=== PATIENT | male | born 1990 | race Caucasian/White ===

== ENCOUNTER 2023-09-05 00:18 | Emergency (ER) | payer OTHER, SELFPAY ==
[2023-09-05 00:22] VITALS: BP 145/82; PULSE 82; TEMP 36.9; O2SAT 99; BMI 20.9
--- NOTE | 2023-09-05 00:37 | ED_ITS ---
HPI HPI - General Adult General Chief complaint: Abdominal Pain Stated complaint: ABD PAIN Time Seen by Provider: 09/05/23 00:28 Source: patient Mode of arrival: walk-in Limitations: no limitations History of Present Illness HPI narrative: 32-year-old male presents for rectal bleeding. It has been intermittent and he thinks he might have a hemorrhoid. He is also had some mild abdominal pain but no vomiting. He has never had a hemorrhoid and he is never had any rectal bleeding. No fever or injury. He has been having this for a few days. Related Data Previous Rx's ?Medication ?Instructions ?Recorded hydrocortisone-pramoxine 1 %-1 % 1 applic MD BID #30 grams 09/05/23 rectal cream Allergies Allergy/AdvReac Type Severity Reaction Status Date / Time No Known Drug Allergies Allergy Verified 09/05/23 00:22 Opioid HPI Opioid Management Most Recent Opioid Data: No Data to Display Review of Systems ROS Narrative A ten point review of systems is negative except as noted above. Exam Narrative Exam Narrative: Nurses note and vital signs reviewed and patient is not hypoxic. General: The patient appears well and in no apparent distress. Patient is resting comfortably on cart. Skin: Warm, dry, no pallor noted. There is no rash noted. Head: Normocephalic, atraumatic Eye: Normal conjunctiva, no drainage Ears, Nose, Mouth, and Throat: oral mucosa is moist. Nares patent. Cardiovascular: Regular Rate and Rhythm Respiratory: Patient is in no distress, no accessory muscle use, lungs are clear to auscultation, no wheezing, rales or rhonchi Back: non-tender GI: Soft and nontender, no masses. Perianal exam shows a nonthrombosed external hemorrhoid with some blood present. No active bleeding Musculoskeletal: The patient has no evidence of calf tenderness, no pitting edema, symmetrical pulses noted bilaterally Neurological: A&O, normal speech Psychiatric: Cooperative Constitutional Vital Signs, click to edit/add: Last Vital Signs Temp 98.5 F 09/05/23 00:22 Pulse 82 09/05/23 00:22 Resp 17 09/05/23 00:22 BP 145/82 H 09/05/23 00:22 Pulse Ox 99 09/05/23 00:22 O2 Del Method Room Air 09/05/23 00:22 Course Vital Signs Vital signs: Vital Signs Temperature 98.5 F 09/05/23 00:22 Pulse Rate 82 09/05/23 00:22 Respiratory Rate 17 09/05/23 00:22 Blood Pressure 145/82 H 09/05/23 00:22 Pulse Oximetry 99 09/05/23 00:22 Oxygen Delivery Method Room Air 09/05/23 00:22 Temperature 98.5 F 09/05/23 00:22 Pulse Rate 82 09/05/23 00:22 Respiratory Rate 17 09/05/23 00:22 Blood Pressure 145/82 H 09/05/23 00:22 Pulse Oximetry 99 09/05/23 00:22 Oxygen Delivery Method Room Air 09/05/23 00:22 Medical Decision Making MDM Narrative Medical decision making narrative: Blood work is essentially normal, hemoglobin 12.6. He is referred to general surgery and was prescribed ProctoCream. Treatment diagnosis and follow-up were discussed with the patient. Differential Diagnosis Differential Diagnosis: External hemorrhoid, internal hemorrhoid, anal fissure Lab Data Lab results reviewed: Yes I reviewed the patient's lab results Labs: Lab Results 09/05/23 Range/Units 00:39 WBC 6.0 (4.0-11.0) 10^3/uL RBC 4.32 L (4.70-6.10) 10^6/uL Hgb 12.6 L (14.0-18.0) g/dL Hct 38.6 L (42.0-54.0) % MCV 89.4 (80.0-94.0) fL MCH 29.2 (25.9-34.0) pg MCHC 32.6 (29.9-35.2) g/dL RDW 11.9 (11.0-15.0) % Plt Count 159 (150-450) 10^3/uL MPV 11.4 (9.5-13.5) fL Neut % (Auto) 66.4 (43.0-75.0) % Lymph % (Auto) 23.9 (20.5-60.0) % [place] % (Auto) 6.2 (1.7-12.0) % Eos % (Auto) 2.5 (0.9-7.0) % Baso % (Auto) 0.8 (0.2-2.0) % Neut # (Auto) 4.0 (1.4-6.5) 10^3/uL Lymph # (Auto) 1.4 (1.2-3.8) 10^3/uL [place] # (Auto) 0.4 (0.3-0.8) 10^3/uL Eos # (Auto) 0.2 (0.0-0.7) 10^3/uL Baso # (Auto) 0.1 (0.0-0.1) 10^3/uL Abs Immat Gran (auto) 0.01 (0.00-0.03) 10^3/uL Imm/Tot Granulo (auto) 0.2 (0.0-0.5) % Sodium 139 (136-145) mmol/L Potassium 4.1 (3.5-5.1) mmol/L Chloride 102 (98-107) mmol/L Carbon Dioxide 28.8 (21.0-32.0) mmol/L Anion Gap 12.3 BUN 12.0 (7.0-18.0) mg/dL Creatinine 0.79 (0.70-1.30) mg/dL Est GFR ( Amer) >60 (>=60) Est GFR (Non-Af Amer) >60 (>=60) BUN/Creatinine Ratio 15.2 Glucose 101 (74-106) mg/dL Calcium 8.9 (8.5-10.1) mg/dL Discharge Plan Discharge Stand Alone Forms: Portal Instructions Chief Complaint: Abdominal Pain Clinical Impression: External hemorrhoid Patient Disposition: Home, Self-Care Time of Disposition Decision: 01:03 Condition: Good Mode of Transportation: Private Vehicle Prescriptions / Home Meds: New hydrocortisone-pramoxine 1-1 % cream 1 applic MD BID Qty: 30 0RF Print Language: Slovenian Instructions: Hemorrhoids (ED) Referrals: Jamison [place] MD [Physician] - 1 week Physician,Non-MD Valencia [Primary Care Provider] - 1 week
[2023-09-05 00:45] LABS: Basophils Absolute Auto 0.1 10^3/uL (0.0-0.1); Basophils Percent Auto 0.8 % (0.2-2.0); Eosinophils Absolute Auto 0.2 10^3/uL (0.0-0.7); Eosinophils Percent Auto 2.5 % (0.9-7.0); Hematocrit 38.6 % (42.0-54.0); Hemoglobin 12.6 g/dL (14.0-18.0); Immature Granulocytes Abs Auto 0.01 10^3/uL (0.00-0.03); Immature Granulocytes Pct Auto 0.2 % (0.0-0.5); Lymphocytes Absolute Auto 1.4 10^3/uL (1.2-3.8); Lymphocytes Percent Auto 23.9 % (20.5-60.0); Mean Corpuscular HGB Conc 32.6 g/dL (29.9-35.2); Mean Corpuscular Hemoglobin 29.2 pg (25.9-34.0); Mean Corpuscular Volume 89.4 fL (80.0-94.0); Mean Platelet Volume 11.4 fL (9.5-13.5); Monocytes Absolute Auto 0.4 10^3/uL (0.3-0.8); Monocytes Percent Auto 6.2 % (1.7-12.0); Neutrophils Percent Auto 66.4 % (43.0-75.0); Platelet Count 159 10^3/uL (150-450); Red Blood Count 4.32 10^6/uL (4.70-6.10); Red Cell Distribution Width 11.9 % (11.0-15.0)
[2023-09-05 00:52] LABS: Anion Gap 12.3; BUN Creatinine Ratio 15.2; Calcium 8.9 mg/dL (8.5-10.1); Carbon Dioxide 28.8 mmol/L (21.0-32.0); Chloride 102 mmol/L (98-107); Estimated GFR (African America >60 (>=60); Estimated GFR (Non-African Ame >60 (>=60); Glucose 101 mg/dL (74-106); Potassium 4.1 mmol/L (3.5-5.1); Sodium 139 mmol/L (136-145)
== END 2023-09-05 01:18 | disposition home or self-care (01) ==
PROVIDERS: Emergency Provider Emergency Medicine
DX: K64.4 Residual hemorrhoidal skin tags (principal)
CPT/HCPCS: 36415; 80048; 85025; 99283

== ENCOUNTER 2024-03-25 16:28 | Emergency (ER) | payer MEDICAID, SELFPAY ==
[2024-03-25 16:31] VITALS: BP 123/80; PULSE 98; TEMP 36.5; O2SAT 96; BMI 21.6
--- NOTE | 2024-03-25 16:43 | ED.GENADUL1 ---
HPI HPI - General Adult General Chief complaint: Allergic Reaction Stated complaint: Rash Time Seen by Provider: 03/25/24 16:30 Source: patient Mode of arrival: walk-in History of Present Illness HPI narrative: Patient presents to ED complaining of a diffuse rash. Patient states he got a Sublocade shot a month ago and he has had a rash ever since he got the shot. He does not think he is had any new lotions soaps detergents or foods that could have triggered this rash, he thinks is related to the shot. He said he said this diffuse macular itchy rash for the past month. He has not seen anybody about the rash and he has been taking Benadryl but it has not been helping. It continues to spread and itch. No shortness of breath no chest pain. No wheezing. He said his chest felt maybe a little bit tight today so he decided to come in and get evaluated because the rash just will not go away. No fevers no nausea vomiting. No other complaints at this time. Related Data Previous Rx's ?Medication ?Instructions ?Recorded hydrocortisone-pramoxine 1 %-1 % 1 applic [place] BID #30 grams 09/05/23 rectal cream Allergies Allergy/AdvReac Type Severity Reaction Status Date / Time No Known Drug Allergies Allergy Verified 03/25/24 16:34 Opioid HPI Opioid Management Most Recent Opioid Data: No Data to Display Review of Systems ROS Status of ROS 10 or more systems reviewed and unremarkable except as noted in history and below PFSH PFSH Social History Little interest or pleasure in doing things: not at all Feeling down, depressed, or hopeless: not at all Exam Narrative Exam Narrative: General: alert, no acute distress Cardiovascular: regular rate and rhythm, normal peripheral perfusion. Respiratory: Lungs CTA, respirations non labored. Extremities: no deformity, no trauma. Neurological: oriented x 4, LOC appropriate for age. Skin: Diffuse macular rash, erythematous with raised borders consistent with possible hives. No cellulitis Constitutional Vital Signs, click to edit/add: Last Vital Signs Temp 97.7 F 03/25/24 16:31 Pulse 98 H 03/25/24 16:31 Resp 16 03/25/24 16:31 BP 123/80 03/25/24 16:31 Pulse Ox 96 03/25/24 16:31 O2 Del Method Room Air 03/25/24 16:31 Course Vital Signs Vital signs: Vital Signs Temperature 97.7 F 03/25/24 16:31 Pulse Rate 98 H 03/25/24 16:31 Respiratory Rate 16 03/25/24 16:31 Blood Pressure 123/80 03/25/24 16:31 Pulse Oximetry 96 03/25/24 16:31 Oxygen Delivery Method Room Air 03/25/24 16:31 Temperature 97.7 F 03/25/24 16:31 Pulse Rate 98 H 03/25/24 16:31 Respiratory Rate 16 03/25/24 16:31 Blood Pressure 123/80 03/25/24 16:31 Pulse Oximetry 96 03/25/24 16:31 Oxygen Delivery Method Room Air 03/25/24 16:31 Medical Decision Making MDM Narrative Medical decision making narrative: Possible allergic reaction to a Sublocade shot however it is unclear at this time. Patient can continue taking Benadryl for the itching but does need to be placed on a steroid taper. Return to ED if worsening symptoms otherwise follow-up with family doctor. He is supposed to get another shot soon but he is unsure if he is going to due to the potential allergy. I explained that basically is up to him but it would maybe tell us for sure if he gets a shot and it causes another reaction. Patient states he will decide what to do with his primary care provider. Patient is alert and oriented no acute distress comfortable care plan for home. Differential Diagnosis Differential Diagnosis: Allergic reaction, [place] area, viral exanthem Discharge Plan Discharge Chief Complaint: Allergic Reaction Clinical Impression: Allergic reaction Patient Disposition: Home, Self-Care Time of Disposition Decision: 16:47 Condition: Good Mode of Transportation: Private Vehicle Prescriptions / Home Meds: No Action hydrocortisone-pramoxine 1-1 % cream 1 applic [place] BID Qty: 30 0RF Print Language: Greenlandic Instructions: General Allergic Reaction (ED) Referrals: Physician,Non-Staff, MD [Primary Care Provider] - 1 week
--- OUTSIDE RECORDS SUMMARY | 2024-03-25 16:47 | XMS_ITS | CCD ---
Author Organization [facility] Care Team Providers Care Conveyor Console Operator Name Role Phone JONNYDANIELLE Referring Unavailable DO Carmella Page Emergency Provider [phone] NO FAMILY, PHYSICIAN Primary Care Provider Unava ilable DO Jamison Norton Admit Provider DO Jamison Norton Attending Provider MD Beckie Claire Other Provider Lesvia Barrientos Other Provider Unavailable DO Amanda Valera Other Provider MD Nnamdi Hay Other Provider DO Gera Pascual Other Provider GERARDO Hairston-BC Ramona Other Provider DO Ryland Medrano Other Provider JEANIE Lynne Other Provider ROXANN Alvarado Other Provider MD Leonora Bruce Attending Provider Beckie Claire Admitting Unavailzo e Beckie Claire Attending Unavailzo e NO FAMILY, PHYSICIAN Primary Care Unavailable Jamison Norton Admitting Unavailable Beckie Claire Consulting Unavailzo e Leonora Bruce Attending Unavailable NO FAMILY, PHYSICIAN Primary Care Unavailable Lesvia Barrientos Consulting Unavailable Amanda Valera Consulting Unavailable Nnamdi Hay Consulting Unavailable Gera Pascual Consulting UnavailRamona Laguna Consulting Unavailable Ryland Medrano Consulting Unavailable Sandy Lynne Consulting Unavailable Christine Alvarado Consulting Unavailable LAWANDA TODD Admitting Unavailable RADHA, DR PANDEY LISTED Primary Care Unavaila gabrielle Liao, LAWANDA Attending Unavailable MICHELLE Liao, LAWANDA Consulting Unavailable ANA SINGLETON Consulting Unavailable MARILYN SMITH Consulting Unavailable YUMIKO Liao, DR STAFFORD Attending Unavailable YUMIKO Liao, DR STAFFORD Consulting Unavailable NELSON LUJAN Primary Care Unavailable YUMIKO Liao, DR STAFFORD Admitting Unavailable GAURANG BENITEZ Consulting Unavailable MD Beckie Claire Attending Provider MD Beckie Claire Admit Provider NO PCP, NO PCP Primary Care Unavailable DAKOTA COATES Attending Unavailable ILIA CHACKO Attending Unavailable ILIA CHACKO Referring Unavailable NO PCP, NO PCP Primary Care Unavailable NO PCP, NO PCP Primary Care Unavailable SADIQ CASILLAS Attending Unavailable Medications Current Medications Medication Drug Class(es) Dates Sig (Normalized) Sig (Original) escitalopram 5 mg oral tablet (1 source) Serotonin Reuptake Inhibitor Start: 10-11-2022 take 5 mg by mouth once daily Escitalopram Oxalate Active 5 MG PO Daily October 11, 2022 12:00am nicotine 2 mg chewing gum (1 source) Cholinergic Nicotinic Agonist Start: 10-11-2022 Nicotine (Polacrilex) Active 2 MG BUCCAL Every 2 hours 60 October 11, 2022 12:00am pantoprazole 40 mg delayed release oral tablet (1 source) Proton Pump Inhibitor Start: 10-11-2022 take 40 mg by mouth once daily Pantoprazole Active 40 MG PO Daily October 11, 2022 12:00am traZODone hydrochloride 100 mg oral tablet (1 source) Serotonin Reuptake Inhibitor Start: 10-11-2022 take 100 mg by mouth once daily at bedtime Trazodone Active 100 MG PO Daily at bedtime 14 October 11, 2022 12:00am 24 hr divalproex sodium 500 mg extended release oral tablet (1 source) Mood Stabilizer, Anti-epileptic Agent Start: 10-11-2022 take 500 mg by mouth once daily at bedtime Divalproex Active 500 MG PO Daily at bedtime October 11, 2022 12:00am Completed/Discontinued Medications Medication Drug Class(es) Dates Sig (Normalized) Sig (Original) acetaminophen 325 mg oral tablet (2 sources) Start: 08-17-2022 End: 10-07-2022 take 650 mg by mouth every six hours Acetaminophen Discontinued 650 MG PO Q6H August 17, 2022 12:00am October 07, 2022 5:38am cloNIDine hydrochloride 0.1 mg oral tablet (2 sources) Central alpha-2 Adrenergic Agonist Start: 08-17-2022 End: 10-07-2022 take 0.1 mg by mouth twice daily Clonidine Hcl Discontinued 0.1 MG PO Twice daily August 17, 2022 12:00am October 07, 2022 5:38am gabapentin 300 mg oral capsule (2 sources) Anti-epileptic Agent Start: 08-17-2022 End: 10-07-2022 take 300 mg by mouth twice daily Gabapentin Discontinued 300 MG PO Twice daily August 17, 2022 12:00am October 07, 2022 5:38am temazepam 15 mg oral capsule (2 sources) Benzodiazepine Start: 08-17-2022 End: 10-07-2022 take 15 mg by mouth once daily at bedtime Temazepam Discontinued 15 MG PO Daily at bedtime 7 August 17, 2022 12:00am October 07, 2022 5:38am Problems Active Problems Problem Classification Problem Date Documented Da te Episodic/Chronic Abdominal pain (1 source) Flank pain Onset: 12-19-2023 Episodic Allergic reactions (1 source) Urticaria, unspecified; Translations: [Urticaria, unspecified] Onset: 01-11-2024 Episodic Malaise and fatigue (1 source) Weakness; Translations: [Weakness] Onset: 08-10-2022 Episodic Mood disorders (6 sources) Recurrent major depressive episodes, moderate ; Translations: [Major depressive disorder, recurrent, moderate] Onset: 08-10-2022 08-11-2022 Chronic Other gastrointestinal disorders (1 source) Constipation, unspecified; Translations: [Constipation, unspecified] Onset: 12-19-2023 Episodic Other screening for suspected conditions (not mental disorders or infectious disease) (2 sources) Thyroid function tests abnormal; Translations: [Other specified abnormal findings of blood chemistry] 10-08-2022 Episodic Residual codes; unclassified (4 sources) Altered mental status, unspecified; Translations: [ALTERED MENTAL STATUS UNSPECIFIED] Onset: 09-18-2022 Episodic Substance-related disorders (1 source) Nicotine dependence, cigarettes, uncomplicated; Translations: [NICOTINE DEPEND CIGARETTES UNCOMP] Onset: 09-20-2022 Chronic Substance-related disorders (17 sources) Opioid withdrawal; Translations: [Opioid use, unspecified with withdrawal] Onset: 08-10-2022 08-10-2022 Episodic Unclassified (1 source) Opioid use, unspecified with withdrawal; Translations: [Opioid use, unspecified with withdrawal] Onset: 08-10-2022 Unclassified (1 source) Rash Onset: 01-11-2024 Unclassified (1 source) abdominal pain, problems urinating Onset: 12-19-2023 Past or Other Problems Problem Classification Problem Date Documented Da te Episodic/Chronic Lymphadenitis (1 source) Generalized enlarged lymph nodes; Translations: [GENERALIZED ENLARGED LYMPH NODES] Onset: 05-29-2022 Episodic Other lower respiratory disease (1 source) Solitary pulmonary nodule; Translations: [SOLITARY PULMONARY NODULE] Onset: 05-29-2022 Episodic Syncope (4 sources) Syncope and collapse; Translations: [SYNCOPE AND COLLAPSE] Onset: 05-27-2022 Episodic Results Test Name Value Interpretation Reference Range Facility CBC AND AUTO DIFFon 12-19-19 24 ABSOLUTE BASOPHIL 0.0 X10E9/L Normal 0.0-0.2 [facility] Comment on above: Performed By: #### C BCA, CMP #### [facility] ([id number]) [address] [place] [address] 44152 ABSOLUTE NEUTROPHIL 3.1 X10E9/L Normal 1.5-6.6 [facility] Comment on above: Performed By: #### C BCA, CMP #### [facility] ([id number]) [address] [place] [address] 25537 Basophils/100 WBC (Bld) 0.8 % Normal [facility] Comment on above: Performed By: #### C BCA, CMP #### [facility] ([id number]) [address] [place] [address] 96941 Eosinophils (Bld) [#/Vol] 0.2 10*3/uL Normal 0.0-0.4 [facility] Comment on above: Performed By: #### C WILLAM, CMP #### [facility] ([id number]) [address] [place] [address] 13429 Eosinophils/100 WBC (Bld) 3.8 % Normal [facility] Comment on above: Performed By: #### C WILLAM, CMP #### [facility] ([id number]) [address] [place] [address] 90647 Erythrocyte distribution width (RBC) [Ratio] 13.4 % Normal 11.5-15.0 [facility] Comment on above: Performed By: #### C WILLAM, CMP #### [facility] ([id number]) [address] [place] [address] 11456 Hematocrit (Bld) [Volume fraction] 38.1 % Low 39-49 [facility] Comment on above: Performed By: #### C WILLAM, CMP #### [facility] ([id number]) [address] [place] [address] 66169 Hemoglobin (Bld) [Mass/Vol] 12.7 g/dL Low 13.0-17.0 [facility] Comment on above: Performed By: #### C WILLAM, CMP #### [facility] ([id number]) [address] [place] [address] 08031 Lymphocytes (Bld) [#/Vol] 1.2 10*3/uL Normal 1.0-3.5 [facility] Comment on above: Performed By: #### C WILLAM, CMP #### [facility] ([id number]) [address] [place] [address] 06443 Lymphocytes/100 WBC (Bld) 25.4 % Normal [facility] Comment on above: Performed By: #### C WILLAM, CMP #### [facility] ([id number]) [address] [place] [address] 95496 MCH (RBC) [Entitic mass] 29.3 pg Normal 27-34 [facility] Comment on above: Performed By: #### C BCA, CMP #### [facility] ([id number]) [address] [place] [address] 07518 MCHC (RBC) [Mass/Vol] 33.4 g/dL Normal 32-36 [facility] Comment on above: Performed By: #### C BCA, CMP #### [facility] ([id number]) [address] [place] [address] 42548 MCV (RBC) [Entitic vol] 88 fL Normal 80-100 [facility] Comment on above: Performed By: #### C BCA, CMP #### [facility] ([id number]) [address] [place] [address] 83279 Monocytes (Bld) [#/Vol] 0.4 10*3/uL Normal 0-0.9 [facility] Comment on above: Performed By: #### C WILLAM, CMP #### [facility] ([id number]) [address] [place] [address] 57173 Monocytes/100 WBC (Bld) 7.3 % Normal [facility] Comment on above: Performed By: #### C BCA, CMP #### [facility] ([id number]) [address] [place] [address] 14110 Neutrophils/100 WBC (Bld) 62.7 % Normal [facility] Comment on above: Performed By: #### C BCA, CMP #### [facility] ([id number]) [address] [place] [address] 30890 Platelet mean volume (Bld) [Entitic vol] 9.3 fL Normal 7-12 [facility] Comment on above: Performed By: #### C BCA, CMP #### [facility] ([id number]) [address] [place] [address] 05175 Platelets (Bld) [#/Vol] 155 10*3/uL Normal 150-450 [facility] Comment on above: Performed By: #### C BCA, CMP #### [facility] ([id number]) [address] [place] [address] 54907 RBC COUNT 4.34 X10E12/L Normal 4.10-5.70 [facility] Comment on above: Performed By: #### C BCA, CMP #### [facility] ([id number]) [address] [place] [address] 70739 WBC (Bld) [#/Vol] 4.9 10*3/uL Normal 4.0-11.0 [facility] Comment on above: Performed By: #### C BCA, CMP #### [facility] ([id number]) [address] [place] [address] 71444 COMPREHENSIVE METABOLIC PANE Cornelio 12-19-2023 Albumin [Mass/Vol] 4.1 g/dL Normal 3.2-5.3 [facility] Comment on above: Performed By: #### C BCA, CMP #### [facility] ([id number]) [address] [place] [address] 59528 ALP [Catalytic activity/Vol] 63 U/L Normal 39-130 [facility] Comment on above: Performed By: #### C BCA, CMP #### [facility] ([id number]) [address] [place] [address] 66358 ALT [Catalytic activity/Vol] 14 U/L Normal 0-40 [facility] Comment on above: Performed By: #### C BCA, CMP #### [facility] ([id number]) [address] [place] [address] 60186 Anion gap [Moles/Vol] 6 mmol/L Normal 5-15 [facility] Comment on above: Performed By: #### C BCA, CMP #### [facility] ([id number]) [address] [place] [address] 95147 AST [Catalytic activity/Vol] 15 U/L Normal 0-41 [facility] Comment on above: Performed By: #### C BCA, CMP #### [facility] ([id number]) [address] [place] [address] 11660 Bilirubin [Mass/Vol] 0.5 mg/dL Normal 0.3-1.2 [facility] Comment on above: Performed By: #### C BCA, CMP #### [facility] ([id number]) [address] [place] [address] 85048 Calcium [Mass/Vol] 8.6 mg/dL Normal 8.5-10.5 [facility] Comment on above: Performed By: #### C BCA, CMP #### [facility] ([id number]) [address] [place] [address] 02899 Chloride [Moles/Vol] 103 mmol/L Normal 98-109 [facility] Comment on above: Performed By: #### C BCA, CMP #### [facility] ([id number]) [address] [place] [address] 54996 CO2 [Moles/Vol] 27 mmol/L Normal 22-32 [facility] Comment on above: Performed By: #### C BCA, CMP #### [facility] ([id number]) [address] [place] [address] 78240 Creatinine [Mass/Vol] 0.83 mg/dL Normal 0.70-1.20 [facility] Comment on above: Result Comment: METH OD TRACEABLE TO IDMS STANDARD Performed By: #### C BCA, CMP #### [facility] ([id number]) [address] [place] [address] [place] [address] eGFR (CKD-EPI) NON-RACE DEPENDENT >90 Normal >59 [facility] Comment on above: Result Comment: Reported eGFR is based on the CKD-EPI 2020 equation that does not use a race coefficient. Performed By: #### C BCA, CMP #### [facility] ([id number]) [address] [place] [address] 72254 Glucose [Mass/Vol] 86 mg/dL Normal 65-99 [facility] Comment on above: Performed By: #### C BCA, CMP #### [facility] ([id number]) [address] [place] [address] 37173 Potassium [Moles/Vol] 3.9 mmol/L Normal 3.5-5.0 [facility] Comment on above: Performed By: #### C BCA, CMP #### [facility] ([id number]) [address] [place] [address] 58436 Protein [Mass/Vol] 7.2 g/dL Normal 6.0-8.0 [facility] Comment on above: Performed By: #### C BCA, CMP #### [facility] ([id number]) [address] [place] [address] 02203 Sodium [Moles/Vol] 136 mmol/L Normal 134-146 [facility] Comment on above: Performed By: #### C BCA, CMP #### [facility] ([id number]) [address] [place] [address] 12312 Urea nitrogen [Mass/Vol] 15 mg/dL Normal 5-23 [facility] Comment on above: Performed By: #### C BCA, CMP #### [facility] ([id number]) [address] [place] [address] ABDOMEN AND PELVIS WO CON Ton 12-19-2023 CT ABDOMEN AND PELVIS WO CONT CT ABDOMEN AND PELVIS WO CONT CLINICAL INFORMATION: Abdominal/flank pain, stone suspected. TECHNIQUE: CT Abdomen and Pelvis without intravenous contrast. All CT scans at this facility use dose modulation, iterative reconstruction, and/or weight based dosing when appropriate to reduce radiation dose to as low as reasonably achievable. COMPARISON: No relevant prior studies available. FINDINGS: No stone or collecting system dilatation. No contour deforming renal mass. No bladder calculus. Scattered small lung nodules, for example right lower lobe anteriorly near nodules largest 4 mm (2/4), nodules along the left major fissure 3 mm likely perifissural. No hepatic mass. No biliary dilatation. Normal gallbladder. Spleen, pancreas, adrenals unremarkable. No bowel obstruction. Normal terminal ileum, normal appendix. There is small volume free pelvic fluid, uncertain etiology and clinical significance in this male patient. No free air. No enlarged lymph nodes. No abdominal aortic aneurysm. No suspicious osseous process. Multilevel Schmorl's nodes. IMPRESSION: * No stone or collecting system dilatation. * There is small volume free pelvic fluid, uncertain etiology and clinical significance in this male patient. * Small lung nodules. In a low-risk patient, no further follow-up is warranted. In a high-risk patient, consider optional follow-up in 12 months. Adapted from the Recommendations for Follow-up and Management of Indeterminate Lung Nodules Detected Incidentally on Non-screening CT (Adapted from the 2017 Fleischner Society Recommendations for Management of Incidental Pulmonary Nodules (Radiology 2017) http://pubs.rsna.org/ doi/full/10.1148/radi ol.5669581678 These recommendations refer to incidentally encountered lung nodules detected at CT in adult patients who are at least 35 years old. If MULTIPLE nodules, use the most suspicious nodule to guide management. Diameter = average width. SOLID NODULES: < 6 mm (single or multiple): LOW RISK Patient: No follow up CT HIGH RISK Patient: Optional CT at 12 months. If unchanged, no additional CT *Note: Nodules < 6 mm may still warrant 12 month follow-up in high risk patients with suspicious nodule morphology, upper lobe location or both. 6 - 8 mm (regardless of risk): SINGLE NODULE: CT at 12 months, then consider CT at 24 months MULTIPLE NODULES: CT at 6 & 24 months *For either of the above, if no change, no further follow up CT > 8 mm (regardless of risk): SINGLE NODULE: CT at 3 months, PET/CT or tissue sampling, consider referral to pulmonary medicine MULTIPLE NODULES: CT at 3, 12 & 24 months; if no change, no further follow up NON SOLID NODULES (non solid AKA ground glass; and part solid) < 6 mm (regardless of risk and if nonsolid or part solid): SINGLE NODULE: No follow up CT MULTIPLE NODULES: CT at 6 months; if unchanged, consider CT at 2 & 4 years 6 - 8 mm (regardless of risk): SINGLE NON SOLID: CT at 12 months; if unchanged, then CT at 3 & 5 years SINGLE PART SOLID: CT at 6 & 12 months; if unchanged & solid component remains < 6 mm, then annual CT for 5 years MULTIPLE NODULES: management as above based on most suspicious nodule NOTES & CAVEATS: 1. HIGH RISK = history of cigarette smoking or other known risk factors for lung cancer 2. LOW RISK = minimal or absent history of cigarette smoking or other known risk factors 3. Nodules with a ground glass component may require longer follow up to exclude indolent adenocarcinoma 4. Not intended for use in patients with known primary cancers who are at risk for metastases, immunocompromised patients who are at risk for infection 5. Not intended for use in children and adults younger than 35 years in whom lung cancer is rare young patients, management decisions should be made on a [id number]-by-[id number] basis, and the physician should recognize that infectious causes are more likely than cancer and that use of serial CT should be minimized. Finalized by Nitish Bell MD on 12/19/2023 7:52 PM Normal [facility] Alanine aminotransferase [En zymatic activity/volume] in Serum or PlasmaOrdered By: Master Claire on 10-08-2022 ALT [Catalytic activity/Vol] 48 U/L 7-52 [facility] Albumin [Mass/volume] in Ser um or Plasma by Bromocresol green (BCG) dye binding methoOrdered By: Master Claire on 10-08-2022 Albumin BCG dye [Mass/Vol] 3.7 g/dL 3.5-5.7 [facility] Alkaline phosphatase [Enzyma tic activity/volume] in Serum or PlasmaOrdered By: Master Claire on 10-08-2022 ALP [Catalytic activity/Vol] 59 U/L 34-104 [facility] Aspartate aminotransferase [ Enzymatic activity/volume] in Serum or PlasmaOrdered By: Master Claire on 10-08-2022 AST [Catalytic activity/Vol] 65 U/L 13-39 [facility] Basophils Auto (Bld) [#/Vol] Ordered By: Master Claire on 10-08-2022 Basophils (Bld) [#/Vol] 0.0 10*3/uL 0.0-0.2 [facility] Basophils/100 WBC Auto (Bld) Ordered By: Master Claire on 10-08-2022 Basophils/100 WBC (Bld) 0.9 % . [facility] Bilirubin.total [Mass/volume ] in Serum or PlasmaOrdered By: Master Claire on 10-08-2022 Bilirubin [Mass/Vol] 0.3 mg/dL 0.3-1.0 [facility] Calcium [Mass/volume] in Ser um or PlasmaOrdered By: Master Claire on 10-08-2022 Calcium [Mass/Vol] 8.5 mg/dL 8.6-10.3 [facility] Carbon dioxide, total [Moles /volume] in Serum or PlasmaOrdered By: Master Claire on 10-08-2022 CO2 [Moles/Vol] 25.0 mmol/L 21.0-31.0 [facility] Chloride [Moles/volume] in S maritza or PlasmaOrdered By: Master Claire on 10-08-2022 Chloride [Moles/Vol] 109 mmol/L 98-107 [facility] Cholesterol [Mass/volume] in Serum or PlasmaOrdered By: Master Claire on 10-08-2022 Cholesterol [Mass/Vol] 102 mg/dL 140-200 [facility] Comment on above: Chol less than 200 m g/dl low riskChol 201-239 mg/dl borderline riskChol 240 mg/dl and greater high risk Cholesterol in LDL Calc [Mas s/Vol]Ordered By: Master Claire on 10-08-2022 Cholesterol in LDL [Mass/Vol] 56 mg/dL 0-100 [facility] Comment on above: LDL ATP III CLASSIFI CATIONLDL less than 100 mg/dL OptimalLDL 100-129 mg/dL Near or above optimalLDL 130-159 mg/dL Borderline highLDL 160-189 mg/dL HighLDL greater than 189 mg/dL Very high Cholesterol in VLDL Calc [Ma ss/Vol]Ordered By: Master Claire on 10-08-2022 Cholesterol in VLDL [Mass/Vol] 14 mg/dL [facility] Creatinine [Mass/volume] in Serum or PlasmaOrdered By: Master Claire on 10-08-2022 Creatinine [Mass/Vol] 0.70 mg/dL 0.70-1.30 [facility] Eosinophils Auto (Bld) [#/Vo l]Ordered By: Master Claire on 10-08-2022 Eosinophils (Bld) [#/Vol] 0.1 10*3/uL 0.0-0.45 [facility] Eosinophils/100 WBC Auto (Bl d)Ordered By: Master Claire on 10-08-2022 Eosinophils/100 WBC (Bld) 1.4 % . [facility] Erythrocyte distribution wid th Auto (RBC) [Ratio]Ordered By: Master Claire on 10-08-2022 Erythrocyte distribution width (RBC) [Ratio] 14.6 % 12.0-14.8 [facility] Globulin Calc (S) [Mass/Vol] Ordered By: Master Claire on 10-08-2022 Globulin (S) [Mass/Vol] 2.5 g/dL [facility] Glucose [Mass/volume] in Ser um or PlasmaOrdered By: Master Claire on 10-08-2022 Glucose [Mass/Vol] 97 mg/dL 70-100 [facility] Comment on above: ADA recommended refe rence rangeRandom Glucose Reference Range is dependent on time and content of last meal. Glucose of more than 200 mg/dL in a nonstressed, ambulatory subject supports the diagnosis of Diabetes Mellitus. Hematocrit Auto (Bld) [Volum e fraction]Ordered By: Master Claire on 10-08-2022 Hematocrit (Bld) [Volume fraction] 35.7 % 38.8-50.0 [facility] Hemoglobin [Mass/volume] in BloodOrdered By: Master Claire on 10-08-2022 Hemoglobin (Bld) [Mass/Vol] 12.0 g/dL 13.0-17.0 [facility] Leukocytes [#/volume] correc fritz for nucleated erythrocytes in Blood by Automated counOrdered By: Master Claire on 10-08-2022 WBC corrected for nucl RBC Auto (Bld) [#/Vol] 5.4 10*3/uL 4.1-10.5 [facility] Lymphocytes Auto (Bld) [#/Vo l]Ordered By: Master Claire on 10-08-2022 Lymphocytes (Bld) [#/Vol] 1.5 10*3/uL 1.00-4.8 [facility] Lymphocytes/100 WBC Auto (Bl d)Ordered By: Master Claire on 10-08-2022 Lymphocytes/100 WBC (Bld) 28.6 % . [facility] MCH Auto (RBC) [Entitic mass ]Ordered By: Master Claire on 10-08-2022 MCH (RBC) [Entitic mass] 28.7 pg 27.5-35.2 [facility] MCHC Auto (RBC) [Mass/Vol]Or dered By: Master Claire on 10-08-2022 MCHC (RBC) [Mass/Vol] 33.6 g/dL 32.5-35.6 [facility] MCV Auto (RBC) [Entitic vol] Ordered By: Master Claire on 10-08-2022 MCV (RBC) [Entitic vol] 85.3 fL 83.5-101 [facility] Monocytes Auto (Bld) [#/Vol] Ordered By: Master Claire on 10-08-2022 Monocytes (Bld) [#/Vol] 0.4 10*3/uL 0.0-0.8 [facility] Monocytes/100 WBC Auto (Bld) Ordered By: Master Claire on 10-08-2022 Monocytes/100 WBC (Bld) 8.1 % . [facility] Neutrophils Auto (Bld) [#/Vo l]Ordered By: Master Claire on 10-08-2022 Neutrophils (Bld) [#/Vol] 3.3 10*3/uL 1.8-7.7 [facility] Neutrophils/100 WBC Auto (Bl d)Ordered By: Master Claire on 10-08-2022 Neutrophils/100 WBC (Bld) 61.0 % . [facility] No Panel InformationOrdered By: Master Claire on 10-08-2022 Estimated GFR (CKD-EPI) > 60.0 mL/Min [facility] Creatinine Clearance (Chem 145.80 [facility] Nucleated erythrocytes [Pres ence] in Blood by Automated countOrdered By: Master Claire on 10-08-2022 Nucleated RBC Auto Ql (Bld) 0.1 /100{WBC} 0-0.5 [facility] Platelet mean volume Auto (B ld) [Entitic vol]Ordered By: Master Claire on 10-08-2022 Platelet mean volume (Bld) [Entitic vol] 9.4 fL 6.6-10.1 [facility] Platelets Auto (Bld) [#/Vol] Ordered By: Master Claire on 10-08-2022 Platelets (Bld) [#/Vol] 175 10*3/uL 150-450 [facility] Potassium [Moles/volume] in Serum or PlasmaOrdered By: Master Claire on 10-08-2022 Potassium [Moles/Vol] 3.5 mmol/L 3.5-5.1 [facility] Protein [Mass/volume] in Ser um or PlasmaOrdered By: Master Claire on 10-08-2022 Protein [Mass/Vol] 6.2 g/dL 6.4-8.9 [facility] RBC Auto (Bld) [#/Vol]Ordere d By: Master Claire on 10-08-2022 RBC (Bld) [#/Vol] 4.19 10*6/uL 3.90-5.60 [facility] Serum or plasma albumin/glob ulin mass ratioOrdered By: Master Claire on 10-08-2022 Albumin/Globulin [Mass ratio] 1.5 {ratio} [facility] Serum or plasma anion gap de terminationOrdered By: Master Claire on 10-08-2022 Anion gap [Moles/Vol] 9.5 mmol/L 6.0-15.0 [facility] Serum or plasma high density lipoprotein (HDL) cholesterol measurementOrdered By: Master Claire on 10-08-2022 Cholesterol in HDL [Mass/Vol] 31 mg/dL 29-71 [facility] Comment on above: HDL CHOL ATP-III CLA SSIFICATION Cardiovascular RiskHDL > or equal to 60 mg/dL LOWHDL < 40 mg/dL HIGH Serum or plasma total choles terol/high density lipoprotein (HDL) cholesterol mass ratOrdered By: Master Claire on 10-08-2022 Cholesterol.total/Jocy sterol in HDL [Mass ratio] 3.3 {ratio} <5.0 [facility] Sodium [Moles/volume] in Ser um or PlasmaOrdered By: Master Claire on 10-08-2022 Sodium [Moles/Vol] 140 mmol/L 136-145 [facility] Thyrotropin [Units/volume] i n Serum or PlasmaOrdered By: Master Claire on 10-08-2022 TSH Qn 0.17 m[IU]/L 0.45-5.33 [facility] Thyroxine (T4) free [Mass/vo lume] in Serum or PlasmaOrdered By: Master Claire on 10-08-2022 Free T4 [Mass/Vol] 1.00 ng/dL 0.61-1.12 [facility] Triglyceride [Mass/volume] i n Serum or PlasmaOrdered By: Master Claire on 10-08-2022 Triglyceride [Mass/Vol] 74 mg/dL 0-149 [facility] Comment on above: TRIG ATP III CLASSIF ICATIONTRIG less than 150 mg/dL NormalTRIG 150-199 mg/dL Borderline highTRIG 200-500 mg/dL High TRIG greater than 500 mg/dL Very highStandard traceable to the Center for Disease Conrtrol and Prevention (CDC) test method. Urea nitrogen [Mass/volume] in Serum or PlasmaOrdered By: Master Claire on 10-08-2022 Urea nitrogen [Mass/Vol] 8 mg/dL 7-25 [facility] Vitamin D+Metabolites [Mass/ volume] in Serum or PlasmaOrdered By: Master Claire on 10-08-2022 Vitamin D+Metabolites [Mass/Vol] 19.0 ng/mL 30-100 [facility] Comment on above: VITAMIN D STATUS 25( [place])VITAMIN D RANGE (ng/mL) Deficient <20 Insufficient 20 to <30Sufficient 30 to 100Reference: Irma MF,Emily NC, Hayley WIGGINS, et al. Evaluation,treatment, and prevention of vitamin D deficiency; an Endocrine Society clinical practice guideline. JCEM. 2010; 96(7):1911-30. WBC Auto (Bld) [#/Vol]Ordere d By: Master Claire on 10-08-2022 WBC (Bld) [#/Vol] 5.4 10*3/uL 4.1-10.5 [facility] ACETAMINOPHENon 09-18-2022 Acetaminophen [Mass/Vol] ug/mL Critically low 10.0-30.0 [facility] Comment on above: Performed By: #### A CET, HARPREET, CMP ####[facility] [id number] [place], [place] [address]TkDr. Janell Smith AMMONIAon 09-18-2022 Ammonia (P) [Moles/Vol] 14 umol/L Normal 11-32 [facility] Comment on above: Performed By: #### A MM #### [facility] [address] [place], [place] [address] Dr. Janell Smith CBC AUTO DIFFon 09-18-2022 BASO # 0.0 103/ul Normal 0.0-0.1 [facility] Comment on above: Performed By: #### C BC #### [facility] [address] [place] [address] Dr. Janell Smith Basophils/100 WBC (Bld) 0.9 % Normal 0.2-2.0 [facility] Comment on above: Performed By: #### C BC #### [facility] [address] [place] [address] Dr. Janell Smith EO # 0.1 103/ul Normal 0.0-0.7 [facility] Comment on above: Performed By: #### C BC #### [facility] [address] [place] [address] Dr. Janell Smith Eosinophils/100 WBC (Bld) 3.2 % Normal 0.9-7.0 [facility] Comment on above: Performed By: #### C BC #### [facility] [address] [place] [address] Dr. Janell Smith Erythrocyte distribution width (RBC) [Ratio] 14.5 % Normal 11.0-15.0 [facility] Comment on above: Performed By: #### C BC #### [facility] [address] [place] [address] Dr. Janell Smith Hematocrit (Bld) [Volume fraction] 40.0 % Critically low 42.0-54.0 [facility] Comment on above: Performed By: #### C BC #### [facility] [address] [place] [address] Dr. Janell Smith Hemoglobin (Bld) [Mass/Vol] 12.5 g/dL Critically low 14.0-18.0 [facility] Comment on above: Performed By: #### C BC #### [facility] [address] [place] [address] Dr. Janell Smith IG # 0.02 10e3/ul Normal 0.00-0.03 [facility] Comment on above: Performed By: #### C BC #### [facility] [address] [place] [address] Dr. Janell Smith IG % 0.5 % Normal 0.0-0.5 [facility] Comment on above: Performed By: #### C BC #### [facility] [address] [place] [address] Dr. Janell Smith LYMPH # 1.7 103/ul Normal 1.2-3.8 [facility] Comment on above: Performed By: #### C BC #### [facility] [address] [place] [address] Dr. Janell Smith Lymphocytes/100 WBC (Bld) 40.1 % Normal 20.5-60.0 [facility] Comment on above: Performed By: #### C BC #### [facility] [address] [place] [address] Dr. Janell Smith MANUAL DIFF REQ NO Normal [facility] Comment on above: Performed By: #### C BC #### [facility] [address] [place] [address] Dr. Janell Smith MCH (RBC) [Entitic mass] 28.7 pg Normal 25.9-34.0 [facility] Comment on above: Performed By: #### C BC #### [facility] [address] [place] [address] Dr. Janell Smith MCHC (RBC) [Mass/Vol] 31.3 g/dL Normal 29.9-35.2 [facility] Comment on above: Performed By: #### C BC #### [facility] [address] [place] [address] Dr. Janell Smith MCV (RBC) [Entitic vol] 92.0 fL Normal 80.0-94.0 [facility] Comment on above: Performed By: #### C BC #### [facility] [address] [place] [address] Dr. Janell Smith MONO # 0.5 103/ul Normal 0.3-0.8 [facility] Comment on above: Performed By: #### C BC #### [facility] [address] [place] [address] Dr. Janell Smith Monocytes/100 WBC (Bld) 10.6 % Normal 1.7-12.0 [facility] Comment on above: Performed By: #### C BC #### [facility] [address] [place] [address] Dr. Janell Smith NEUT # 1.9 103/ul Normal 1.4-6.5 [facility] Comment on above: Performed By: #### C BC #### [facility] [address] [place] [address] Dr. Janell Smith Neutrophils/100 WBC (Bld) 44.7 % Normal 43.0-75.0 [facility] Comment on above: Performed By: #### C BC #### [facility] [address] [place] [address] Dr. Janell Smith Platelet mean volume (Bld) [Entitic vol] 10.6 fL Normal 9.5-13.5 [facility] Comment on above: Performed By: #### C BC #### [facility] [address] [place] [address] Dr. Janell Smith PLT 203 103/ul Normal 150-450 [facility] Comment on above: Performed By: #### C BC #### [facility] [address] [place] [address] Dr. Janell Smith RBC 4.35 106/ul Critically low 4.70-6.10 [facility] Comment on above: Performed By: #### C BC #### [facility] [address] [place] [address] Dr. Janell Smith WBC 4.3 103/ul Normal 4.0-11.0 [facility] Comment on above: Performed By: #### C BC #### [facility] [address] [place], [place] [id number] Dr. Janell Smith CT HEAD WO CONon 09-18-2022 CT HEAD WO CON EXAMINATION: CT HEAD WO CON HISTORY: Acute confusion COMPARISON: 05/27/2022 TECHNIQUE: CT examination of the head without IV contrast. Dose reduction techniques were achieved by using automated exposure control and/or adjustment of mA and/or kV according to patient size and/or use of iterative reconstruction technique. FINDINGS: No acute intracranial hemorrhage. No acute loss of whiteside/white differentiation. The ventricles and sulci are normal in appearance. The osseous structures are unremarkable. No soft tissue abnormality identified. The paranasal sinuses and mastoid air cells are clear. IMPRESSION: 1. No acute intracranial abnormality. Electronically authenticated by: GAURANG BENITEZ Date: 2022-09-18 13:18 Normal [facility] ETHANOL (BLD ALC)on 09-19-19 23 ALC NOTE NOTE: 80 mg/dl is th e legal limit for a blood alcohol level Normal [facility] Comment on above: Performed By: #### E TH #### [facility] [address] [place] [address] Dr. Janell Smith Ethanol [Mass/Vol] mg/dL Normal [facility] Comment on above: Performed By: #### E TH #### [facility] [address] [place] [address] Dr. Janell Smith PROF 14(COMP METB)on 023 Albumin [Mass/Vol] 3.5 g/dL Normal 3.4-5.0 [facility] Comment on above: Performed By: #### A HARPREET RODRIGUEZ, CMP #### [facility] [address] [place] [address] Dr. Janell Smith Albumin/Globulin [Mass ratio] 1.0 {ratio} Normal [facility] Comment on above: Performed By: #### A HARPREET RODRIGUEZ, CMP #### [facility] [address] [place] [address] Dr. Janell Smith ALP [Catalytic activity/Vol] 73 U/L Normal 46-116 [facility] Comment on above: Performed By: #### A CETSYMONEYC, CMP #### [facility] [address] [place] [address] Dr. Janell Smith ALT [Catalytic activity/Vol] 33 U/L Normal 16-63 [facility] Comment on above: Performed By: #### A CETSYMONEYC, CMP #### [facility] [address] [place] [address] Dr. Janell Smith Anion gap [Moles/Vol] 8.9 mmol/L Normal [facility] Comment on above: Performed By: #### A CET SALYC, CMP #### [facility] [address] [place] [address] Dr. Janell Smith AST [Catalytic activity/Vol] 52 U/L Critically high 15-37 [facility] Comment on above: Performed By: #### A CET SALYC, CMP #### [facility] [address] [place] [address] Dr. Janell Smith Bilirubin [Mass/Vol] 0.2 mg/dL Normal 0.2-1.0 [facility] Comment on above: Performed By: #### A CET SALYC, CMP #### [facility] [address] [place] [address] Dr. Janell Smith Calcium [Mass/Vol] 8.6 mg/dL Normal 8.5-10.1 [facility] Comment on above: Performed By: #### A JENNIFER SALYC, CMP #### [facility] [address] [place] [address] Dr. Janell Smith Chloride [Moles/Vol] 106 mmol/L Normal 98-107 [facility] Comment on above: Performed By: #### A CET SALYC, CMP #### [facility] [address] [place] [address] Dr. Janell Smith CO2 [Moles/Vol] 29.0 mmol/L Normal 21.0-32.0 [facility] Comment on above: Performed By: #### A CET SALYC, CMP #### [facility] [address] [place] [address] Dr. Janell Smith Creatinine [Mass/Vol] 0.89 mg/dL Normal 0.70-1.30 [facility] Comment on above: Performed By: #### A CET SALYC, CMP #### [facility] [address] [place] [address] Dr. Janell Smith EGFR-AF IRAQI >60 Normal >=60 [facility] Comment on above: Performed By: #### A CET SALYC, CMP #### [facility] [address] [place] [address] [address] Janell Smith EGFR-NON AF IRAQI >60 Normal >=60 [facility] Comment on above: Performed By: #### A HARPREET RODRIGUEZ, CMP #### [facility] [address] [place] [address] Dr. Janell Smith Globulin (S) [Mass/Vol] 3.5 g/dL Normal [facility] Comment on above: Performed By: #### A HARPREET RODRIGUEZ, CMP #### [facility] [address] [place] [address] Dr. Janell Smith Glucose [Mass/Vol] 98 mg/dL Normal 74-106 [facility] Comment on above: Performed By: #### A HARPREET RODRIGUEZ, CMP #### [facility] [address] [place] [address] Dr. Janell Smith Potassium [Moles/Vol] 3.9 mmol/L Normal 3.5-5.1 [facility] Comment on above: Performed By: #### A HARPREET RODRIGUEZ, CMP #### [facility] [address] [place] [address] Dr. Janell Smith Protein [Mass/Vol] 7.0 g/dL Normal 6.4-8.2 [facility] Comment on above: Performed By: #### A HARPREET RODRIGUEZ, CMP #### [facility] [address] [place] [address] Dr. Janell Smith Sodium [Moles/Vol] 140 mmol/L Normal 136-145 [facility] Comment on above: Performed By: #### A HARPREET RODRIGUEZ, CMP #### [facility] [address] [place] [address] Dr. Janell Smith Urea nitrogen [Mass/Vol] 8.0 mg/dL Normal 7.0-18.0 [facility] Comment on above: Performed By: #### A HARPREET RODRIGUEZ, CMP #### [facility] [address] [place] [address] Dr. Janell Smith Urea nitrogen/Creatinine [Mass ratio] 9.0 mg/mg Normal [facility] Comment on above: Performed By: #### A CET, SALYC, CMP #### [facility] [address] [place], [place] [address] Dr. Janell Smith SALICYLATEon 09-18-2022 SALICYLATE <2.8 Normal <=19.9 [facility] Comment on above: Performed By: #### A CET, SALYC, CMP ####[facility] [address] [place], [place] [address]YcDr. Janell Smith Basic Metabolic Panelon Anion gap [Moles/Vol] 11.0 mmol/L Normal 6.0-15.0 [facility] Comment on above: Performed By: #### C BC, PRL, LACTIC, BMP #### [facility] [address] Calcium [Mass/Vol] 9.2 mg/dL Normal 8.6-10.3 [facility] Comment on above: Performed By: #### C BC, PRL, LACTIC, BMP #### [facility] [address] [place] [address] [place] Chloride [Moles/Vol] 107 mmol/L Normal 98-107 [facility] Comment on above: Performed By: #### C BC, PRL, LACTIC, BMP #### [facility] [address] CO2 [Moles/Vol] 25.7 mmol/L Normal 21.0-31.0 [facility] Comment on above: Performed By: #### C BC, PRL, LACTIC, BMP #### [facility] [address] Creatinine [Mass/Vol] 0.78 mg/dL Normal 0.70-1.30 [facility] Comment on above: Performed By: #### C BC, PRL, LACTIC, BMP #### [facility] [address] [place] [address] [place] Creatinine Clr Calc Pharmacy 109.23 Normal [facility] Comment on above: Result Comment: PERF ORMED BY: [place] [id number] PATHOLOGIST [employer]LL OPERATOR HELPER CABLE TOOL REY MARVIN M.D. Performed By: #### C BC, PRL, LACTIC, BMP #### [facility] [address] [place] [address] [place] GFR/1.73 sq M.predicted MDRD (S/P/Bld) [Vol rate/Area] mL/min/{1.73_m2} Normal [facility] Comment on above: Performed By: #### C BC, PRL, LACTIC, BMP #### [facility] [address] Glucose [Mass/Vol] 93 mg/dL Normal 70-100 [facility] Comment on above: Result Comment: [facility] Glucose Reference Range is dependent on time and content of last meal. Glucose of more than 200 mg/dL in a nonstressed, ambulatory subject supports the diagnosis of Diabetes Mellitus. ADA recommended reference range Performed By: #### C BC, PRL, LACTIC, BMP #### [facility] [address] Potassium [Moles/Vol] 3.7 mmol/L Normal 3.5-5.1 [facility] Comment on above: Performed By: #### C BC, PRL, LACTIC, BMP #### [facility] [address] [place] [address] [place] Sodium [Moles/Vol] 140 mmol/L Normal 136-145 [facility] Comment on above: Performed By: #### C BC, PRL, LACTIC, BMP #### [facility] [address] [place] [address] [place] Urea nitrogen [Mass/Vol] 9 mg/dL Normal 7-25 [facility] Comment on above: Performed By: #### C BC, PRL, LACTIC, BMP #### [facility] [address] [place] [address] [place] Calcium [Mass/volume] in Ser um or PlasmaOrdered By: Leonora Bruce on 08-16-2022 Calcium [Mass/Vol] 9.2 mg/dL 8.6-10.3 [facility] Carbon dioxide, total [Moles /volume] in Serum or PlasmaOrdered By: Leonora Bruce on 08-16-2022 CO2 [Moles/Vol] 25.7 mmol/L 21.0-31.0 [facility] Chloride [Moles/volume] in S maritza or PlasmaOrdered By: Leonora Bruce on 08-16-2022 Chloride [Moles/Vol] 107 mmol/L 98-107 [facility] Creatinine [Mass/volume] in Serum or PlasmaOrdered By: Leonora Bruce on 08-16-2022 Creatinine [Mass/Vol] 0.78 mg/dL 0.70-1.30 [facility] ECG 12 lead ECGon 08-16-2022 ECG 12 lead ECG [facility] [place] [address] Electrocardiograph Report Signed Patient: Lesley Adams MR#: [id number] : 1990 Acct:[id number] Age/Sex: 31 / M ADM Date: 08/10/22 Loc: Room: [address] [place] [address] Type: ADM IN Attending Dr: Leonora Bruce MD Ordering Provider: Leonora Bruce MD Date of Service: 08/16/2210/03/499 ECG/ECG 12 lead ECG: OT Copies to: Test Reason : Blood Pressure : / mmHG Vent. Rate : 070 BPM Atrial Rate : 070 BPM P-R Int : 146 ms QRS Dur : 090 ms QT Int : 440 ms P-R-T Axes : 078 089 079 degrees QTc Int : 475 ms Sinus rhythm with occasional premature ventricular complexes Otherwise normal ECG When compared with ECG of 15-AUG-2022 08:18, premature ventricular complexes are now present Confirmed by STUART ARBOLEDA [facility] ([id number]) on 08/16/2022 4:36:34 PM Referred By: Electronically Signed By:CARMELLA DAVIDSON MD [facility] Transcribed By: MUS Signed By Rishabh Davidson MD 08/16/22 1636 [facility] Glucose [Mass/volume] in Ser um or PlasmaOrdered By: Leonora Bruce on 08-16-2022 Glucose [Mass/Vol] 93 mg/dL 70-100 [facility] Comment on above: ADA recommended refe rence rangeRandom Glucose Reference Range is dependent on time and content of last meal. Glucose of more than 200 mg/dL in a nonstressed, ambulatory subject supports the diagnosis of Diabetes Mellitus. No Panel InformationOrdered By: Leonora Bruce on 08-16-2022 Estimated GFR (CKD-EPI) > 60.0 mL/Min [facility] Creatinine Clearance (Chem 109.23 [facility] Potassium [Moles/volume] in Serum or PlasmaOrdered By: Leonora Bruce on 08-16-2022 Potassium [Moles/Vol] 3.7 mmol/L 3.5-5.1 [facility] Serum or plasma anion gap de terminationOrdered By: Leonora Bruce on 08-16-2022 Anion gap [Moles/Vol] 11.0 mmol/L 6.0-15.0 [facility] Sodium [Moles/volume] in Ser um or PlasmaOrdered By: Leonora Bruce on 08-16-2022 Sodium [Moles/Vol] 140 mmol/L 136-145 [facility] Urea nitrogen [Mass/volume] in Serum or PlasmaOrdered By: Leonora Bruce on 08-16-2022 Urea nitrogen [Mass/Vol] 9 mg/dL 7-25 [facility] Alanine aminotransferase [En zymatic activity/volume] in Serum or PlasmaOrdered By: Leonora Bruce on 08-15-2022 ALT [Catalytic activity/Vol] 8 U/L 7-52 [facility] Albumin [Mass/volume] in Ser um or Plasma by Bromocresol green (BCG) dye binding methoOrdered By: Leonora Bruce on 08-15-2022 Albumin BCG dye [Mass/Vol] 4.2 g/dL 3.5-5.7 [facility] Alkaline phosphatase [Enzyma tic activity/volume] in Serum or PlasmaOrdered By: Leonora Bruce on 08-15-2022 ALP [Catalytic activity/Vol] 60 U/L 34-104 [facility] Aspartate aminotransferase [ Enzymatic activity/volume] in Serum or PlasmaOrdered By: Leonora Bruce on 04-04-2023 AST [Catalytic activity/Vol] 10 U/L 13-39 [facility] Basophils Auto (Bld) [#/Vol] Ordered By: Leonora Bruce on 08-15-2022 Basophils (Bld) [#/Vol] 0.0 10*3/uL 0.0-0.2 [facility] Basophils/100 WBC Auto (Bld) Ordered By: Leonora Bruce on 08-15-2022 Basophils/100 WBC (Bld) 0.4 % . F [facility] Bilirubin.total [Mass/volume ] in Serum or PlasmaOrdered By: Leonora Bruce on 08-15-2022 Bilirubin [Mass/Vol] 0.6 mg/dL 0.3-1.0 [facility] Complete Blood Count Auto Di ffon 08-15-2022 Basophils (Bld) [#/Vol] 0.0 10*3/uL Normal 0.0-0.2 [facility] Comment on above: Result Comment: PERF ORMED BY: [place] [id number] PATHOLOGIST WELL DRILL OPERATOR HELPER CABLE TOOL REY MARVIN M.D. Performed By: #### C BC, PRL, LACTIC, BMP #### [facility] [address] Basophils/100 WBC (Bld) 0.4 % Normal . [facility] Comment on above: Performed By: #### C BC, PRL, LACTIC, BMP #### [facility] [address] [place] [address] [place] Eosinophils (Bld) [#/Vol] 0.0 10*3/uL Normal 0.0-0.45 [facility] Comment on above: Performed By: #### C BC, PRL, LACTIC, BMP #### [facility] [address] [place] [address] [place] Eosinophils/100 WBC (Bld) 0.5 % Normal . [facility] Comment on above: Performed By: #### C BC, PRL, LACTIC, BMP #### [facility] [address] Erythrocyte distribution width (RBC) [Ratio] 13.9 % Normal 12.0-14.8 [facility] Comment on above: Performed By: #### C BC, PRL, LACTIC, BMP #### [address] Hematocrit (Bld) [Volume fraction] 43.7 % Normal 38.8-50.0 [facility] Comment on above: Performed By: #### C BC, PRL, LACTIC, BMP #### [address] Hemoglobin (Bld) [Mass/Vol] 14.5 g/dL Normal 13.0-17.0 [facility] Comment on above: Performed By: #### C BC, PRL, LACTIC, BMP #### [address] Lymphocytes (Bld) [#/Vol] 1.3 10*3/uL Normal 1.00-4.8 [facility] Comment on above: Performed By: #### C BC, PRL, LACTIC, BMP #### [address] Lymphocytes/100 WBC (Bld) 19.7 % Normal . [facility] Comment on above: Performed By: #### C BC, PRL, LACTIC, BMP #### [address] MCH (RBC) [Entitic mass] 27.7 pg Normal 27.5-35.2 [facility] Comment on above: Performed By: #### C BC, PRL, LACTIC, BMP #### [address] [facility] (RBC) [Entitic vol] 83.5 fL Normal 83.5-101 F [facility] Comment on above: Performed By: #### C BC, PRL, LACTIC, BMP #### [address] Mean Corpuscular HGB Conc 33.2 g/dL Normal 32.5-35.6 [facility] Comment on above: Performed By: #### C BC, PRL, LACTIC, BMP #### [place] [address] [place] [address] [place] Monocytes (Bld) [#/Vol] 0.5 10*3/uL Normal 0.0-0.8 [facility] Comment on above: Performed By: #### C BC, PRL, LACTIC, BMP #### [facility] [address] [place] [address] [place] Monocytes/100 WBC (Bld) 6.9 % Normal . F [facility] Comment on above: Performed By: #### C BC, PRL, LACTIC, BMP #### [facility] [address] [place] [address] [place] Neutrophils (Bld) [#/Vol] 5.0 10*3/uL Normal 1.8-7.7 [facility] Comment on above: Performed By: #### C BC, PRL, LACTIC, BMP #### [facility] [address] [place] [address] [place] Neutrophils/100 WBC (Bld) 72.5 % Normal . [facility] Comment on above: Performed By: #### C BC, PRL, LACTIC, BMP #### [facility] [address] [place] [address] [place] NRBC% 0.2 /100{WBC} Normal 0-0.5 [facility] Comment on above: Performed By: #### C BC, PRL, LACTIC, BMP #### [address] Platelet mean volume (Bld) [Entitic vol] 9.9 fL Normal 6.6-10.1 [facility] Comment on above: Performed By: #### C BC, PRL, LACTIC, BMP #### [facility] [address] [place] [address] [place] Platelets (Bld) [#/Vol] 202 10*3/uL Normal 150-450 [facility] Comment on above: Performed By: #### C BC, PRL, LACTIC, BMP #### [facility] [address] [place] [address] [place] RBC (Bld) [#/Vol] 5.23 10*6/uL Normal 3.90-5.60 [facility] Comment on above: Performed By: #### C BC, PRL, LACTIC, BMP #### [address] WBC (Bld) [#/Vol] 6.8 10*3/uL Normal 4.1-10.5 [facility] Comment on above: Performed By: #### C BC, PRL, LACTIC, BMP #### [address] Comprehensive Metabolic Pane cornelio 08-15-2022 Albumin [Mass/Vol] 4.2 g/dL Normal 3.5-5.7 [facility] Comment on above: Performed By: #### C BC, PRL, LACTIC, BMP #### [address] Albumin/Globulin [Mass ratio] 1.6 {ratio} Normal [facility] Comment on above: Performed By: #### C BC, PRL, LACTIC, BMP #### [address] ALP [Catalytic activity/Vol] 60 U/L Normal 34-104 [facility] Comment on above: Performed By: #### C BC, PRL, LACTIC, BMP #### [address] ALT [Catalytic activity/Vol] 8 U/L Normal 7-52 [facility] Comment on above: Performed By: #### C BC, PRL, LACTIC, BMP #### [address] Anion gap [Moles/Vol] 12.0 mmol/L Normal 6.0-15.0 [facility] Comment on above: Performed By: #### C BC, PRL, LACTIC, BMP #### [address] AST [Catalytic activity/Vol] 10 U/L Low 13-39 [facility] Comment on above: Performed By: #### C BC, PRL, LACTIC, BMP #### [address] Bilirubin [Mass/Vol] 0.6 mg/dL Normal 0.3-1.0 [facility] Comment on above: Performed By: #### C BC, PRL, LACTIC, BMP #### [facility] [address] Calcium [Mass/Vol] 9.0 mg/dL Normal 8.6-10.3 [facility] Comment on above: Performed By: #### C BC, PRL, LACTIC, BMP #### [facility] [address] Chloride [Moles/Vol] 108 mmol/L High 98-107 [facility] Comment on above: Performed By: #### C BC, PRL, LACTIC, BMP #### [address] CO2 [Moles/Vol] 23.4 mmol/L Normal 21.0-31.0 [facility] Comment on above: Performed By: #### C BC, PRL, LACTIC, BMP #### [address] Creatinine [Mass/Vol] 0.79 mg/dL Normal 0.70-1.30 [facility] Comment on above: Performed By: #### C BC, PRL, LACTIC, BMP #### [place] [address] [place] Creatinine Clr Calc Pharmacy 111.65 [facility] Comment on above: Result Comment: PERF ORMED BY: [place] [id number] PATHOLOGIST WELL DRILL OPERATOR HELPER CABLE TOOL REY MARVIN M.D. Performed By: #### C BC, PRL, LACTIC, BMP #### [place] [address] [place] GFR/1.73 sq M.predicted MDRD (S/P/Bld) [Vol rate/Area] mL/min/{1.73_m2} [facility] Comment on above: Performed By: #### C BC, PRL, LACTIC, BMP #### [address] [place] [address] [place] Globulin (S) [Mass/Vol] 2.6 g/dL Normal F [facility] Comment on above: Performed By: #### C BC, PRL, LACTIC, BMP #### [address] Glucose [Mass/Vol] 93 mg/dL Normal 70-100 [facility] Comment on above: Result Comment: [facility] Glucose Reference Range is dependent on time and content of last meal. Glucose of more than 200 mg/dL in a nonstressed, ambulatory subject supports the diagnosis of Diabetes Mellitus. ADA recommended reference range Performed By: #### C BC, PRL, LACTIC, BMP #### [address] Potassium [Moles/Vol] 3.4 mmol/L Low 3.5-5.1 [facility] Comment on above: Performed By: #### C BC, PRL, LACTIC, BMP #### [address] Protein [Mass/Vol] 6.8 g/dL Normal 6.4-8.9 [facility] Comment on above: Performed By: #### C BC, PRL, LACTIC, BMP #### [address] Sodium [Moles/Vol] 140 mmol/L Normal 136-145 [facility] Comment on above: Performed By: #### C BC, PRL, LACTIC, BMP #### [address] Urea nitrogen [Mass/Vol] 12 mg/dL Normal 7-25 [facility] Comment on above: Performed By: #### C BC, PRL, LACTIC, BMP #### [address] ECG 12 lead ECGon 08-15-2022 ECG 12 lead ECG [facility] [place] [address] [place] [address] Electrocardiograph Report Signed Patient: Lesley Adams MR#: [id number] : 1990 Acct:[id number] Age/Sex: 31 / M ADM Date: 08/10/22 Loc: Room: [address] [place] [address] Type: ADM IN Attending Dr: Leonora Bruce MD Ordering Provider: Leonora Bruce MD Date of Service: 08/15/2209/03/499 ECG/ECG 12 lead ECG: abn Copies to: Test Reason : Blood Pressure : / mmHG Vent. Rate : 073 BPM Atrial Rate : 073 BPM P-R Int : 114 ms QRS Dur : 092 ms QT Int : 436 ms P-R-T Axes : -22 092 072 degrees QTc Int : 480 ms Normal sinus rhythm Rightward axis Prolonged QT Abnormal ECG When compared with ECG of 14-AUG-2022 11:54, No significant change was found Confirmed by STUART ARBOLEDA [facility] ([id number]) on 08/15/2022 5:09:50 PM Referred By: Electronically Signed By:CARMELLA DAVIDSON MD FAC Transcribed By: MUS Signed By Rishabh Davidson MD 08/15/22 1709 Normal [facility] Eosinophils Auto (Bld) [#/Vo l]Ordered By: Leonora Bruce on 08-15-2022 Eosinophils (Bld) [#/Vol] 0.0 10*3/uL 0.0-0.45 [facility] Eosinophils/100 WBC Auto (Bl d)Ordered By: Leonora Bruce on 08-15-2022 Eosinophils/100 WBC (Bld) 0.5 % . [facility] Erythrocyte distribution wid th Auto (RBC) [Ratio]Ordered By: Leonora Bruce on 08-15-2022 Erythrocyte distribution width (RBC) [Ratio] 13.9 % 12.0-14.8 [facility] Globulin Calc (S) [Mass/Vol] Ordered By: Leonora Bruce on 08-15-2022 Globulin (S) [Mass/Vol] 2.6 g/dL F [facility] Hematocrit Auto (Bld) [Volum e fraction]Ordered By: Leonora Bruce on 08-15-2022 Hematocrit (Bld) [Volume fraction] 43.7 % 38.8-50.0 [facility] Hemoglobin [Mass/volume] in BloodOrdered By: Leonora Bruce on 08-15-2022 Hemoglobin (Bld) [Mass/Vol] 14.5 g/dL 13.0-17.0 [facility] Leukocytes [#/volume] correc fritz for nucleated erythrocytes in Blood by Automated counOrdered By: Leonora Bruce on 08-15-2022 WBC corrected for nucl RBC Auto (Bld) [#/Vol] 6.8 10*3/uL 4.1-10.5 [facility] Lymphocytes Auto (Bld) [#/Vo l]Ordered By: Leonora Bruce on 08-15-2022 Lymphocytes (Bld) [#/Vol] 1.3 10*3/uL 1.00-4.8 [facility] Lymphocytes/100 WBC Auto (Bl d)Ordered By: Leonora Bruce on 08-15-2022 Lymphocytes/100 WBC (Bld) 19.7 % . [facility] MCH Auto (RBC) [Entitic mass ]Ordered By: Leonora Bruce on 08-15-2022 MCH (RBC) [Entitic mass] 27.7 pg 27.5-35.2 [facility] MCHC Auto (RBC) [Mass/Vol]Or dered By: Leonora Bruce on 08-15-2022 MCHC (RBC) [Mass/Vol] 33.2 g/dL 32.5-35.6 [facility] MCV Auto (RBC) [Entitic vol] Ordered By: Leonora Bruce on 08-15-2022 MCV (RBC) [Entitic vol] 83.5 fL 83.5-101 [facility] MR head/brain wo/w conon MR head/brain wo/w con [facility] [place] [address] MRI Report Signed Patient: Lesley Adams MR#: [id number] : 1990 Acct:[id number] Age/Sex: 31 / M ADM Date: 08/10/22 Loc: 3T Room: [address] [place] [address] Type: ADM IN Attending Dr: Leonora Bruce MD Copies to: DO Leonora Bernard MD Ordering Provider: Ryland Medrano DO Date of Service: 08/15/22 MR/MR head/brain wo/w con: sporadic myoclonus MRI BRAIN WITHOUT AND WITH INTRAVENOUS CONTRAST CLINICAL DATA: 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 The ventricles are normal in size and position. There are no areas of abnormal signal intensity or enhancement within the supra or infratentorial brain. There is no restricted diffusion to suggest a recent ischemic event. No extra-axial collections or mass effect are seen. No midline abnormalities are noted. The imaged paranasal sinuses are clear. MR/MR head/brain wo/w con IMPRESSION: NO ACUTE INTRACRANIAL FINDINGS. Impression dictated by: Darshana Schulz M.D.08/15/2022 6:42 PM Dictation Location: [place] [address] Transcribed By: [facility] 08/15/22 184 Dictated By: Darshana Schulz MD 08/15/22 1835 Signed By: 08/15/22 184 Normal [facility] Monocytes Auto (Bld) [#/Vol] Ordered By: Leonora Bruce on 08-15-2022 Monocytes (Bld) [#/Vol] 0.5 10*3/uL 0.0-0.8 [facility] Monocytes/100 WBC Auto (Bld) Ordered By: Leonora Bruce on 08-15-2022 Monocytes/100 WBC (Bld) 6.9 % . F [facility] Neutrophils Auto (Bld) [#/Vo l]Ordered By: Leonora Bruce on 08-15-2022 Neutrophils (Bld) [#/Vol] 5.0 10*3/uL 1.8-7.7 [facility] Neutrophils/100 WBC Auto (Bl d)Ordered By: Leonora Bruce on 08-15-2022 Neutrophils/100 WBC (Bld) 72.5 % . [facility] Nucleated erythrocytes [Pres ence] in Blood by Automated countOrdered By: Leonora Bruce on 08-15-2022 Nucleated RBC Auto Ql (Bld) 0.2 /100{WBC} 0-0.5 [facility] Platelet mean volume Auto (B ld) [Entitic vol]Ordered By: Leonora Bruce on 08-15-2022 Platelet mean volume (Bld) [Entitic vol] 9.9 fL 6.6-10.1 [facility] Platelets Auto (Bld) [#/Vol] Ordered By: Leonora Bruce on 08-15-2022 Platelets (Bld) [#/Vol] 202 10*3/uL 150-450 [facility] Protein [Mass/volume] in Ser um or PlasmaOrdered By: Leonora Bruce on 08-15-2022 Protein [Mass/Vol] 6.8 g/dL 6.4-8.9 [facility] RBC Auto (Bld) [#/Vol]Ordere d By: Leonora Bruce on 08-15-2022 RBC (Bld) [#/Vol] 5.23 10*6/uL 3.90-5.60 [facility] Serum or plasma albumin/glob ulin mass ratioOrdered By: Leonora Bruce on 08-15-2022 Albumin/Globulin [Mass ratio] 1.6 {ratio} [facility] WBC Auto (Bld) [#/Vol]Ordere d By: Leonora Bruce on 08-15-2022 WBC (Bld) [#/Vol] 6.8 10*3/uL 4.1-10.5 [facility] ECG 12 lead ECGon 08-14-2022 ECG 12 lead ECG [facility] [place] [address] Electrocardiograph Report Signed Patient: Lesley Adams MR#: [id number] : 1990 Acct:[id number] Age/Sex: 31 / M ADM Date: 08/10/22 Loc: Room: [address] [place] [address] Type: ADM IN Attending Dr: Leonora Bruce MD Ordering Provider: Leonora Bruce MD Date of Service: 08/14/2208/04/1143 ECG/ECG 12 lead ECG: prol QT Copies to: Test Reason : Blood Pressure : / mmHG Vent. Rate : 089 BPM Atrial Rate : 089 BPM P-R Int : 150 ms QRS Dur : 092 ms QT Int : 418 ms P-R-T Axes : 076 101 066 degrees QTc Int : 508 ms Normal sinus rhythm Rightward axis Prolonged QT Abnormal ECG When compared with ECG of 10-AUG-2022 11:39, No significant change was found Confirmed by STUART ARBOLEDA FACCARMELLA ([id number]) on 08/14/2022 3:01:28 PM Referred By: Electronically Signed By:CARMELLA DAVIDSON MD [facility] Transcribed By: MUS Signed By Rishabh Davidson MD 08/14/22 1501 Normal [facility] Folate [Mass/volume] in Seru m or PlasmaOrdered By: Leonora Bruce on 08-14-2022 Folate [Mass/Vol] 9.2 ng/mL >5.9 [facility] Comment on above: Folate reference ran ge: >5.9 ng/mlThe WHO technical consultation on folate and vitamin [id number] has determined that folate concentrations lessthan 4 ng/ml are considered deficient. Magnesiumon 08-14-2022 Magnesium [Mass/Vol] 2.8 mg/dL High 1.9-2.7 [facility] Comment on above: Order Comment: pt is not happy today and keeps saying he does not what to have this done. when i tried to tell him his doc needs these labs to get him better he said he said no they dont and he was not going to get stuck no more pt stated no as i was walking in so i left psw 1455 Performed By: #### C BC, PRL, LACTIC, BMP #### [facility] [address] [place] [address] Magnesium [Mass/volume] in S maritza or PlasmaOrdered By: Leonora Bruce on 08-14-2022 Magnesium [Mass/Vol] 2.8 mg/dL 1.9-2.7 [facility] Thyroid Stimulating Hormoneo n 08-14-2022 TSH Qn 0.70 m[IU]/L Normal 0.45-5.33 [facility] Comment on above: Order Comment: pt is not happy today and keeps saying he does not what to have this done. when i tried to tell him his doc needs these labs to get him better he said he said no they dont and he was not going to get stuck no more pt stated no as i was walking in so i left psw 1455 Result Comment: PERF ORMED BY: [place] [address] PATHOLOGIST WELL DRILL OPERATOR HELPER CABLE TOOL REY MARVIN M.D. Performed By: #### C BC, PRL, LACTIC, BMP #### [facility] [address] Thyrotropin [Units/volume] i n Serum or PlasmaOrdered By: Leonora Bruce on 08-14-2022 TSH Qn 0.70 m[IU]/L 0.45-5.33 [facility] Vit. B12/Folate Profileon Cobalamin (Vitamin B12) [Mass/Vol] 493 pg/mL Normal 180-914 [facility] Comment on above: Order Comment: pt is not happy today and keeps saying he does not what to have this done. when i tried to tell him his doc needs these labs to get him better he said he said no they dont and he was not going to get stuck no more pt stated no as i was walking in so i left psw 1455 Performed By: #### C BC, PRL, LACTIC, BMP #### [facility] [address] Folate 9.2 ng/mL Normal >5.9 [facility] Comment on above: Order Comment: pt is not happy today and keeps saying he does not what to have this done. when i tried to tell him his doc needs these labs to get him better he said he said no they dont and he was not going to get stuck no more pt stated no as i was walking in so i left psw 1455 Result Comment: Marni te reference range: >5.9 ng/ml The WHO technical consultation on folate and vitamin b12 deficiencies has determined that folate concentrations less than 4 ng/ml are considered deficient. Performed By: #### C BC, PRL, LACTIC, BMP #### [facility] [address] Vitamin B12 ser/plasOrdered By: Leonora Bruce on 08-14-2022 Cobalamin (Vitamin B12) [Mass/Vol] 493 pg/mL 180-914 [facility] Basic Metabolic Panelon 07-14 Anion gap [Moles/Vol] 13.1 mmol/L Normal 6.0-15.0 [facility] Comment on above: Performed By: #### C BC, PRL, LACTIC, BMP #### [facility] [address] Calcium [Mass/Vol] 8.9 mg/dL Normal 8.6-10.3 [facility] Comment on above: Performed By: #### C BC, PRL, LACTIC, BMP #### [facility] [address] Order Comment: Comme nt add on to labs from [facility] Result Comment: PERF ORMED BY: [place] [address] PATHOLOGIST WELL DRILL OPERATOR HELPER CABLE TOOL REY MARVIN M.D. Chloride [Moles/Vol] 108 mmol/L High 98-107 [facility] Comment on above: Performed By: #### C BC, PRL, LACTIC, BMP #### [facility] [address] CO2 [Moles/Vol] 23.1 mmol/L Normal 21.0-31.0 [facility] Comment on above: Performed By: #### C BC, PRL, LACTIC, BMP #### [facility] [address] Creatinine [Mass/Vol] 0.76 mg/dL Normal 0.70-1.30 [facility] Comment on above: Performed By: #### C BC, PRL, LACTIC, BMP #### [facility] [address] Creatinine Clr Calc Pharmacy 115.66 Normal [facility] Comment on above: Performed By: #### C BC, PRL, LACTIC, BMP #### [facility] [address] [place] [address] [place] GFR/1.73 sq M.predicted MDRD (S/P/Bld) [Vol rate/Area] mL/min/{1.73_m2} Normal [facility] Comment on above: Performed By: #### C BC, PRL, LACTIC, BMP #### [facility] [address] Glucose [Mass/Vol] 102 mg/dL High 70-100 [facility] Comment on above: Result Comment: [facility] Glucose Reference Range is dependent on time and content of last meal. Glucose of more than 200 mg/dL in a nonstressed, ambulatory subject supports the diagnosis of Diabetes Mellitus. ADA recommended reference range Performed By: #### C BC, PRL, LACTIC, BMP #### [facility] [address] [place] [address] [place] Potassium [Moles/Vol] 3.2 mmol/L Low 3.5-5.1 [facility] Comment on above: Performed By: #### C BC, PRL, LACTIC, BMP #### [facility] [address] [place] [address] [place] Sodium [Moles/Vol] 141 mmol/L Normal 136-145 [facility] Comment on above: Performed By: #### C BC, PRL, LACTIC, BMP #### [facility] [address] [place] [address] [place] Urea nitrogen [Mass/Vol] 14 mg/dL Normal 7-25 [facility] Comment on above: Performed By: #### C BC, PRL, LACTIC, BMP #### [facility] [address] [place] [address] head/brain wo mike 08-11 CT head/brain wo [facility] [place] [address] CT Scan Report Signed Patient: Lesley Adams MR#: [id number] : 1990 Acct:[id number] Age/Sex: 31 / M ADM Date: 08/10/22 Loc: Room: 4T0242-2 Type: ADM IN Attending Dr: Jamison Norton DO Copies to: Jamison Norton DO Ordering Provider: Jamison Norton DO Date of Service: 08/11/22 CT/CT head/brain wo con: possible seizure activity CT head/brain wo con 08/11/2022 12:23 PM SIGNS AND SYMPTOMS: possible seizure activity TECHNIQUE:Multi-detec tor CT axial slices of the brain were obtained without IV contrast. CT was performed with one or more of the following dose reduction techniques: Automated exposure control, adjustment of the mA and/or kV according to patient size, or use of iterative reconstruction technique. COMPARISON: None. FINDINGS: There is no shift of the midline structures, acute intracranial bleeding, mass effects, or evidence of acute ischemia. The ventricular system is normal in size. The brainstem and the cerebellum are unremarkable. The visualized intraorbital contents, the visualized paranasal sinuses, and the infratemporal soft tissues show no acute abnormality. The osseous structures in the skull base and the calvarium show no abnormality. CT/CT head/brain wo con IMPRESSION: Normal noncontrasted CT brain. Impression dictated by: Demetrio Tello M.D.08/11/2022 1:04 PM Dictation Location: [place] [address] Transcribed By: [facility] 08/11/22 1304 Dictated By: Demetrio Tello II, MD 08/11/22 1301 Signed By: 08/11/22 1304 Normal [facility] Complete Blood Count Auto Di ffon 08-11-2022 Basophils (Bld) [#/Vol] 0.0 10*3/uL Normal 0.0-0.2 [facility] Comment on above: Result Comment: PERF ORMED BY: [place] [address] PATHOLOGIST WELL DRILL OPERATOR HELPER CABLE TOOL REY MARVIN M.D. Performed By: #### C BC, PRL, LACTIC, BMP #### [address] Basophils/100 WBC (Bld) 0.7 % Normal . [facility] Comment on above: Performed By: #### C BC, PRL, LACTIC, BMP #### [address] Eosinophils (Bld) [#/Vol] 0.0 10*3/uL Normal 0.0-0.45 [facility] Comment on above: Performed By: #### C BC, PRL, LACTIC, BMP #### [address] Eosinophils/100 WBC (Bld) 0.5 % Normal . [facility] Comment on above: Performed By: #### C BC, PRL, LACTIC, BMP #### [address] Erythrocyte distribution width (RBC) [Ratio] 13.7 % Normal 12.0-14.8 [facility] Comment on above: Performed By: #### C BC, PRL, LACTIC, BMP #### [address] Hematocrit (Bld) [Volume fraction] 40.2 % Normal 38.8-50.0 [facility] Comment on above: Performed By: #### C BC, PRL, LACTIC, BMP #### [address] Hemoglobin (Bld) [Mass/Vol] 12.9 g/dL Low 13.0-17.0 [facility] Comment on above: Performed By: #### C BC, PRL, LACTIC, BMP #### [address] Lymphocytes (Bld) [#/Vol] 1.7 10*3/uL Normal 1.00-4.8 [facility] Comment on above: Performed By: #### C BC, PRL, LACTIC, BMP #### [address] Lymphocytes/100 WBC (Bld) 26.5 % Normal . [facility] Comment on above: Performed By: #### C BC, PRL, LACTIC, BMP #### [address] MCH (RBC) [Entitic mass] 27.0 pg Low 27.5-35.2 [facility] Comment on above: Performed By: #### C BC, PRL, LACTIC, BMP #### [address] MCV (RBC) [Entitic vol] 84.0 fL Normal 83.5-101 F [facility] Comment on above: Performed By: #### C BC, PRL, LACTIC, BMP #### [address] Mean Corpuscular HGB Conc 32.1 g/dL Low 32.5-35.6 [facility] Comment on above: Performed By: #### C BC, PRL, LACTIC, BMP #### [address] Monocytes (Bld) [#/Vol] 0.5 10*3/uL Normal 0.0-0.8 [facility] Comment on above: Performed By: #### C BC, PRL, LACTIC, BMP #### [address] Monocytes/100 WBC (Bld) 7.2 % Normal . [facility] Comment on above: Performed By: #### C BC, PRL, LACTIC, BMP #### [address] Neutrophils (Bld) [#/Vol] 4.2 10*3/uL Normal 1.8-7.7 [facility] Comment on above: Performed By: #### C BC, PRL, LACTIC, BMP #### [place] [address] [place] Neutrophils/100 WBC (Bld) 65.1 % Normal . [facility] Comment on above: Performed By: #### C BC, PRL, LACTIC, BMP #### [address] NRBC% 0.3 /100{WBC} Normal 0-0.5 [facility] Comment on above: Performed By: #### C BC, PRL, LACTIC, BMP #### [address] [place] [address] [place] Platelet mean volume (Bld) [Entitic vol] 9.3 fL Normal 6.6-10.1 [facility] Comment on above: Performed By: #### C BC, PRL, LACTIC, BMP #### [facility] [address] Platelets (Bld) [#/Vol] 171 10*3/uL Normal 150-450 [facility] Comment on above: Performed By: #### C BC, PRL, LACTIC, BMP #### [facility] [address] RBC (Bld) [#/Vol] 4.78 10*6/uL Normal 3.90-5.60 [facility] Comment on above: Performed By: #### C BC, PRL, LACTIC, BMP #### [facility] [address] WBC (Bld) [#/Vol] 6.5 10*3/uL Normal 4.1-10.5 [facility] Comment on above: Performed By: #### C BC, PRL, LACTIC, BMP #### [facility] [address] Glucose Glucometer (BldC) [M ass/Vol]Ordered By: Jamison Norton on 08-11-2022 Glucose [Mass/Vol] 114 mg/dL [facility] Comment on above: Random Glucose Refer ence Range is dependent on time and content of last meal. Glucose of more than 200 mg/dL in a nonstressed, ambulatory subject supports the diagnosis of Diabetes Mellitus. Glucose Poct Glucometerson 0 08-11-2022 Glucose [Mass/Vol] 114 mg/dL Normal [facility] Comment on above: Result Comment: [place] Glucose Reference Range is dependent on time and content of last meal. Glucose of more than 200 mg/dL in a nonstressed, ambulatory subject supports the diagnosis of Diabetes Mellitus. PERFORMED BY: [place] [address] PATHOLOGIST WELL DRILL OPERATOR HELPER CABLE TOOL JIANLAN SUN M.D. Performed By: #### C BC, PRL, LACTIC, BMP #### [facility] [address] Lactate [Moles/volume] in Se rum or PlasmaOrdered By: Jamison Norton on 08-11-2022 Lactate [Moles/Vol] 0.8 mmol/L 0.5-2.2 [facility] Lactic Acidon 08-11-2022 Lactate [Moles/Vol] 0.8 mmol/L Normal 0.5-2.2 [facility] Comment on above: Result Comment: PERF ORMED BY: [place] [address] PATHOLOGIST WELL DRILL OPERATOR HELPER CABLE TOOL REY MARVIN M.D. Performed By: #### C BC, PRL, LACTIC, BMP #### [address] Prolactinon 08-11-2022 Prolactin 6.45 ng/mL Normal 2.64-13.13 [facility] Comment on above: Result Comment: PERF ORMED BY: [place] [address] PATHOLOGIST WELL DRILL OPERATOR HELPER CABLE TOOL REY MARVIN M.D. Performed By: #### C BC, PRL, LACTIC, BMP #### [address] Prolactin [Mass/volume] in S maritza or PlasmaOrdered By: Jamison Norton on 08-11-2022 Prolactin [Mass/Vol] 6.45 ng/mL 2.64-13.13 [facility] Alanine aminotransferase [En zymatic activity/volume] in Serum or PlasmaOrdered By: Carmella Page on 08-10-2022 ALT [Catalytic activity/Vol] 10 U/L 7 [facility] Albumin [Mass/volume] in Ser um or Plasma by Bromocresol green (BCG) dye binding methoOrdered By: Carmella Page on 08-10-2022 Albumin BCG dye [Mass/Vol] 4.3 g/dL 3.5-5.7 [facility] Alkaline phosphatase [Enzyma tic activity/volume] in Serum or PlasmaOrdered By: Carmella Page on 08-10-2022 ALP [Catalytic activity/Vol] 54 U/L 34-104 [facility] Ammoniaon 08-10-2022 Ammonia (P) [Moles/Vol] 21 umol/L Normal 11-35 [facility] Comment on above: Result Comment: PERF ORMED BY: [place] [address] PATHOLOGIST WELL DRILL OPERATOR HELPER CABLE TOOL REY MARVIN M.D. Performed By: #### C BC, AMM, ETOH, CMP, MG #### [facility] [address] Ammonia [Moles/volume] in Pl asmaOrdered By: Carmella Page on 08-10-2022 Ammonia (P) [Moles/Vol] 21 umol/L 11-35 [facility] Amphetamine Screen Ql (U)Ord ered By: Carmella Page on 08-10-2022 Amphetamines Ql (U) Negative Negative [facility] Aspartate aminotransferase [ Enzymatic activity/volume] in Serum or PlasmaOrdered By: Carmella Page on 08-10-2022 AST [Catalytic activity/Vol] 11 U/L 13-39 [facility] Automated erythrocytes count in urine sediment (number/area)Ordered By: Carmella Page on 08-10-2022 RBC Auto (Urine sed) [#/Area] 1-2 [HPF] 0-4 [facility] Automated leukocytes count i n urine sediment (number/area)Ordered By: Carmella Page on 08-10-2022 WBC Auto (Urine sed) [#/Area] 3-4 [HPF] 0-4 [facility] Barbiturates [Presence] in U rine by Screen methodOrdered By: Carmella Page on 08-10-2022 Barbiturates Screen Ql (U) Negative Negative [facility] Basophils Auto (Bld) [#/Vol] Ordered By: Carmella Page on 08-10-2022 Basophils (Bld) [#/Vol] 0.0 10*3/uL 0.0-0.2 [facility] Basophils/100 WBC Auto (Bld) Ordered By: Carmella Page on 08-10-2022 Basophils/100 WBC (Bld) 0.6 % . [facility] Benzodiazepines Screen Ql (U )Ordered By: Carmella Page on 08-10-2022 Benzodiazepines Ql (U) Positive Negative [facility] Benzoylecgonine [Presence] i n Urine by Screen methodOrdered By: Carmella Page on 08-10-2022 Benzoylecgonine Screen Ql (U) Negative Negative [facility] Bilirubin Test strip Ql (U)O rdered By: Carmella Page on 08-10-2022 Bilirubin Ql (U) Negative Negative [facility] Bilirubin.total [Mass/volume ] in Serum or PlasmaOrdered By: Carmella Page on 08-10-2022 Bilirubin [Mass/Vol] 0.6 mg/dL 0.3-1.0 [facility] Calcium [Mass/volume] in Ser um or PlasmaOrdered By: Carmella Page on 08-10-2022 Calcium [Mass/Vol] 9.1 mg/dL 8.6-10.3 [facility] Cannabinoids [Presence] in U rine by Screen methodOrdered By: Carmella Page on 08-10-2022 Cannabinoids Screen Ql (U) Positive Negative [facility] Comment on above: These are unconfirme d results and should not be used for legal purposes. Drug Cut-Off Concentration: AMPH 1000 ng/mL TERESA 200 ng/mL MALLORY 200 ng/mL COCM 300 ng/mL OP 300 ng/mL PCP 25 ng/mL THC 20 ng/mL Carbon dioxide, total [Moles /volume] in Serum or PlasmaOrdered By: Carmella Page on 08-10-2022 CO2 [Moles/Vol] 26.4 mmol/L 21.0-31.0 [facility] Chloride [Moles/volume] in S maritza or PlasmaOrdered By: Carmella Page on 08-10-2022 Chloride [Moles/Vol] 105 mmol/L 98-107 [facility] Color Auto (U)Ordered By: Cristobal Page on 08-10-2022 Color (U) Dark yellow Yellow [facility] Complete Blood Count Auto Di ffon 08-10-2022 Basophils (Bld) [#/Vol] 0.0 10*3/uL Normal 0.0-0.2 [facility] Comment on above: Result Comment: PERF ORMED BY: [place] [address] PATHOLOGIST WELL DRILL OPERATOR HELPER CABLE TOOL REY MARVIN M.D. Performed By: #### C BC, AMM, ETOH, CMP, MG #### [address] Basophils/100 WBC (Bld) 0.6 % Normal . [facility] Comment on above: Performed By: #### C BC, AMM, ETOH, CMP, MG #### [address] Eosinophils (Bld) [#/Vol] 0.0 10*3/uL Normal 0.0-0.45 [facility] Comment on above: Performed By: #### C BC, AMM, ETOH, CMP, MG #### [address] Eosinophils/100 WBC (Bld) 0.1 % Normal . [facility] Comment on above: Performed By: #### C BC, AMM, ETOH, CMP, MG #### [address] Erythrocyte distribution width (RBC) [Ratio] 14.1 % Normal 12.0-14.8 [facility] Comment on above: Performed By: #### C BC, AMM, ETOH, CMP, MG #### [address] Hematocrit (Bld) [Volume fraction] 39.2 % Normal 38.8-50.0 [facility] Comment on above: Performed By: #### C BC, AMM, ETOH, CMP, MG #### [address] Hemoglobin (Bld) [Mass/Vol] 12.9 g/dL Low 13.0-17.0 [facility] Comment on above: Performed By: #### C BC, AMM, ETOH, CMP, MG #### [address] Lymphocytes (Bld) [#/Vol] 1.3 10*3/uL Normal 1.00-4.8 [facility] Comment on above: Performed By: #### C BC, AMM, ETOH, CMP, MG #### [address] Lymphocytes/100 WBC (Bld) 17.7 % Normal . [facility] Comment on above: Performed By: #### C BC, AMM, ETOH, CMP, MG #### [address] MCH (RBC) [Entitic mass] 27.6 pg Normal 27.5-35.2 [facility] Comment on above: Performed By: #### C BC, AMM, ETOH, CMP, MG #### [address] MCV (RBC) [Entitic vol] 83.9 fL Normal 83.5-101 [facility] Comment on above: Performed By: #### C BC, AMM, ETOH, CMP, MG #### [address] Mean Corpuscular HGB Conc 32.8 g/dL Normal 32.5-35.6 [facility] Comment on above: Performed By: #### C BC, AMM, ETOH, CMP, MG #### [address] Monocytes (Bld) [#/Vol] 0.5 10*3/uL Normal 0.0-0.8 [facility] Comment on above: Performed By: #### C BC, AMM, ETOH, CMP, MG #### [address] Monocytes/100 WBC (Bld) 16.25 % Normal 0.00-20.00 [facility] Comment on above: Performed By: #### C BC, AMM, ETOH, CMP, MG #### [address] [place] [address] [place] Monocytes/100 WBC (Bld) 7.1 % Normal . [facility] Comment on above: Performed By: #### C BC, AMM, ETOH, CMP, MG #### [facility] [address] Neutrophils (Bld) [#/Vol] 5.4 10*3/uL Normal 1.8-7.7 [facility] Comment on above: Performed By: #### C BC, AMM, ETOH, CMP, MG #### [address] Neutrophils/100 WBC (Bld) 74.5 % Normal . [facility] Comment on above: Performed By: #### C BC, AMM, ETOH, CMP, MG #### [address] NRBC% 0.1 /100{WBC} Normal 0-0.5 [facility] Comment on above: Performed By: #### C BC, AMM, ETOH, CMP, MG #### [address] Platelet mean volume (Bld) [Entitic vol] 9.7 fL Normal 6.6-10.1 [facility] Comment on above: Performed By: #### C BC, AMM, ETOH, CMP, MG #### [place] [address] [place] Platelets (Bld) [#/Vol] 174 10*3/uL Normal 150-450 [facility] Comment on above: Performed By: #### C BC, AMM, ETOH, CMP, MG #### [place] [address] [place] RBC (Bld) [#/Vol] 4.67 10*6/uL Normal 3.90-5.60 [facility] Comment on above: Performed By: #### C BC, AMM, ETOH, CMP, MG #### [place] [address] [place] WBC (Bld) [#/Vol] 7.3 10*3/uL Normal 4.1-10.5 [facility] Comment on above: Performed By: #### C BC, AMM, ETOH, CMP, MG #### [address] Comprehensive Metabolic Pane cornelio 08-10-2022 Albumin [Mass/Vol] 4.3 g/dL Normal 3.5-5.7 [facility] Comment on above: Performed By: #### C BC, AMM, ETOH, CMP, MG #### [address] Albumin/Globulin [Mass ratio] 1.9 {ratio} Normal [facility] Comment on above: Performed By: #### C BC, AMM, ETOH, CMP, MG #### [address] ALP [Catalytic activity/Vol] 54 U/L Normal 34-104 [facility] Comment on above: Performed By: #### C BC, AMM, ETOH, CMP, MG #### [address] ALT [Catalytic activity/Vol] 10 U/L Normal 7-52 [facility] Comment on above: Performed By: #### C BC, AMM, ETOH, CMP, MG #### [address] Anion gap [Moles/Vol] 11.8 mmol/L Normal 6.0-15.0 [facility] Comment on above: Performed By: #### C BC, AMM, ETOH, CMP, MG #### [address] AST [Catalytic activity/Vol] 11 U/L Low 13-39 [facility] Comment on above: Performed By: #### C BC, AMM, ETOH, CMP, MG #### [address] Bilirubin [Mass/Vol] 0.6 mg/dL Normal 0.3-1.0 [facility] Comment on above: Performed By: #### C BC, AMM, ETOH, CMP, MG #### [facility] [address] Calcium [Mass/Vol] 9.1 mg/dL Normal 8.6-10.3 [facility] Comment on above: Performed By: #### C BC, AMM, ETOH, CMP, MG #### [address] Chloride [Moles/Vol] 105 mmol/L Normal 98-107 [facility] Comment on above: Performed By: #### C BC, AMM, ETOH, CMP, MG #### [address] CO2 [Moles/Vol] 26.4 mmol/L Normal 21.0-31.0 [facility] Comment on above: Performed By: #### C BC, AMM, ETOH, CMP, MG #### [address] Creatinine [Mass/Vol] 0.84 mg/dL Normal 0.70-1.30 [facility] Comment on above: Performed By: #### C BC, AMM, ETOH, CMP, MG #### [address] Creatinine Clr Calc Pharmacy 108.93 [facility] Comment on above: Performed By: #### C BC, AMM, ETOH, CMP, MG #### [address] GFR/1.73 sq M.predicted MDRD (S/P/Bld) [Vol rate/Area] mL/min/{1.73_m2} [facility] Comment on above: Performed By: #### C BC, AMM, ETOH, CMP, MG #### [address] Globulin (S) [Mass/Vol] 2.3 g/dL Normal [facility] Comment on above: Performed By: #### C BC, AMM, ETOH, CMP, MG #### [facility] [address] Glucose [Mass/Vol] 108 mg/dL High 70-100 [facility] Comment on above: Result Comment: [facility] Glucose Reference Range is dependent on time and content of last meal. Glucose of more than 200 mg/dL in a nonstressed, ambulatory subject supports the diagnosis of Diabetes Mellitus. ADA recommended reference range Performed By: #### C BC, AMM, ETOH, CMP, MG #### [facility] [address] Potassium [Moles/Vol] 3.2 mmol/L Low 3.5-5.1 [facility] Comment on above: Performed By: #### C BC, AMM, ETOH, CMP, MG #### [address] Protein [Mass/Vol] 6.6 g/dL Normal 6.4-8.9 [facility] Comment on above: Performed By: #### C BC, AMM, ETOH, CMP, MG #### [address] Sodium [Moles/Vol] 140 mmol/L Normal 136-145 [facility] Comment on above: Performed By: #### C BC, AMM, ETOH, CMP, MG #### [address] Urea nitrogen [Mass/Vol] 20 mg/dL Normal 7-25 [facility] Comment on above: Performed By: #### C BC, AMM, ETOH, CMP, MG #### [address] Creatinine [Mass/volume] in Serum or PlasmaOrdered By: Carmella Page on 08-10-2022 Creatinine [Mass/Vol] 0.84 mg/dL 0.70-1.30 [facility] Dipstick and Microscopicon 0 08-10-2022 Appearance (U) Clear Normal Clear [facility] Comment on above: Order Comment: Name Collection Type:: Clean-Voided Midstream Performed By: #### C BC, PRL, LACTIC, BMP #### [facility] [address] [place] [address] [place] Bacteria,Urine None Seen Normal None Seen [facility] Comment on above: Order Comment: Name Collection Type:: Clean-Voided Midstream Performed By: #### C BC, PRL, LACTIC, BMP #### [facility] [address] [place] [address] [place] Bilirubin,Urine Negative Normal Negative [facility] Comment on above: Order Comment: Name Collection Type:: Clean-Voided Midstream Performed By: #### C BC, PRL, LACTIC, BMP #### [facility] [address] [place] [address] Color (U) Dark Yellow Critically abnormal Yellow [facility] Comment on above: Order Comment: Name Collection Type:: Clean-Voided Midstream Performed By: #### C BC, PRL, LACTIC, BMP #### [facility] [address] [place] [address] Glucose Ql (U) Normal Normal Normal [facility] Comment on above: Order Comment: Name Collection Type:: Clean-Voided Midstream Performed By: #### C BC, PRL, LACTIC, BMP #### [facility] [address] [place] [address] [place] Hyaline Casts,Urine 9-19 High 0-8 [facility] Comment on above: Order Comment: Name Collection Type:: Clean-Voided Midstream Result Comment: PERF ORMED BY: [place] [address] PATHOLOGIST WELL DRILL OPERATOR HELPER CABLE TOOL REY MARVIN M.D. Performed By: #### C BC, PRL, LACTIC, BMP #### [facility] [address] [place] [address] [place] Ketones Ql (U) 1+ High Negative [facility] Comment on above: Order Comment: Name Collection Type:: Clean-Voided Midstream Performed By: #### C BC, PRL, LACTIC, BMP #### [facility] [address] [place] [address] [place] Leukocyte esterase Test strip Ql (U) 1+ High Negative [facility] Comment on above: Order Comment: Name Collection Type:: Clean-Voided Midstream Performed By: #### C BC, PRL, LACTIC, BMP #### [address] Nitrite,Urine Negative Normal Negative [facility] Comment on above: Order Comment: Name Collection Type:: Clean-Voided Midstream Performed By: #### C BC, PRL, LACTIC, BMP #### [address] Occult Blood,Urine Negative Normal Negative [facility] Comment on above: Order Comment: Name Collection Type:: Clean-Voided Midstream Result Comment: PERF ORMED BY: [place] [address] PATHOLOGIST WELL DRILL OPERATOR HELPER CABLE TOOL REY MARVIN M.D. Performed By: #### C BC, PRL, LACTIC, BMP #### [address] pH (U) 6.5 [pH] Normal 5.0-9.0 [facility] Comment on above: Order Comment: Name Collection Type:: Clean-Voided Midstream Performed By: #### C BC, PRL, LACTIC, BMP #### [address] Protein (U) [Mass/Vol] 30 mg/dL High Negative [facility] Comment on above: Order Comment: Name Collection Type:: Clean-Voided Midstream Performed By: #### C BC, PRL, LACTIC, BMP #### [address] RBC,Urine 1-2 Normal 0-4 [facility] Comment on above: Order Comment: Name Collection Type:: Clean-Voided Midstream Performed By: #### C BC, PRL, LACTIC, BMP #### [address] Specificy [place],Urine 1.034 High 1.001-1.030 [facility] Comment on above: Order Comment: Name Collection Type:: Clean-Voided Midstream Performed By: #### C BC, PRL, LACTIC, BMP #### [facility] [address] [place] [address] Squamous Epithelial Cell,Urine 0-1 Normal 0-2 [facility] Comment on above: Order Comment: Name Collection Type:: Clean-Voided Midstream Performed By: #### C BC, PRL, LACTIC, BMP #### [facility] [address] [place] [address] Urobilinogen,Urine Normal Normal Normal [facility] Comment on above: Order Comment: Name Collection Type:: Clean-Voided Midstream Performed By: #### C BC, PRL, LACTIC, BMP #### [address] WBC,Urine 3-4 Normal 0-4 [facility] Comment on above: Order Comment: Name Collection Type:: Clean-Voided Midstream Performed By: #### C BC, PRL, LACTIC, BMP #### [address] Drug Screen,Urineon 08-11-19 23 Amphetamine Screen,Urine Negative Normal Negative [facility] Comment on above: Performed By: #### C BC, PRL, LACTIC, BMP #### [address] Barbiturate Screen,Urine Negative Normal Negative [facility] Comment on above: Performed By: #### C BC, PRL, LACTIC, BMP #### [address] Benzodiazepines Screen,Urine Positive High Negative [facility] Comment on above: Performed By: #### C BC, PRL, LACTIC, BMP #### [facility] [address] [place] [address] Cannabinoid Screen,Urine Positive High Negative [facility] Comment on above: Result Comment: Thes e are unconfirmed results and should not be used for legal purposes. Drug Cut-Off Concentration: AMPH 1000 ng/mL TERESA 200 ng/mL MALLORY 200 ng/mL COCM 300 ng/mL OP 300 ng/mL PCP 25 ng/mL THC 20 ng/mL PERFORMED BY: [place] [address] PATHOLOGIST WELL DRILL OPERATOR HELPER CABLE TOOL REY MARVIN M.D. Performed By: #### C BC, PRL, LACTIC, BMP #### [facility] [address] Cocaine Screen,Urine Negative Normal Negative [facility] Comment on above: Performed By: #### C BC, PRL, LACTIC, BMP #### [facility] [address] [place] [address] [place] Opiate Screen,Urine Negative Normal Negative [facility] Comment on above: Performed By: #### C BC, PRL, LACTIC, BMP #### [facility] [address] Phencyclidine Screen,Urine Negative Normal Negative [facility] Comment on above: Performed By: #### C BC, PRL, LACTIC, BMP #### [facility] [address] ECG 12 lead ECGon 08-10-2022 ECG 12 lead ECG [facility] [place] [address] [place] [address] Electrocardiograph Report Signed Patient: Lesley Adams MR#: [id number] : 1990 Acct:[id number] Age/Sex: 31 / M ADM Date: 08/10/22 Loc: Room: [address] [place] [address] Type: ADM IN Attending Dr: Jamison Norton DO Ordering Provider: Carmella Page DO Date of Service: 08/10/22 ECG/ECG 12 lead ECG: pain Copies to: Test Reason : Blood Pressure : 126/080 mmHG Vent. Rate : 061 BPM Atrial Rate : 061 BPM P-R Int : 142 ms QRS Dur : 090 ms QT Int : 494 ms P-R-T Axes : 044 087 081 degrees QTc Int : 497 ms Normal sinus rhythm T wave abnormality, consider anterior ischemia Prolonged QT Abnormal ECG No previous ECGs available Confirmed by CARMELLA PAGE DO ([id number]) on 08/10/2022 7:34:47 PM Referred By: Electronically Signed By:CARMELLA PAGE DO Transcribed By: MUS Signed By Carmella Page DO 1933 Normal [facility] Eosinophils Auto (Bld) [#/Vo l]Ordered By: Carmella Page on 08-10-2022 Eosinophils (Bld) [#/Vol] 0.0 10*3/uL 0.0-0.45 [facility] Eosinophils/100 WBC Auto (Bl d)Ordered By: Carmella Page on 08-10-2022 Eosinophils/100 WBC (Bld) 0.1 % . [facility] Erythrocyte distribution wid th Auto (RBC) [Ratio]Ordered By: Carmella Page on 08-10-2022 Erythrocyte distribution width (RBC) [Ratio] 14.1 % 12.0-14.8 [facility] Ethanol [Mass/volume] in Ser um or PlasmaOrdered By: Carmella Page on 08-10-2022 Ethanol [Mass/Vol] mg/dL [facility] Ethanol [Mass/Vol] TNP [facility] Comment on above: Test not performed Ethyl Alcohol Profileon 07-14 Ethanol [Mass/Vol] mg/dL Normal [facility] Comment on above: Performed By: #### C BC, AMM, ETOH, CMP, MG #### [facility] [address] Percent Ethanol Not performed Normal [facility] Comment on above: Result Comment: PERF ORMED BY: [address] [place] [address] PATHOLOGIST WELL DRILL OPERATOR HELPER CABLE TOOL REY MARVIN M.D. Performed By: #### C BC, AMM, ETOH, CMP, MG #### [facility] [address] [place] [address] [place] Globulin Calc (S) [Mass/Vol] Ordered By: Carmella Page on 08-10-2022 Globulin (S) [Mass/Vol] 2.3 g/dL [facility] Glucose [Mass/volume] in Ser um or PlasmaOrdered By: Carmella Page on 08-10-2022 Glucose [Mass/Vol] 108 mg/dL 70-100 [facility] Comment on above: ADA recommended refe rence rangeRandom Glucose Reference Range is dependent on time and content of last meal. Glucose of more than 200 mg/dL in a nonstressed, ambulatory subject supports the diagnosis of Diabetes Mellitus. Hematocrit Auto (Bld) [Volum e fraction]Ordered By: Carmella Page on 08-10-2022 Hematocrit (Bld) [Volume fraction] 39.2 % 38.8-50.0 [facility] Hemoglobin [Mass/volume] in BloodOrdered By: Carmella Page on 08-10-2022 Hemoglobin (Bld) [Mass/Vol] 12.9 g/dL 13.0-17.0 [facility] Ketones Auto test strip (U) [Mass/Vol]Ordered By: Carmella Page on 08-10-2022 Ketones (U) [Mass/Vol] 1+ Negative [facility] Laboratory - UrinalysisOrder ed By: Carmella Page on 08-10-2022 Hyaline casts LM Ql (Urine sed) 9-19 [LPF] 0-8 [facility] Leukocytes [#/volume] correc fritz for nucleated erythrocytes in Blood by Automated counOrdered By: Carmella Page on 08-10-2022 WBC corrected for nucl RBC Auto (Bld) [#/Vol] 7.3 10*3/uL 4.1-10.5 [facility] Lymphocytes Auto (Bld) [#/Vo l]Ordered By: Carmella Page on 08-10-2022 Lymphocytes (Bld) [#/Vol] 1.3 10*3/uL 1.00-4.8 [facility] Lymphocytes/100 WBC Auto (Bl d)Ordered By: Carmella Page on 08-10-2022 Lymphocytes/100 WBC (Bld) 17.7 % . [facility] MCH Auto (RBC) [Entitic mass ]Ordered By: Carmella Page on 08-10-2022 MCH (RBC) [Entitic mass] 27.6 pg 27.5-35.2 [facility] MCHC Auto (RBC) [Mass/Vol]Or dered By: Carmella Page on 08-10-2022 MCHC (RBC) [Mass/Vol] 32.8 g/dL 32.5-35.6 [facility] MCV Auto (RBC) [Entitic vol] Ordered By: Carmella Page on 08-10-2022 MCV (RBC) [Entitic vol] 83.9 fL 83.5-101 F [facility] Magnesiumon 08-10-2022 Magnesium [Mass/Vol] 2.1 mg/dL Normal 1.9-2.7 [facility] Comment on above: Result Comment: PERF ORMED BY: [facility] [address] [place] [address] PATHOLOGIST WELL DRILL OPERATOR HELPER CABLE TOOL REY MARVIN M.D. Performed By: #### C BC, AMM, ETOH, CMP, MG #### [facility] [address] Magnesium [Mass/volume] in S maritza or PlasmaOrdered By: Carmella Page on 08-10-2022 Magnesium [Mass/Vol] 2.1 mg/dL 1.9-2.7 [facility] Monocyte distribution width [Entitic volume] in Blood by AutomatedOrdered By: Carmella Page on 08-10-2022 Monocyte distribution width Auto (Bld) [Entitic vol] 16.25 % 0.00-20.00 [facility] Monocytes Auto (Bld) [#/Vol] Ordered By: Carmella Page on 08-10-2022 Monocytes (Bld) [#/Vol] 0.5 10*3/uL 0.0-0.8 [facility] Monocytes/100 WBC Auto (Bld) Ordered By: Carmella Page on 08-10-2022 Monocytes/100 WBC (Bld) 7.1 % . [facility] Neutrophils Auto (Bld) [#/Vo l]Ordered By: Carmella Page on 08-10-2022 Neutrophils (Bld) [#/Vol] 5.4 10*3/uL 1.8-7.7 [facility] Neutrophils/100 WBC Auto (Bl d)Ordered By: Carmella Page on 08-10-2022 Neutrophils/100 WBC (Bld) 74.5 % . [facility] Nitrite Test strip Ql (U)Ord ered By: Carmella Page on 08-10-2022 Nitrite Ql (U) Negative Negative [facility] No Panel InformationOrdered By: Carmella Page on 08-10-2022 Estimated GFR (CKD-EPI) > 60.0 mL/Min [facility] Creatinine Clearance (Chem 108.93 [facility] Nucleated erythrocytes [Pres ence] in Blood by Automated countOrdered By: Carmella Page on 08-10-2022 Nucleated RBC Auto Ql (Bld) 0.1 /100{WBC} 0-0.5 [facility] Opiates [Presence] in Urine by Screen methodOrdered By: Carmella Page on 08-10-2022 Opiates Screen Ql (U) Negative Negative [facility] Phencyclidine Screen Ql (U)O rdered By: Carmella Page on 08-10-2022 Phencyclidine Ql (U) Negative Negative [facility] Platelet mean volume Auto (B ld) [Entitic vol]Ordered By: Carmella Page on 08-10-2022 Platelet mean volume (Bld) [Entitic vol] 9.7 fL 6.6-10.1 [facility] Platelets Auto (Bld) [#/Vol] Ordered By: Carmella Page on 08-10-2022 Platelets (Bld) [#/Vol] 174 10*3/uL 150-450 [facility] Potassium [Moles/volume] in Serum or PlasmaOrdered By: Carmella Page on 08-10-2022 Potassium [Moles/Vol] 3.2 mmol/L 3.5-5.1 [facility] Protein Auto test strip (U) [Mass/Vol]Ordered By: Carmella Page on 08-10-2022 Protein (U) [Mass/Vol] 30 mg/dL Negative [facility] Protein [Mass/volume] in Ser um or PlasmaOrdered By: Carmella Page on 08-10-2022 Protein [Mass/Vol] 6.6 g/dL 6.4-8.9 [facility] RBC Auto (Bld) [#/Vol]Ordere d By: Carmella Page on 08-10-2022 RBC (Bld) [#/Vol] 4.67 10*6/uL 3.90-5.60 [facility] Serum or plasma albumin/glob ulin mass ratioOrdered By: Carmella Page on 08-10-2022 Albumin/Globulin [Mass ratio] 1.9 {ratio} [facility] Serum or plasma anion gap de terminationOrdered By: Carmella Page on 08-10-2022 Anion gap [Moles/Vol] 11.8 mmol/L 6.0-15.0 [facility] Sodium [Moles/volume] in Ser um or PlasmaOrdered By: Carmella Page on 08-10-2022 Sodium [Moles/Vol] 140 mmol/L 136-145 [facility] Specific gravity Auto test s trip (U) [Rel density]Ordered By: Carmella Page on 08-10-2022 Specific gravity (U) [Rel density] 1.034 1.001-1.030 [facility] Squamous epithelial cells de tection in urine sediment by light microscopyOrdered By: Carmella Page on 08-10-2022 Epithelial cells.squamous LM Ql (Urine sed) 0-1 [HPF] 0-2 [facility] Urea nitrogen [Mass/volume] in Serum or PlasmaOrdered By: Carmella Page on 08-10-2022 Urea nitrogen [Mass/Vol] 20 mg/dL 7-25 [facility] Urine bacteria detection by automated methodOrdered By: Carmella Page on 08-10-2022 Bacteria Auto Ql (U) None seen None Seen [facility] Urine clarity by refractomet ry automatedOrdered By: Carmella Page on 08-10-2022 Clarity Refractometry automated (U) Clear Clear [facility] Urine glucose measurement by automated test strip (mass/volume)Ordered By: Carmella Page on 08-10-2022 Glucose Auto test strip (U) [Mass/Vol] Normal mg/dL Normal [facility] Urine hemoglobin detection b y automated test stripOrdered By: Carmella Page on 08-10-2022 Hemoglobin Auto test strip Ql (U) Negative Negative [facility] Urine leukocyte esterase det ection by automated test stripOrdered By: Carmella Page on 08-10-2022 Leukocyte esterase Auto test strip Ql (U) 1+ Negative [facility] Urobilinogen Auto test strip (U) [Mass/Vol]Ordered By: Carmella Page on 08-10-2022 Urobilinogen (U) [Mass/Vol] Normal mg/dL Normal [facility] WBC Auto (Bld) [#/Vol]Ordere d By: Carmella Page on 08-10-2022 WBC (Bld) [#/Vol] 7.3 10*3/uL 4.1-10.5 [facility] pH Auto test strip (U)Ordere d By: Carmella Page on 08-10-2022 pH (U) 6.5 [pH] 5.0-9.0 [facility] CBC AUTO DIFFon 05-27-2022 BASO # 0.1 103/ul Normal 0.0-0.1 [facility] Comment on above: Performed By: #### C BC #### [facility] [address] [place] [address] Dr. Janell Smith Basophils/100 WBC (Bld) 0.6 % Normal 0.2-2.0 [facility] Comment on above: Performed By: #### C BC #### [facility] [address] [place] [address] Dr. Janell Smith EO # 0.3 103/ul Normal 0.0-0.7 [facility] Comment on above: Performed By: #### C BC #### [facility] [address] [place] [address] Dr. Janell Smith Eosinophils/100 WBC (Bld) 2.8 % Normal 0.9-7.0 [facility] Comment on above: Performed By: #### C BC #### [facility] [address] [address] [address] Janell Smith Erythrocyte distribution width (RBC) [Ratio] 12.5 % Normal 11.0-15.0 [facility] Comment on above: Performed By: #### C BC #### [facility] [address] [place] [address] Dr. Janell Smith Hematocrit (Bld) [Volume fraction] 36.4 % Critically low 42.0-54.0 [facility] Comment on above: Performed By: #### C BC #### [facility] [address] [place] [address] Dr. Janell Smith Hemoglobin (Bld) [Mass/Vol] 12.1 g/dL Critically low 14.0-18.0 [facility] Comment on above: Performed By: #### C BC #### [facility] [address] [address] [address] Janell Smith IG # 0.02 10e3/ul Normal 0.00-0.03 [facility] Comment on above: Performed By: #### C BC #### [facility] [address] [place] [address] Dr. Janell Smith IG % 0.2 % Normal 0.0-0.5 [facility] Comment on above: Performed By: #### C BC #### [facility] [address] [place] [address] Dr. Janell Smith LYMPH # 1.9 103/ul Normal 1.2-3.8 [facility] Comment on above: Performed By: #### C BC #### [facility] [address] [place] [address] Dr. Janell Smith Lymphocytes/100 WBC (Bld) 19.9 % Critically low 20.5-60.0 [facility] Comment on above: Performed By: #### C BC #### [facility] [address] [place] [address] Dr. Janell Smith MANUAL DIFF REQ NO Normal [facility] Comment on above: Performed By: #### C BC #### [facility] [address] [place] [address] Dr. Janell Smith MCH (RBC) [Entitic mass] 28.2 pg Normal 25.9-34.0 [facility] Comment on above: Performed By: #### C BC #### [facility] [address] [place] [address] Dr. Janell Smith MCHC (RBC) [Mass/Vol] 33.2 g/dL Normal 29.9-35.2 [facility] Comment on above: Performed By: #### C BC #### [facility] [address] [place] [address] Dr. Janell Smith MCV (RBC) [Entitic vol] 84.8 fL Normal 80.0-94.0 [facility] Comment on above: Performed By: #### C BC #### [facility] [address] [place] [address] Dr. Janell Smith MONO # 0.7 103/ul Normal 0.3-0.8 [facility] Comment on above: Performed By: #### C BC #### [facility] [address] [place] [address] Dr. Janell Smith Monocytes/100 WBC (Bld) 7.7 % Normal 1.7-12.0 [facility] Comment on above: Performed By: #### C BC #### [facility] [address] [place] [address] Dr. Janell Smith NEUT # 6.5 103/ul Normal 1.4-6.5 [facility] Comment on above: Performed By: #### C BC #### [facility] [address] [place] [address] Dr. Janell Smith Neutrophils/100 WBC (Bld) 68.8 % Normal 43.0-75.0 [facility] Comment on above: Performed By: #### C BC #### [facility] [address] [place] [address] Dr. Janell Smith Platelet mean volume (Bld) [Entitic vol] 10.5 fL Normal 9.5-13.5 [facility] Comment on above: Performed By: #### C BC #### [facility] [address] [place] [address] Dr. Janell Smith PLT 195 103/ul Normal 150-450 [facility] Comment on above: Performed By: #### C BC #### [facility] [address] [place] [address] Dr. Janell Smith RBC 4.29 106/ul Critically low 4.70-6.10 [facility] Comment on above: Performed By: #### C BC #### [facility] [address] [place] [address] Dr. Janell Smith WBC 9.4 103/ul Normal 4.0-11.0 [facility] Comment on above: Performed By: #### C #### [facility] [address] [address] [address] HEAD WO CONon 05-27-2022 CT HEAD WO CON EXAM: CT HEAD WO CON CLINICAL INDICATION: Syncope COMPARISON: CT head without contrast 11/24/2013 TECHNIQUE: Axial CT images of the brain were obtained without contrast. Dose reduction techniques were achieved by using automated exposure control and/or adjustment of mA and/or kV according to patient size and/or use of iterative reconstruction technique. FINDINGS: Brain parenchyma: No mass effect or midline shift is seen. Whiteside-white differentiation is maintained. No findings suspicious for intracranial hemorrhage. No findings suggesting acute stroke. Ventricles and extra-axial spaces: Ventricles are concordant with sulci. No findings suggesting hydrocephalus. Visualized paranasal sinuses: No findings suggesting acute sinusitis. Partially visualized mucosal thickening noted along the maxillary sinuses. Mastoid air cells: Clear. Included portions of the orbits:Included portions of the orbits with no evidence of fracture or other acute pathology. Bones: No fracture is seen. Impression: 1. No acute intracranial process visualized. Electronically authenticated by: ANA SINGLETON Date: 2022-05-27 00:27 Normal [facility] CTA NECK WO W CONon 05-27-19 CTA NECK WO W CON EXAMINATION: CTA HEA D WO W CON, CTA NECK WO W CON CLINICAL INDICATION: Syncope. TECHNIQUE: CT angiography of the head and neck was then performed following intravenous administration of 75 cc of Omnipaque 350 injected at a rate of 5 cc/sec. Multiple MIP images in axial, coronal, and sagittal planes and 3D surfaced rendered images were then acquired using the source data. Automated dose lowering techniques and/or adjustment according to patient size were utilized for this examination. COMPARISON: CT head without contrast 05/26/2022. FINDINGS: CTA: CTA Head: The anterior and posterior cerebral circulations are patent. No large vessel occlusion, hemodynamically significant stenosis, aneurysm, dissection, or arteriovenous malformation is shown. No evidence for pathologic enhancement within the brain parenchyma. Cerebral venous sinuses appear patent. CTA Neck: A 3 vessel arch is shown. No evidence for flow-limiting stenosis along the origins of the great vessels. The left common, internal and external carotid arteries are patent without evidence for flow-limiting stenosis. The right common, internal and external carotid arteries are patent without evidence for flow-limiting stenosis. Bilateral vertebral artery origins appear patent. No flow-limiting stenosis is visualized along the extracranial course of the bilateral vertebral arteries. No evidence for pseudoaneurysm or dissection. There is a 5.5 mm noncalcified lung nodule noted within the right upper lung field. There are some groundglass opacities also visualized within the right upper lung field, CT chest is recommended for further evaluation. There is a 1.6 cm enlarged lymph node noted within the left level 1B station showing patchy enhancement of uncertain etiology, short-term follow-up may be done for resolution. IMPRESSION: 1. No evidence for large vessel occlusion, hemodynamically significant flow stenosis, aneurysm or dissection. 2. No measurable stenosis of the extracranial carotid and vertebral arteries. 3. There is a 5.5 mm noncalcified lung nodule noted within the right upper lung field with some groundglass opacities also visualized posteriorly within the right upper lung field, recommend CT chest for further evaluation. 4. There is a 1.6 cm enlarged lymph node noted within the left level 1B station showing patchy, additional prominent/borderline enlarged lymph node with patchy enhancement noted within the left level IIb station, short-term follow-up may be done for resolution, these may be reactive in nature, other etiologies cannot be excluded. Assessment of stenosis of the internal carotid arteries is based on NASCET criteria. Electronically authenticated by: ANA SINGLETON Date: 2022-05-27 02:11 Normal [facility] PROF CHEM 8 (BAS METB)on Anion gap [Moles/Vol] 11.6 mmol/L Normal [facility] Comment on above: Performed By: #### B MP ####[facility] [address] [place], [place] [address]Th. Janell Smith Calcium [Mass/Vol] 8.8 mg/dL Normal 8.5-10.1 [facility] Comment on above: Performed By: #### B MP ####[facility] [address] [place], [place] [address]KjYanni Smith Chloride [Moles/Vol] 101 mmol/L Normal 98-107 [facility] Comment on above: Performed By: #### B MP ####[facility] [address] [address]Dr. Janell Smith CO2 [Moles/Vol] 29.9 mmol/L Normal 21.0-32.0 [facility] Comment on above: Performed By: #### B MP ####[facility] [address] [address]Dr. Janell Smith Creatinine [Mass/Vol] 0.89 mg/dL Normal 0.70-1.30 [facility] Comment on above: Performed By: #### B MP ####[facility] [address] [address]Dr. Janell Smith EGFR-AF IRAQI >60 Normal >=60 [facility] Comment on above: Performed By: #### B MP ####[facility] [address] [place], [place] [address]Dr. Janell Smith EGFR-NON AF IRAQI >60 Normal >=60 [facility] Comment on above: Performed By: #### B MP ####[facility] [address] [place], [place] [address]Dr. Janell Smith Glucose [Mass/Vol] 81 mg/dL Normal 74-106 [facility] Comment on above: Performed By: #### B MP ####[facility] [address] [place], [place] [address]Dr. Janell Smith Potassium [Moles/Vol] 3.5 mmol/L Normal 3.5-5.1 [facility] Comment on above: Performed By: #### B MP ####[facility] [address] [place], [place] [address]Dr. Janell Smith Sodium [Moles/Vol] 139 mmol/L Normal 136-145 [facility] Comment on above: Performed By: #### B MP ####[facility] [address] [place], [place] [address]Dr. Janell Smith Urea nitrogen [Mass/Vol] 12.0 mg/dL Normal 7.0-18.0 [facility] Comment on above: Performed By: #### B MP ####[facility] [address] [place], [place] [address]KbYanni Smith Urea nitrogen/Creatinine [Mass ratio] 13.5 mg/mg Normal [facility] Comment on above: Performed By: #### B MP ####[facility] [address] [place], [place] [address]DmYanni Smith XR CHEST 1 Von 05-27-2022 XR CHEST 1 V CXR HISTORY: Patient has been fainting and blacking out. COMPARISON: None. TECHNIQUE: 1 view of the chest submitted for review. FINDINGS: The lungs are hyperaerated. The cardiac silhouette measures within normal. Pulmonary vascularity is unremarkable. Osseous structures are normal for age. IMPRESSION: No plain film evidence of acute cardiopulmonary abnormality. Electronically authenticated by: MARILYN SMITH Date: 2022-05-27 00:52 Normal [facility] [id number] 05-18-2021 SARS-CoV-2 (COVID-19) RNA FRANCOIS+probe Ql (Unsp spec) Normal [facility] Comment on above: Performed By: #### C OVID #### [facility] [address] [place] [address] Drafter Electronic: Teddy Lockett MD [facility] [address] [place] [address] Drafter Electronic: Lesley Mccarthy MD SARS-CoV-2 (COVID-19) RNA FRANCOIS+probe Ql (Unsp spec) Not detected Normal [facility] Comment on above: Result Comment: The specimen is NEGATIVE for SARS-CoV-2, the novel coronavirus associated with COVID-19. A negative result does not rule out COVID-19. Damian SARS-CoV-2 for use on the [employer]/8800 [employer] is a real-time RT-PCR test intended for the qualitative detection of nucleic acids from SARS-CoV-2 in clinician-collected nasal, nasopharyngeal, and oropharyngeal swab specimens from individuals who meet COVID-19 clinical and/or epidemiological criteria. Damian SARS-CoV-2 is for use only under Emergency Use Authorization (EUA) in laboratories certified under Clinical Laboratory Improvement Amendments of 1988 (CLIA), 42 U.S.C. ?263a, that meet requirements to perform high or moderate complexity tests. An individual without symptoms of COVID-19 and who is not shedding SARS-CoV-2 virus would expect to have a negative (not detected) result in this assay. Fact sheet for Healthcare Providers: https://www.fda.gov/media/072428/download Fact sheet for Patients: https://www.fda.gov/media/594604/download METHODOLOGY: RT-PCR Performed By: #### C OVID #### [address] [place], [place] [id number] Drafter Electronic: Teddy Lockett MD [facility] [address] [place] [address] Drafter Electronic: Lesley Mccarthy MD [id number] 05-17-2021 SARS-CoV-2 (COVID-19) RNA FRANCOIS+probe Ql (Unsp spec) .NASOPHARYNGEAL SWAB Normal [facility] Comment on above: Performed By: #### C OVID #### [address] [place] [address] Drafter Electronic: Teddy Lockett MD [facility] [address] [place] [address] Drafter Electronic: Lesley Mccarthy MD Vital Signs Date Time Vital Sign Value Performing Clinician Sveta luque 10-11-2022 07:30-0400 Diastolic blood pressure 79 mm[Hg] DO Carmella ECO-SAFE Work Phone: [facility] 10-11-2022 07:30-0400 Heart rate 113 /min DO Carmella Tupa Work Phone: [facility] 10-11-2022 07:30-0400 Respiratory rate 16 /min DO Carmella Testtpa Work Phone: [facility] 10-11-2022 07:30-0400 SaO2% (BldA) [Mass fraction] 97 % DO Carmella Tupa Work Phone: [facility] 10-11-2022 07:30-0400 Systolic blood pressure 149 mm[Hg] DO Carmella Tupa Work Phone: [facility] 10-10-2022 20:53-0400 Body temperature 98.4 [degF] DO Carmella Tupa Work Phone: [facility] 10-09-2022 08:23-0400 Body weight 68.03 kg DO Carmella Tupa Work Phone: [facility] 10-07-2022 02:12-0400 Body height 180.34 cm DO Carmella Tupa Work Phone: [facility] 08-20-2022 13:04-0400 Body temperature 97.9 [degF] DO Carmella Tupa Work Phone: [facility] 08-20-2022 13:04-0400 Diastolic blood pressure 82 mm[Hg] DO Carmella Tupa Work Phone: [facility] 08-20-2022 13:04-0400 Heart rate 84 /min DO Caremlla Tupa Work Phone: [facility] 08-20-2022 13:04-0400 Respiratory rate 18 /min DO Carmella Tupa Work Phone: [facility] 08-20-2022 13:04-0400 SaO2% (BldA) [Mass fraction] 99 % DO Carmella Tupa Work Phone: [facility] 08-20-2022 13:04-0400 Systolic blood pressure 129 mm[Hg] DO Carmella Tupa Work Phone: [facility] 08-20-2022 06:25-0400 Body weight 63.4 kg DO Carmella Tupa Work Phone: [facility] 08-15-2022 16:39-0400 Body height 180.34 cm DO Carmella Tupa Work Phone: [facility] 08-13-2022 11:46-0400 Inhaled oxygen flow rate 2 L/min DO Carmella Tupa Work Phone: [facility] 08-10-2022 15:30-0400 Diastolic blood pressure 80 mm[Hg] DO Carmella Jamiepa Work Phone: [facility] 08-10-2022 15:30-0400 Heart rate 70 /min DO Carmella Tupa Work Phone: [facility] 08-10-2022 15:30-0400 Systolic blood pressure 129 mm[Hg] DO Carmella Tupa Work Phone: [facility] 08-10-2022 14:30-0400 SaO2% (BldA) [Mass fraction] 100 % DO Carmella Tupa Work Phone: [facility] 08-10-2022 13:30-0400 Respiratory rate 26 /min DO Carmella Tupa Work Phone: [facility] 08-10-2022 11:43-0400 Body height 180.34 cm DO Carmella Page Work Phone: [facility] 08-10-2022 11:43-0400 Body weight 61 kg DO Carmella Page Work Phone: [facility] 08-10-2022 11:41-0400 Body temperature 99 [degF] DO Carmella Page Work Phone: [facility] Encounters Encounter Date Encounter Type Care Provider Facility Start: 01-11-2024 End: 01-11-2024 Emergency department patient visit NO PCP NO PCP [facility] Start: 12-19-2023 End: 12-20-2023 Emergency department patient visit ILIA CHACKO [facility] Start: 10-07-2022 End: 10-11-2022 Evaluation and management of inpatient DO Carmella Page Work Phone: [facility] Work Phone: Start: 09-18-2022 ambulatory Beckie Claire Fa cility:[facility] Start: 09-18-2022 Registered Recurring DO Rodger Page Work Phone: [facility] Start: 09-18-2022 End: 09-18-[address] RIVERA CALDERON . Facility:[facility] Start: 08-10-2022 End: 08-20-2022 Evaluation and management of inpatient Jamison Norton Facility:[facility] Start: 08-10-2022 End: 08-20-2022 Evaluation and management of inpatient DO Carmella Page Work Phone: [facility] Work Phone: Start: 05-27-2022 End: 05-27-2022 ambulatory LAWANDA MARTINEZ . Facility:[facility] Start: 05-17-2021 End: 05-18-2021 [facility] Procedures Date Procedure Procedure Detail Performing Clinician Start: 08-15-2022 MRI of head DO Carmella Page Work Phone: Start: 08-11-2022 CT of head without contrast DO Carmella Page Work Phone: Plan of Treatment Date Care Activity Detail Author Start: 10-11-2022 [facility] Start: 10-07-2022 Hospital admission [facility] Start: 08-20-2022 [facility] [facility] Start: 08-15-2022 Administration of pr ophylactic treatment [facility] Start: 08-13-2022 Referral to neurologist [facility] Start: 08-10-2022 Hospital admission [facility] Start: 08-10-2022 Referral to psychiatrist [facility] Albumin/Globulin ratio [facility] Anion gap measurement [facility] Globulin [Mass/volume] in Serum [facility] Patient Education [facility] Work Phone: Patient referral [facility] Work Phone: [facility] Payers Date Payer Category Payer Unknown [id number] 2022 Self-pay 1990 Unknown [id number] 2.16.8 [id number] 1989 Unknown [id number] 2.16.84 [id number] 1989 Unknown [id number] 2.16.84 [id number] 1989 Unknown [id number] 2.16.8 [id number] 1989 Unknown [id number] 2.16.8 [id number] 1989 Unknown [id number] 2.16.8 [id number] 1959 Unknown [id number] Unknown [employer] [id number] Unknown [id number] 2.16.8 [id number] Unknown [id number] 2.16.8 [id number] Social History Date Type Detail Facility [facility] Work Phone: Start: 1990 Sex Assigned At Male F [facility] Start: 08-14-2022 Tobacco smoking stat [facility] Unknown if ever smoked [facility] Start: 10-08-2022 [facility] Goals Date Patient Goal Desired Activity /State Functional Status Date Assessment Result Facility 10-11-2022 Functional status Patient at Baseline [facility] Work Phone: 08-20-2022 Functional status Patient at Baseline [facility] Work Phone: Mental Status Date Assessment Result Facility 10-11-2022 Cognitive function Cognitive Sta tus Patient at Baseline [facility] Work Phone: 08-20-2022 Cognitive function Cognitive Sta tus Patient at Baseline [facility] Work Phone: Clinical Notes 08-10-2022 to 10-11-2022 Note Date & Type Note Facility 10-11-2022 Discharge summary Note Date/Time October 11, 2022 11:43am [facility] [address] [place] [address] Discharge Summary Signed Patient: Lesley Adams MR#: [id number] : 1990 Acct:[id number] Age/Sex: 31 / M Adm Date: 3 Loc: Room: [address] [place] [address]: Beckie Claire MD Copies to: MD Ramiro Strong MD NO FAMILY PHYSICIAN~ Providers Date of Discharge: 10/11/22 Discharging Provider: Ramiro Morris Primary Care Provider: PHYSICIAN NO FAMILY Discharge Diagnosis (1) Withdrawal from opioids: (2) Withdrawal from benzodiazepine: (3) Major depressive disorder, recurrent, moderate: Final Diagnosis Final Discharge Diagnosis: MDD Unspecified Psychosis Stimulant Use Disorder Summary Hospital Course Hospital course: According to admission note: Mr. Adams is a 31 year old male with a reported history of anxiety, depression, opiate use disorder and sedative use disorder who presents for an inpatient psychiatric treatment.? Reportedly, he presented to the unit as? angry, using profanity. He doesn't belong here, is not happy that he does not have a TV in his room and cannot have his cell phone with him. Mom had informed ER staff that patient informed her that he was suicidal then went and took Percocet from a friend. He was found unresponsive in front of the [facility] building in [place]. At the time of the interview, he presented as lethargic. He reported self medicating with drugs and has been irritable. He said his depression has been severe and has been self medicating with drugs. He said he used to take psychiatric medications to help with mood stabilizations but does not recall their names. He was hospitalized recently on the medical floor due to benzo withdrawal and seizures. He reports history of psychiatric hospitalizations and previous suicide attempts. He reported taking Seroquel before which was not helpful. He reports using opiates, heroin and occasional weed. He did receive PRN medication which made him feel lethargic. Patient was treated with Depakote and Lexapro. He was briefly on Librium to help manage concern for benzo withdrawal but this was discontinued after a few days without any symptoms of withdrawal. During the first few days he was slightly confused and disoriented. This improved after 2 to 3 days of his hospitalization he started to become more linear and organized. He did not recall much of the details that happened prior to his hospitalization, but did admit that some of his substance use may have contributed as he relapsed to roughly after 4 weeks of sobriety. His sleep was problematic during hospitalization even with help from trazodone. His mood overall stabilized and his depression improved during his hospitalization. He did not exhibit any behavior concerning for suicidality. He did not have any conflict with peers orstagema. He attempted to make phone calls to stay with his sister but his sister stated that he could not stay there. He stated that he would stay with another family member. He was offered a residential list but stated that he would be fine going back to [place] and staying with family. He did not report any depression, suicidality on the day of discharge. He felt hopeless discharge plan home and following up with outpatient services. Time spent discussing smoking cessation with patient: 3 to 10 minutes Condition Condition at Discharge: Stable Status at Discharge Cognitive/behavioral status at discharge: Mental Status Exam: Appearance: grossly normal Mental Status: mental status grossly normal Mood: Euthymic mood Affect: Normal affect Speech and Movement: speech and movement normal and speech clear Attitude: cooperative Thought Process: normal Thought Content: Denied hallucinations, no homicidality and no suicidality Insight: Good Judgment: Good Functional status at discharge: independent ambulation Overall status at discharge: patient is back to baseline Time Spent with Patient Time spent providing/coordinating discharge services (# min): 30 Exam Physical Exam Vital Signs: Temp Pulse Resp BP Pulse Ox O2 Del Method 98.4 F 113 H 16 149/79 H 97 Room Air 10/10/22 20:53 10/11/22 07:30 10/11/22 07:30 10/11/22 07:30 10/11/22 07:30 10/11/22 07:30 Discharge Plan Discharge Plan Patient Disposition: Home Activity: No Activity Restriction Diet: Regular Additional Instructions: Patient needs to have TSH and free T4 done in approximately 3 months results to primary care Regular diet No activity restrictions Instructions: Depression, Adult (DC), [facility] [place] Instructions Prescriptions: New divalproex 500 mg tablet extended release 24 hr 500 mg PO QHS 30 Days Qty: 30 0RF nicotine (polacrilex) 2 mg Gum 2 mg buccal Q2HR PRN (Reason: Nicotine Cravings) Qty: 60 0RF pantoprazole 40 mg Tablet,Delayed Release (Dr/Ec) 40 mg PO DAILY 30 Days Qty: 30 0RF escitalopram oxalate 5 mg Tablet 5 mg PO DAILY 30 Days Qty: 30 0RF trazodone 100 mg tablet 100 mg PO QHS PRN (Reason: Insomnia) 14 Days Qty: 14 1RF Follow Up: [facility] [Other] (Please follow up with in 3 months for thyroid function.) [facility] [Outside] [facility] Hotline [Outside] Documented By: Ramiro Morris MD 10/11/22 1142 Signed By: <Electronically signed by Ramiro Morris MD> 10/11/22 8641 [facility] Work Phone: 1(767) 705-915605-30-2023 Progress note Author Ramiro Morris [facility] October 10, 2022 12:49pm Note Date/Time October 10, 2022 12:48 pm [facility] [address] [place] [address] Psychiatry Progress Note Signed Patient: Lesley Adams MR#: [id number] : 1990 Acct:[id number] Age/Sex: 31 / M Adm Date: 3 Loc: Room: [address] [place] [address] Type : ADM IN Attending Dr: Beckie Claire MD Copies to: ~ Date of Service: 10/10/2022 Subjective Subjective Narrative: Mr. Adams reported that he is still confused about what happened that led to his hospitalization. He does admit to being high. He reported that he did not sleep well last night due to thinking too much about things that had occurred inthe future. He reported that he burned a lot of bridges with family and may notbe able to return to his sister's place. We discussed about providing him with a list of shelters. Mental Status Exam: Appearance: grossly normal Mental Status: mental status grossly normal Mood: Improving mood Affect: Improving affect Speech and Movement: speech and movement normal and speech clear Attitude: cooperative Thought Process: normal Thought Content: Denied hallucinations, no homicidality, no suicidality Insight: fair Judgment: fair Exam Physical Exam Vital Signs: Temp Pulse Resp BP Pulse Ox O2 Del Method 97.4 F L 68 18 124/82 96 Room Air 10/10/22 07:30 10/10/22 07:30 10/10/22 07:30 10/10/22 07:30 10/10/22 07:30 10/10/22 07:30 Assessment/Plan Assessment/Plan (1) Withdrawal from opioids: Code(s): F11.93 - Opioid use, unspecified with withdrawal Status: Acute (2) Withdrawal from benzodiazepine: Code(s): F13.939 - Sedative, hypnotic or anxiolytic use, unspecified with withdrawal, unspecified Status: Acute (3) Major depressive disorder, recurrent, moderate: Code(s): F33.1 - Major depressive disorder, recurrent, moderate Status: Acute Plan Patient seems to be doing better at this time. We will provide residential list andanticipate discharge tomorrow Continue Lexapro 5 mg PO Q am Depakote to 250 mg PO BID Continue to monitor mental status Encourage group participation and medication compliance Risk benefits alternatives explained Documented By: Ramiro Morris MD 10/10/221246 Signed By: <Electronically signed by Ramiro Morris MD> 10/10/229 [facility] Work Phone: 1(929) 494-693305-29-2023 Progress note Author Ramiro Morris [facility] October 09, 2022 1:06pm Note Date/Time October 09, 2022 12:30 pm [facility] [address] [place] [address] Psychiatry Progress Note Signed Patient: Lesley Adams MR#: [id number] : 1990 Acct:[id number] Age/Sex: 31 / M Adm Date: 3 Loc: 1S Room: [address] [place] [address] Type : ADM IN Attending Dr: Beckie Claire MD Copies to: ~ Date of Service: 10/09/2022 Subjective Subjective Narrative: Mr. Adams reported that he is doing okay. He stated that he cannot recall much details of what happened to the hospital. He does report that he was usingopiates after relapsing after about a month of sobriety. He reported that he has not been depressed. He stated that he has not been experiencing any suicidal thoughts since his admission. He reported no side effects from currentmedications. Mental Status Exam: Appearance: grossly normal Mental Status: mental status grossly normal Mood: Improving mood Affect: Improving affect Speech and Movement: speech and movement normal and speech clear Attitude: cooperative Thought Process: normal Thought Content: Denied hallucinations, no homicidality, improving suicidality Insight: fair Judgment: fair Review of symptoms: Constitutional: Denies chills and Denies fever(s) Eyes: Denies change in vision ENT: Denies abnormal hearing Cardiovascular: Denies chest pain Respiratory: Denies chest congestion and Denies cough Gastrointestinal: Denies change in bowel habits Genitourinary: Denies dysuria Musculoskeletal: Denies atrophy and Denies myalgias Integumentary/Breasts: Denies dry skin Neurologic: Denies abnormal gait and Denies abnormal movements Psychiatric: Denies current depression and suicidal ideation Physical exam: Const: cooperative Nutritional Appearance: average body habitus Orientation: alert, awake and oriented x3 HEENT: Head normal to inspection, hearing grossly normal bilaterally, external nose normal, face symmetric Eyes: appearance normal, both eyes and all related structures, sclerae normal Neck: normal visual inspection and full ROM Resp: normal respiratory effort, able to speak in complete sentences and symmetric chest movement Cardio: regular rate GI: normal to inspection and non-distended : deferred Skin: no rashes or lesions noted Neuro: CNI: Normal olfaction CNI: normal olfaction CNII: Visual isidro intact, CNIII,IV,: EOM intact, no nystagmus. Pupils equal, round, reactive to light and accommodation, CNV: Sensation intact to light touch, CNVII: Raises eyebrows, smile/frown, puff out cheeks symmetrically, CNVIII: Hearing intact bilaterally, CNIX,X: Voice normal, soft palate elevation normal, symmetrical, CNXI: Shoulder shrug strong, equal bilaterally, CNXII: Tongue protrusion midline, movement symmetrical. Extrem: normal to inspection and full ROM Exam Physical Exam Vital Signs: Temp Pulse Resp BP Pulse Ox O2 Del Method 98.2 F 89 18 115/77 96 Room Air 10/09/22 07:30 10/09/22 07:30 10/09/22 07:30 10/09/22 07:30 10/09/22 07:30 10/09/22 08:23 Assessment/Plan Assessment/Plan (1) Withdrawal from opioids: Code(s): F11.93 - Opioid use, unspecified with withdrawal Status: Acute (2) Withdrawal from benzodiazepine: Code(s): F13.939 - Sedative, hypnotic or anxiolytic use, unspecified with withdrawal, unspecified Status: Acute (3) Major depressive disorder, recurrent, moderate: Code(s): F33.1 - Major depressive disorder, recurrent, moderate Status: Acute Plan Patient seems to be doing better at this time. Continue Lexapro 5 mg PO Q am and lower Depakote to 250 mg PO BID Discontinue Librium Continue to monitor mental status Encourage group participation and medication compliance Risk benefits alternatives explained Documented By: Ramiro Morris MD 10/09/22 1227 Signed By: <Electronically signed by Ramiro Morris MD> 10/09/22 2395 [facility] Work Phone: 1(272) 392-919405-28-2023 Progress note Author Master yoo [facility] October 08, 2022 8:02am Note Date/Time October 08, 2022 7:41a m [facility] [address] [place] [address] Psychiatry Progress Note Signed with Addenda Patient: Lesley Adams MR#: [id number] : 1990 Acct:[id number] Age/Sex: 31 / M Adm Date: 3 Loc: Room: [address] [place] [address] Type : ADM IN Attending Dr: Beckie Claire MD Copies to: ~ ADDENDUM1 Librium will be 10 mg PO BID today and may lower tomorrow Addendum Documented By: Master Claire MD 10/08/22801 Addendum Signed By: <Electronically signed by Master Claire MD> 10/08/22 0802 Date of Service: 10/08/2022 Subjective Subjective Narrative: Mr. Adams presents as lethargic and unablet to answer questions. Staff reported that he requetsed IM Zyprexa because it helped him with racing thoughtsin the past. He told staff that he has no SI/HI. TSH is at 0.17. He had mentioned yesterday sara the was using opiates and Benozs. He was unable to quantify his benzo use and therefore we started him on libirum 10 mg pO BID prophylactically against benzo withdrawal. Most recent vital signs 137/88 and pulse 94. Mental Status Exam: Appearance: Dressed in a hospital gown Mood:Unable to assess Affect: Unable to assess Speech and Movement: Unable to assess Attitude: Unable to assess Thought Process: Unable to assess Thought Content:Unable to assess Insight: Unable to assess Judgment: Unable to assess Unable to complete ROS and physical exam due to patient current presentation. Exam Physical Exam Vital Signs: Temp Pulse Resp BP Pulse Ox O2 Del Method 98.8 F 94 H 16 137/88 97 Room Air 10/07/22 19:26 10/07/22 19:26 10/07/22 19:26 10/07/22 19:26 10/07/22 19:26 10/07/22 19:26 Objective Labs Labs: Abnormal Labs 10/08/22 10/08/22 10/08/22 06:27 06:27 06:27 Hgb 12.0 L Hct 35.7 L Chloride 109 H Calcium 8.5 L AST 65 H Total Protein 6.2 L TSH 3rd Generation 0.17 L Assessment/Plan Assessment/Plan (1) Withdrawal from opioids: Code(s): F11.93 - Opioid use, unspecified with withdrawal Status: Acute (2) Withdrawal from benzodiazepine: Code(s): F13.939 - Sedative, hypnotic or anxiolytic use, unspecified with withdrawal, unspecified Status: Acute (3) Major depressive disorder, recurrent, moderate: Code(s): F33.1 - Major depressive disorder, recurrent, moderate Status: Acute Plan Patient presents as lethargic on exam. Will lower frequncy of PRN medications toavoid excessive lethargy. Continue Lexapro 5 mg PO Q am and lower Depakote to 250 mg PO BID Lower Librium to 10 mg PO QHS then graudally stop if he has no withdrawal symptoms. Monitor suicidal behaviors for safety of self (15-minute face check). Recommend attending groups and psychoeducation for building coping skills. Risks, benefits and indications of medications were discussed with the patient. The patient verbalized understanding. No abnormal movements noted on exam. AIMS is Zero. Involve friends/family members to coordinate care and ensure appropriate outpatient appointments are scheduled prior to discharge. Documented By: Master Claire MD 3 0739 Signed By: <Electronically signed by Master Claire MD> 10/08/22 0745 [facility] Work Phone: 1(957) 332-628005-27-2023 History and physical note Author Master yoo [facility] October 07, 2022 7:52am Note Date/Time October 07, 2022 7:46a m [facility] [address] [place] [address] Psychiatry H&P Signed Patient: Lesley Adams MR#: [id number] : 1990 Acct:[id number] Age/Sex: 31 / M Adm Date: 3 Loc: Room: [address] [place] [address] Type: ADM IN Attending Dr: Beckie Claire MD Copies to: Master Claire MD NO FAMILY PHYSICIAN~ Date of Service: 10/07/2022 HPI History of Present Illness History of present illness: Mr. Adams is a 31 year old male with a reported history of anxiety, depression, opiate use disorder and sedative use disorder who presents for an inpatient psychiatric treatment. Reportedly, he presented to the unit as angry, using profanity. He doesn't belong here, is not happy that he does not have a TV in his room and cannot have his cell phone with him. Mom had informed ER staff that patient informed her that he was suicidal then went and took Percocet from a friend. He was found unresponsive infront of the [facility] in [place]. At the time of the interview, he presented as lethargic. He reported self medicating with drugs and has been irritable. He said his depression has been severe and has been self medicating with drugs. He said he used to take psychiatric medications to help with mood stabilizations but does not recall their names. He was hospitalized recently on the medical floor due to benzo withdrawal and seizures. He reports history of psychiatric hospitalizations and previous suicide attempts. He reported taking Seroquel before which was not helpful. He reports using opiates, heroin and occasional weed. He did recieve PRN medication which made him feel lethargic. Mental Status Exam: Appearance: Disheveled Mental Status: Confused Mood: Anxious mood Affect: Withdrawn affect Speech and Movement: Slowed movement and slurred speech Attitude: Guarded Thought Process: Illogical Thought Content: Reported hallucinations, no homicidality, denied suicidality Insight: Poor Judgment: Poor Unable to complete ROS and physical exam due to patient current presentation. PMFSH Vaccinated for COVID-19?: Unknown Medical History (Updated 08/11/22 @ 14:36 by Beckie Claire MD) Bipolar 1 disorder Depression Insomnia Surgical History (Updated 08/10/22 @ 11:45 by Brynn Michaels RN) No pertinent past surgical history Family History (Updated 08/10/22 @ 21:10 by Sonny Jesus RN) Father Aneurysm Sister Aneurysm Social History Smoking Status: Current every day smoker Tobacco Type: e-cigarettes Substance Use Type: Opiates and Sedatives Meds Medications and Allergies Allergies No Known Allergies Allergy (Verified 08/10/22 11:43) Exam Physical Exam Vital Signs: Pulse Resp BP Pulse Ox O2 Del Method 82 16 109/70 97 Room Air 10/07/22 02:12 10/07/22 02:12 10/07/22 02:12 10/07/22 02:12 10/07/22 02:12 Assessment/Plan (1) Withdrawal from opioids: Code(s): F11.93 - Opioid use, unspecified with withdrawal Status: Acute (2) Withdrawal from benzodiazepine: Code(s): F13.939 - Sedative, hypnotic or anxiolytic use, unspecified with withdrawal, unspecified Status: Acute (3) Major depressive disorder, recurrent, moderate: Code(s): F33.1 - Major depressive disorder, recurrent, moderate Status: Acute Plan Admit to 1S for management of depression and to ensure safety of self due to SI. Start Lexapro 5 mg PO Q am and Depakote 500 mg PO BID Will start Librium 10 mg PO BID for withdrawal Monitor suicidal behaviors for safety of self (15-minute face check). Recommend attending groups and psychoeducation for building coping skills. Risks, benefits and indications of medications were discussed with the patient. The patient verbalized understanding. No abnormal movements noted on exam. AIMS is Zero. Involve friends/family members to coordinate care and ensure appropriate outpatient appointments are scheduled prior to discharge. Documented By: Master Claire MD 3 0746 Signed By: <Electronically signed by Master Claire MD> 10/07/22 0752 [facility] Work Phone: 1(207) 759-676504-09-2023 Discharge summary Author Leonora Bruce [facility] August 20, 2022 1:38pm Note Date/Time August 20, 2022 1:38 pm [facility] [address] [place] [address] Discharge Summary Signed Patient: Lesley Adams MR#: [id number] : 1990 Acct:[id number] Age/Sex: 31 / M Adm Date: 3 Loc: Room: [address] [place] [address]: Leonora Bruce MD Copies to: NO FAMILY PHYSICIAN Leonora Bruce MD~ Providers Date of Discharge: 08/20/22 Discharging Provider: Leonora Bruce Primary Care Provider: PHYSICIAN SOTO FAMILY Consults: 08/10/22 18:39 Consult to Psychiatry Routine 08/13/22 17:24 Consult to Neurology Routine 08/14/22 17:10 Consult to Occupational Therapy Routine Consult to Physical Therapy Routine Discharge Diagnosis (1) Withdrawal from benzodiazepine: Final Diagnosis Final Discharge Diagnosis: Severe withdrawal from opioids and benzodiazepines requiring medical therapy Psychosis with hallucination Myoclonus Transient prolongation of QT Hypokalemia Summary Hospital Course Hospital course: 31 years old male presented via EMS from [facility] for hallucinations. Patient appeared to have significant agitation, with delusions and hallucination. Patient has known history of polysubstance abuse suspected withdrawing from heroin and Xanax. Patient was admitted to the hospital, where he underwent extensive evaluation. Neurology and psychiatry was consulted. Patient was started on multiple antipsychotic medications, gradually patient's symptoms improved. We could not find any organic source of his agitation apart from withdrawal from polysubstance abuse. His QT noted to be prolonged so certain medications could not have been given. QT improved after stopping medications. MRI of the head with and without contrast did not reveal any significant findings. Patient was evaluated by PT OT and was deemed to be quite weak. Initially he was not able to ambulate without assistance. But gradually after getting physical therapy patient did show significant improvement in quite short period of time and he was discharged home with recommendation to follow-up with outpatient Physical exam: General -awake, alert, oriented ?3, not in acute distress Cardiovascular -S1 with S2, no murmurs, no rubs, no gallops Pulmonary - clear to auscultation bilaterally Gastrointestinal - abdomen is soft, nondistended, nontender, bowel sounds positive, there is no rigidity, no rebound Extremities -no edema Neurological -no focal neurological dysfunction noted The patient CARE and further plan was discussed with the patient. All questionsanswered. Patient expressed understanding and was discharged home with outpatient physical therapy in a stable condition. The patient was given written and verbal instructions. The recommendations were made to follow-up as outpatient within one week.The patient was informed if his symptoms get worse togo back to emergency room or call his primary care physician office. Time spent on the discharge day 35 min. Time Spent with Patient Time spent providing/coordinating discharge services (# min): 35 Exam Physical Exam Vital Signs: Temp Pulse Resp BP Pulse Ox O2 Del Method O2 Flow Rate 36.6 C 84 18 129/82 99 Room Air 2 08/20/22 13:04 08/20/22 13:04 08/20/22 13:04 08/20/22 13:04 08/20/22 13:04 08/20/22 13:04 08/13/22 11:46 Discharge Plan Discharge Plan Patient Disposition: Home Activity: No Activity Restriction Diet: Regular Additional Instructions: No driving until evaluated by neurology Prescriptions: New clonidine HCl 0.1 mg Tablet 0.1 mg PO BID 14 Days Qty: 28 0RF acetaminophen 325 mg Tablet 650 mg PO Q6H PRN (Reason: Pain) Qty: 20 0RF temazepam 15 mg Capsule 15 mg PO QHS PRN (Reason: Sleep) 7 Days Qty: 7 0RF gabapentin 300 mg Capsule 300 mg PO BID 14 Days Qty: 28 0RF Follow Up: [facility] [Outside] (The office is currently closed. Please call the office for a follow-up appointment. ) [facility] [Outside] (Referral has been sent to [facility]. Call office on Sunday to arrange follow-up appointment. ) [facility] [Physician] - ([facility] is accepting new patients, call office on Sunday to schedule follow-up to become established witha Primary Care Provider. Follow-up in 3-5 days.) Documented By: Leonora Bruce MD 08/20/22 1334 Signed By: <Electronically signed by Leonora Bruce MD> 08/20/22 3078 [facility] Work Phone: 1([phone]) [phone] Progress note Author Leonora Bruce [facility] August 19, 2022 1:35pm Note Date/Time August 19, 2022 1:35 pm [facility] [address] [place] [address] Hospitalist Progress Note Signed Patient: Lesley Adams MR#: [id number] : 1990 Acct:[id number] Age/Sex: 31 / M Adm Date: 3 Loc: Room: [address] [place] [address] Type: ADM IN Attending Dr: Leonora Bruce MD Copies to: ~ Date of Service: 08/19/2022 Subjective Subjective Narrative: Patient has been seen and examined today. Patient is continue to improve. The patient sister at the bedside. Patient denies any complaints Physical Examination: GENERAL APPEARANCE: Laying in bed, mental status improving, does not appear to be in distress CARDIAC: Normal S1 and S2. No S3, S4 or murmurs. LUNGS: Clear to auscultation anteriorly ABDOMEN: Positive bowel sounds. Soft, nontender. No guarding or signs of an acute abdomen MUSCULOSKELETAL: No joint erythema or tenderness. EXTREMITIES: No clubbing, cyanosis or edema PSYCHIATRIC: Slow to respond, appears to be slightly stronger Assessment and plan: 1. Hallucinations Appreciate psychiatry recommendations. Certain medications adjusted due to prolonged QT on EKG which is improving 2. Withdrawal syndrome, symptoms seem to be improving Appreciate psychiatry recommendations. Seems to be improving MRI of the brain with and without contrast without acute findings 3. 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 Since that time he apparently has increased his drug usage. 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 4. Prolonged QT, improving, no arrhythmias 5. Hypokalemia replacement Disposition pending We will try to ambulate the patient to see how he is doing Exam Physical Exam Vital Signs: Temp Pulse Resp BP Pulse Ox O2 Del Method O2 Flow Rate 36.5 C 96 H 17 127/78 100 Room Air 2 08/19/22 08:00 08/19/22 08:00 08/19/22 08:00 08/19/22 08:00 08/19/22 08:00 08/19/22 08:00 08/13/22 11:46 Objective Lab Results 08/15/22 06:38 08/16/22 05:40 Meds Allergies and Active Meds Allergies No Known Allergies Allergy (Verified 08/10/22 11:43) Active Meds: Active Medications Generic Name Dose Route Start Last Admin Trade Name Freq PRN Reason Stop Dose Admin Acetaminophen 650 mg 08/10/22 18:39 08/15/22 21:15 Acetaminophen 325 Mg Tablet PO 08/10/23 18:38 650 mg Q6H PRN Administration Pain Clonidine HCl 0.1 mg 08/10/22 21:00 08/19/22 09:40 Clonidine 0.1 Mg Tablet PO 08/10/23 20:59 0.1 mg BID MENODZA Administration Enoxaparin Sodium 40 mg 08/15/22 10:45 08/19/22 09:40 Enoxaparin 40 Mg/0.4 Ml Syringe SUBCUT 08/15/23 10:44 40 mg DAILY@1000 MENDOZA Administration Gabapentin 300 mg 08/11/22 10:00 08/19/22 09:40 Gabapentin 300 Mg Capsule PO 08/11/23 09:59 300 mg TID MENDOZA Administration Quetiapine Fumarate 50 mg 08/11/22 10:00 08/14/22 08:07 Quetiapine Fumarate 50 Mg Tablet PO 08/11/23 09:59 50 mg BID MENDOZA Administration Sodium Chloride 0 ml 08/10/22 11:42 08/13/22 16:22 Sodium Chloride 0.9 % 10 Ml Syringe IV-PUSH 08/10/23 11:41 10 ml PRN PRN Administration Flush Temazepam 15 mg 08/10/22 18:39 08/18/22 21:36 Temazepam 15 Mg Capsule PO 02/06/23 18:38 15 mg QHS PRN Administration Sleep Documented By: Leonora Bruce MD 08/19/224 Signed By: <Electronically signed by Leonora Bruce MD> 08/19/22 1339 [facility] Work Phone: [phone] 197-616304-07-2023 Progress note Author Leonora Bruce [facility] August 18, 2022 11:11am Note Date/Time August 18, 2022 11:1 1am [facility] [address] [place] [address] Hospitalist Progress Note Signed Patient: Lesley Adams MR#: [id number] : 1990 Acct:[id number] Age/Sex: 31 / M Adm Date: 3 Loc: Room: [address] [place] [address] Type: ADM IN Attending Dr: Leonora Bruce MD Copies to: ~ Date of Service: 08/18/2022 Subjective Subjective Narrative: Patient has been seen and examined today. Patient is continue to improve. I did discuss with the patient's sister yesterday who came to visit the patient, and they think they will not be able to take care of him at home due to severe weakness. Physical Examination: GENERAL APPEARANCE: Sitting in the chair, mental status slightly better, howeverstill slow to respond, able to follow simple commands, not complex HEENT: poor dentition CARDIAC: Normal S1 and S2. No S3, S4 or murmurs. LUNGS: Clear to auscultation anteriorly ABDOMEN: Positive bowel sounds. Soft, nontender. No guarding or signs of an acute abdomen MUSCULOSKELETAL: No joint erythema or tenderness. EXTREMITIES: No clubbing, cyanosis or edema PSYCHIATRIC: Slow to respond, appears to be slightly stronger Assessment and plan: 1. Hallucinations Appreciate psychiatry recommendations. Certain medications adjusted due to prolonged QT on EKG which is improving 2. Withdrawal syndrome, symptoms seem to be improving Appreciate psychiatry recommendations. Seems to be improving MRI of the brain with and without contrast without acute findings 3. 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 Since that time he apparently has increased his drug usage. 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 4. Prolonged QT, improving, no arrhythmias 5. Hypokalemia replacement Disposition pending Exam Physical Exam Vital Signs: Temp Pulse Resp BP Pulse Ox O2 Del Method O2 Flow Rate 36.7 C 98 H 20 123/80 99 Room Air 2 08/18/22 08:00 08/18/22 08:00 08/18/22 08:00 08/18/22 08:00 08/18/22 08:00 08/18/22 08:00 08/13/22 11:46 Objective Lab Results 08/15/22 06:38 08/16/22 05:40 Meds Allergies and Active Meds Allergies No Known Allergies Allergy (Verified 08/10/22 11:43) Active Meds: Active Medications Generic Name Dose Route Start Last Admin Trade Name Freq PRN Reason Stop Dose Admin Acetaminophen 650 mg 08/10/22 18:39 08/15/22 21:15 Acetaminophen 325 Mg Tablet PO 08/10/23 18:38 650 mg Q6H PRN Administration Pain Clonidine HCl 0.1 mg 08/10/22 21:00 08/18/22 10:03 Clonidine 0.1 Mg Tablet PO 08/10/23 20:59 0.1 mg BID MENDOZA Administration Enoxaparin Sodium 40 mg 08/15/22 10:45 08/18/22 10:03 Enoxaparin 40 Mg/0.4 Ml Syringe SUBCUT 08/15/23 10:44 40 mg DAILY@1000 MENDOZA Administration Gabapentin 300 mg 08/11/22 10:00 08/18/22 10:03 Gabapentin 300 Mg Capsule PO 08/11/23 09:59 300 mg TID MENDOZA Administration Quetiapine Fumarate 50 mg 08/11/22 10:00 08/14/22 08:07 Quetiapine Fumarate 50 Mg Tablet PO 08/11/23 09:59 50 mg BID MENDOZA Administration Sodium Chloride 0 ml 08/10/22 11:42 08/13/22 16:22 Sodium Chloride 0.9 % 10 Ml Syringe IV-PUSH 08/10/23 11:41 10 ml PRN PRN Administration Flush Temazepam 15 mg 08/10/22 18:39 08/17/22 21:54 Temazepam 15 Mg Capsule PO 02/06/23 18:38 15 mg QHS PRN Administration Sleep Documented By: Leonora Bruce MD 08/18/22 1109 Signed By: <Electronically signed by Leonora Bruce MD> 08/18/22 1111 [facility] Work Phone: 1(412) 690-242204-06-2023 Progress note Author Leonora Bruce [facility] August 17, 2022 12:52pm Note Date/Time August 17, 2022 12:5 2pm [facility] [address] [place] [address] Hospitalist Progress Note Signed Patient: Lesley Adams MR#: [id number] : 1990 Acct:[id number] Age/Sex: 31 / M Adm Date: 3 Loc: Room: [address] [place] [address] Type: ADM IN Attending Dr: Leonora Bruce MD Copies to: ~ Date of Service: 08/17/2022 Subjective Subjective Narrative: Patient has been seen and examined today. Patient seems to be improving but still appears to be quite weak, needs assistance from getting from the bed and walking. Otherwise denies any complaint Physical Examination: GENERAL APPEARANCE: Laying in bed, unsteady as per physical therapy, sleepy but arousable to voice stimuli, responding with 1 word sentences, able to follow simple commands slowly HEENT: poor dentition CARDIAC: Normal S1 and S2. No S3, S4 or murmurs. LUNGS: Clear to auscultation anteriorly ABDOMEN: Positive bowel sounds. Soft, nontender. No guarding or signs of an acute abdomen MUSCULOSKELETAL: No joint erythema or tenderness. EXTREMITIES: No clubbing, cyanosis or edema PSYCHIATRIC: Slow to respond Assessment and plan: 1. Hallucinations Appreciate psychiatry recommendations. Certain medications adjusted due to prolonged QT on EKG which is improving 2. Withdrawal syndrome, symptoms seem to be improving Appreciate psychiatry recommendations. Seems to be improving MRI of the brain with and without contrast without acute findings 3. 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 Since that time he apparently has increased his drug usage. 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 4. Prolonged QT, improving, no arrhythmias 5. Hypokalemia replacement The patient care was discussed with the patient's sister Brynn who will be coming to see the patient to make sure if she will be able to take care of the patient at home. Otherwise patient will need fpc facility Exam Physical Exam Vital Signs: Temp Pulse Resp BP Pulse Ox O2 Del Method O2 Flow Rate 37.0 C 81 18 130/86 100 Room Air 2 08/17/22 08:12 08/17/22 08:12 08/17/22 08:12 08/17/22 08:12 08/17/22 08:12 08/17/22 08:13 08/13/22 11:46 Objective Lab Results 08/15/22 06:38 08/16/22 05:40 Meds Allergies and Active Meds Allergies No Known Allergies Allergy (Verified 08/10/22 11:43) Active Meds: Active Medications Generic Name Dose Route Start Last Admin Trade Name Freq PRN Reason Stop Dose Admin Acetaminophen 650 mg 08/10/22 18:39 08/15/22 21:15 Acetaminophen 325 Mg Tablet PO 08/10/23 18:38 650 mg Q6H PRN Administration Pain Clonidine HCl 0.1 mg 08/10/22 21:00 08/17/22 08:17 Clonidine 0.1 Mg Tablet PO 08/10/23 20:59 0.1 mg BID MENDOZA Administration Enoxaparin Sodium 40 mg 08/15/22 10:45 08/17/22 09:58 Enoxaparin 40 Mg/0.4 Ml Syringe SUBCUT 08/15/23 10:44 Not Given DAILY@1000 MENDOZA Gabapentin 300 mg 08/11/22 10:00 08/17/22 08:17 Gabapentin 300 Mg Capsule PO 08/11/23 09:59 300 mg TID MENDOZA Administration Quetiapine Fumarate 50 mg 08/11/22 10:00 08/14/22 08:07 Quetiapine Fumarate 50 Mg Tablet PO 08/11/23 09:59 50 mg BID MENDOZA Administration Sodium Chloride 0 ml 08/10/22 11:42 08/13/22 16:22 Sodium Chloride 0.9 % 10 Ml Syringe IV-PUSH 08/10/23 11:41 10 ml PRN PRN Administration Flush Temazepam 15 mg 08/10/22 18:39 08/16/22 21:26 Temazepam 15 Mg Capsule PO 02/06/23 18:38 15 mg QHS PRN Administration Sleep Documented By: Leonora Bruce MD 08/17/22 1251 Signed By: <Electronically signed by Leonora Bruce MD> 08/17/22 1252 [facility] Work Phone: 1([phone]) 737-654304-05-2023 Progress note Author Ryland Medrano [facility] August 16, 2022 2:21pm Note Date/Time August 16, 2022 2:21 pm [facility] [address] [place] [address] Neurology Progress Note Signed Patient: Lesley Adams MR#: [id number] : 1990 Acct:[id number] Age/Sex: 31 / M Adm Date: 3 Loc: Room: [address] [place] [address] Type: ADM IN Attending Dr: Leonora Bruce MD Copies to: ~ Date of Service: 08/16/2022 Exam Physical Exam Vital Signs: Temp Pulse Resp BP Pulse Ox O2 Del Method O2 Flow Rate 97.5 F L 110 H 18 156/85 H 95 Room Air 2 08/16/22 12:32 08/16/22 12:32 08/16/22 12:32 08/16/22 12:32 08/16/22 12:32 08/16/22 12:32 08/13/22 11:46 Objective Vital Signs Vital Signs: Vital Signs - 24 hr 08/15/22 15:53 08/15/22 21:01 08/15/22 21:11 Temperature 98.7 F 99.3 F H Pulse Rate 110 H 117 H Respiratory Rate 20 20 Blood Pressure 145/77 H 120/47 L 02 Sat by Pulse Oximetry 97 98 Oxygen Delivery Method Room Air Room Air Room Air 08/16/22 00:00 08/16/22 05:41 08/16/22 08:28 Temperature 98.1 F Pulse Rate 100 H 72 73 Respiratory Rate 16 16 18 Blood Pressure 132/83 125/83 02 Sat by Pulse Oximetry 100 100 Oxygen Delivery Method Room Air Room Air 08/16/22 08:45 08/16/22 12:32 Temperature 97.5 F L Pulse Rate 110 H Respiratory Rate 18 Blood Pressure 156/85 H 02 Sat by Pulse Oximetry 95 Oxygen Delivery Method Room Air Room Air Labs 08/15/22 06:38 08/16/22 05:40 Therapy Recommendations Therapy Recommendations: OT Recommendations OT Recommended Discharge [facility] Facility,Inpatient Rehab Unit Location OT Recommended Services at Physical Therapy,Occupational Therapy,04/12 Discharge Supervision OT If Other Please Specify pending rehab needs for his addiction. PT Recommendations PT Recommended Discharge [facility] Facility,Inpatient Rehab Unit Location PT Recommended Services at Physical Therapy,Occupational Therapy Discharge PT Discharge Comment dependent on drug rehab needs Assessment/Plan (1) Withdrawal from benzodiazepine: Assessment/Problem Details: CONSULT REASON: Tremors, concern for seizures, hallucinations SUBJECTIVE: Still fairly withdrawn, maybe a little less so today. Says he is feeling okay. Eating well. Staying hydrated with Pepsi. The tremors still come and go. His nurse has made note that his tremors are typically not that noticeable but got pretty bad when he was on the phone with his mom. For me, watching from afar the tremors seem minimal but when I approach him for the patient encounter he becomes quite tremulous. No new symptoms to add to review of systems. EXAMINATION: Guarded.? Reluctant to participate.? No deformities or trauma.? Normal work of breathing.? Visualized skin is generally intact and without lesions.? Patient isalert.? Capable of following one-step commands.? Severe paucity of speech.? Pupils are equal and reactive.? Ocular motility is full.? No nystagmus.? Facial sensation is normal.? Hearing is normal.? Facial strength is normal.? Tongue is midline.? Muscle bulk and tone seem normal.?Postural tremors, mild. Reflexes diffusely hyperactive +3/4 throughout. Light touch is normal.? DATA REVIEW: Routine EEG shows background slowing that is mild. Head CT unremarkable. Urine drug screen positive for only benzodiazepines and THC. Labs reviewed. ASSESSMENT: 31-year-old man who had been withdrawing from benzodiazepines (and maybe opiates). The myoclonic type movements that were initially prominent seem to have essentially resolved. Suspected toxic metabolic cause. MRI brain generally unremarkable. Routine EEG generally unremarkable. He remains tremulous. This also could be toxic metabolic, but I also think there could be a functional component given that the tremor seems to come on strong only during interactions with other people. PLAN: No other recommendations at this time Code(s): F13.939 - Sedative, hypnotic or anxiolytic use, unspecified with withdrawal, unspecified Status: Acute Documented By: Ryland Medrano DO 08/16/22 1418 Signed By: <Electronically signed by Ryland Medrano DO> 08/16/22 1421 [facility] Work Phone: [phone]) [phone] Progress note Author Leonora Bruce [facility] August 16, 2022 12:59pm Note Date/Time August 16, 2022 12:5 9pm [facility] [address] [place] [address] Hospitalist Progress Note Signed Patient: Lesley Adams MR#: [id number] : 1990 Acct:[id number] Age/Sex: 31 / M Adm Date: 3 Loc: Room: [address] [place] [address] Type: ADM IN Attending Dr: Leonora Bruce MD Copies to: ~ Date of Service: 08/16/2022 Subjective Subjective Narrative: Patient has been seen and examined today. Patient seems to be improving but still appears to be quite weak, needs assistance from getting from the bed and walking. Otherwise denies any complaint Physical Examination: GENERAL APPEARANCE: Sitting in the chair, very unsteady with walking, does not appear to be in pain, does not appear to be in respiratory distress, slow to respond HEENT: poor dentition CARDIAC: Normal S1 and S2. No S3, S4 or murmurs. LUNGS: Clear to auscultation anteriorly ABDOMEN: Positive bowel sounds. Soft, nontender. No guarding or signs of an acute abdomen MUSCULOSKELETAL: No joint erythema or tenderness. EXTREMITIES: No clubbing, cyanosis or edema PSYCHIATRIC: Slow to respond Assessment and plan: 1. Hallucinations Appreciate psychiatry recommendations. Certain medications adjusted due to prolonged QT on EKG which is improving 2. Withdrawal syndrome, symptoms seem to be improving Appreciate psychiatry recommendations. Seems to be improving MRI of the brain with and without contrast without acute findings 3. 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 Since that time he apparently has increased his drug usage. 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 4. Prolonged QT, improving, no arrhythmias 5. Hypokalemia replacement Exam Physical Exam Vital Signs: Temp Pulse Resp BP Pulse Ox O2 Del Method O2 Flow Rate 36.4 C L 110 H 18 156/85 H 95 Room Air 2 08/16/22 12:32 08/16/22 12:32 08/16/22 12:32 08/16/22 12:32 08/16/22 12:32 08/16/22 12:32 08/13/22 11:46 Objective Lab Results 08/15/22 06:38 08/16/22 05:40 Meds Allergies and Active Meds Allergies No Known Allergies Allergy (Verified 08/10/22 11:43) Active Meds: Active Medications Generic Name Dose Route Start Last Admin Trade Name Freq PRN Reason Stop Dose Admin Acetaminophen 650 mg 08/10/22 18:39 08/15/22 21:15 Acetaminophen 325 Mg Tablet PO 08/10/23 18:38 650 mg Q6H PRN Administration Pain Clonidine HCl 0.1 mg 08/10/22 21:00 08/16/22 08:34 Clonidine 0.1 Mg Tablet PO 08/10/23 20:59 0.1 mg BID MENDOZA Administration Enoxaparin Sodium 40 mg 08/15/22 10:45 08/16/22 11:45 Enoxaparin 40 Mg/0.4 Ml Syringe SUBCUT 08/15/23 10:44 Not Given DAILY@1000 MENDOZA Gabapentin 300 mg 08/11/22 10:00 08/16/22 08:34 Gabapentin 300 Mg Capsule PO 08/11/23 09:59 300 mg TID MENDOZA Administration Quetiapine Fumarate 50 mg 08/11/22 10:00 08/14/22 08:07 Quetiapine Fumarate 50 Mg Tablet PO 08/11/23 09:59 50 mg BID MENDOZA Administration Sodium Chloride 0 ml 08/10/22 11:42 08/13/22 16:22 Sodium Chloride 0.9 % 10 Ml Syringe IV-PUSH 08/10/23 11:41 10 ml PRN PRN Administration Flush Temazepam 15 mg 08/10/22 18:39 08/15/22 21:15 Temazepam 15 Mg Capsule PO 02/06/23 18:38 15 mg QHS PRN Administration Sleep Documented By: Leonora Bruce MD 08/16/22 1257 Signed By: <Electronically signed by Leonora Bruce MD> 08/16/22 1259 [facility] Work Phone: 1(391) 551-454804-04-2023 Progress note Author Ryland Medrano [facility] August 15, 2022 3:13pm Note Date/Time August 15, 2022 3:13 pm [facility] [address] [place] [address] Neurology Progress Note Signed Patient: Lesley Adams MR#: [id number] : 1990 Acct:[id number] Age/Sex: 31 / M Adm Date: 3 Loc: Room: [address] [place] [address] Type: ADM IN Attending Dr: Leonora Bruce MD Copies to: ~ Date of Service: 08/15/2022 Exam Physical Exam Vital Signs: Temp Pulse Resp BP Pulse Ox O2 Del Method O2 Flow Rate 98 F 88 18 134/94 98 Room Air 2 08/15/22 11:05 08/15/22 11:05 08/15/22 11:05 08/15/22 11:05 08/15/22 11:05 08/15/22 11:05 08/13/22 11:46 Objective Vital Signs Vital Signs: Vital Signs - 24 hr 08/14/22 15:44 08/14/22 20:00 08/14/22 22:00 Temperature 98.5 F 98.6 F 97.4 F L Pulse Rate 72 74 82 Respiratory Rate 16 18 56 H Blood Pressure 154/89 H 126/76 132/82 02 Sat by Pulse Oximetry 96 96 95 Oxygen Delivery Method Room Air Room Air Room Air 08/15/22 00:00 08/15/22 00:00 08/15/22 04:00 Temperature 98.6 F 98.5 F Pulse Rate 71 67 Respiratory Rate 20 Blood Pressure 131/89 133/74 02 Sat by Pulse Oximetry 96 98 Oxygen Delivery Method Room Air Room Air Room Air 08/15/22 04:00 08/15/22 08:00 08/15/22 08:00 Temperature 98 F Pulse Rate 79 Respiratory Rate 16 Blood Pressure 129/79 02 Sat by Pulse Oximetry 97 Oxygen Delivery Method Room Air Room Air Room Air 08/15/22 11:05 Temperature 98 F Pulse Rate 88 Respiratory Rate 18 Blood Pressure 134/94 02 Sat by Pulse Oximetry 98 Oxygen Delivery Method Room Air Labs 08/15/22 06:38 08/15/22 06:37 Therapy Recommendations Therapy Recommendations: OT Recommendations OT Recommended Discharge [facility] Facility,Inpatient Rehab Unit Location OT Recommended Services at Physical Therapy,Occupational Therapy,04/12 Discharge Supervision OT If Other Please Specify pending rehab needs for his addiction. PT Recommendations PT Recommended Discharge [facility] Facility,Inpatient Rehab Unit Location PT Recommended Services at Physical Therapy,Occupational Therapy Discharge PT Discharge Comment dependent on drug rehab needs Assessment/Plan (1) Withdrawal from benzodiazepine: Assessment/Problem Details: CONSULT REASON: Tremors, concern for seizures, hallucinations SUBJECTIVE: He remains very withdrawn and hesitant to interact or provide history. Does notmake good eye contact. Responses are limited. He did say he was at rehabilitation with his uncle Jacobo but he said Ulises left and he did not knowwhat happened to him. He denies them taking any substance that they brought into rehab. He is still shaky and still has occasional myoclonic looking jerk movements. Sitting up in his chair bedside. Ate all of his lunch. Not having any gastrointestinal symptoms. Not diaphoretic today. Could not obtain complete review of systems due to lack of patient participation. MRI is pending. EXAMINATION: Guarded.? Reluctant to participate.? No deformities or trauma.? Normal work of breathing.? Visualized skin is generally intact and without lesions.? Patient isalert.? Capable of following one-step commands.? Severe paucity of speech.? Pupils are equal and reactive.? Ocular motility is full.? No nystagmus.? Facial sensation is normal.? Hearing is normal.? Facial strength is normal.? Tongue is midline.? Muscle bulk and tone seem normal.? Still present but less frequent intermittent sporadic myoclonic movements of either arm or the neck noted.? Postural tremors, mild. Reflexes diffusely hyperactive +3/4 throughout. Light touch is normal.? DATA REVIEW: Routine EEG shows background slowing that is mild. Head CT unremarkable. Urine drug screen positive for only benzodiazepines and THC. Labs reviewed. ASSESSMENT: 31-year-old man withdrawing from benzodiazepines (and maybe opiates). 1.? Benzodiazepine withdrawal explains tremulousness, diaphoresis, some of the mental status changes. 2.? Sporadic myoclonic movements.? Could be toxic?metabolic.? Can further assessfor a PAINT TRIMMER PIPE BOWLS cause.? Routine EEG was normal.? Head CT was normal. 3.? Mood disorder.? Psychiatry following.? He is reluctant to participate in examination. 4.? Bilateral leg weakness may be effort dependent PLAN: 1.? MRI brain with and without contrast 2.? Further recommendations to follow Code(s): F13.939 - Sedative, hypnotic or anxiolytic use, unspecified with withdrawal, unspecified Status: Acute Documented By: Ryland Medrano DO 08/15/22 1509 Signed By: <Electronically signed by Ryland Medrano DO> 08/15/22 1518 [facility] Work Phone: 1(406) 884-469504-04-2023 Progress note Author Leonora Bruce [facility] August 15, 2022 10:21am Note Date/Time August 15, 2022 10:1 9am [facility] [address] [place] [address] Hospitalist Progress Note Signed Patient: Lesley Adams MR#: [id number] : 1990 Acct:[id number] Age/Sex: 31 / M Adm Date: 3 Loc: Room: [address] [place] [address] Type: ADM IN Attending Dr: Leonora Bruce MD Copies to: ~ Date of Service: 08/15/2022 Subjective Subjective Narrative: Patient has been seen and examined today. Patient remains quite poor historian, however when I examined him he appeared mandeep quite comfortable, without any twitching nor tremors nor any signs of agitation. During the night he did have intermittent uncontrollable tremors He denies any complaints Physical Examination: GENERAL APPEARANCE: He is awake but slow to respond, difficult to assess orientation as he is not answering all the questions, he does not appear to be in any distress. He is able to intermittently follow simple commands but very slowly, answers questions in one-word, still sweating, appears to be very weak, needs help to be seated in bed HEENT: poor dentition CARDIAC: Normal S1 and S2. No S3, S4 or murmurs. LUNGS: Clear to auscultation anteriorly ABDOMEN: Positive bowel sounds. Soft, nontender. No guarding or signs of an acute abdomen MUSCULOSKELETAL: No joint erythema or tenderness. EXTREMITIES: No clubbing, cyanosis or edema PSYCHIATRIC: Slow to respond Assessment and plan: 1. Hallucinations Appreciate psychiatry recommendations. Certain medications adjusted due to prolonged QT on EKG 2. Withdrawal syndrome Appreciate psychiatry recommendations. Seems to be improving Still had tremors overnight, MRI pending 3. 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 Since that time he apparently has increased his drug usage. 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 4. Prolonged QT, improving, no arrhythmias 5. Hypokalemia replacement Patient appears to be very weak, he needs help given to be seated in bed, consulted PT OT, probably he will need fpc facility placement Awaiting MRI Exam Physical Exam Vital Signs: Temp Pulse Resp BP Pulse Ox O2 Del Method O2 Flow Rate 36.6 C 79 16 129/79 97 Room Air 2 08/15/22 08:00 08/15/22 08:00 08/15/22 08:00 08/15/22 08:00 08/15/22 08:00 08/15/22 08:00 08/13/22 11:46 Objective Lab Results 08/15/22 06:38 08/15/22 06:37 Meds Allergies and Active Meds Allergies No Known Allergies Allergy (Verified 08/10/22 11:43) Active Meds: Active Medications Generic Name Dose Route Start Last Admin Trade Name Americoq PRN Reason Stop Dose Admin Acetaminophen 650 mg 08/10/22 18:39 08/12/22 09:30 Acetaminophen 325 Mg Tablet PO 08/10/23 18:38 650 mg Q6H PRN Administration Pain Clonidine HCl 0.1 mg 08/10/22 21:00 08/15/22 08:18 Clonidine 0.1 Mg Tablet PO 08/10/23 20:59 0.1 mg BID MENDOZA Administration Gabapentin 300 mg 08/11/22 10:00 08/15/22 08:18 Gabapentin 300 Mg Capsule PO 08/11/23 09:59 300 mg TID MENDOZA Administration Quetiapine Fumarate 50 mg 08/11/22 10:00 08/14/22 08:07 Quetiapine Fumarate 50 Mg Tablet PO 08/11/23 09:59 50 mg BID MENDOZA Administration Sodium Chloride 0 ml 08/10/22 11:42 08/13/22 16:22 Sodium Chloride 0.9 % 10 Ml Syringe IV-PUSH 08/10/23 11:41 10 ml PRN PRN Administration Flush Temazepam 15 mg 08/10/22 18:39 08/10/22 19:49 Temazepam 15 Mg Capsule PO 02/06/23 18:38 15 mg QHS PRN Administration Sleep Documented By: Leonora Bruce MD 08/15/22 1016 Signed By: <Electronically signed by Leonora Bruce MD> 08/15/22 1021 [facility] Work Phone: 1(464) 363-833604-03-2023 Consult note Author Ryland Medrano [facility] August 14, 2022 1:56pm Note Date/Time August 14, 2022 10:5 0am [facility] [address] [place] [address] Neurology Consult Note Signed Patient: Lesley Adams MR#: [id number] : 1990 Acct:[id number] Age/Sex: 31 / M Adm Date: 3 Loc: Room: [address] [place] [address] Type: ADM IN Attending Dr: Leonora Bruce MD Copies to: Ryland Medrano DO NO FAMILY PHYSICIAN Leonora Bruce MD~ HPI Consult Date: 08/14/22 [employer]garten Classroom Teacher: Ryland Medrano, DO PMFSH Vaccinated for COVID-19?: Unknown Medical History (Updated 08/11/22 @ 14:36 by Beckie Claire MD) Bipolar 1 disorder Depression Insomnia Surgical History (Updated 08/10/22 @ 11:45 by Brynn Michaels RN) No pertinent past surgical history Family History (Updated 08/10/22 @ 21:10 by Sonny Jesus RN) Father Aneurysm Sister Aneurysm Social History Smoking Status: Unknown if ever smoked Substance Use Type: Unknown Meds Medications and Allergies Allergies No Known Allergies Allergy (Verified 08/10/22 11:43) Home Medications No known home meds 08/10/22 [History Confirmed 08/10/22] Exam Physical Exam Vital Signs: Temp Pulse Resp BP Pulse Ox O2 Del Method O2 Flow Rate 98.4 F 82 18 132/72 98 Room Air 2 08/14/22 08:00 08/14/22 08:00 08/14/22 08:00 08/14/22 08:00 08/14/22 08:00 08/14/22 08:00 08/13/22 11:46 Results Laboratory Findings 08/11/22 12:21 08/11/22 12:21 Lab Results: Ammonia 21 umol/L (11-35) 08/10/22 11:50 Diagnostic Findings Imaging/Impressions: ITS Impressions Head CT 08/11/22 12:22 IMPRESSION: Normal noncontrasted CT brain. Impression dictated by: Demetrio Tello M.D.08/11/2022 1:04 PM Dictation Location: [place] [address] Assessment/Plan (1) Major depressive disorder, recurrent, moderate: Assessment/Problem Details: CONSULT REASON: Tremors, concern for seizures, hallucinations HPI: 31-year-old man. History of cardiac arrest related to overdose. Reported abuseof heroin and alprazolam and may be abusing methadone. [facility], and he was there detoxing from opiates and benzodiazepines. He was reportedly shaky, confused, and hard to redirect. He was a poor historian. Urine drug screen showed benzodiazepines and marijuana. There is an event note from August 11 in which the physician was called to the room after some possible seizure-like activity noted by the telemetry sitter, and intermittent jerking movements were noted in the tremors he had been experiencing prior. A routine EEG was performed. Nursing staff is telling me he is not using his legs as much as he was prior. EXAMINATION: Guarded. Reluctant to participate. Diaphoretic. No deformities or trauma. Normal spinal curvature. Limbs seem well-perfused. No significant edema. Normal work of breathing. Visualized skin is generally intact and without lesions. Patient is alert. Capable of following one-step commands. Severe paucity of speech, almost nonverbal. Pupils are equal and reactive. Ocular motility is full. No nystagmus. Facial sensation is normal. Hearing is normal. Facial strength is normal. Tongue is midline. Muscle bulk and tone seem normal. Actively resisting arm raising, both arms seems strong. Unable tolift either leg off the bed, effort very questionable, but I would give him +2/5bilateral hip flexors and could not formally assess the rest of his. Intermittent sporadic myoclonic movements of either arm or the neck noted. Reflexes diffusely hyperactive +3/4 throughout. Light touch is normal. Vibratory sensation is normal. DATA REVIEW: Routine EEG shows background slowing that is mild. Head CT unremarkable. Urine drug screen positive for only benzodiazepines and THC. Labs reviewed. ASSESSMENT: 31-year-old man withdrawing from benzodiazepines (and maybe opiates). 1. Benzodiazepine withdrawal explains tremulousness, diaphoresis, some of the mental status changes. 2. Sporadic myoclonic movements. Could be toxic?metabolic. Can further assessfor a PAINT TRIMMER PIPE BOWLS cause. Routine EEG was normal. Head CT was normal. 3. Mood disorder. Psychiatry following. He is reluctant to participate in examination. 4. Bilateral leg weakness may be effort dependent PLAN: 1. MRI brain with and without contrast 2. Further recommendations to follow Code(s): F33.1 - Major depressive disorder, recurrent, moderate Status: Acute Documented By: Ryland Medrano DO 08/14/22 1046 Signed By: <Electronically signed by Ryland Medrano DO> 08/14/22 4732 [facility] Work Phone: 1(793) [phone] Progress note Author Leonora Bruce [facility] August 14, 2022 11:46am Note Date/Time August 14, 2022 11:4 3am [facility] [address] [place] [address] Hospitalist Progress Note Signed Patient: Lesley Adams MR#: [id number] : 1990 Acct:[id number] Age/Sex: 31 / M Adm Date: 3 Loc: 3T Room: [address] [place] [address] Type: ADM IN Attending Dr: Leonora Bruce MD Copies to: ~ Date of Service: 08/14/2022 Subjective Subjective Narrative: Patient has been seen and examined today. He tells me he is feeling fine and denies any complaints Physical Examination: GENERAL APPEARANCE: He is awake but slow to respond, slight tremors noted with movements, however he does not appear to be agitated or in any respiratory distress. He is able to follow commands he is oriented x2 HEENT: poor dentition CARDIAC: Normal S1 and S2. No S3, S4 or murmurs. LUNGS: Clear to auscultation anteriorly ABDOMEN: Positive bowel sounds. Soft, nontender. No guarding or signs of an acute abdomen MUSCULOSKELETAL: No joint erythema or tenderness. EXTREMITIES: No clubbing, cyanosis or edema PSYCHIATRIC: Slow to respond Assessment and plan: 1. Hallucinations Appreciate psychiatry recommendations. 2. Withdrawal syndrome Appreciate psychiatry recommendations. 3. 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 Since that time he apparently has increased his drug usage. 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 Exam Physical Exam Vital Signs: Temp Pulse Resp BP Pulse Ox O2 Del Method O2 Flow Rate 36.7 C 67 16 122/78 94 L Room Air 2 08/14/22 11:19 08/14/22 11:19 08/14/22 11:19 08/14/22 11:19 08/14/22 11:19 08/14/22 11:19 08/13/22 11:46 Objective Lab Results 08/11/22 12:21 08/11/22 12:21 Meds Allergies and Active Meds Allergies No Known Allergies Allergy (Verified 08/10/22 11:43) Active Meds: Active Medications Generic Name Dose Route Start Last Admin Trade Name Freq PRN Reason Stop Dose Admin Acetaminophen 650 mg 08/10/22 18:39 08/12/22 09:30 Acetaminophen 325 Mg Tablet PO 08/10/23 18:38 650 mg Q6H PRN Administration Pain Clonidine HCl 0.1 mg 08/10/22 21:00 08/14/22 08:07 Clonidine 0.1 Mg Tablet PO 08/10/23 20:59 0.1 mg BID MENDOZA Administration Gabapentin 300 mg 08/11/22 10:00 08/14/22 08:07 Gabapentin 300 Mg Capsule PO 08/11/23 09:59 300 mg TID MENDOZA Administration Lactated Ringer's 1,000 mls @ 100 mls/hr 08/13/22 16:30 08/14/22 02:28 Lactated Ringers IV 08/13/23 16:29 100 mls/hr .Q10H MENDOZA Administration Loperamide HCl 2 - 4 mg 08/10/22 18:39 Loperamide 2 Mg Capsule PO 08/10/23 18:38 PRN PRN Loose Stool Ondansetron HCl 4 mg 08/13/22 12:06 08/13/22 12:30 Ondansetron 4 Mg/2 Ml Vial IV-PUSH 08/13/23 12:05 4 mg Q4H PRN Administration Nausea And Vomiting Quetiapine Fumarate 50 mg 08/11/22 10:00 08/14/22 08:07 Quetiapine Fumarate 50 Mg Tablet PO 08/11/23 09:59 50 mg BID MENDOZA Administration Sodium Chloride 0 ml 08/10/22 11:42 08/13/22 16:22 Sodium Chloride 0.9 % 10 Ml Syringe IV-PUSH 08/10/23 11:41 10 ml PRN PRN Administration Flush Temazepam 15 mg 08/10/22 18:39 08/10/22 19:49 Temazepam 15 Mg Capsule PO 02/06/23 18:38 15 mg QHS PRN Administration Sleep Ziprasidone 20 mg 08/10/22 18:39 08/10/22 19:50 Ziprasidone 20 Mg Vial IM 08/10/23 18:38 20 mg Q6H PRN Administration severe agitation Documented By: Leonora Bruce MD 08/14/22 1142 Signed By: <Electronically signed by Leonora Bruce MD> 08/14/22 1146 [facility] Work Phone: 1(378) 923-149104-02-2023 Progress note Author Jamison Norton [facility] August 13, 2022 5:21pm Note Date/Time August 13, 2022 5:22 pm [facility] [address] [place] [address] Hospitalist Progress Note Signed Patient: Lesley Adams MR#: [id number] : 1990 Acct:[id number] Age/Sex: 31 / M Adm Date: 3 Loc: Room: [address] [place] [address] Type: ADM IN Attending Dr: Jamison Norton DO Copies to: ~ Date of Service: 08/13/2022 Subjective Subjective Narrative: Stable in the ICU throughout the evening. I personally saw and examined patientat bedside this morning. Again minimally verbal but appropriately alert Physical Examination: GENERAL APPEARANCE: Alert, shaking, tremulous, mildly malnourished appearing male HEENT: poor dentition CARDIAC: Normal S1 and S2. No S3, S4 or murmurs. LUNGS: Clear to auscultation anteriorly ABDOMEN: Positive bowel sounds. Soft, nontender. No guarding or signs of an acute abdomen MUSCULOSKELETAL: No joint erythema or tenderness. EXTREMITIES: No clubbing, cyanosis or edema PSYCHIATRIC: Unable to assess. Assessment and plan: 1. Hallucinations Appreciate psychiatry recommendations. 2. Withdrawal syndrome Appreciate psychiatry recommendations. 3. Tremors EEG shows generalized slowing but no epileptiform activity. Family expresses significant concern regarding ongoing tremors. At this point I cannot say that definitively he is not exhibiting epileptic activity however his routine EEG wasnegative. I will consult neurology for any further recommendations regarding utility of 24-hour continuous EEG monitoring and/or MRI imaging. 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 Since that time he apparently has increased his drug usage. Reports thathe has been abusing methadone in addition to other opiates. We will continue symptomatic management but ultimately its likely the patient will need more time. Exam Physical Exam Vital Signs: Temp Pulse Resp BP Pulse Ox O2 Del Method O2 Flow Rate 97.9 F 103 H 18 132/86 98 Room Air 2 08/13/22 15:07 08/13/22 15:58 08/13/22 15:07 08/13/22 15:58 08/13/22 15:07 08/13/22 15:07 08/13/22 11:46 Objective Lab Results 08/11/22 12:21 08/11/22 12:21 Meds Allergies and Active Meds Allergies No Known Allergies Allergy (Verified 08/10/22 11:43) Active Meds: Active Medications Generic Name Dose Route Start Last Admin Trade Name Ihsan PRN Reason Stop Dose Admin Acetaminophen 650 mg 08/10/22 18:39 08/12/22 09:30 Acetaminophen 325 Mg Tablet PO 08/10/23 18:38 650 mg Q6H PRN Administration Pain Clonidine HCl 0.1 mg 08/10/22 21:00 08/13/22 09:07 Clonidine 0.1 Mg Tablet PO 08/10/23 20:59 0.1 mg BID MENDOZA Administration Gabapentin 300 mg 08/11/22 10:00 08/13/22 13:10 Gabapentin 300 Mg Capsule PO 08/11/23 09:59 300 mg TID MENDOZA Administration Lactated Ringer's 1,000 mls @ 100 mls/hr 08/13/22 16:30 08/13/22 16:22 Lactated Ringers IV 08/13/23 16:29 100 mls/hr .Q10H MENDOZA Administration Loperamide HCl 2 - 4 mg 08/10/22 18:39 Loperamide 2 Mg Capsule PO 08/10/23 18:38 PRN PRN Loose Stool Ondansetron HCl 4 mg 08/13/22 12:06 08/13/22 12:30 Ondansetron 4 Mg/2 Ml Vial IV-PUSH 08/13/23 12:05 4 mg Q4H PRN Administration Nausea And Vomiting Quetiapine Fumarate 50 mg 08/11/22 10:00 08/13/22 09:07 Quetiapine Fumarate 50 Mg Tablet PO 08/11/23 09:59 50 mg BID MENDOZA Administration Sodium Chloride 0 ml 08/10/22 11:42 08/13/22 16:22 Sodium Chloride 0.9 % 10 Ml Syringe IV-PUSH 08/10/23 11:41 10 ml PRN PRN Administration Flush Temazepam 15 mg 08/10/22 18:39 08/10/22 19:49 Temazepam 15 Mg Capsule PO 02/06/23 18:38 15 mg QHS PRN Administration Sleep Ziprasidone 20 mg 08/10/22 18:39 08/10/22 19:50 Ziprasidone 20 Mg Vial IM 08/10/23 18:38 20 mg Q6H PRN Administration severe agitation Documented By: Jamison Norton DO 08/13/22 17 16 Signed By: <Electronically signed by Jamison Norton DO> 08/13/[address] [place] [address] Ctr Work Phone: [phone] 323-398504-01-2023 Progress note Author Jamison Norton [facility] August 12, 2022 2:25pm Note Date/Time August 12, 2022 2:25 pm [facility] [address] [place] [address] Hospitalist Progress Note Signed Patient: Lesley Adams MR#: [id number] : 1990 Acct:[id number] Age/Sex: 31 / M Adm Date: 3 Loc: Room: [address] [place] [address] Type: ADM IN Attending Dr: Jamison Norton DO Copies to: ~ Date of Service: 08/12/2022 Subjective Subjective Narrative: Patient was seen and examined at bedside. Transferred to ICU earlier for possible seizure activity although unlikely. Remains altered, intermittently verbal than nonresponsive to questioning clearly awake. Physical Examination: GENERAL APPEARANCE: Alert, shaking, tremulous, mildly malnourished appearing male HEENT: poor dentition CARDIAC: Normal S1 and S2. No S3, S4 or murmurs. LUNGS: Clear to auscultation anteriorly ABDOMEN: Positive bowel sounds. Soft, nontender. No guarding or signs of an acute abdomen MUSCULOSKELETAL: No joint erythema or tenderness. EXTREMITIES: No clubbing, cyanosis or edema PSYCHIATRIC: Unable to assess. Assessment and plan: 1. Hallucinations Appreciate psychiatry recommendations. 2. Withdrawal syndrome Appreciate psychiatry recommendations. 3. Tremors Likely symptom of withdrawal. Very low suspicion for any seizure. EEG pending Exam Physical Exam Vital Signs: Temp Pulse Resp BP Pulse Ox O2 Del Method 98.2 F 54 L 22 120/79 98 Room Air 08/11/22 16:00 08/12/22 08:00 08/12/22 08:00 08/12/22 08:00 08/12/22 08:00 08/12/22 08:00 Objective Lab Results 08/11/22 12:21 08/11/22 12:21 Meds Allergies and Active Meds Allergies No Known Allergies Allergy (Verified 08/10/22 11:43) Active Meds: Active Medications Generic Name Dose Route Start Last Admin Trade Name Freq PRN Reason Stop Dose Admin Acetaminophen 650 mg 08/10/22 18:39 08/12/22 09:30 Acetaminophen 325 Mg Tablet PO 08/10/23 18:38 650 mg Q6H PRN Administration Pain Clonidine HCl 0.1 mg 08/10/22 21:00 08/12/22 09:30 Clonidine 0.1 Mg Tablet PO 08/10/23 20:59 0.1 mg BID MENDOZA Administration Gabapentin 300 mg 08/11/22 10:00 08/12/22 13:31 Gabapentin 300 Mg Capsule PO 08/11/23 09:59 Not Given TID MENDOZA Loperamide HCl 2 - 4 mg 08/10/22 18:39 Loperamide 2 Mg Capsule PO 08/10/23 18:38 PRN PRN Loose Stool Quetiapine Fumarate 50 mg 08/11/22 10:00 08/12/22 09:30 Quetiapine Fumarate 50 Mg Tablet PO 08/11/23 09:59 50 mg BID MENDOZA Administration Sodium Chloride 0 ml 08/10/22 11:42 08/11/22 06:49 Sodium Chloride 0.9 % 10 Ml Syringe IV-PUSH 08/10/23 11:41 10 ml PRN PRN Administration Flush Temazepam 15 mg 08/10/22 18:39 08/10/22 19:49 Temazepam 15 Mg Capsule PO 02/06/23 18:38 15 mg QHS PRN Administration Sleep Ziprasidone 20 mg 08/10/22 18:39 08/10/22 19:50 Ziprasidone 20 Mg Vial IM 08/10/23 18:38 20 mg Q6H PRN Administration severe agitation Documented By: Jamison Norton DO 08/11/22 13 00 Signed By: <Electronically signed by Jamison Norton DO> 08/12/[address] [place] [address] Ctr Work Phone: 1([phone]) 666-706204-01-2023 Progress note Author Jamison Norton [facility] August 12, 2022 2:25pm Note Date/Time August 12, 2022 2:26 pm [facility] [address] [place] [address] Hospitalist Progress Note Signed Patient: Lesley Adams MR#: [id number] : 1990 Acct:[id number] Age/Sex: 31 / M Adm Date: 3 Loc: Room: [address] [place] [address] Type: ADM IN Attending Dr: Jamison Norton DO Copies to: ~ Date of Service: 08/12/2022 Subjective Subjective Narrative: Stable in the ICU throughout the evening. I personally saw and examined patientat bedside this morning. Again minimally verbal but appropriately alert Physical Examination: GENERAL APPEARANCE: Alert, shaking, tremulous, mildly malnourished appearing male HEENT: poor dentition CARDIAC: Normal S1 and S2. No S3, S4 or murmurs. LUNGS: Clear to auscultation anteriorly ABDOMEN: Positive bowel sounds. Soft, nontender. No guarding or signs of an acute abdomen MUSCULOSKELETAL: No joint erythema or tenderness. EXTREMITIES: No clubbing, cyanosis or edema PSYCHIATRIC: Unable to assess. Assessment and plan: 1. Hallucinations Appreciate psychiatry recommendations. 2. Withdrawal syndrome Appreciate psychiatry recommendations. 3. Tremors EEG shows generalized slowing but no epileptiform activity. Exam Physical Exam Vital Signs: Temp Pulse Resp BP Pulse Ox O2 Del Method 98.2 F 54 L 22 120/79 98 Room Air 08/11/22 16:00 08/12/22 08:00 08/12/22 08:00 08/12/22 08:00 08/12/22 08:00 08/12/22 08:00 Objective Lab Results 08/11/22 12:21 08/11/22 12:21 Meds Allergies and Active Meds Allergies No Known Allergies Allergy (Verified 08/10/22 11:43) Active Meds: Active Medications Generic Name Dose Route Start Last Admin Trade Name Americoq PRN Reason Stop Dose Admin Acetaminophen 650 mg 08/10/22 18:39 08/12/22 09:30 Acetaminophen 325 Mg Tablet PO 08/10/23 18:38 650 mg Q6H PRN Administration Pain Clonidine HCl 0.1 mg 08/10/22 21:00 08/12/22 09:30 Clonidine 0.1 Mg Tablet PO 08/10/23 20:59 0.1 mg BID MENDOZA Administration Gabapentin 300 mg 08/11/22 10:00 08/12/22 13:31 Gabapentin 300 Mg Capsule PO 08/11/23 09:59 Not Given TID MENDOZA Loperamide HCl 2 - 4 mg 08/10/22 18:39 Loperamide 2 Mg Capsule PO 08/10/23 18:38 PRN PRN Loose Stool Quetiapine Fumarate 50 mg 08/11/22 10:00 08/12/22 09:30 Quetiapine Fumarate 50 Mg Tablet PO 08/11/23 09:59 50 mg BID MENDOZA Administration Sodium Chloride 0 ml 08/10/22 11:42 08/11/22 06:49 Sodium Chloride 0.9 % 10 Ml Syringe IV-PUSH 08/10/23 11:41 10 ml PRN PRN Administration Flush Temazepam 15 mg 08/10/22 18:39 08/10/22 19:49 Temazepam 15 Mg Capsule PO 02/06/23 18:38 15 mg QHS PRN Administration Sleep Ziprasidone 20 mg 08/10/22 18:39 08/10/22 19:50 Ziprasidone 20 Mg Vial IM 03/29/24 18:38 20 mg Q6H PRN Administration severe agitation Documented By: Jamison Norton DO 08/12/22 14 25 Signed By: <Electronically signed by Jamison Norton DO> 08/12/22 1420 [facility] Work Phone: 1([phone]) [phone] Consult note Author Master yoo [facility] August 11, 2022 2:38pm Note Date/Time August 11, 2022 2:3 8pm [facility] [address] [place] [address] Psychiatry Consult Note Signed Patient: Lesley Adams MR#: [id number] : 1990 Acct:[id number] Age/Sex: 31 / M Adm Date: 3 Loc: Room: [address] [place] [address] Type : ADM IN Attending Dr: Jamison Norton DO Copies to: MD Jamison Strong DO NO FAMILY PHYSICIAN~ HPI Consult Date: 08/11/22 Requesting Physician: Jamison Norton DO Primary Care Provider: NO FAMILY PHYSICIAN Consult Narrative Reason for consult: Benzo, heroin withdrawal HPI: Mr. Adams is a 31 year old male who presents after detoxing from fentanyl, heroin, Xanax. Patient is experiencing withdrawal symptoms from benzodiazepinesand heroin. He is currently having hallucinations, tremors, and difficulty withredirection. He reports GI cramps 20 out of 10 anxiety, irritability, depression, and pain in his shoulder. Consultation comes from hospitalist who is placed the patient on temazepam 15 mg, Seroquel 50 mg, and IM Geodon for agitation. Patient was disoriented to time, day, and place. His insight and judgment were poor. Patient was personally seen by me on the day of the encounter.? I reviewed the history and performed the kirby elements of the assessment.? I formulated the planof care and confirmed this with the medical student as noted below Upon examination, patient was withdrawn, relatively unresponsive, disheveled, and lethargic. He denies symptoms of dizziness, concentration problems, blurredvision, or any flulike symptoms. He reported that he has been using heroin and opiates. He has been feeling irritable and is not sure if he was doing Benzos. Reports being hosptialzied before due to depression at a psych hospital in [place], [place]. He does not feel that Seroquel is effective in treating his mood or agitation. He current denies SI/HI. Mental Status Exam: Appearance: Disheveled Mental Status: Confused Mood: Anxious mood Affect: Withdrawn affect Speech and Movement: Slowed movement and slurred speech Attitude: Guarded Thought Process: Illogical Thought Content: Reported hallucinations, no homicidality, denied suicidality Insight: Poor Judgment: Poor PMFSH Vaccinated for COVID-19?: Unknown Medical History (Updated 08/11/22 @ 14:36 by Beckie Claire MD) Bipolar 1 disorder Depression Insomnia Surgical History (Updated 08/10/22 @ 11:45 by Brynn Michaels RN) No pertinent past surgical history Family History (Updated 08/10/22 @ 21:10 by Sonny Jesus RN) Father Aneurysm Sister Aneurysm Social History Smoking Status: Unknown if ever smoked Substance Use Type: Unknown Meds Medications and Allergies Allergies No Known Allergies Allergy (Verified 08/10/22 11:43) Home Medications No known home meds 08/10/22 [History Confirmed 08/10/22] Exam Physical Exam Vital Signs: Temp Pulse Resp BP Pulse Ox O2 Del Method 98.7 F 57 L 20 144/88 H 98 Room Air 08/11/22 08:00 08/11/22 08:00 08/11/22 08:00 08/11/22 08:00 08/11/22 08:00 08/11/22 08:00 Const General: acute distress and disheveled Nutritional Appearance: thin Orientation: not alert, awake and not oriented x3 Resp Effort & Inspection: normal respiratory effort and able to speak in complete sentences Cardio Jugular venous pressure: no JVD Rate: bradycardic GI Inspection: normal to inspection Neuro General: not alert, patient awake and not oriented x3 Psych Appearance: disheveled Mental Status: other (Confused) Mood: anxious mood Affect: withdrawn Speech and Movement: slowed movement and slurred speech Attitude: guarded Thought Process: illogical Thought Content: hallucinations Insight: poor Judgment: poor Results Labs 08/10/22 11:50 08/10/22 11:50 Psychiatry Labs: 08/10/22 08/10/22 08/10/22 11:50 11:50 12:06 RBC 4.67 Hgb 12.9 L Hct 39.2 MCV 83.9 MCH 27.6 MCHC 32.8 RDW 14.1 Plt Count 174 MPV 9.7 Sodium 140 Potassium 3.2 L Chloride 105 Carbon Dioxide 26.4 Anion Gap 11.8 BUN 20 Creatinine 0.84 Calcium 9.1 Total Bilirubin 0.6 AST 11 L ALT 10 Alkaline Phosphatase 54 Total Protein 6.6 Albumin 4.3 Urine Color Dark yellow A Urine Appearance Clear Urine pH 6.5 Ur Specific [place] 1.034 H Urine Protein 30 H Urine Glucose (UA) Normal Urine Ketones 1+ H Urine Occult Blood Negative Urine Nitrite Negative Ur Leukocyte Esterase 1+ H Urine RBC 1-2 Urine WBC 3-4 Assessment/Plan (1) Withdrawal from opioids: Code(s): F11.93 - Opioid use, unspecified with withdrawal Status: Acute (2) Withdrawal from benzodiazepine: Code(s): F13.939 - Sedative, hypnotic or anxiolytic use, unspecified with withdrawal, unspecified Status: Acute (3) Major depressive disorder, recurrent, moderate: Code(s): F33.1 - Major depressive disorder, recurrent, moderate Status: Acute Plan Patient is currently depressed and anxious due to his withdrawal symptoms of fentanyl, heroin, Xanax. I will recommend [facility] protocol for monitoring benzo withdrawal Increase Seroquel dose to 50 mg 3 times daily Begin gabapentin taper for adjunctive treatment 300 mg 3 times daily. Second day 200 mg 3 times daily. Third day 100 mg 3 times daily. Continue to monitor mental status Risk benefits alternatives explained Should benefit from outpatient treatment. Schedule with [facility] within 5 days of discharge. Thank you for the consult. Documented By: Master Claire MD 3 [id number] Signed By: <Electronically signed by Master Claire MD> 08/11/22 4478 [facility] Work Phone: 1(378) 175-285703-31-2023 Progress note Author Jamison Norton [facility] August 11, 2022 12:26pm Note Date/Time August 11, 2022 12: 26pm [facility] [address] [place] [address] Event Note Signed Patient: Lesley Adams MR#: [id number] : 1990 Acct:[id number] Age/Sex: 31 / M Adm Date: 3 Loc: 3T Room: [address] [place] [address] Type: ADM IN Attending Dr: Jamison Norton DO Copies to: Jamison Norton DO NO FAMILY PHYSICIAN~ Status Event Note Event Note DATE OF EVENT: 08/11/22 TIME OF EVENT: 12:23 EVENT DETAILS: Medical emergency team response was called shortly after noon today. Just priorto this I had received a call regarding some abnormal suspected seizure activity noted by telemetry sitter. At that time I had ordered stat labs including lactic acid, prolactin level, CBC and BMP. He has been baseline tremulous since his presentation yesterday however he does have intermittent jerking movements now. He has been largely nonverbal and offers minimal response prior to this. During this event he is the same. He did grasp hands bilaterally and exhibits no focal deficits in that regard. I have ordered a stat noncontrast CT of the head to rule out any acute pathology. Certainly the patient could be exhibiting seizure activity. He is thus being transferred to the intensive care unit for closer monitoring. Will order EEG. Documented By: Jamison Norton DO 08/11/2205 04 Signed By: <Electronically signed by Jamison Norton DO> 08/11/[address] [place] [address] Work Phone: 1(110) 604-621503-30-2023 History and physical note Author Jamison Norton [facility] August 10, 2022 6:52pm Note Date/Time August 10, 2022 6:5 0pm [facility] [address] [place] [address] Hospitalist H&P Signed with Addbrandy Patient: Lesley Adams MR#: [id number] : 1990 Acct:[id number] Age/Sex: 31 / M Adm Date: 3 Loc: 3T Room: [address] [place] [address] Type: ADM IN Attending Dr: Jamison Norton DO Copies to: Jamison Norton DO NO FAMILY PHYSICIAN~ ADDENDUM1 Disposition: Patient is unstable and unable to be taken care of at rehab center due to his severe hallucinations, tremors and difficulty in redirection. To resolve these issues he will require a stay that surpasses greater than 2 midnights. He is thus admitted as an inpatient. Addendum Documented By: Jamison Norton DO 08/10/221850 Addendum Signed By: <Electronically signed by Jamison Norton, > 08/10/221850 HPI DATE OF EXAMINATION: 08/10/22 CHIEF COMPLAINT: Hallucinations HISTORY OF PRESENT ILLNESS: This patient is a 31-year-old male who presented to the emergency department earlier today from a rehab facility in [place]. He was reportedly there detoxing from either heroin or benzodiazepines. Unfortunately the patient is significantly tremulous, confused and hard to redirect. He provides no meaningful history and it is unclear exactly what he was in rehabilitation/detoxfor. In the emergency department he has a low-grade temperature of 99.0 ?F, heart rate is 60 bpm, respiratory rate of 22/min, blood pressure 126/80, 100% oxygen saturation on room air. Laboratory evaluation reveals normal CBC, normalchemistries with the exception of mild hypokalemia 3.2, normal LFTs and kidney function. Urinalysis reveals dark concentrated urine with elevated specific gravity 1.034, 30 mg/dL protein, 1+ ketones, hyaline cast and leukocyte esterasepositive. No other evidence of infection. Urine drug screen is positive for benzodiazepines and marijuana. Ethanol alcohol level is undetectable. The patient was admitted to the [facility] floor for further management and treatment of hallucinations and unknown withdrawal. Physical Examination: GENERAL APPEARANCE: Alert, shaking, tremulous, mildly malnourished appearing male HEENT: poor dentition CARDIAC: Normal S1 and S2. No S3, S4 or murmurs. LUNGS: Clear to auscultation anteriorly ABDOMEN: Positive bowel sounds. Soft, nontender. No guarding or signs of an acute abdomen MUSCULOSKELETAL: No joint erythema or tenderness. EXTREMITIES: No clubbing, cyanosis or edema PSYCHIATRIC: Unable to assess. Assessment and plan: 1. Hallucinations Difficult to assess. The patient can barely provide any verbal history. He does endorse heroin as one of the things he is detoxing from but cannot elaborate further. He is positive for benzodiazepines at this time. We will consult psychiatry for any further recommendations regarding the reported hallucinations. The patient will be on a TeleSitter and if behavioral issues dobecome more burdensome he can be transferred to a higher level floor for closer monitoring. 2. Withdrawal syndrome We will start temazepam 15 mg as needed tonight. He will get a scheduled 50 mg Seroquel tonight. As needed IM Geodon for refractory agitation. I will also institute a low-dose clonidine twice daily as the patient is borderline bradycardic and cannot likely tolerate the higher dose clonidine taper as part of the opiate order set. Review of Systems Review of Systems Unobtainable due to mental status PMFSH Vaccinated for COVID-19?: Unknown Medical History (Updated 08/10/22 @ 14:14 by Carmella Page DO) Bipolar 1 disorder Depression Insomnia Surgical History (Updated 08/10/22 @ 11:45 by Brynn Michaels RN) No pertinent past surgical history Social History Smoking Status: Unknown if ever smoked Substance Use Type: Unknown Meds Medications and Allergies Allergies No Known Allergies Allergy (Verified 08/10/22 11:43) Home Medications No known home meds 08/10/22 [History Confirmed 08/10/22] Exam Physical Exam Vital Signs: Temp Pulse Resp BP Pulse Ox O2 Del Method 98.3 F 70 20 138/75 99 Room Air 08/10/22 17:43 08/10/22 17:43 08/10/22 17:43 08/10/22 17:43 08/10/22 17:43 08/10/22 17:43 Results Lab Results Labs: Laboratory Last Values Corrected WBC 7.3 X10E3/uL (4.1-10.5) 08/10/22 11:50 Uncorrected WBC Count 7.3 x10E3/uL (4.1-10.5) 08/10/22 11:50 RBC 4.67 X10E6/uL (3.90-5.60) 08/10/22 11:50 Hgb 12.9 g/dL (13.0-17.0) L 08/10/22 11:50 Hct 39.2 % (38.8-50.0) 08/10/22 11:50 MCV 83.9 fl (83.5-101) 08/10/22 11:50 MCH 27.6 pg (27.5-35.2) 08/10/22 11:50 MCHC 32.8 g/dL (32.5-35.6) 08/10/22 11:50 RDW 14.1 % (12.0-14.8) 08/10/22 11:50 Plt Count 174 x10E3/uL (150-450) 08/10/22 11:50 MPV 9.7 fl (6.6-10.1) 08/10/22 11:50 Neut % (Auto) 74.5 % (.) 08/10/22 11:50 Lymph % (Auto) 17.7 % (.) 08/10/22 11:50 Rich % (Auto) 7.1 % (.) 08/10/22 11:50 Eos % (Auto) 0.1 % (.) 08/10/22 11:50 Baso % (Auto) 0.6 % (.) 08/10/22 11:50 Nucleat RBC Rel Count 0.1 /100 WBC (0-0.5) 08/10/22 11:50 Neut # (Auto) 5.4 x10E3/uL (1.8-7.7) 08/10/22 11:50 Lymph # (Auto) 1.3 x10E3/uL (1.00-4.8) 08/10/22 11:50 Rich # (Auto) 0.5 x10E3/uL (0.0-0.8) 08/10/22 11:50 Eos # (Auto) 0.0 x10E3/uL (0.0-0.45) 08/10/22 11:50 Baso # (Auto) 0.0 x10E3/uL (0.0-0.2) 08/10/22 11:50 Monocyte Dist Width 16.25 % (0.00-20.00) 08/10/22 11:50 PHA Creatinine Clear 108.93 08/10/22 11:50 Sodium 140 mmol/L (136-145) 08/10/22 11:50 Potassium 3.2 mmol/L (3.5-5.1) L 08/10/22 11:50 Chloride 105 mmol/L (98-107) 08/10/22 11:50 Carbon Dioxide 26.4 mmol/L (21.0-31.0) 08/10/22 11:50 Anion Gap 11.8 mEq/L (6.0-15.0) 08/10/22 11:50 BUN 20 mg/dL (7-25) 08/10/22 11:50 Creatinine 0.84 mg/dL (0.70-1.30) 08/10/22 11:50 Est GFR (CKD-EPI) > 60.0 mL/Min 08/10/22 11:50 Glucose 108 mg/dL (70-100) H 08/10/22 11:50 Calcium 9.1 mg/dL (8.6-10.3) 08/10/22 11:50 Magnesium 2.1 mg/dL (1.9-2.7) 08/10/22 11:50 Total Bilirubin 0.6 mg/dl (0.3-1.0) 08/10/22 11:50 AST 11 U/L (13-39) L 08/10/22 11:50 ALT 10 U/L (7-52) 08/10/22 11:50 Alkaline Phosphatase 54 U/L (34-104) 08/10/22 11:50 Ammonia 21 umol/L (11-35) 08/10/22 11:50 Total Protein 6.6 gm/dL (6.4-8.9) 08/10/22 11:50 Albumin 4.3 gm/dL (3.5-5.7) 08/10/22 11:50 Globulin 2.3 gm/dL 08/10/22 11:50 Albumin/Globulin Ratio 1.9 08/10/22 11:50 Urine Color Dark yellow (Yellow) A 08/10/22 12:06 Urine Appearance Clear (Clear) 08/10/22 12:06 Urine pH 6.5 (5.0-9.0) 08/10/22 12:06 Ur Specific [place] 1.034 (1.001-1.030) H 08/10/22 12:06 Urine Protein 30 mg/dL (Negative) H 08/10/22 12:06 Urine Glucose (UA) Normal mg/dL (Normal) 08/10/22 12:06 Urine Ketones 1+ (Negative) H 08/10/22 12:06 Urine Occult Blood Negative (Negative) 08/10/22 12:06 Urine Nitrite Negative (Negative) 08/10/22 12:06 Urine Bilirubin Negative (Negative) 08/10/22 12:06 Urine Urobilinogen Normal mg/dL (Normal) 08/10/22 12:06 Ur Leukocyte Esterase 1+ (Negative) H 08/10/22 12:06 Urine RBC 1-2 /HPF (0-4) 08/10/22 12:06 Urine WBC 3-4 /HPF (0-4) 08/10/22 12:06 Ur Squamous Epith Cells 0-1 /HPF (0-2) 08/10/22 12:06 Urine Bacteria None seen (None Seen) 08/10/22 12:06 Hyaline Casts 9-19 /LPF (0-8) H 08/10/22 12:06 Urine Opiates Screen Negative (Negative) 08/10/22 12:06 Ur Barbiturates Screen Negative (Negative) 08/10/22 12:06 Ur Phencyclidine Scrn Negative (Negative) 08/10/22 12:06 Ur Amphetamines Screen Negative (Negative) 08/10/22 12:06 U Benzodiazepines Scrn Positive (Negative) H 08/10/22 12:06 Urine Cocaine Screen Negative (Negative) 08/10/22 12:06 U Marijuana (THC) Screen Positive (Negative) H 08/10/22 12:06 Ethyl Alcohol < 10 mg/dL 08/10/22 11:50 % Ethyl Alcohol TNP 08/10/22 11:50 Documented By: Jamison Norton DO 08/10/22 18 44 Signed By: <Electronically signed by Jamison Norton DO> 08/10/22 1850 [facility] Work Phone: Consult note Author Beckie Claire [facility] August 11, 2022 2:38pm Note Date/Time August 11, 2022 2:3 8pm [facility] [address] [place] [address] Psychiatry Consult Note Signed Patient: Lesley Adams MR#: [id number] : 1990 Acct:[id number] Age/Sex: 31 / M Adm Date: 3 Loc: Room: [address] [place] [address] Type : ADM IN Attending Dr: Jamison Norton DO Copies to: MD Jamison Strong DO NO FAMILY PHYSICIAN~ HPI Consult Date: 08/11/22 Requesting Physician: Jamison Norton DO Primary Care Provider: NO FAMILY PHYSICIAN Consult Narrative Reason for consult: Benzo, heroin withdrawal HPI: Mr. Adams is a 31 year old male who presents after detoxing from fentanyl, heroin, Xanax. Patient is experiencing withdrawal symptoms from benzodiazepinesand heroin. He is currently having hallucinations, tremors, and difficulty withredirection. He reports GI cramps 20 out of 10 anxiety, irritability, depression, and pain in his shoulder. Consultation comes from hospitalist who is placed the patient on temazepam 15 mg, Seroquel 50 mg, and IM Geodon for agitation. Patient was disoriented to time, day, and place. His insight and judgment were poor. Patient was personally seen by me on the day of the encounter.? I reviewed the history and performed the kirby elements of the assessment.? I formulated the planof care and confirmed this with the medical student as noted below Upon examination, patient was withdrawn, relatively unresponsive, disheveled, and lethargic. He denies symptoms of dizziness, concentration problems, blurredvision, or any flulike symptoms. He reported that he has been using heroin and opiates. He has been feeling irritable and is not sure if he was doing Benzos. Reports being hosptialzied before due to depression at a [facility] in [place], [place]. He does not feel that Seroquel is effective in treating his mood or agitation. He current denies SI/HI. Mental Status Exam: Appearance: Disheveled Mental Status: Confused Mood: Anxious mood Affect: Withdrawn affect Speech and Movement: Slowed movement and slurred speech Attitude: Guarded Thought Process: Illogical Thought Content: Reported hallucinations, no homicidality, denied suicidality Insight: Poor Judgment: Poor PMFSH Vaccinated for COVID-19?: Unknown Medical History (Updated 08/11/22 @ 14:36 by Beckie Claire MD) Bipolar 1 disorder Depression Insomnia Surgical History (Updated 08/10/22 @ 11:45 by Brynn Michaels RN) No pertinent past surgical history Family History (Updated 08/10/22 @ 21:10 by Sonny Jesus RN) Father Aneurysm Sister Aneurysm Social History Smoking Status: Unknown if ever smoked Substance Use Type: Unknown Meds Medications and Allergies Allergies No Known Allergies Allergy (Verified 08/10/22 11:43) Home Medications No known home meds 08/10/22 [History Confirmed 08/10/22] Exam Physical Exam Vital Signs: Temp Pulse Resp BP Pulse Ox O2 Del Method 98.7 F 57 L 20 144/88 H 98 Room Air 08/11/22 08:00 08/11/22 08:00 08/11/22 08:00 08/11/22 08:00 08/11/22 08:00 08/11/22 08:00 Const General: acute distress and disheveled Nutritional Appearance: thin Orientation: not alert, awake and not oriented x3 Resp Effort & Inspection: normal respiratory effort and able to speak in complete sentences Cardio Jugular venous pressure: no JVD Rate: bradycardic GI Inspection: normal to inspection Neuro General: not alert, patient awake and not oriented x3 Psych Appearance: disheveled Mental Status: other (Confused) Mood: anxious mood Affect: withdrawn Speech and Movement: slowed movement and slurred speech Attitude: guarded Thought Process: illogical Thought Content: hallucinations Insight: poor Judgment: poor Results Labs 08/10/22 11:50 08/10/22 11:50 Psychiatry Labs: 08/10/22 08/10/22 08/10/22 11:50 11:50 12:06 RBC 4.67 Hgb 12.9 L Hct 39.2 MCV 83.9 MCH 27.6 MCHC 32.8 RDW 14.1 Plt Count 174 MPV 9.7 Sodium 140 Potassium 3.2 L Chloride 105 Carbon Dioxide 26.4 Anion Gap 11.8 BUN 20 Creatinine 0.84 Calcium 9.1 Total Bilirubin 0.6 AST 11 L ALT 10 Alkaline Phosphatase 54 Total Protein 6.6 Albumin 4.3 Urine Color Dark yellow A Urine Appearance Clear Urine pH 6.5 Ur Specific [place] 1.034 H Urine Protein 30 H Urine Glucose (UA) Normal Urine Ketones 1+ H Urine Occult Blood Negative Urine Nitrite Negative Ur Leukocyte Esterase 1+ H Urine RBC 1-2 Urine WBC 3-4 Assessment/Plan (1) Withdrawal from opioids: Code(s): F11.93 - Opioid use, unspecified with withdrawal Status: Acute (2) Withdrawal from benzodiazepine: Code(s): F13.939 - Sedative, hypnotic or anxiolytic use, unspecified with withdrawal, unspecified Status: Acute (3) Major depressive disorder, recurrent, moderate: Code(s): F33.1 - Major depressive disorder, recurrent, moderate Status: Acute Plan Patient is currently depressed and anxious due to his withdrawal symptoms of fentanyl, heroin, Xanax. I will recommend [facility] protocol for monitoring benzo withdrawal Increase Seroquel dose to 50 mg 3 times daily Begin gabapentin taper for adjunctive treatment 300 mg 3 times daily. Second day 200 mg 3 times daily. Third day 100 mg 3 times daily. Continue to monitor mental status Risk benefits alternatives explained Should benefit from outpatient treatment. Schedule with [facility] within 5 days of discharge. Thank you for the consult. Documented By: Master Claire MD 3 [id number] Signed By: <Electronically signed by Master Claire MD> 08/11/22 1430 [facility] Work Phone: Consult note Author Ryland Medrano [facility] August 14, 2022 1:56pm Note Date/Time August 14, 2022 10:5 0am [facility] [address] [place] [address] Neurology Consult Note Signed Patient: Lesley Adams MR#: [id number] : 1990 Acct:[id number] Age/Sex: 31 / M Adm Date: 3 Loc: 3T Room: [address] [place] [address] Type: ADM IN Attending Dr: Leonora Bruce MD Copies to: Ryland Medrano DO NO FAMILY PHYSICIAN Leonora Bruce MD~ HPI Consult Date: 08/14/22 [employer]indergarten Classroom Teacher: Ryland Medrano DO PMFSH Vaccinated for COVID-19?: Unknown Medical History (Updated 08/11/22 @ 14:36 by Beckie Claire MD) Bipolar 1 disorder Depression Insomnia Surgical History (Updated 08/10/22 @ 11:45 by Brynn Michaels RN) No pertinent past surgical history Family History (Updated 08/10/22 @ 21:10 by Sonny Jesus RN) Father Aneurysm Sister Aneurysm Social History Smoking Status: Unknown if ever smoked Substance Use Type: Unknown Meds Medications and Allergies Allergies No Known Allergies Allergy (Verified 08/10/22 11:43) Home Medications No known home meds 08/10/22 [History Confirmed 08/10/22] Exam Physical Exam Vital Signs: Temp Pulse Resp BP Pulse Ox O2 Del Method O2 Flow Rate 98.4 F 82 18 132/72 98 Room Air 2 08/14/22 08:00 08/14/22 08:00 08/14/22 08:00 08/14/22 08:00 08/14/22 08:00 08/14/22 08:00 08/13/22 11:46 Results Laboratory Findings 08/11/22 12:21 08/11/22 12:21 Lab Results: Ammonia 21 umol/L (11-35) 08/10/22 11:50 Diagnostic Findings Imaging/Impressions: ITS Impressions Head CT 08/11/22 12:22 IMPRESSION: Normal noncontrasted CT brain. Impression dictated by: Demetrio Tello M.D.08/11/2022 1:04 PM Dictation Location: [place] [address] Assessment/Plan (1) Major depressive disorder, recurrent, moderate: Assessment/Problem Details: CONSULT REASON: Tremors, concern for seizures, hallucinations HPI: 31-year-old man. History of cardiac arrest related to overdose. Reported abuseof heroin and alprazolam and may be abusing methadone. [facility], and he was there detoxing from opiates and benzodiazepines. He was reportedly shaky, confused, and hard to redirect. He was a poor historian. Urine drug screen showed benzodiazepines and marijuana. There is an event note from August 11 in which the physician was called to the room after some possible seizure-like activity noted by the telemetry sitter, and intermittent jerking movements were noted in the tremors he had been experiencing prior. A routine EEG was performed. Nursing staff is telling me he is not using his legs as much as he was prior. EXAMINATION: Guarded. Reluctant to participate. Diaphoretic. No deformities or trauma. Normal spinal curvature. Limbs seem well-perfused. No significant edema. Normal work of breathing. Visualized skin is generally intact and without lesions. Patient is alert. Capable of following one-step commands. Severe paucity of speech, almost nonverbal. Pupils are equal and reactive. Ocular motility is full. No nystagmus. Facial sensation is normal. Hearing is normal. Facial strength is normal. Tongue is midline. Muscle bulk and tone seem normal. Actively resisting arm raising, both arms seems strong. Unable tolift either leg off the bed, effort very questionable, but I would give him +2/5bilateral hip flexors and could not formally assess the rest of his. Intermittent sporadic myoclonic movements of either arm or the neck noted. Reflexes diffusely hyperactive +3/4 throughout. Light touch is normal. Vibratory sensation is normal. DATA REVIEW: Routine EEG shows background slowing that is mild. Head CT unremarkable. Urine drug screen positive for only benzodiazepines and THC. Labs reviewed. ASSESSMENT: 31-year-old man withdrawing from benzodiazepines (and maybe opiates). 1. Benzodiazepine withdrawal explains tremulousness, diaphoresis, some of the mental status changes. 2. Sporadic myoclonic movements. Could be toxic?metabolic. Can further assessfor a [employer] cause. Routine EEG was normal. Head CT was normal. 3. Mood disorder. Psychiatry following. He is reluctant to participate in examination. 4. Bilateral leg weakness may be effort dependent PLAN: 1. MRI brain with and without contrast 2. Further recommendations to follow Code(s): F33.1 - Major depressive disorder, recurrent, moderate Status: Acute Documented By: Ryland Medrano DO 08/14/22 1046 Signed By: <Electronically signed by Ryland Medrano DO> 08/14/22 1356 [facility] Work Phone: Evaluation note* Diagnosis Onset Date Resolution Status Withdrawal from benzodiazepine acute Withdrawal from opioids [facility] Work Phone: Evaluation note* Diagnosis Onset Date Resolution Status Major depressive disorder, recurrent, moderate acute Withdrawal from benzodiazepine acute Withdrawal from opioids [facility] Work Phone: Evaluation note* Diagnosis Onset Date Resolution Status Major depressive disorder, recurrent, moderate acute Withdrawal from benzodiazepine acute Withdrawal from opioids acut e Abnormal thyroid blood test acute Heroin use acute Major depressive disorder, recurrent, moderate acute Withdrawal from benzodiazepine acute Withdrawal from opioids [facility] Work Phone: History and physical note Author Jamison Norton [facility] August 10, 2022 6:52pm Note Date/Time August 10, 2022 6:5 0pm [facility] [address] [place] [address] Hospitalist H&P Signed with Addenda Patient: Lesley Adams MR#: [id number] : 1990 Acct:[id number] Age/Sex: 31 / M Adm Date: 3 Loc: 3T Room: [address] [place] [address] Type: ADM IN Attending Dr: Jamison Norton DO Copies to: Jamison Norton DO NO FAMILY PHYSICIAN~ ADDENDUM1 Disposition: Patient is unstable and unable to be taken care of at rehab center due to his severe hallucinations, tremors and difficulty in redirection. To resolve these issues he will require a stay that surpasses greater than 2 midnights. He is thus admitted as an inpatient. Addendum Documented By: Jamison Norton DO 08/10/221850 Addendum Signed By: <Electronically signed by Jamison Norton DO> 08/10/221850 HPI DATE OF EXAMINATION: 08/10/22 CHIEF COMPLAINT: Hallucinations HISTORY OF PRESENT ILLNESS: This patient is a 31-year-old male who presented to the emergency department earlier today from a rehab facility in [place]. He was reportedly there detoxing from either heroin or benzodiazepines. Unfortunately the patient is significantly tremulous, confused and hard to redirect. He provides no meaningful history and it is unclear exactly what he was in rehabilitation/detoxfor. In the emergency department he has a low-grade temperature of 99.0 ?F, heart rate is 60 bpm, respiratory rate of 22/min, blood pressure 126/80, 100% oxygen saturation on room air. Laboratory evaluation reveals normal CBC, normalchemistries with the exception of mild hypokalemia 3.2, normal LFTs and kidney function. Urinalysis reveals dark concentrated urine with elevated specific gravity 1.034, 30 mg/dL protein, 1+ ketones, hyaline cast and leukocyte esterasepositive. No other evidence of infection. Urine drug screen is positive for benzodiazepines and marijuana. Ethanol alcohol level is undetectable. [facility] and treatment of hallucinations and unknown withdrawal. Physical Examination: GENERAL APPEARANCE: Alert, shaking, tremulous, mildly malnourished appearing male HEENT: poor dentition CARDIAC: Normal S1 and S2. No S3, S4 or murmurs. LUNGS: Clear to auscultation anteriorly ABDOMEN: Positive bowel sounds. Soft, nontender. No guarding or signs of an acute abdomen MUSCULOSKELETAL: No joint erythema or tenderness. EXTREMITIES: No clubbing, cyanosis or edema PSYCHIATRIC: Unable to assess. Assessment and plan: 1. Hallucinations Difficult to assess. The patient can barely provide any verbal history. He does endorse heroin as one of the things he is detoxing from but cannot elaborate further. He is positive for benzodiazepines at this time. We will consult psychiatry for any further recommendations regarding the reported hallucinations. The patient will be on a TeleSitter and if behavioral issues dobecome more burdensome he can be transferred to a higher level floor for closer monitoring. 2. Withdrawal syndrome We will start temazepam 15 mg as needed tonight. He will get a scheduled 50 mg Seroquel tonight. As needed IM Geodon for refractory agitation. I will also institute a low-dose clonidine twice daily as the patient is borderline bradycardic and cannot likely tolerate the higher dose clonidine taper as part of the opiate order set. Review of Systems Review of Systems Unobtainable due to mental status PMFSH Vaccinated for COVID-19?: Unknown Medical History (Updated 08/10/22 @ 14:14 by Carmella Page DO) Bipolar 1 disorder Depression Insomnia Surgical History (Updated 08/10/22 @ 11:45 by Brynn Michaels RN) No pertinent past surgical history Social History Smoking Status: Unknown if ever smoked Substance Use Type: Unknown Meds Medications and Allergies Allergies No Known Allergies Allergy (Verified 08/10/22 11:43) Home Medications No known home meds 08/10/22 [History Confirmed 08/10/22] Exam Physical Exam Vital Signs: Temp Pulse Resp BP Pulse Ox O2 Del Method 98.3 F 70 20 138/75 99 Room Air 08/10/22 17:43 08/10/22 17:43 08/10/22 17:43 08/10/22 17:43 08/10/22 17:43 08/10/22 17:43 Results Lab Results Labs: Laboratory Last Values Corrected WBC 7.3 X10E3/uL (4.1-10.5) 08/10/22 11:50 Uncorrected WBC Count 7.3 x10E3/uL (4.1-10.5) 08/10/22 11:50 RBC 4.67 X10E6/uL (3.90-5.60) 08/10/22 11:50 Hgb 12.9 g/dL (13.0-17.0) L 08/10/22 11:50 Hct 39.2 % (38.8-50.0) 08/10/22 11:50 MCV 83.9 fl (83.5-101) 08/10/22 11:50 MCH 27.6 pg (27.5-35.2) 08/10/22 11:50 MCHC 32.8 g/dL (32.5-35.6) 08/10/22 11:50 RDW 14.1 % (12.0-14.8) 08/10/22 11:50 Plt Count 174 x10E3/uL (150-450) 08/10/22 11:50 MPV 9.7 fl (6.6-10.1) 08/10/22 11:50 Neut % (Auto) 74.5 % (.) 08/10/22 11:50 Lymph % (Auto) 17.7 % (.) 08/10/22 11:50 Rich % (Auto) 7.1 % (.) 08/10/22 11:50 Eos % (Auto) 0.1 % (.) 08/10/22 11:50 Baso % (Auto) 0.6 % (.) 08/10/22 11:50 Nucleat RBC Rel Count 0.1 /100 WBC (0-0.5) 08/10/22 11:50 Neut # (Auto) 5.4 x10E3/uL (1.8-7.7) 08/10/22 11:50 Lymph # (Auto) 1.3 x10E3/uL (1.00-4.8) 08/10/22 11:50 Rich # (Auto) 0.5 x10E3/uL (0.0-0.8) 08/10/22 11:50 Eos # (Auto) 0.0 x10E3/uL (0.0-0.45) 08/10/22 11:50 Baso # (Auto) 0.0 x10E3/uL (0.0-0.2) 08/10/22 11:50 Monocyte Dist Width 16.25 % (0.00-20.00) 08/10/22 11:50 PHA Creatinine Clear 108.93 08/10/22 11:50 Sodium 140 mmol/L (136-145) 08/10/22 11:50 Potassium 3.2 mmol/L (3.5-5.1) L 08/10/22 11:50 Chloride 105 mmol/L (98-107) 08/10/22 11:50 Carbon Dioxide 26.4 mmol/L (21.0-31.0) 08/10/22 11:50 Anion Gap 11.8 mEq/L (6.0-15.0) 08/10/22 11:50 BUN 20 mg/dL (7-25) 08/10/22 11:50 Creatinine 0.84 mg/dL (0.70-1.30) 08/10/22 11:50 Est GFR (CKD-EPI) > 60.0 mL/Min 08/10/22 11:50 Glucose 108 mg/dL (70-100) H 08/10/22 11:50 Calcium 9.1 mg/dL (8.6-10.3) 08/10/22 11:50 Magnesium 2.1 mg/dL (1.9-2.7) 08/10/22 11:50 Total Bilirubin 0.6 mg/dl (0.3-1.0) 08/10/22 11:50 AST 11 U/L (13-39) L 08/10/22 11:50 ALT 10 U/L (7-52) 08/10/22 11:50 Alkaline Phosphatase 54 U/L (34-104) 08/10/22 11:50 Ammonia 21 umol/L (11-35) 08/10/22 11:50 Total Protein 6.6 gm/dL (6.4-8.9) 08/10/22 11:50 Albumin 4.3 gm/dL (3.5-5.7) 08/10/22 11:50 Globulin 2.3 gm/dL 08/10/22 11:50 Albumin/Globulin Ratio 1.9 08/10/22 11:50 Urine Color Dark yellow (Yellow) A 08/10/22 12:06 Urine Appearance Clear (Clear) 08/10/22 12:06 Urine pH 6.5 (5.0-9.0) 08/10/22 12:06 Ur Specific [place] 1.034 (1.001-1.030) H 08/10/22 12:06 Urine Protein 30 mg/dL (Negative) H 08/10/22 12:06 Urine Glucose (UA) Normal mg/dL (Normal) 08/10/22 12:06 Urine Ketones 1+ (Negative) H 08/10/22 12:06 Urine Occult Blood Negative (Negative) 08/10/22 12:06 Urine Nitrite Negative (Negative) 08/10/22 12:06 Urine Bilirubin Negative (Negative) 08/10/22 12:06 Urine Urobilinogen Normal mg/dL (Normal) 08/10/22 12:06 Ur Leukocyte Esterase 1+ (Negative) H 08/10/22 12:06 Urine RBC 1-2 /HPF (0-4) 08/10/22 12:06 Urine WBC 3-4 /HPF (0-4) 08/10/22 12:06 Ur Squamous Epith Cells 0-1 /HPF (0-2) 08/10/22 12:06 Urine Bacteria None seen (None Seen) 08/10/22 12:06 Hyaline Casts 9-19 /LPF (0-8) H 08/10/22 12:06 Urine Opiates Screen Negative (Negative) 08/10/22 12:06 Ur Barbiturates Screen Negative (Negative) 08/10/22 12:06 Ur Phencyclidine Scrn Negative (Negative) 08/10/22 12:06 Ur Amphetamines Screen Negative (Negative) 08/10/22 12:06 U Benzodiazepines Scrn Positive (Negative) H 08/10/22 12:06 Urine Cocaine Screen Negative (Negative) 08/10/22 12:06 U Marijuana (THC) Screen Positive (Negative) H 08/10/22 12:06 Ethyl Alcohol < 10 mg/dL 08/10/22 11:50 % Ethyl Alcohol TNP 08/10/22 11:50 Documented By: Jamison Norotn DO 08/10/22 18 44 Signed By: <Electronically signed by Jamison Norton DO> 08/10/22 2140 [facility] Work Phone: Hospital Discharge instructionsAmbulatory Orders* DME Home Medical Equipment Time Frame: 1 Day, Location: Determined By Patient Additional Instructions No driving until evaluated by [facility] Work Phone: Hospital Discharge instructions Additional Instructions Patient needs to have TSH and free T4 done in approximately 3 months results to primary care Regular diet No [facility] Work Phone: Progress note Author Jamison Norton [facility] August 11, 2022 12:26pm Note Date/Time August 11, 2022 12: 26pm [facility] [address] [place], [place] [id number] Event Note Signed Patient: Lesley Adams MR#: [id number] : 1990 Acct:[id number] Age/Sex: 31 / M Adm Date: 3 Loc: Room: [address] [place] [address] Type: ADM IN Attending Dr: Jamison Norton DO Copies to: Jamison Norton DO NO FAMILY PHYSICIAN~ Status Event Note Event Note DATE OF EVENT: 08/11/22 TIME OF EVENT: 12:23 EVENT DETAILS: Medical emergency team response was called shortly after noon today. Just priorto this I had received a call regarding some abnormal suspected seizure activity noted by telemetry sitter. At that time I had ordered stat labs including lactic acid, prolactin level, CBC and BMP. He has been baseline tremulous since his presentation yesterday however he does have intermittent jerking movements now. He has been largely nonverbal and offers minimal response prior to this. During this event he is the same. He did grasp hands bilaterally and exhibits no focal deficits in that regard. I have ordered a stat noncontrast CT of the head to rule out any acute pathology. Certainly the patient could be exhibiting seizure activity. He is thus being transferred to the intensive care unit for closer monitoring. Will order EEG. Documented By: Jamison Norton DO 08/11/2205 04 Signed By: <Electronically signed by Jamison Norton DO> 08/11/22 1226 [facility] Work Phone: Progrrlg note Author Jamison Norton [facility] August 12, 2022 2:25pm Note Date/Time August 12, 2022 2:25 pm [facility] [address] [place] [id number] Hospitalist Progress Note Signed Patient: Lesley Adams MR#: [id number] : 1990 Acct:[id number] Age/Sex: 31 / M Adm Date: 3 Loc: Room: [address] [place] [address] Type: ADM IN Attending Dr: Jamison Norton DO Copies to: ~ Date of Service: 08/12/2022 Subjective Subjective Narrative: Patient was seen and examined at bedside. Transferred to ICU earlier for possible seizure activity although unlikely. Remains altered, intermittently verbal than nonresponsive to questioning clearly awake. Physical Examination: GENERAL APPEARANCE: Alert, shaking, tremulous, mildly malnourished appearing male HEENT: poor dentition CARDIAC: Normal S1 and S2. No S3, S4 or murmurs. LUNGS: Clear to auscultation anteriorly ABDOMEN: Positive bowel sounds. Soft, nontender. No guarding or signs of an acute abdomen MUSCULOSKELETAL: No joint erythema or tenderness. EXTREMITIES: No clubbing, cyanosis or edema PSYCHIATRIC: Unable to assess. Assessment and plan: 1. Hallucinations Appreciate psychiatry recommendations. 2. Withdrawal syndrome Appreciate psychiatry recommendations. 3. Tremors Likely symptom of withdrawal. Very low suspicion for any seizure. EEG pending Exam Physical Exam Vital Signs: Temp Pulse Resp BP Pulse Ox O2 Del Method 98.2 F 54 L 22 120/79 98 Room Air 08/11/22 16:00 08/12/22 08:00 08/12/22 08:00 08/12/22 08:00 08/12/22 08:00 08/12/22 08:00 Objective Lab Results 08/11/22 12:21 08/11/22 12:21 Meds Allergies and Active Meds Allergies No Known Allergies Allergy (Verified 08/10/22 11:43) Active Meds: Active Medications Generic Name Dose Route Start Last Admin Trade Name Freq PRN Reason Stop Dose Admin Acetaminophen 650 mg 08/10/22 18:39 08/12/22 09:30 Acetaminophen 325 Mg Tablet PO 08/10/23 18:38 650 mg Q6H PRN Administration Pain Clonidine HCl 0.1 mg 08/10/22 21:00 08/12/22 09:30 Clonidine 0.1 Mg Tablet PO 08/10/23 20:59 0.1 mg BID MENDOZA Administration Gabapentin 300 mg 08/11/22 10:00 08/12/22 13:31 Gabapentin 300 Mg Capsule PO 08/11/23 09:59 Not Given TID MENDOZA Loperamide HCl 2 - 4 mg 08/10/22 18:39 Loperamide 2 Mg Capsule PO 08/10/23 18:38 PRN PRN Loose Stool Quetiapine Fumarate 50 mg 08/11/22 10:00 08/12/22 09:30 Quetiapine Fumarate 50 Mg Tablet PO 08/11/23 09:59 50 mg BID MENDOZA Administration Sodium Chloride 0 ml 08/10/22 11:42 08/11/22 06:49 Sodium Chloride 0.9 % 10 Ml Syringe IV-PUSH 08/10/23 11:41 10 ml PRN PRN Administration Flush Temazepam 15 mg 08/10/22 18:39 08/10/22 19:49 Temazepam 15 Mg Capsule PO 02/06/23 18:38 15 mg QHS PRN Administration Sleep Ziprasidone 20 mg 08/10/22 18:39 08/10/22 19:50 Ziprasidone 20 Mg Vial IM 08/10/23 18:38 20 mg Q6H PRN Administration severe agitation Documented By: Jamison Norton DO 08/11/22 13 00 Signed By: <Electronically signed by Jamison Norton DO> 08/12/[address] [place] [address] Ctr Work Phone: Progress note Author Jamison Norton [facility] August 12, 2022 2:25pm Note Date/Time August 12, 2022 2:26 pm [facility] [address] [place] [address] Hospitalist Progress Note Signed Patient: Lesley Adams MR#: [id number] : 1990 Acct:[id number] Age/Sex: 31 / M Adm Date: 3 Loc: Room: [address] [place] [address] Type: ADM IN Attending Dr: Jamison Norton DO Copies to: ~ Date of Service: 08/12/2022 Subjective Subjective Narrative: Stable in the ICU throughout the evening. I personally saw and examined patientat bedside this morning. Again minimally verbal but appropriately alert Physical Examination: GENERAL APPEARANCE: Alert, shaking, tremulous, mildly malnourished appearing male HEENT: poor dentition CARDIAC: Normal S1 and S2. No S3, S4 or murmurs. LUNGS: Clear to auscultation anteriorly ABDOMEN: Positive bowel sounds. Soft, nontender. No guarding or signs of an acute abdomen MUSCULOSKELETAL: No joint erythema or tenderness. EXTREMITIES: No clubbing, cyanosis or edema PSYCHIATRIC: Unable to assess. Assessment and plan: 1. Hallucinations Appreciate psychiatry recommendations. 2. Withdrawal syndrome Appreciate psychiatry recommendations. 3. Tremors EEG shows generalized slowing but no epileptiform activity. Exam Physical Exam Vital Signs: Temp Pulse Resp BP Pulse Ox O2 Del Method 98.2 F 54 L 22 120/79 98 Room Air 08/11/22 16:00 08/12/22 08:00 08/12/22 08:00 08/12/22 08:00 08/12/22 08:00 08/12/22 08:00 Objective Lab Results 08/11/22 12:21 08/11/22 12:21 Meds Allergies and Active Meds Allergies No Known Allergies Allergy (Verified 08/10/22 11:43) Active Meds: Active Medications Generic Name Dose Route Start Last Admin Trade Name Freq PRN Reason Stop Dose Admin Acetaminophen 650 mg 08/10/22 18:39 08/12/22 09:30 Acetaminophen 325 Mg Tablet PO 08/10/23 18:38 650 mg Q6H PRN Administration Pain Clonidine HCl 0.1 mg 08/10/22 21:00 08/12/22 09:30 Clonidine 0.1 Mg Tablet PO 08/10/23 20:59 0.1 mg BID MENDOZA Administration Gabapentin 300 mg 08/11/22 10:00 08/12/22 13:31 Gabapentin 300 Mg Capsule PO 08/11/23 09:59 Not Given TID MENDOZA Loperamide HCl 2 - 4 mg 08/10/22 18:39 Loperamide 2 Mg Capsule PO 08/10/23 18:38 PRN PRN Loose Stool Quetiapine Fumarate 50 mg 08/11/22 10:00 08/12/22 09:30 Quetiapine Fumarate 50 Mg Tablet PO 08/11/23 09:59 50 mg BID MENDOZA Administration Sodium Chloride 0 ml 08/10/22 11:42 08/11/22 06:49 Sodium Chloride 0.9 % 10 Ml Syringe IV-PUSH 08/10/23 11:41 10 ml PRN PRN Administration Flush Temazepam 15 mg 08/10/22 18:39 08/10/22 19:49 Temazepam 15 Mg Capsule PO 02/06/23 18:38 15 mg QHS PRN Administration Sleep Ziprasidone 20 mg 08/10/22 18:39 08/10/22 19:50 Ziprasidone 20 Mg Vial IM 08/10/23 18:38 20 mg Q6H PRN Administration severe agitation Documented By: Jamison Norton DO 08/12/22 14 25 Signed By: <Electronically signed by Jamison Norton DO> 08/12/22 1427 [facility] Work Phone: Progress note Author Jamison Norton [facility] August 13, 2022 5:21pm Note Date/Time August 13, 2022 5:22 pm [facility] [address] [place] [address] Hospitalist Progress Note Signed Patient: Lesley Adams MR#: [id number] : 1990 Acct:[id number] Age/Sex: 31 / M Adm Date: 3 Loc: Room: [address] [place] [address] Type: ADM IN Attending Dr: Jamison Norton DO Copies to: ~ Date of Service: 08/13/2022 Subjective Subjective Narrative: Stable in the ICU throughout the evening. I personally saw and examined patientat bedside this morning. Again minimally verbal but appropriately alert Physical Examination: GENERAL APPEARANCE: Alert, shaking, tremulous, mildly malnourished appearing male HEENT: poor dentition CARDIAC: Normal S1 and S2. No S3, S4 or murmurs. LUNGS: Clear to auscultation anteriorly ABDOMEN: Positive bowel sounds. Soft, nontender. No guarding or signs of an acute abdomen MUSCULOSKELETAL: No joint erythema or tenderness. EXTREMITIES: No clubbing, cyanosis or edema PSYCHIATRIC: Unable to assess. Assessment and plan: 1. Hallucinations Appreciate psychiatry recommendations. 2. Withdrawal syndrome Appreciate psychiatry recommendations. 3. Tremors EEG shows generalized slowing but no epileptiform activity. Family expresses significant concern regarding ongoing tremors. At this point I cannot say that definitively he is not exhibiting epileptic activity however his routine EEG wasnegative. I will consult neurology for any further recommendations regarding utility of 24-hour continuous EEG monitoring and/or MRI imaging. 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 Since that time he apparently has increased his drug usage. Reports thathe has been abusing methadone in addition to other opiates. We will continue symptomatic management but ultimately its likely the patient will need more time. Exam Physical Exam Vital Signs: Temp Pulse Resp BP Pulse Ox O2 Del Method O2 Flow Rate 97.9 F 103 H 18 132/86 98 Room Air 2 08/13/22 15:07 08/13/22 15:58 08/13/22 15:07 08/13/22 15:58 08/13/22 15:07 08/13/22 15:07 08/13/22 11:46 Objective Lab Results 08/11/22 12:21 08/11/22 12:21 Meds Allergies and Active Meds Allergies No Known Allergies Allergy (Verified 08/10/22 11:43) Active Meds: Active Medications Generic Name Dose Route Start Last Admin Trade Name Freq PRN Reason Stop Dose Admin Acetaminophen 650 mg 08/10/22 18:39 08/12/22 09:30 Acetaminophen 325 Mg Tablet PO 08/10/23 18:38 650 mg Q6H PRN Administration Pain Clonidine HCl 0.1 mg 08/10/22 21:00 08/13/22 09:07 Clonidine 0.1 Mg Tablet PO 08/10/23 20:59 0.1 mg BID MENDOZA Administration Gabapentin 300 mg 08/11/22 10:00 08/13/22 13:10 Gabapentin 300 Mg Capsule PO 08/11/23 09:59 300 mg TID MENDOZA Administration Lactated Ringer's 1,000 mls @ 100 mls/hr 08/13/22 16:30 08/13/22 16:22 Lactated Ringers IV 08/13/23 16:29 100 mls/hr .Q10H MENDOZA Administration Loperamide HCl 2 - 4 mg 08/10/22 18:39 Loperamide 2 Mg Capsule PO 08/10/23 18:38 PRN PRN Loose Stool Ondansetron HCl 4 mg 08/13/22 12:06 08/13/22 12:30 Ondansetron 4 Mg/2 Ml Vial IV-PUSH 08/13/23 12:05 4 mg Q4H PRN Administration Nausea And Vomiting Quetiapine Fumarate 50 mg 08/11/22 10:00 08/13/22 09:07 Quetiapine Fumarate 50 Mg Tablet PO 08/11/23 09:59 50 mg BID MENDOZA Administration Sodium Chloride 0 ml 08/10/22 11:42 08/13/22 16:22 Sodium Chloride 0.9 % 10 Ml Syringe IV-PUSH 08/10/23 11:41 10 ml PRN PRN Administration Flush Temazepam 15 mg 08/10/22 18:39 08/10/22 19:49 Temazepam 15 Mg Capsule PO 02/06/23 18:38 15 mg QHS PRN Administration Sleep Ziprasidone 20 mg 08/10/22 18:39 08/10/22 19:50 Ziprasidone 20 Mg Vial IM 08/10/23 18:38 20 mg Q6H PRN Administration severe agitation Documented By: Jamison Norton DO 08/13/22 17 16 Signed By: <Electronically signed by Jamison Norton DO> 08/13/22 1721 [facility] Work Phone: Progress note Author Leonora Bruce [facility] August 14, 2022 11:46am Note Date/Time August 14, 2022 11:4 3am [facility] [address] [place] [address] Hospitalist Progress Note Signed Patient: Lesley Adams MR#: [id number] : 1990 Acct:[id number] Age/Sex: 31 / M Adm Date: 3 Loc: Room: [address] [place] [address] Type: ADM IN Attending Dr: Leonora Bruce MD Copies to: ~ Date of Service: 08/14/2022 Subjective Subjective Narrative: Patient has been seen and examined today. He tells me he is feeling fine and denies any complaints Physical Examination: GENERAL APPEARANCE: He is awake but slow to respond, slight tremors noted with movements, however he does not appear to be agitated or in any respiratory distress. He is able to follow commands he is oriented x2 HEENT: poor dentition CARDIAC: Normal S1 and S2. No S3, S4 or murmurs. LUNGS: Clear to auscultation anteriorly ABDOMEN: Positive bowel sounds. Soft, nontender. No guarding or signs of an acute abdomen MUSCULOSKELETAL: No joint erythema or tenderness. EXTREMITIES: No clubbing, cyanosis or edema PSYCHIATRIC: Slow to respond Assessment and plan: 1. Hallucinations Appreciate psychiatry recommendations. 2. Withdrawal syndrome Appreciate psychiatry recommendations. 3. 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 Since that time he apparently has increased his drug usage. 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 Exam Physical Exam Vital Signs: Temp Pulse Resp BP Pulse Ox O2 Del Method O2 Flow Rate 36.7 C 67 16 122/78 94 L Room Air 2 08/14/22 11:19 08/14/22 11:19 08/14/22 11:19 08/14/22 11:19 08/14/22 11:19 08/14/22 11:19 08/13/22 11:46 Objective Lab Results 08/11/22 12:21 08/11/22 12:21 Meds Allergies and Active Meds Allergies No Known Allergies Allergy (Verified 08/10/22 11:43) Active Meds: Active Medications Generic Name Dose Route Start Last Admin Trade Name Americoq PRN Reason Stop Dose Admin Acetaminophen 650 mg 08/10/22 18:39 08/12/22 09:30 Acetaminophen 325 Mg Tablet PO 08/10/23 18:38 650 mg Q6H PRN Administration Pain Clonidine HCl 0.1 mg 08/10/22 21:00 08/14/22 08:07 Clonidine 0.1 Mg Tablet PO 08/10/23 20:59 0.1 mg BID MENDOZA Administration Gabapentin 300 mg 08/11/22 10:00 08/14/22 08:07 Gabapentin 300 Mg Capsule PO 08/11/23 09:59 300 mg TID MENDOZA Administration Lactated Ringer's 1,000 mls @ 100 mls/hr 08/13/22 16:30 08/14/22 02:28 Lactated Ringers IV 08/13/23 16:29 100 mls/hr .Q10H MENDOZA Administration Loperamide HCl 2 - 4 mg 08/10/22 18:39 Loperamide 2 Mg Capsule PO 08/10/23 18:38 PRN PRN Loose Stool Ondansetron HCl 4 mg 08/13/22 12:06 08/13/22 12:30 Ondansetron 4 Mg/2 Ml Vial IV-PUSH 08/13/23 12:05 4 mg Q4H PRN Administration Nausea And Vomiting Quetiapine Fumarate 50 mg 08/11/22 10:00 08/14/22 08:07 Quetiapine Fumarate 50 Mg Tablet PO 08/11/23 09:59 50 mg BID MENDOZA Administration Sodium Chloride 0 ml 08/10/22 11:42 08/13/22 16:22 Sodium Chloride 0.9 % 10 Ml Syringe IV-PUSH 08/10/23 11:41 10 ml PRN PRN Administration Flush Temazepam 15 mg 08/10/22 18:39 08/10/22 19:49 Temazepam 15 Mg Capsule PO 02/06/23 18:38 15 mg QHS PRN Administration Sleep Ziprasidone 20 mg 08/10/22 18:39 08/10/22 19:50 Ziprasidone 20 Mg Vial IM 08/10/23 18:38 20 mg Q6H PRN Administration severe agitation Documented By: Leonora Bruce MD 08/14/22 1142 Signed By: <Electronically signed by Leonora Bruce MD> 08/14/22 1146 [facility] Work Phone: Summary Purpose Family History No Family History Records Found Relationship Condition Age at Onset Recorded Date/T siri father Aneurysm Unknown sister Aneurysm Unknown Advance Directives No Advanced Directives Records Found Advance Directive Response Recorded Date/ Time Advance Directives No August 10, 023 2:16pm Chief Complaint and Reason for Visit Chief Complaint Hallucinations Reason for Visit Withdrawal from mallory odiazepine Withdrawal from opioids Chief Complaint Hallucinations Reason for Visit Major depressive dis order, recurrent, moderate Withdrawal from benzodiazepine Withdrawal from opioids Chief Complaint Hallucinations BH bipolar-pink slip Reason for Visit Major depressive dis order, recurrent, moderate Withdrawal from benzodiazepine Withdrawal from opioids Abnormal thyroid blood test Heroin use Major depressive disorder, recurrent, moderate Withdrawal from benzodiazepine Withdrawal from opioids Additional Source Comments (unrecognized sect ion and content) No Status Records FoundNo Status Records FoundNo Status Records FoundNo Status Records Found INFORMATION SOURCE (unrecogn ized section and content) DATE CREATED AUTHOR 05/19/2021 [facility] DATE CREATED AUTHOR AUTHOR'S ORGANIZ ATION 09/20/2022 [facility] DATE CREATED AUTHOR AUTHOR'S ORGANIZ ATION 09/21/2022 [facility] DATE CREATED AUTHOR AUTHOR'S ORGANIZ ATION 01/12/2024 [facility] Care Teams (unrecognized sec tion and content) Team Status: Active Member Role Status Dates PHYSICIAN NO FAMILY Primary Care Provider Active Team Status: Inactive Member Role Status Dates Carmella Page , DO Emergency Provider Active PHYSICIAN NO FAMILY Primary Care Provider Active Jamison Norton , DO Admit Provider Active Beckie Claire MD Other Provider Active Lesvia Barrientos Other Provider Active Amanda Valera , DO Other Provider Active Nnamdi Hay MD Other Provider Active Gera Pascual , DO Other Provider Active Ramona Hairston ANP-BC Other Provider Active Ryland Medrano , DO Other Provider Active Sandy Lynne APRN Other Provider Active Christine Alvarado NP-C Other Provider Active Leonora Bruce MD Attending Provider Active Team Status: Active Member Role Status Dates Carmella Page , DO Emergency Provider Active PHYSICIAN NO FAMILY Primary Care Provider Active Jamison Norton , DO Admit Provider, Attending Provider Active Team Status: Inactive Member Role Status Dates PHYSICIAN NO FAMILY Primary Care Provider Active Beckie Claire MD Admit Provider, Attending Pr adair Active Team Status: Active Member Role Status Dates PHYSICIAN NO FAMILY Primary Care Provider Active Beckie Claire MD Attending Provider Active Goals (unrecognized section and content) Goals may be documented in a n alternate section FOR RECORDS PERTAINING TO PATIENTS WHO ARE OR HAVE BEEN ENROLLED IN A CHEMICAL DEPENDENCY/SUBSTANCEABUSE PROGRAM, SOME INFORMATION MAY BE OMITTED. This clinical summary was aggregated from multiple sources. Caution should be exercised in using it in the provision of clinical care. This summary normalizes information from multiple sources, and as a consequence, information in this document may materially change the coding, format and clinical context of patient data. In addition, data may be omitted in some cases. CLINICAL DECISIONS SHOULD BE BASED ON THE PRIMARY CLINICAL RECORDS. [employer] provides no warranty or guarantee of the accuracy or completeness of information in this document.
== END 2024-03-25 16:54 | disposition home or self-care (01) ==
PROVIDERS: Emergency Provider Emergency Medicine
DX: T78.40XA Allergy, unspecified, initial encounter (principal)
CPT/HCPCS: 99283

== ENCOUNTER 2024-04-07 14:03 | Emergency (ER) | payer MEDICAID, SELFPAY ==
[2024-04-07 14:12] VITALS: BP 132/82; PULSE 122; TEMP 37.2; O2SAT 99; BMI 20.8
[2024-04-07] MEDS: FAMOTIDINE 20 MG TABLET PO (15:07)
[2024-04-07] MEDS: TRIAMCINOLONE ACETONIDE 40 MG/ML VIAL IM (15:07)
--- NOTE | 2024-04-07 15:23 | ED.GENADUL1 ---
HPI HPI - General Adult General Chief complaint: Allergic Reaction Stated complaint: SHORTNESS OF BREATH/ RASH/ HIVES Time Seen by Provider: 04/07/24 14:18 Source: patient Mode of arrival: walk-in Limitations: no limitations History of Present Illness HPI narrative: Patient is a 33-year-old male who is presenting to the ER today with chief complaint of intermittent rash for the past month. Patient had a Sublocade injection that was done approxi-1 month ago. Patient states he been having intermittent rash and itching since then. Patient says that he was in the ER 2 weeks ago here at [facility] and was prescribed steroids. Patient has been using Benadryl intermittently. Patient is here because the rash and urticaria still are intermittent. Patient has been using Benadryl intermittently. That does not cause him to be sleepy. Patient will intermittently feel that he has to catch his breath for a second or 2 but then it resolves. No swelling to his tongue, mouth, no angioedema. No other significant findings. No other exposure. The multitude of possible exposures or products, food, drinks, and anything he could be exposed to including chemicals were discussed, patient states he is not exposed anything new, he is very adamant that the shot he received 1 month ago is lingering and was told it could last in his system up to 4 months and that patient is allergic to it. Patient has not seen a plate worker helper. He has no PCP. No acute complaints All systems are negative except as noted/marked. All systems reviewed and otherwise negative. Nurses note and vital signs reviewed and patient is not hypoxic. General: The patient appears well and in no apparent distress. Patient is resting comfortably on cart. Patient is not toxic, lethargic, or listless Skin: Warm, dry, no pallor noted. There is no rash noted. No petechiae, purpura. Diffuse urticaria mild, no angioedema, no vesicles, bullae, no mucous membrane involvement of any rash, patient denies any rash on his penis or anus. No secondary signs of infection of cellulitis, diffuse urticaria, no other type of rash seen. Nothing to the palms, denies any rash on the soles, nothing intraoral. Head: Normocephalic, atraumatic Eye: Normal conjunctiva, no drainage, EOMI. PERRL Ears, Nose, Mouth, and Throat: oral mucosa is moist. Nares patent. Mouth without vesicles. Cardiovascular: Regular Rate and Rhythm, no murmur, gallop, rub Respiratory: Patient is in no distress, no accessory muscle use, lungs are clear to auscultation, no wheezing, rales or rhonchi Back: non-tender, no CVA tenderness bilaterally to percussion. No CT LS midline pain GI: no tenderness to palpation, no masses appreciated. No rebound, guarding, or rigidity noted. No distention Musculoskeletal: Patient has full range of motion of all of the extremities, no motor, sensory, or focal neurological deficits Neurological: A&O x4, normal speech Psychiatric: Cooperative Related Data Home Medications ?Medication ?Instructions ?Recorded ?Confirmed diphenhydramine HCl 25 mg capsule mg 04/07/24 Previous Rx's ?Medication ?Instructions ?Recorded hydrocortisone-pramoxine 1 %-1 % 1 applic AK BID #30 grams 09/05/23 rectal cream Allergies Allergy/AdvReac Type Severity Reaction Status Date / Time sublicade Allergy Hives Uncoded 04/07/24 14:10 Opioid HPI Opioid Management Most Recent Opioid Data: No Data to Display PFSH PFSH Social History Little interest or pleasure in doing things: not at all Feeling down, depressed, or hopeless: not at all Exam Constitutional Vital Signs, click to edit/add: Last Vital Signs Temp 98.9 F 04/07/24 14:12 Pulse 122 H 04/07/24 14:12 Resp 20 04/07/24 14:12 BP 132/82 04/07/24 14:12 Pulse Ox 99 04/07/24 14:12 O2 Del Method Room Air 04/07/24 14:12 Course Vital Signs Vital signs: Vital Signs Temperature 98.9 F 04/07/24 14:12 Pulse Rate 122 H 04/07/24 14:12 Respiratory Rate 20 04/07/24 14:12 Blood Pressure 132/82 04/07/24 14:12 Pulse Oximetry 99 04/07/24 14:12 Oxygen Delivery Method Room Air 04/07/24 14:12 Temperature 98.9 F 04/07/24 14:12 Pulse Rate 122 H 04/07/24 14:12 Respiratory Rate 20 04/07/24 14:12 Blood Pressure 132/82 04/07/24 14:12 Pulse Oximetry 99 04/07/24 14:12 Oxygen Delivery Method Room Air 04/07/24 14:12 Discharge Plan Discharge Chief Complaint: Allergic Reaction Clinical Impression: Rash and nonspecific skin eruption, Allergic reaction Patient Disposition: Home, Self-Care Time of Disposition Decision: 15:00 Condition: Fair Prescriptions / Home Meds: No Action hydrocortisone-pramoxine 1-1 % cream 1 applic AK BID Qty: 30 0RF diphenhydramine HCl 25 mg capsule Print Language: Tamazight Instructions: Contact Dermatitis (ED), Acute Rash (ED), General Allergic Reaction (ED), Allergy Testing (ED) Additional Instructions: Use [id number] Claritin or Zyrtec twice a day to help with rash and itching and possible allergic reaction. You may use Benadryl instead if needed. Use Pepcid 20 mg twice a day for the next 7 to 10 days to help with rash, allergic reaction, itching. You are given a Kenalog 40 mg injection in the ER today, this should last in your system for 2 or 3 weeks. You need to see a plate worker helper for definitive testing and follow-up and treatment as needed. Referrals: Physician,Non-Staff, MD [Primary Care Provider] - 1 week Discharge Date/Time: 04/07/24 15:12
== END 2024-04-07 15:12 | disposition home or self-care (01) ==
PROVIDERS: Emergency Provider Emergency Medicine
DX: R21 Rash and other nonspecific skin eruption (principal); T78.40XA Allergy, unspecified, initial encounter; X58.XXXA Exposure to other specified factors, initial encounter
CPT/HCPCS: 96372; 99284; J3301

== ENCOUNTER 2024-06-23 23:05 | Emergency (ER) | payer OTHER, SELFPAY ==
--- OUTSIDE RECORDS SUMMARY | 2024-06-23 23:14 | XMS_ITS | CCD ---
Author Organization [facility] Care Team Providers Care Automation Sales Manager Name Role Phone JONNYDANIELLE Referring Unavailable DO Carmella Page Emergency Provider NO FAMILY, PHYSICIAN Primary Care Provider Unava ilable DO Jamison Norton Admit Provider [phone] DO Jamison Norton Attending Provider MD Beckie Claire Other Provider [phone] Lesvia Barrientos Other Provider Unavailable DO Amanda Valera Other Provider MD Nnamdi Hay Other Provider DO Gera Pascual Other Provider GERARDO Hairston-BC Ramona Other Provider DO Ryland Medrano Other Provider JEANIE Lynne Other Provider ROXANN Alvarado Other Provider MD Leonora Bruce Attending Provider [phone] Beckie Claire Admitting Unavailzo e Beckie Claire [...] Lynne Consulting Unavailable Christine Alvarado Consulting Unavailable MICHELLE Liao, LAWANDA Admitting Unavailable RADHA, DR PANDEY LISTED Primary Care Unavaila gabrielle MARTINEZ ., LAWANDA Attending Unavailable MICHELLE Liao, LAWANDA Consulting Unavailable ANA SINGLETON Consulting Unavailable MARILYN SMITH Consulting Unavailable YUMIKO ., DR STAFFORD Attending Unavailable YUMIKO Liao, DR STAFFORD Consulting Unavailable NELSON LUJAN Primary Care Unavailable YUMIKO Liao, DR STAFFORD Admitting Unavailable GAURANG BENITEZ Consulting Unavailable MD Beckie Claire Attending Provider [phone] MD Beckie Claire Admit Provider NO PCP, NO PCP Primary Care Unavailable DAKOTA COATES Attending Unavailable ILIA CHACKO Attending Unavailable ILIA CHACKO Referring Unavailable NO PCP, NO PCP Primary Care Unavailable NO PCP, NO PCP Primary Care Unavailable SADIQ CASILLAS Attending Unavailable No Pcp, No Pcp Primary Care Provider Unavailabl e Medications Current Medications Medication Drug Class(es) Dates Sig (Normalized) Sig (Original) cariprazine 1.5 mg oral capsule (1 source) Atypical Antipsychotic take 1 capsule by mouth in the morning cariprazine (VRAYLAR) 1.5 mg capsule Take 1 capsule (1.5 mg total) by mouth in the morning. Active escitalopram 5 mg oral tablet (1 source) Serotonin Reuptake Inhibitor Start: 10-11-2022 take 5 mg by mouth once daily Escitalopram Oxalate Active 5 MG PO Daily October 11, 2022 12:00am hydrOXYzine pamoate 50 mg oral capsule (1 source) Antihistamine take 1 capsule by mouth three times daily as needed hydrOXYzine (VISTARIL) 50 mg capsule Take 1 capsule (50 mg total) by mouth 3 (three) times a day as needed for itching. Active ibuprofen 800 mg oral tablet (1 source) Nonsteroidal Anti-inflammatory Drug take 1 tablet by mouth every six hours as needed for pain ibuprofen (MOTRIN) 800 mg tablet Take 1 tablet (800 mg total) by mouth every 6 (six) hours as needed for pain. Active nicotine 2 mg chewing gum (1 source) Cholinergic Nicotinic Agonist Start: 10-11-2022 Nicotine (Polacrilex) Active 2 MG BUCCAL Every 2 hours October 11, 2022 12:00am pantoprazole 40 mg delayed release oral tablet (1 source) Proton Pump Inhibitor Start: 10-11-2022 take 40 mg by mouth once daily Pantoprazole Active 40 MG PO Daily October 11, 2022 12:00am pramipexole dihydrochloride 0.5 mg oral tablet (1 source) Nonergot Dopamine Agonist take 1 tablet by mouth twice daily as needed pramipexole (MIRAPEX) 0.5 mg tablet Take 1 tablet (0.5 mg total) by mouth 2 (two) times a day as needed. Active traZODone hydrochloride 100 mg oral tablet (2 sources) Serotonin Reuptake Inhibitor Start: 10-11-2022 take 100 mg by mouth once daily at bedtime Trazodone Active 100 MG PO Daily at bedtime October 11, 2022 12:00am 24 hr divalproex [...] 2022 5:38am gabapentin 300 mg oral capsule (3 sources) Anti-epileptic Agent Start: 08-17-2022 End: 10-07-2022 take 300 mg by mouth twice daily Gabapentin Discontinued 300 MG PO Twice daily August 17, 2022 12:00am October 07, 2022 5:38am temazepam 15 mg oral capsule (2 sources) Benzodiazepine Start: 08-17-2022 End: 10-07-2022 take 15 mg by mouth once daily at bedtime Temazepam Discontinued 15 MG PO Daily at bedtime 7 7 August 17, 2022 12:00am October 07, [...] Translations: [SOLITARY PULMONARY NODULE] Onset: 05-29-2022 Episodic Respiratory failure; insufficiency; arrest (adult) (1 source) Acute hypercapnic respiratory failure; Translations: [Acute respiratory failure with hypercapnia] Onset: 08-09-2022 08-09-2022 Episodic Syncope (4 sources) Syncope and collapse; Translations: [SYNCOPE AND COLLAPSE] Onset: 05-27-2022 Episodic Results Test Name Value Interpretation Reference Range Facility CBC AND AUTO DIFFon 12-19-19 ABSOLUTE BASOPHIL 0.0 X10E9/L Normal 0.0-0.2 [facility] Comment on above: Performed By: #### C BCA, CMP #### [facility] ([id number]) [address] [place] [address] 25315 ABSOLUTE NEUTROPHIL 3.1 X10E9/L Normal 1.5-6.6 [facility] Comment on above: Performed By: #### C WILLAM, CMP #### [facility] ([id number]) [address] [place] [address] 27685 Basophils/100 WBC (Bld) 0.8 % Normal [facility] Comment on above: Performed By: #### C BCA, CMP #### [facility] ([id number]) [address] [place] [address] 37255 Eosinophils (Bld) [#/Vol] 0.2 10*3/uL Normal 0.0-0.4 [facility] Comment on above: Performed By: #### C BCA, CMP #### [facility] ([id number]) [address] [place] [address] 54459 Eosinophils/100 WBC (Bld) 3.8 % Normal [facility] Comment on above: Performed By: #### C BCA, CMP #### [facility] ([id number]) [address] [place] [address] 40218 Erythrocyte distribution width (RBC) [Ratio] 13.4 % Normal 11.5-15.0 [facility] Comment on above: Performed By: #### C BCA, CMP #### [facility] ([id number]) [address] [place] [address] 19247 Hematocrit (Bld) [Volume fraction] 38.1 % Low 39-49 [facility] Comment on above: Performed By: #### C BCA, CMP #### [facility] ([id number]) [address] [place] [address] 93204 Hemoglobin (Bld) [Mass/Vol] 12.7 g/dL Low 13.0-17.0 [facility] Comment on above: Performed By: #### C WILLAM, CMP #### [facility] ([id number]) [address] [place] [address] 57641 Lymphocytes (Bld) [#/Vol] 1.2 10*3/uL Normal 1.0-3.5 [facility] Comment on above: Performed By: #### C WILLAM, CMP #### [facility] ([id number]) [address] [place] [address] 85530 Lymphocytes/100 WBC (Bld) 25.4 % Normal [facility] Comment on above: Performed By: #### C WILLAM, CMP #### [facility] ([id number]) [address] [place] [address] 68012 MCH (RBC) [Entitic mass] 29.3 pg Normal 27-34 [facility] Comment on above: Performed By: #### C BCA, CMP #### [facility] ([id number]) [address] [place] [address] 87437 MCHC (RBC) [Mass/Vol] 33.4 g/dL Normal 32-36 [facility] Comment on above: Performed By: #### C BCA, CMP #### [facility] ([id number]) [address] [place] [address] 07063 MCV (RBC) [Entitic vol] 88 fL Normal 80-100 P [facility] Comment on above: Performed By: #### C BCA, CMP #### [facility] ([id number]) [address] [place] [address] 61013 Monocytes (Bld) [#/Vol] 0.4 10*3/uL Normal 0-0.9 [facility] Comment on above: Performed By: #### C BCA, CMP #### [facility] ([id number]) [address] [place] [address] 76406 Monocytes/100 WBC (Bld) 7.3 % Normal [facility] Comment on above: Performed By: #### C WILLAM, CMP #### [facility] ([id number]) [address] [place] [address] 02824 Neutrophils/100 WBC (Bld) 62.7 % Normal [facility] Comment on above: Performed By: #### C BCA, CMP #### [facility] ([id number]) [address] [place] [address] 31014 Platelet mean volume (Bld) [Entitic vol] 9.3 fL Normal 7-12 [facility] Comment on above: Performed By: #### C BCA, CMP #### [facility] ([id number]) [address] [place] [address] 25704 Platelets (Bld) [#/Vol] 155 10*3/uL Normal 150-450 [facility] Comment on above: Performed By: #### C BCA, CMP #### [facility] ([id number]) [address] [place] [address] 74471 RBC COUNT 4.34 X10E12/L Normal 4.10-5.70 [facility] Comment on above: Performed By: #### C BCA, CMP #### [facility] ([id number]) [address] [place] [address] 18888 WBC (Bld) [#/Vol] 4.9 10*3/uL Normal 4.0-11.0 [facility] Comment on above: Performed By: #### C BCA, CMP #### [facility] ([id number]) [address] [place] [address] 20956 COMPREHENSIVE METABOLIC PANE Cornelio 12-19-2023 Albumin [Mass/Vol] 4.1 g/dL Normal 3.2-5.3 [facility] Comment on above: Performed By: #### C BCA, CMP #### [facility] ([id number]) [address] [place] [address] 01762 ALP [Catalytic activity/Vol] 63 U/L Normal 39-130 [facility] Comment on above: Performed By: #### C BCA, CMP #### [facility] ([id number]) [address] [place] [address] 19037 ALT [Catalytic activity/Vol] 14 U/L Normal 0-40 [facility] Comment on above: Performed By: #### C BCA, CMP #### [facility] ([id number]) [address] [place] [address] 84641 Anion gap [Moles/Vol] 6 mmol/L Normal 5-15 [facility] Comment on above: Performed By: #### C BCA, CMP #### [facility] ([id number]) [address] [place] [address] 23332 AST [Catalytic activity/Vol] 15 U/L Normal 0-41 [facility] Comment on above: Performed By: #### C BCA, CMP #### [facility] ([id number]) [address] [place] [address] 32581 Bilirubin [Mass/Vol] 0.5 mg/dL Normal 0.3-1.2 [facility] Comment on above: Performed By: #### C BCA, CMP #### [facility] ([id number]) [address] [place] [address] 20015 Calcium [Mass/Vol] 8.6 mg/dL Normal 8.5-10.5 [facility] Comment on above: Performed By: #### C BCA, CMP #### [facility] ([id number]) [address] [place] [address] 76318 Chloride [Moles/Vol] 103 mmol/L Normal 98-109 [facility] Comment on above: Performed By: #### C BCA, CMP #### [facility] ([id number]) [address] [place] [address] 72218 CO2 [Moles/Vol] 27 mmol/L Normal 22-32 [facility] Comment on above: Performed By: #### C BCA, CMP #### [facility] ([id number]) [address] [place] [address] 00535 Creatinine [Mass/Vol] 0.83 mg/dL Normal 0.70-1.20 [facility] Comment on above: Result Comment: METH OD TRACEABLE TO IDMS STANDARD Performed By: #### C BCA, CMP #### [facility] ([id number]) [address] [place] [address] 24788 eGFR (CKD-EPI) NON-RACE DEPENDENT >90 Normal >59 [facility] Comment on above: Result Comment: Reported eGFR is based on the CKD-EPI 2020 equation that does not use a race coefficient. Performed By: #### C BCA, CMP #### [facility] ([id number]) [address] [place] [address] 03844 Glucose [Mass/Vol] 86 mg/dL Normal 65-99 [facility] Comment on above: Performed By: #### C BCA, CMP #### [facility] ([id number]) [address] [place] [address] 78871 Potassium [Moles/Vol] 3.9 mmol/L Normal 3.5-5.0 [facility] Comment on above: Performed By: #### C BCA, CMP #### [facility] ([id number]) [address] [place] [address] 95033 Protein [Mass/Vol] 7.2 g/dL Normal 6.0-8.0 [facility] Comment on above: Performed By: #### C BCA, CMP #### [facility] ([id number]) [address] [place] [address] 92935 Sodium [Moles/Vol] 136 mmol/L Normal 134-146 [facility] Comment on above: Performed By: #### C BCA, CMP #### [facility] ([id number]) [address] [place] [address] 30331 Urea nitrogen [Mass/Vol] 15 mg/dL Normal 5-23 [facility] Comment on above: Performed By: #### C BCA, CMP #### [facility] ([id number]) [address] [place] [address] ABDOMEN AND PELVIS WO CON Ton [...] Incidental Pulmonary Nodules (Radiology 2017) http://pubs.rsna.org/ doi/full/10.1148/radi ol.8172410674 These recommendations refer to incidentally encountered lung [...] management decisions should be made on a gxau-[id number]-[id number] basis, and the physician should recognize that infectious causes are more likely than cancer and that use of serial CT should be minimized. Finalized by Nitish Bell MD on 12/19/2023 7:52 PM Normal [facility] Alanine aminotransferase [En zymatic activity/volume] in Serum or PlasmaOrdered By: Master Claire on 10-08-2022 ALT [Catalytic activity/Vol] 48 U/L 52 [facility] Albumin [Mass/volume] in Ser um or Plasma by Bromocresol green (BCG) dye binding methoOrdered By: Master Claire on 10-08-2022 Albumin BCG dye [Mass/Vol] 3.7 g/dL 3.5-5.7 [facility] Alkaline phosphatase [Enzyma tic activity/volume] in Serum or PlasmaOrdered By: Master Claire on 10-08-2022 ALP [Catalytic activity/Vol] 59 U/L 34-104 [facility] Aspartate aminotransferase [ Enzymatic activity/volume] in Serum or PlasmaOrdered By: Master Claire on 10-08-2022 AST [Catalytic activity/Vol] 65 U/L 13-39 [facility] Basophils Auto (Bld) [#/Vol] Ordered By: Master Claire on 10-08-2022 Basophils (Bld) [#/Vol] 0.0 10*3/uL 0.0-0.2 [facility] Basophils/100 WBC Auto (Bld) Ordered By: Master Claire on 10-08-2022 Basophils/100 WBC (Bld) 0.9 % . [facility] Bilirubin.total [Mass/volume ] in Serum or PlasmaOrdered By: Master Claire on 10-08-2022 Bilirubin [Mass/Vol] 0.3 mg/dL 0.3-1.0 [facility] Calcium [Mass/volume] in Ser um or PlasmaOrdered By: Master Claire on 10-08-2022 Calcium [Mass/Vol] 8.5 mg/dL 8.6-10.3 [facility] Carbon dioxide, total [Moles /volume] in Serum or PlasmaOrdered By: Master Claire on 10-08-2022 CO2 [Moles/Vol] 25.0 mmol/L 21.0-31.0 [facility] Chloride [Moles/volume] in S maritza or PlasmaOrdered By: Master Claire on 10-08-2022 Chloride [Moles/Vol] 109 mmol/L 98-107 [facility] Cholesterol [Mass/volume] in Serum or PlasmaOrdered By: Master Claire on 10-08-2022 Cholesterol [Mass/Vol] 102 mg/dL 140-200 [facility] Comment on above: Chol less than 200 m g/dl low riskChol 201-239 mg/dl borderline riskChol 240 mg/dl and greater high risk Cholesterol in LDL Calc [Mas s/Vol]Ordered By: Master Claire on 10-08-2022 Cholesterol in LDL [Mass/Vol] 56 mg/dL 0-100 [facility] Comment on above: LDL ATP III CLASSIFI CATIONLDL less than 100 mg/dL OptimalLDL 100-129 mg/dL Near or above optimalLDL 130-159 mg/dL Borderline highLDL 160-189 mg/dL HighLDL greater than 189 mg/dL Very high Cholesterol in VLDL Calc [Ma ss/Vol]Ordered By: Master Claire on 10-08-2022 Cholesterol in VLDL [Mass/Vol] 14 mg/dL [facility] Creatinine [Mass/volume] in Serum or PlasmaOrdered By: Master Claire on 10-08-2022 Creatinine [Mass/Vol] 0.70 mg/dL 0.70-1.30 [facility] Eosinophils Auto (Bld) [#/Vo l]Ordered By: Master Claire on 10-08-2022 Eosinophils (Bld) [#/Vol] 0.1 10*3/uL 0.0-0.45 [facility] Eosinophils/100 WBC Auto (Bl d)Ordered By: Master Claire on 10-08-2022 Eosinophils/100 WBC (Bld) 1.4 % . [facility] Erythrocyte distribution wid th Auto (RBC) [Ratio]Ordered By: Master Claire on 10-08-2022 Erythrocyte distribution width (RBC) [Ratio] 14.6 % 12.0-14.8 [facility] Globulin Calc (S) [Mass/Vol] Ordered By: Master Claire on 10-08-2022 Globulin (S) [Mass/Vol] 2.5 g/dL [facility] Glucose [Mass/volume] in Ser um or PlasmaOrdered By: Master Claire on 10-08-2022 Glucose [Mass/Vol] 97 mg/dL 70-100 [facility] Comment on above: ADA recommended refe rence rangeRandom Glucose Reference Range is dependent on time and content of last meal. Glucose of more than 200 mg/dL in a nonstressed, ambulatory subject supports the diagnosis of Diabetes Mellitus. Hematocrit Auto (Bld) [Volum e fraction]Ordered By: Master Claire on 10-08-2022 Hematocrit (Bld) [Volume fraction] 35.7 % 38.8-50.0 [facility] Hemoglobin [Mass/volume] in BloodOrdered By: Master Claire on 10-08-2022 Hemoglobin (Bld) [Mass/Vol] 12.0 g/dL 13.0-17.0 [facility] Leukocytes [#/volume] correc fritz for nucleated erythrocytes in Blood by Automated counOrdered By: Master Claire on 10-08-2022 WBC corrected for nucl RBC Auto (Bld) [#/Vol] 5.4 10*3/uL 4.1-10.5 [facility] Lymphocytes Auto (Bld) [#/Vo l]Ordered By: Master Claire on 10-08-2022 Lymphocytes (Bld) [#/Vol] 1.5 10*3/uL 1.00-4.8 [facility] Lymphocytes/100 WBC Auto (Bl d)Ordered By: Master Claire on 10-08-2022 Lymphocytes/100 WBC (Bld) 28.6 % . [facility] MCH Auto (RBC) [Entitic mass ]Ordered By: Master Claire on 10-08-2022 MCH (RBC) [Entitic mass] 28.7 pg 27.5-35.2 [facility] MCHC Auto (RBC) [Mass/Vol]Or dered By: Master Claire on 10-08-2022 MCHC (RBC) [Mass/Vol] 33.6 g/dL 32.5-35.6 [facility] MCV Auto (RBC) [Entitic vol] Ordered By: Master Claire on 10-08-2022 MCV (RBC) [Entitic vol] 85.3 fL 83.5-101 [facility] Monocytes Auto (Bld) [#/Vol] Ordered By: Master Claire on 10-08-2022 Monocytes (Bld) [#/Vol] 0.4 10*3/uL 0.0-0.8 [facility] Monocytes/100 WBC Auto (Bld) Ordered By: Master Claire on 10-08-2022 Monocytes/100 WBC (Bld) 8.1 % . [facility] Neutrophils Auto (Bld) [#/Vo l]Ordered By: Master Claire on 10-08-2022 Neutrophils (Bld) [#/Vol] 3.3 10*3/uL 1.8-7.7 [facility] Neutrophils/100 WBC Auto (Bl d)Ordered By: Master Claire on 10-08-2022 Neutrophils/100 WBC (Bld) 61.0 % . [facility] No Panel InformationOrdered By: Master Claire on 10-08-2022 Estimated GFR (CKD-EPI) > 60.0 mL/Min [facility] Creatinine Clearance (Chem 145.80 [facility] Nucleated erythrocytes [Pres ence] in Blood by Automated countOrdered By: Master Claire on 10-08-2022 Nucleated RBC Auto Ql (Bld) 0.1 /100{WBC} 0-0.5 [facility] Platelet mean volume Auto (B ld) [Entitic vol]Ordered By: Master Claire on 10-08-2022 Platelet mean volume (Bld) [Entitic vol] 9.4 fL 6.6-10.1 [facility] Platelets Auto (Bld) [#/Vol] Ordered By: Master Claire on 10-08-2022 Platelets (Bld) [#/Vol] 175 10*3/uL 150-450 [facility] Potassium [Moles/volume] in Serum or PlasmaOrdered By: Master Claire on 10-08-2022 Potassium [Moles/Vol] 3.5 mmol/L 3.5-5.1 [facility] Protein [Mass/volume] in Ser um or PlasmaOrdered By: Master Claire on 10-08-2022 Protein [Mass/Vol] 6.2 g/dL 6.4-8.9 [facility] RBC Auto (Bld) [#/Vol]Ordere d By: Master Claire on 10-08-2022 RBC (Bld) [#/Vol] 4.19 10*6/uL 3.90-5.60 [facility] Serum or plasma albumin/glob ulin mass ratioOrdered By: Master Claire on 10-08-2022 Albumin/Globulin [Mass ratio] 1.5 {ratio} [facility] Serum or plasma anion gap de terminationOrdered By: Master Claire on 10-08-2022 Anion gap [Moles/Vol] 9.5 mmol/L 6.0-15.0 [facility] Serum or plasma high density lipoprotein (HDL) cholesterol measurementOrdered By: Master Claire on 10-08-2022 Cholesterol in HDL [Mass/Vol] 31 mg/dL 29- [facility] Comment on above: HDL CHOL ATP-III CLA SSIFICATION Cardiovascular RiskHDL > or equal to 60 mg/dL LOWHDL < 40 mg/dL HIGH Serum or plasma total choles terol/high density lipoprotein (HDL) cholesterol mass ratOrdered By: Master Claire on 10-08-2022 Cholesterol.total/Jocy sterol in HDL [Mass ratio] 3.3 {ratio} <5.0 [facility] Sodium [Moles/volume] in Ser um or PlasmaOrdered By: Master Claire on 10-08-2022 Sodium [Moles/Vol] 140 mmol/L 136-145 [facility] Thyrotropin [Units/volume] i n Serum or PlasmaOrdered By: Master Claire on 10-08-2022 TSH Qn 0.17 m[IU]/L 0.45-5.33 [facility] Thyroxine (T4) free [Mass/vo lume] in Serum or PlasmaOrdered By: Master Claire on 10-08-2022 Free T4 [Mass/Vol] 1.00 ng/dL 0.61-1.12 [facility] Triglyceride [Mass/volume] i n Serum or PlasmaOrdered By: Master Claire on 10-08-2022 Triglyceride [Mass/Vol] 74 mg/dL 0-149 [facility] Comment on above: TRIG ATP III CLASSIF ICATIONTRIG less than 150 mg/dL NormalTRIG 150-199 mg/dL Borderline highTRIG 200-500 mg/dL High TRIG greater than 500 mg/dL Very highStandard traceable to the Center for Disease Conrtrol and Prevention (CDC) test method. Urea nitrogen [Mass/volume] in Serum or PlasmaOrdered By: Master Claire on 10-08-2022 Urea nitrogen [Mass/Vol] 8 mg/dL 7-25 [facility] Vitamin D+Metabolites [Mass/ volume] in Serum or PlasmaOrdered By: Master Claire on 10-08-2022 Vitamin D+Metabolites [Mass/Vol] 19.0 ng/mL 30-100 [facility] Comment on above: VITAMIN D STATUS 25( [place])VITAMIN D RANGE (ng/mL) Deficient <20 Insufficient 20 to <30Sufficient 30 to 100Reference: Irma MF,Emily MULLINS, Hayley WIGGINS, et al. Evaluation,treatment, and prevention of vitamin D deficiency; an Endocrine Society clinical practice guideline. JCEM. 2010; 96(7):1911-30. WBC Auto (Bld) [#/Vol]Ordere d By: Master Claire on 10-08-2022 WBC (Bld) [#/Vol] 5.4 10*3/uL 4.1-10.5 [facility] ACETAMINOPHENon 09-18-2022 Acetaminophen [Mass/Vol] ug/mL Critically low 10.0-30.0 [facility] Comment on above: Performed By: #### A CET, SALYC, CMP ####[facility] [id number] [place] [id number]. Janell Smith AMMONIAon 09-18-2022 Ammonia (P) [Moles/Vol] 14 umol/L Normal 11-32 [facility] Comment on above: Performed By: #### A MM #### [facility] [address] [place] [address] Dr. Janell Smith CBC AUTO DIFFon 09-18-2022 BASO # 0.0 103/ul Normal 0.0-0.1 [facility] Comment on above: Performed By: #### C BC #### [facility] [address] [place] [address] Dr. Janell Smith Basophils/100 WBC (Bld) 0.9 % Normal 0.2-2.0 [facility] Comment on above: Performed By: #### C BC #### [facility] [address] [place] [address] Dr. Janell Smith EO # 0.1 103/ul Normal 0.0-0.7 [facility] Comment on above: Performed By: #### C BC #### [facility] [address] [place] [address] Dr. Janell Smith Eosinophils/100 WBC (Bld) 3.2 % Normal 0.9-7.0 [facility] Comment on above: Performed By: #### C BC #### [facility] [address] [place] [address] Dr. Janell Smith Erythrocyte distribution width (RBC) [Ratio] 14.5 % Normal 11.0-15.0 [facility] Comment on above: Performed By: #### C BC #### [facility] [address] [place] [address] Dr. Janell Smith Hematocrit (Bld) [Volume fraction] 40.0 % Critically low 42.0-54.0 [facility] Comment on above: Performed By: #### C BC #### [facility] [address] [place] [address] Dr. Janell Smith Hemoglobin (Bld) [Mass/Vol] 12.5 g/dL Critically low 14.0-18.0 [facility] Comment on above: Performed By: #### C BC #### [facility] [address] [place] [address] Dr. Janell Smith IG # 0.02 10e3/ul Normal 0.00-0.03 [facility] Comment on above: Performed By: #### C BC #### [facility] [address] [place] [address] Dr. Janell Smith IG % 0.5 % Normal 0.0-0.5 [facility] Comment on above: Performed By: #### C BC #### [facility] [address] [place] [address] Dr. Janell Smith LYMPH # 1.7 103/ul Normal 1.2-3.8 [facility] Comment on above: Performed By: #### C BC #### [facility] [address] [place] [address] Dr. Janell Smith Lymphocytes/100 WBC (Bld) 40.1 % Normal 20.5-60.0 [facility] Comment on above: Performed By: #### C BC #### [facility] [address] [place] [address] Dr. Janell Smith MANUAL DIFF REQ NO Normal [facility] Comment on above: Performed By: #### C BC #### [facility] [address] [place] [address] Dr. Janell Smith MCH (RBC) [Entitic mass] 28.7 pg Normal 25.9-34.0 [facility] Comment on above: Performed By: #### C BC #### [facility] [address] [place] [address] Dr. Janell Smith MCHC (RBC) [Mass/Vol] 31.3 g/dL Normal 29.9-35.2 [facility] Comment on above: Performed By: #### C BC #### [facility] [address] [place] [address] Dr. Janell Smith MCV (RBC) [Entitic vol] 92.0 fL Normal 80.0-94.0 [facility] Comment on above: Performed By: #### C BC #### [facility] [address] [place] [address] Dr. Janell Smith MONO # 0.5 103/ul Normal 0.3-0.8 [facility] Comment on above: Performed By: #### C BC #### [facility] [address] [place] [address] Dr. Janell Smith Monocytes/100 WBC (Bld) 10.6 % Normal 1.7-12.0 [facility] Comment on above: Performed By: #### C BC #### [facility] [address] [place] [address] Dr. Janell Smith NEUT # 1.9 103/ul Normal 1.4-6.5 [facility] Comment on above: Performed By: #### C BC #### [facility] [address] [place] [address] Dr. Janell Smith Neutrophils/100 WBC (Bld) 44.7 % Normal 43.0-75.0 [facility] Comment on above: Performed By: #### C BC #### [facility] [address] [place] [address] Dr. Janell Smith Platelet mean volume (Bld) [Entitic vol] 10.6 fL Normal 9.5-13.5 [facility] Comment on above: Performed By: #### C BC #### [facility] [address] [place] [address] Dr. Janell Smith PLT 203 103/ul Normal 150-450 [facility] Comment on above: Performed By: #### C BC #### [facility] [address] [place] [address] Dr. Janell Smith RBC 4.35 106/ul Critically low 4.70-6.10 [facility] Comment on above: Performed By: #### C BC #### [facility] [address] [place] [address] Dr. Janell Smith WBC 4.3 103/ul Normal 4.0-11.0 [facility] Comment on above: Performed By: #### C BC #### [facility] [address] [place] [address] HEAD WO CONon [...] GAURANG BENITEZ Date: 2022-09-18 13:18 Normal [facility] ETHANOL (BLD ALC)on 09-19-19 23 ALC NOTE NOTE: 80 mg/dl is th e legal limit for a blood alcohol level Normal [facility] Comment on above: Performed By: #### E TH #### [facility] [address] [place] [address] Dr. Janell Smith Ethanol [Mass/Vol] mg/dL Normal [facility] Comment on above: Performed By: #### E TH #### [facility] [address] [address] [address] Janell Smith PROF 14(COMP METB)on 023 Albumin [Mass/Vol] 3.5 g/dL Normal 3.4-5.0 [facility] Comment on above: Performed By: #### A CET, SALYC, CMP #### [facility] [address] [address] [address] Janell Smith Albumin/Globulin [Mass ratio] 1.0 {ratio} Normal [facility] Comment on above: Performed By: #### A CET, SALYC, CMP #### [facility] [address] [address] [address] Janell Smith ALP [Catalytic activity/Vol] 73 U/L Normal 46-116 [facility] Comment on above: Performed By: #### A CET, SALYC, CMP #### [facility] [address] [address] [address] Janell Smith ALT [Catalytic activity/Vol] 33 U/L Normal 16-63 [facility] Comment on above: Performed By: #### A CET, SALYC, CMP #### [facility] [address] [address] [address] Janell Smith Anion gap [Moles/Vol] 8.9 mmol/L Normal [facility] Comment on above: Performed By: #### A CET, SALYC, CMP #### [facility] [address] [address] [address] Janell Smith AST [Catalytic activity/Vol] 52 U/L Critically high 15-37 [facility] Comment on above: Performed By: #### A CET, SALYC, CMP #### [facility] [address] [address] [address] Janell Smith Bilirubin [Mass/Vol] 0.2 mg/dL Normal 0.2-1.0 [facility] Comment on above: Performed By: #### A CET, SALYC, CMP #### [facility] [address] [address] [address] Janell Smith Calcium [Mass/Vol] 8.6 mg/dL Normal 8.5-10.1 [facility] Comment on above: Performed By: #### A CETSYMONEYC, CMP #### [facility] [address] [place] [address] Dr. Janell Smith Chloride [Moles/Vol] 106 mmol/L Normal 98-107 [facility] Comment on above: Performed By: #### A CET SALYC, CMP #### [facility] [address] [place] [address] Dr. Janell Smith CO2 [Moles/Vol] 29.0 mmol/L Normal 21.0-32.0 [facility] Comment on above: Performed By: #### A SYMONE RODRIGUEZYC, CMP #### [facility] [address] [place] [address] Dr. Janell Smith Creatinine [Mass/Vol] 0.89 mg/dL Normal 0.70-1.30 [facility] Comment on above: Performed By: #### A SYMONE RODRIGUEZYC, CMP #### [facility] [address] [place] [address] Dr. Janell Smith EGFR-AF NIUEAN >60 Normal >=60 [facility] Comment on above: Performed By: #### A SYMONE RODRIGUEZYC, CMP #### [facility] [address] [place] [address] Dr. Janell Smith EGFR-NON AF NIUEAN >60 Normal >=60 [facility] Comment on above: Performed By: #### A SYMONE RODRIGUEZYC, CMP #### [facility] [address] [place] [address] Dr. Janell Smith Globulin (S) [Mass/Vol] 3.5 g/dL Normal [facility] Comment on above: Performed By: #### A CET SALYC, CMP #### [facility] [address] [place] [address] Dr. Janell Smith Glucose [Mass/Vol] 98 mg/dL Normal 74-106 [facility] Comment on above: Performed By: #### A CET SALYC, CMP #### [facility] [address] [place] [address] Dr. Janell Smith Potassium [Moles/Vol] 3.9 mmol/L Normal 3.5-5.1 [facility] Comment on above: Performed By: #### A HARPREET RODRIGUEZ, CMP #### [facility] [address] [address] [address] Janell Smith Protein [Mass/Vol] 7.0 g/dL Normal 6.4-8.2 [facility] Comment on above: Performed By: #### A HARPREET RODRIGUEZ, CMP #### [facility] [address] [address] [address] Janell Smith Sodium [Moles/Vol] 140 mmol/L Normal 136-145 [facility] Comment on above: Performed By: #### A HARPREET RODRIGUEZ, CMP #### [facility] [address] [address] [address] Janell Smith Urea nitrogen [Mass/Vol] 8.0 mg/dL Normal 7.0-18.0 [facility] Comment on above: Performed By: #### A HARPREET RODRIGUEZ, CMP #### [facility] [address] [address] [address] Janell Smith Urea nitrogen/Creatinine [Mass ratio] 9.0 mg/mg Normal [facility] Comment on above: Performed By: #### A HARPREET RODRIGUEZ, CMP #### [facility] [address] [address] [address] Janell Smith SALICYLATEon 09-18-2022 SALICYLATE <2.8 Normal <=19.9 [facility] Comment on above: Performed By: #### A HARPREET RODRIGUEZ, CMP ####[facility] [address] [address]Dr. Janell Smith Basic Metabolic Panelon Anion gap [Moles/Vol] 11.0 mmol/L Normal 6.0-15.0 [facility] Comment on above: Performed By: #### C BC, PRL, LACTIC, BMP #### [facility] [address] Calcium [Mass/Vol] 9.2 mg/dL Normal 8.6-10.3 [facility] Comment on above: Performed By: #### C BC, PRL, LACTIC, BMP #### [facility] [address] [place] [address] [place] Chloride [Moles/Vol] 107 mmol/L Normal 98-107 [facility] Comment on above: Performed By: #### C BC, PRL, LACTIC, BMP #### [facility] [address] CO2 [Moles/Vol] 25.7 mmol/L Normal 21.0-31.0 [facility] Comment on above: Performed By: #### C BC, PRL, LACTIC, BMP #### [facility] [address] Creatinine [Mass/Vol] 0.78 mg/dL Normal 0.70-1.30 [facility] Comment on above: Performed By: #### C BC, PRL, LACTIC, BMP #### [facility] [address] [place] [address] [place] Creatinine Clr Calc Pharmacy 109.23 [facility] Comment on above: Result Comment: PERF ORMED BY: [place] [address] PATHOLOGIST [employer] REY MARVIN M.D. Performed By: #### C BC, PRL, LACTIC, BMP #### [facility] [address] GFR/1.73 sq M.predicted MDRD (S/P/Bld) [Vol rate/Area] mL/min/{1.73_m2} Normal [facility] Comment on above: Performed By: #### C BC, PRL, LACTIC, BMP #### [facility] [address] [place] [address] [place] Glucose [Mass/Vol] 93 mg/dL Normal 70-100 [facility] Comment on above: Result Comment: [place] Glucose Reference Range is dependent on time and content of last meal. Glucose of more than 200 mg/dL in a nonstressed, ambulatory subject supports the diagnosis of Diabetes Mellitus. ADA recommended reference range Performed By: #### C BC, PRL, LACTIC, BMP #### [facility] [address] [place] [address] [place] Potassium [Moles/Vol] 3.7 mmol/L Normal 3.5-5.1 [facility] Comment on above: Performed By: #### C BC, PRL, LACTIC, BMP #### [facility] [address] [place] [address] [place] Sodium [Moles/Vol] 140 mmol/L Normal 136-145 [facility] Comment on above: Performed By: #### C BC, PRL, LACTIC, BMP #### [facility] [address] [id number] [place] Urea nitrogen [Mass/Vol] 9 mg/dL Normal 7-25 [facility] Comment on above: Performed By: #### C BC, PRL, LACTIC, BMP #### [facility] [address] [id number] [place] Calcium [Mass/volume] in Ser um or PlasmaOrdered By: Leonora Bruce on 08-16-2022 Calcium [Mass/Vol] 9.2 mg/dL 8.6-10.3 [facility] Carbon dioxide, total [Moles /volume] in Serum or PlasmaOrdered By: Leonora Bruce on 08-16-2022 CO2 [Moles/Vol] 25.7 mmol/L 21.0-31.0 [facility] Chloride [Moles/volume] in S maritza or PlasmaOrdered By: Leonora Bruce on 08-16-2022 Chloride [Moles/Vol] 107 mmol/L 98-107 [facility] Creatinine [Mass/volume] in Serum or PlasmaOrdered By: Leonora Francoisskchristinae on 08-16-2022 Creatinine [Mass/Vol] 0.78 mg/dL 0.70-1.30 [facility] ECG 12 lead ECGon 08-16-2022 ECG 12 lead ECG [facility] Main [place] [address] [place] [address] Electrocardiograph Report Signed Patient: Lesley Adams MR#: [id number] : 1990 Acct:[id number] Age/Sex: 31 / M ADM Date: 08/10/22 Loc: Room: [address] [place] [address] Type: ADM IN Attending Dr: Leonora Bruce [...] are now present Confirmed by STUART ARBOLEDA [facility] ([id number]) on 08/16/2022 4:36:34 PM Referred By: Electronically Signed By:CARMELLA DAVIDSON MD [facility] Transcribed By: MUS Signed By Rishabh Davidson MD 08/16/22 1636 Normal [facility] Glucose [Mass/volume] in Ser um or PlasmaOrdered By: Leonora Bruce on 08-16-2022 Glucose [Mass/Vol] 93 mg/dL 70-100 [facility] Comment on above: ADA recommended refe rence rangeRandom Glucose Reference Range is dependent on time and content of last meal. Glucose of more than 200 mg/dL in a nonstressed, ambulatory subject supports the diagnosis of Diabetes Mellitus. No Panel InformationOrdered By: Leonora Bruce on 08-16-2022 Estimated GFR (CKD-EPI) > 60.0 mL/Min [facility] Creatinine Clearance (Chem 109.23 [facility] Potassium [Moles/volume] in Serum or PlasmaOrdered By: Leonora Bruce on 08-16-2022 Potassium [Moles/Vol] 3.7 mmol/L 3.5-5.1 [facility] Serum or plasma anion gap de terminationOrdered By: Leonora Bruce on 08-16-2022 Anion gap [Moles/Vol] 11.0 mmol/L 6.0-15.0 [facility] Sodium [Moles/volume] in Ser um or PlasmaOrdered By: Leonora Bruce on 08-16-2022 Sodium [Moles/Vol] 140 mmol/L 136-145 [facility] Urea nitrogen [Mass/volume] in Serum or PlasmaOrdered By: Leonora Carrione on 08-16-2022 Urea nitrogen [Mass/Vol] 9 mg/dL 7-25 [facility] Alanine aminotransferase [En zymatic activity/volume] in Serum or PlasmaOrdered By: Leonora Bruce on 08-15-2022 ALT [Catalytic activity/Vol] 8 U/L 7-52 [facility] Albumin [Mass/volume] in Ser um or Plasma by Bromocresol green (BCG) dye binding methoOrdered By: Leonora Bruce on 08-15-2022 Albumin BCG dye [Mass/Vol] 4.2 g/dL 3.5-5.7 [facility] Alkaline phosphatase [Enzyma tic activity/volume] in Serum or PlasmaOrdered By: Leonora Bruce on 08-15-2022 ALP [Catalytic activity/Vol] 60 U/L 34-104 [facility] Aspartate aminotransferase [ Enzymatic activity/volume] in Serum or PlasmaOrdered By: Leonora Bruce on 08-15-2022 AST [Catalytic activity/Vol] 10 U/L 13-39 [facility] Basophils Auto (Bld) [#/Vol] Ordered By: Leonora Bruce on 08-15-2022 Basophils (Bld) [#/Vol] 0.0 10*3/uL 0.0-0.2 [facility] Basophils/100 WBC Auto (Bld) Ordered By: Leonora Bruce on 08-15-2022 Basophils/100 WBC (Bld) 0.4 % . F [facility] Bilirubin.total [Mass/volume ] in Serum or PlasmaOrdered By: Leonora Bruce on 08-15-2022 Bilirubin [Mass/Vol] 0.6 mg/dL 0.3-1.0 [facility] Complete Blood Count Auto Di ffon 08-15-2022 Basophils (Bld) [#/Vol] 0.0 10*3/uL Normal 0.0-0.2 [facility] Comment on above: Result Comment: PERF ORMED BY: [place] [address] PATHOLOGIST [employer] REY MARVIN M.D. Performed By: #### C BC, PRL, LACTIC, BMP #### [address] Basophils/100 WBC (Bld) 0.4 % Normal . F [facility] Comment on above: Performed By: #### C BC, PRL, LACTIC, BMP #### [address] Eosinophils (Bld) [#/Vol] 0.0 10*3/uL Normal 0.0-0.45 [facility] Comment on above: Performed By: #### C BC, PRL, LACTIC, BMP #### [address] Eosinophils/100 WBC (Bld) 0.5 % Normal . [facility] Comment on above: Performed By: #### C BC, PRL, LACTIC, BMP #### [address] Erythrocyte distribution width (RBC) [Ratio] 13.9 % Normal 12.0-14.8 [facility] Comment on above: Performed By: #### C BC, PRL, LACTIC, BMP #### [address] Hematocrit (Bld) [Volume fraction] 43.7 % Normal 38.8-50.0 [facility] Comment on above: Performed By: #### C BC, PRL, LACTIC, BMP #### [address] Hemoglobin (Bld) [Mass/Vol] 14.5 g/dL Normal 13.0-17.0 [facility] Comment on above: Performed By: #### C BC, PRL, LACTIC, BMP #### [place] [address] [place] Lymphocytes (Bld) [#/Vol] 1.3 10*3/uL Normal 1.00-4.8 [facility] Comment on above: Performed By: #### C BC, PRL, LACTIC, BMP #### [address] Lymphocytes/100 WBC (Bld) 19.7 % Normal . [facility] Comment on above: Performed By: #### C BC, PRL, LACTIC, BMP #### [address] MCH (RBC) [Entitic mass] 27.7 pg Normal 27.5-35.2 [facility] Comment on above: Performed By: #### C BC, PRL, LACTIC, BMP #### [address] MCV (RBC) [Entitic vol] 83.5 fL Normal 83.5-101 F [facility] Comment on above: Performed By: #### C BC, PRL, LACTIC, BMP #### [address] Mean Corpuscular HGB Conc 33.2 g/dL Normal 32.5-35.6 [facility] Comment on above: Performed By: #### C BC, PRL, LACTIC, BMP #### [address] Monocytes (Bld) [#/Vol] 0.5 10*3/uL Normal 0.0-0.8 [facility] Comment on above: Performed By: #### C BC, PRL, LACTIC, BMP #### [address] Monocytes/100 WBC (Bld) 6.9 % Normal . [facility] Comment on above: Performed By: #### C BC, PRL, LACTIC, BMP #### [address] Neutrophils (Bld) [#/Vol] 5.0 10*3/uL Normal 1.8-7.7 [facility] Comment on above: Performed By: #### C BC, PRL, LACTIC, BMP #### [address] Neutrophils/100 WBC (Bld) 72.5 % Normal . [facility] Comment on above: Performed By: #### C BC, PRL, LACTIC, BMP #### [facility] [address] NRBC% 0.2 /100{WBC} Normal 0-0.5 [facility] Comment on above: Performed By: #### C BC, PRL, LACTIC, BMP #### [address] Platelet mean volume (Bld) [Entitic vol] 9.9 fL Normal 6.6-10.1 [facility] Comment on above: Performed By: #### C BC, PRL, LACTIC, BMP #### [address] Platelets (Bld) [#/Vol] 202 10*3/uL Normal 150-450 [facility] Comment on above: Performed By: #### C BC, PRL, LACTIC, BMP #### [address] RBC (Bld) [#/Vol] 5.23 10*6/uL Normal 3.90-5.60 [facility] Comment on above: Performed By: #### C BC, PRL, LACTIC, BMP #### [address] WBC (Bld) [#/Vol] 6.8 10*3/uL Normal 4.1-10.5 [facility] Comment on above: Performed By: #### C BC, PRL, LACTIC, BMP #### [address] Comprehensive Metabolic Pane cornelio 08-15-2022 Albumin [Mass/Vol] 4.2 g/dL Normal 3.5-5.7 [facility] Comment on above: Performed By: #### C BC, PRL, LACTIC, BMP #### [address] Albumin/Globulin [Mass ratio] 1.6 {ratio} Normal [facility] Comment on above: Performed By: #### C BC, PRL, LACTIC, BMP #### [facility] [address] ALP [Catalytic activity/Vol] 60 U/L Normal 34-104 [facility] Comment on above: Performed By: #### C BC, PRL, LACTIC, BMP #### [facility] [address] ALT [Catalytic activity/Vol] 8 U/L Normal 7-52 [facility] Comment on above: Performed By: #### C BC, PRL, LACTIC, BMP #### [address] Anion gap [Moles/Vol] 12.0 mmol/L Normal 6.0-15.0 [facility] Comment on above: Performed By: #### C BC, PRL, LACTIC, BMP #### [address] AST [Catalytic activity/Vol] 10 U/L Low 13-39 [facility] Comment on above: Performed By: #### C BC, PRL, LACTIC, BMP #### [address] Bilirubin [Mass/Vol] 0.6 mg/dL Normal 0.3-1.0 [facility] Comment on above: Performed By: #### C BC, PRL, LACTIC, BMP #### [address] Calcium [Mass/Vol] 9.0 mg/dL Normal 8.6-10.3 [facility] Comment on above: Performed By: #### C BC, PRL, LACTIC, BMP #### [place] [address] [place] Chloride [Moles/Vol] 108 mmol/L High 98-107 [facility] Comment on above: Performed By: #### C BC, PRL, LACTIC, BMP #### [place] [address] [place] CO2 [Moles/Vol] 23.4 mmol/L Normal 21.0-31.0 [facility] Comment on above: Performed By: #### C BC, PRL, LACTIC, BMP #### [facility] [address] Creatinine [Mass/Vol] 0.79 mg/dL Normal 0.70-1.30 [facility] Comment on above: Performed By: #### C BC, PRL, LACTIC, BMP #### [facility] [address] Creatinine Clr Calc Pharmacy 111.65 [facility] Comment on above: Result Comment: PERF ORMED BY: [place] [address] PATHOLOGIST [employer] REY MARVIN M.D. Performed By: #### C BC, PRL, LACTIC, BMP #### [facility] [address] GFR/1.73 sq M.predicted MDRD (S/P/Bld) [Vol rate/Area] mL/min/{1.73_m2} [facility] Comment on above: Performed By: #### C BC, PRL, LACTIC, BMP #### [facility] [address] Globulin (S) [Mass/Vol] 2.6 g/dL Normal [facility] Comment on above: Performed By: #### C BC, PRL, LACTIC, BMP #### [facility] [address] Glucose [Mass/Vol] 93 mg/dL Normal 70-100 [facility] Comment on above: Result Comment: [place] Glucose Reference Range is dependent on time and content of last meal. Glucose of more than 200 mg/dL in a nonstressed, ambulatory subject supports the diagnosis of Diabetes Mellitus. ADA recommended reference range Performed By: #### C BC, PRL, LACTIC, BMP #### [facility] [address] Potassium [Moles/Vol] 3.4 mmol/L Low 3.5-5.1 [facility] Comment on above: Performed By: #### C BC, PRL, LACTIC, BMP #### [facility] [address] Protein [Mass/Vol] 6.8 g/dL Normal 6.4-8.9 [facility] Comment on above: Performed By: #### C BC, PRL, LACTIC, BMP #### [facility] [address] Sodium [Moles/Vol] 140 mmol/L Normal 136-145 [facility] Comment on above: Performed By: #### C BC, PRL, LACTIC, BMP #### [facility] [address] Urea nitrogen [Mass/Vol] 12 mg/dL Normal 7-25 [facility] Comment on above: Performed By: #### C BC, PRL, LACTIC, BMP #### [facility] [address] ECG 12 lead ECGon 08-15-2022 ECG 12 lead ECG [facility] [place] [address] [place] [address] Electrocardiograph Report Signed Patient: Lesley Adams MR#: [id number] : 1990 Acct:[id number] Age/Sex: 31 / M ADM Date: 08/10/22 Loc: Room: [address] [place] [address] Type: ADM IN Attending Dr: Leonora Bruce [...] change was found Confirmed by STUART ARBOLEDA [facility] ([id number]) on 08/15/2022 5:09:50 PM Referred By: Electronically Signed By:CARMELLA DAVIDSON MD [facility] Transcribed By: MUS Signed By Rishabh Davidson MD 08/15/22 1709 Normal [facility] Eosinophils Auto (Bld) [#/Vo l]Ordered By: Leonora Bruce on 08-15-2022 Eosinophils (Bld) [#/Vol] 0.0 10*3/uL 0.0-0.45 [facility] Eosinophils/100 WBC Auto (Bl d)Ordered By: Leonora Bruce on 08-15-2022 Eosinophils/100 WBC (Bld) 0.5 % . [facility] Erythrocyte distribution wid th Auto (RBC) [Ratio]Ordered By: Leonora Bruce on 08-15-2022 Erythrocyte distribution width (RBC) [Ratio] 13.9 % 12.0-14.8 [facility] Globulin Calc (S) [Mass/Vol] Ordered By: Leonora Bruce on 08-15-2022 Globulin (S) [Mass/Vol] 2.6 g/dL F [facility] Hematocrit Auto (Bld) [Volum e fraction]Ordered By: Leonora Bruce on 08-15-2022 Hematocrit (Bld) [Volume fraction] 43.7 % 38.8-50.0 [facility] Hemoglobin [Mass/volume] in BloodOrdered By: Leonora Bruce on 08-15-2022 Hemoglobin (Bld) [Mass/Vol] 14.5 g/dL 13.0-17.0 [facility] Leukocytes [#/volume] correc fritz for nucleated erythrocytes in Blood by Automated counOrdered By: Leonora Bruce on 08-15-2022 WBC corrected for nucl RBC Auto (Bld) [#/Vol] 6.8 10*3/uL 4.1-10.5 [facility] Lymphocytes Auto (Bld) [#/Vo l]Ordered By: Leonora Bruce on 08-15-2022 Lymphocytes (Bld) [#/Vol] 1.3 10*3/uL 1.00-4.8 [facility] Lymphocytes/100 WBC Auto (Bl d)Ordered By: Leonora Bruce on 08-15-2022 Lymphocytes/100 WBC (Bld) 19.7 % . [facility] MCH Auto (RBC) [Entitic mass ]Ordered By: Leonora Bruce on 08-15-2022 MCH (RBC) [Entitic mass] 27.7 pg 27.5-35.2 [facility] MCHC Auto (RBC) [Mass/Vol]Or dered By: Leonora Bruce on 08-15-2022 MCHC (RBC) [Mass/Vol] 33.2 g/dL 32.5-35.6 [facility] MCV Auto (RBC) [Entitic vol] Ordered By: Leonora Bruce on 08-15-2022 MCV (RBC) [Entitic vol] 83.5 fL 83.5-101 F [facility] MR head/brain wo/w conon MR head/brain wo/w con [facility] [place] [address] MRI Report Signed Patient: Lesley Adams MR#: [id number] : 1990 Acct:[id number] Age/Sex: 31 / M ADM Date: 08/10/22 Loc: 3T Room: [address] [place] [address] Type: ADM IN Attending Dr: Leonora Bruce [...] Darshana Schulz M.D.08/15/2022 6:42 PM Dictation Location: [place] [address] Transcribed By: [facility] 08/15/221841 Dictated By: Darshana Schulz MD 08/15/221834 Signed By: 08/15/221841 Normal [facility] Monocytes Auto (Bld) [#/Vol] Ordered By: Leonora Bruce on 08-15-2022 Monocytes (Bld) [#/Vol] 0.5 10*3/uL 0.0-0.8 [facility] Monocytes/100 WBC Auto (Bld) Ordered By: Leonora Bruce on 08-15-2022 Monocytes/100 WBC (Bld) 6.9 % . [facility] Neutrophils Auto (Bld) [#/Vo l]Ordered By: Leonora Bruce on 08-15-2022 Neutrophils (Bld) [#/Vol] 5.0 10*3/uL 1.8-7.7 [facility] Neutrophils/100 WBC Auto (Bl d)Ordered By: Leonora Bruce on 08-15-2022 Neutrophils/100 WBC (Bld) 72.5 % . [facility] Nucleated erythrocytes [Pres ence] in Blood by Automated countOrdered By: Leonora Bruce on 08-15-2022 Nucleated RBC Auto Ql (Bld) 0.2 /100{WBC} 0-0.5 [facility] Platelet mean volume Auto (B ld) [Entitic vol]Ordered By: Leonora Bruce on 08-15-2022 Platelet mean volume (Bld) [Entitic vol] 9.9 fL 6.6-10.1 [facility] Platelets Auto (Bld) [#/Vol] Ordered By: Leonora Bruce on 08-15-2022 Platelets (Bld) [#/Vol] 202 10*3/uL 150-450 [facility] Protein [Mass/volume] in Ser um or PlasmaOrdered By: Leonora Bruce on 08-15-2022 Protein [Mass/Vol] 6.8 g/dL 6.4-8.9 [facility] RBC Auto (Bld) [#/Vol]Ordere d By: Leonora Bruce on 08-15-2022 RBC (Bld) [#/Vol] 5.23 10*6/uL 3.90-5.60 [facility] Serum or plasma albumin/glob ulin mass ratioOrdered By: Leonora Bruce on 08-15-2022 Albumin/Globulin [Mass ratio] 1.6 {ratio} [facility] WBC Auto (Bld) [#/Vol]Ordere d By: Leonora Bruce on 08-15-2022 WBC (Bld) [#/Vol] 6.8 10*3/uL 4.1-10.5 [facility] ECG 12 lead ECGon 08-14-2022 ECG 12 lead ECG [facility] Main [place] [address] [place] [address] Electrocardiograph Report Signed Patient: Lesley Adams MR#: [id number] : 1990 Acct:[id number] Age/Sex: 31 / M ADM Date: 08/10/22 Loc: Room: [address] [place] [address] Type: ADM IN Attending Dr: Leonora Bruce [...] change was found Confirmed by STUART AR[facility]OLEDA [facility] ([id number]) on 08/14/2022 3:01:28 PM Referred By: Electronically Signed By:CARMELLA DAVIDSON MD FACC Transcribed By: MUS Signed By Rishabh Davidson MD 08/14/22 1501 Normal [facility] Folate [Mass/volume] in Seru m or PlasmaOrdered By: Leonora Bruce on 08-14-2022 Folate [Mass/Vol] 9.2 ng/mL >5.9 [facility] Comment on above: Folate reference ran ge: >5.9 ng/mlThe WHO technical consultation on folate and vitamin [id number] has determined that folate concentrations lessthan 4 ng/ml are considered deficient. Magnesiumon 08-14-2022 Magnesium [Mass/Vol] 2.8 mg/dL High 1.9-2.7 [facility] Comment on above: Order Comment: pt is [...] #### C BC, PRL, LACTIC, BMP #### [facility] [address] [place], [place] [id number] [facility] Magnesium [Mass/volume] in S maritza or PlasmaOrdered By: Leonora Bruce on 08-14-2022 Magnesium [Mass/Vol] 2.8 mg/dL 1.9-2.7 [facility] Thyroid Stimulating Hormoneo n 08-14-2022 TSH Qn 0.70 m[IU]/L Normal 0.45-5.33 [facility] Comment on above: Order Comment: pt [...] psw [id number] Result Comment: PERF ORMED BY: [address] [place] [address] PATHOLOGIST [employer] C[employer] REY MARVIN M.D. Performed By: #### C BC, PRL, LACTIC, BMP #### [facility] [address] [place] [address] [facility] Thyrotropin [Units/volume] i n Serum or PlasmaOrdered By: Leonora Bruce on 08-14-2022 TSH Qn 0.70 m[IU]/L 0.45-5.33 [facility] Vit. B12/Folate Profileon Cobalamin (Vitamin B12) [Mass/Vol] 493 pg/mL Normal 180-914 [facility] Comment on above: Order Comment: pt [...] #### C BC, PRL, LACTIC, BMP #### [address] Folate 9.2 ng/mL Normal >5.9 [facility] Comment on above: Order Comment: pt [...] #### C BC, PRL, LACTIC, BMP #### [address] Vitamin B12 ser/plasOrdered By: Leonora Bruce on 08-14-2022 Cobalamin (Vitamin B12) [Mass/Vol] 493 pg/mL 180-914 [facility] Basic Metabolic Panelon 07-14 Anion gap [Moles/Vol] 13.1 mmol/L Normal 6.0-15.0 [facility] Comment on above: Performed By: #### C BC, PRL, LACTIC, BMP #### [place] [id number] [facility] Calcium [Mass/Vol] 8.9 mg/dL Normal 8.6-10.3 [facility] Comment on above: Performed By: #### C BC, PRL, LACTIC, BMP #### [facility] [address] [place] [address] Order Comment: Comme nt add on to labs from [facility] Result Comment: PERF ORMED BY: [place] [address] PATHOLOGIST [employer] REY MARVIN M.D. Chloride [Moles/Vol] 108 mmol/L High 98-107 [facility] Comment on above: Performed By: #### C BC, PRL, LACTIC, BMP #### [address] CO2 [Moles/Vol] 23.1 mmol/L Normal 21.0-31.0 [facility] Comment on above: Performed By: #### C BC, PRL, LACTIC, BMP #### [address] Creatinine [Mass/Vol] 0.76 mg/dL Normal 0.70-1.30 [facility] Comment on above: Performed By: #### C BC, PRL, LACTIC, BMP #### [place] [address] [place] Creatinine Clr Calc Pharmacy 115.66 [facility] Comment on above: Performed By: #### C BC, PRL, LACTIC, BMP #### [place] [address] [place] GFR/1.73 sq M.predicted MDRD (S/P/Bld) [Vol rate/Area] mL/min/{1.73_m2} [facility] Comment on above: Performed By: #### C BC, PRL, LACTIC, BMP #### [address] Glucose [Mass/Vol] 102 mg/dL High 70-100 [facility] Comment on above: Result Comment: [facility] Glucose Reference Range is dependent on time and content of last meal. Glucose of more than 200 mg/dL in a nonstressed, ambulatory subject supports the diagnosis of Diabetes Mellitus. ADA recommended reference range Performed By: #### C BC, PRL, LACTIC, BMP #### [facility] [address] Potassium [Moles/Vol] 3.2 mmol/L Low 3.5-5.1 [facility] Comment on above: Performed By: #### C BC, PRL, LACTIC, BMP #### [facility] [address] Sodium [Moles/Vol] 141 mmol/L Normal 136-145 [facility] Comment on above: Performed By: #### C BC, PRL, LACTIC, BMP #### [facility] [address] Urea nitrogen [Mass/Vol] 14 mg/dL Normal 7-25 [facility] Comment on above: Performed By: #### C BC, PRL, LACTIC, BMP #### [facility] [address] head/brain wo conon 08-11 CT head/brain wo con [facility] Main [place] [address] [place] [address] CT Scan Report Signed Patient: Lesley Adams MR#: [id number] : 1990 Acct:[id number] Age/Sex: 31 / M ADM Date: 08/10/22 Loc: Room: [address] [place] [address] Type: ADM IN Attending Dr: Jamison Norton [...] Demetrio Tello M.D.08/11/2022 1:04 PM Dictation Location: [place] [address] Transcribed By: [facility] 08/11/22 1304 Dictated By: Demetrio Tello II, MD 08/11/22 1301 Signed By: 08/11/22 1304 Normal [facility] Complete Blood Count Auto Di ffon 08-11-2022 Basophils (Bld) [#/Vol] 0.0 10*3/uL Normal 0.0-0.2 [facility] Comment on above: Result Comment: PERF ORMED BY: [place] [address] PATHOLOGIST [employer] REY MARVIN M.D. Performed By: #### C BC, PRL, LACTIC, BMP #### [address] Basophils/100 WBC (Bld) 0.7 % Normal . [facility] Comment on above: Performed By: #### C BC, PRL, LACTIC, BMP #### [facility] [address] [place] [address] Eosinophils (Bld) [#/Vol] 0.0 10*3/uL Normal 0.0-0.45 [facility] Comment on above: Performed By: #### C BC, PRL, LACTIC, BMP #### [place] [address] [place] Eosinophils/100 WBC (Bld) 0.5 % Normal . [facility] Comment on above: Performed By: #### C BC, PRL, LACTIC, BMP #### [address] Erythrocyte distribution width (RBC) [Ratio] 13.7 % Normal 12.0-14.8 [facility] Comment on above: Performed By: #### C BC, PRL, LACTIC, BMP #### [facility] [address] Hematocrit (Bld) [Volume fraction] 40.2 % Normal 38.8-50.0 [facility] Comment on above: Performed By: #### C BC, PRL, LACTIC, BMP #### [facility] [address] Hemoglobin (Bld) [Mass/Vol] 12.9 g/dL Low 13.0-17.0 [facility] Comment on above: Performed By: #### C BC, PRL, LACTIC, BMP #### [address] Lymphocytes (Bld) [#/Vol] 1.7 10*3/uL Normal 1.00-4.8 [facility] Comment on above: Performed By: #### C BC, PRL, LACTIC, BMP #### [address] Lymphocytes/100 WBC (Bld) 26.5 % Normal . [facility] Comment on above: Performed By: #### C BC, PRL, LACTIC, BMP #### [address] MCH (RBC) [Entitic mass] 27.0 pg Low 27.5-35.2 [facility] Comment on above: Performed By: #### C BC, PRL, LACTIC, BMP #### [address] MCV (RBC) [Entitic vol] 84.0 fL Normal 83.5-101 F [facility] Comment on above: Performed By: #### C BC, PRL, LACTIC, BMP #### [address] Mean Corpuscular HGB Conc 32.1 g/dL Low 32.5-35.6 [facility] Comment on above: Performed By: #### C BC, PRL, LACTIC, BMP #### [address] Monocytes (Bld) [#/Vol] 0.5 10*3/uL Normal 0.0-0.8 [facility] Comment on above: Performed By: #### C BC, PRL, LACTIC, BMP #### [facility] [address] Monocytes/100 WBC (Bld) 7.2 % Normal . [facility] Comment on above: Performed By: #### C BC, PRL, LACTIC, BMP #### [address] Neutrophils (Bld) [#/Vol] 4.2 10*3/uL Normal 1.8-7.7 [facility] Comment on above: Performed By: #### C BC, PRL, LACTIC, BMP #### [address] Neutrophils/100 WBC (Bld) 65.1 % Normal . [facility] Comment on above: Performed By: #### C BC, PRL, LACTIC, BMP #### [address] NRBC% 0.3 /100{WBC} Normal 0-0.5 [facility] Comment on above: Performed By: #### C BC, PRL, LACTIC, BMP #### [address] Platelet mean volume (Bld) [Entitic vol] 9.3 fL Normal 6.6-10.1 [facility] Comment on above: Performed By: #### C BC, PRL, LACTIC, BMP #### [address] Platelets (Bld) [#/Vol] 171 10*3/uL Normal 150-450 [facility] Comment on above: Performed By: #### C BC, PRL, LACTIC, BMP #### [address] RBC (Bld) [#/Vol] 4.78 10*6/uL Normal 3.90-5.60 [facility] Comment on above: Performed By: #### C BC, PRL, LACTIC, BMP #### [facility] [address] [place] [id number] [facility] WBC (Bld) [#/Vol] 6.5 10*3/uL Normal 4.1-10.5 [facility] Comment on above: Performed By: #### C BC, PRL, LACTIC, BMP #### [facility] [address] [place] [address] [facility] Glucose Glucometer (BldC) [M ass/Vol]Ordered By: Jamison Norton on 08-11-2022 Glucose [Mass/Vol] 114 mg/dL [facility] Comment on above: Random Glucose Refer ence Range is dependent on time and content of last meal. Glucose of more than 200 mg/dL in a nonstressed, ambulatory subject supports the diagnosis of Diabetes Mellitus. Glucose Poct Glucometerson 0 08-11-2022 Glucose [Mass/Vol] 114 mg/dL Normal [facility] Comment on above: Result Comment: [place] [facility] Glucose Reference Range is dependent on time and content of last meal. Glucose of more than 200 mg/dL in a nonstressed, ambulatory subject supports the diagnosis of Diabetes Mellitus. PERFORMED BY: [place] [address] PATHOLOGIST [employer] C[employer] REY MARVIN M.D. Performed By: #### C BC, PRL, LACTIC, BMP #### [facility] [address] [place] [id number] [facility] Lactate [Moles/volume] in Se rum or PlasmaOrdered By: Jamison Norton on 08-11-2022 Lactate [Moles/Vol] 0.8 mmol/L 0.5-2.2 [facility] Lactic Acidon 08-11-2022 Lactate [Moles/Vol] 0.8 mmol/L Normal 0.5-2.2 [facility] Comment on above: Result Comment: PERF ORMED BY: [place] [id number] PATHOLOGIST [employer] REY MARVIN M.D. Performed By: #### C BC, PRL, LACTIC, BMP #### [facility] [address] Prolactinon 08-11-2022 Prolactin 6.45 ng/mL Normal 2.64-13.13 [facility] Comment on above: Result Comment: PERF ORMED BY: [place] [address] PATHOLOGIST [employer] CUT[employer] REY MARVIN M.D. Performed By: #### C BC, PRL, LACTIC, BMP #### [facility] [address] [place] [address] Prolactin [Mass/volume] in S maritza or PlasmaOrdered By: Jamison Norton on 08-11-2022 Prolactin [Mass/Vol] 6.45 ng/mL 2.64-13.13 [facility] Alanine aminotransferase [En zymatic activity/volume] in Serum or PlasmaOrdered By: Carmella Page on 08-10-2022 ALT [Catalytic activity/Vol] 10 U/L 7-52 [facility] Albumin [Mass/volume] in Ser um or Plasma by Bromocresol green (BCG) dye binding methoOrdered By: Carmella Page on 08-10-2022 Albumin BCG dye [Mass/Vol] 4.3 g/dL 3.5-5.7 [facility] Alkaline phosphatase [Enzyma tic activity/volume] in Serum or PlasmaOrdered By: Carmella Page on 08-10-2022 ALP [Catalytic activity/Vol] 54 U/L 34-104 [facility] Ammoniaon 08-10-2022 Ammonia (P) [Moles/Vol] 21 umol/L Normal 11-35 [facility] Comment on above: Result Comment: PERF ORMED BY: [place] [address] PATHOLOGIST [employer] CUT[employer] REY MARVIN M.D. Performed By: #### C BC, AMM, ETOH, CMP, MG #### [facility] [address] [place], [place] [id number] [facility] Ammonia [Moles/volume] in Pl asmaOrdered By: Carmella Page on 08-10-2022 Ammonia (P) [Moles/Vol] 21 umol/L 11-35 [facility] Amphetamine Screen Ql (U)Ord ered By: Carmella Page on 08-10-2022 Amphetamines Ql (U) Negative Negative [facility] Aspartate aminotransferase [ Enzymatic activity/volume] in Serum or PlasmaOrdered By: Carmella Page on 08-10-2022 AST [Catalytic activity/Vol] 11 U/L 13-39 [facility] Automated erythrocytes count in urine sediment (number/area)Ordered By: Carmella Page on 08-10-2022 RBC Auto (Urine sed) [#/Area] 1-2 [HPF] 0-4 [facility] Automated leukocytes count i n urine sediment (number/area)Ordered By: Carmella Page on 08-10-2022 WBC Auto (Urine sed) [#/Area] 3-4 [HPF] 0-4 [facility] Barbiturates [Presence] in U rine by Screen methodOrdered By: Carmella Page on 08-10-2022 Barbiturates Screen Ql (U) Negative Negative [facility] Basophils Auto (Bld) [#/Vol] Ordered By: Carmella Page on 08-10-2022 Basophils (Bld) [#/Vol] 0.0 10*3/uL 0.0-0.2 [facility] Basophils/100 WBC Auto (Bld) Ordered By: Carmella Page on 08-10-2022 Basophils/100 WBC (Bld) 0.6 % . [facility] Benzodiazepines Screen Ql (U )Ordered By: Carmella Page on 08-10-2022 Benzodiazepines Ql (U) Positive Negative [facility] Benzoylecgonine [Presence] i n Urine by Screen methodOrdered By: Carmella Page on 08-10-2022 Benzoylecgonine Screen Ql (U) Negative Negative [facility] Bilirubin Test strip Ql (U)O rdered By: Carmella Page on 08-10-2022 Bilirubin Ql (U) Negative Negative [facility] Bilirubin.total [Mass/volume ] in Serum or PlasmaOrdered By: Carmella Page on 08-10-2022 Bilirubin [Mass/Vol] 0.6 mg/dL 0.3-1.0 [facility] Calcium [Mass/volume] in Ser um or PlasmaOrdered By: Carmella Page on 08-10-2022 Calcium [Mass/Vol] 9.1 mg/dL 8.6-10.3 [facility] Cannabinoids [Presence] in U rine by Screen methodOrdered By: Carmella Page on 08-10-2022 Cannabinoids Screen Ql (U) Positive Negative [facility] Comment on above: These are unconfirme d results and should not be used for legal purposes. Drug Cut-Off Concentration: AMPH 1000 ng/mL TERESA 200 ng/mL MALLORY 200 ng/mL COCM 300 ng/mL OP 300 ng/mL PCP 25 ng/mL THC 20 ng/mL Carbon dioxide, total [Moles /volume] in Serum or PlasmaOrdered By: Carmella Page on 08-10-2022 CO2 [Moles/Vol] 26.4 mmol/L 21.0-31.0 [facility] Chloride [Moles/volume] in S maritza or PlasmaOrdered By: Carmella Page on 08-10-2022 Chloride [Moles/Vol] 105 mmol/L 98-107 [facility] Color Auto (U)Ordered By: Cristobal Page on 08-10-2022 Color (U) Dark yellow Yellow [facility] Complete Blood Count Auto Di ffon 08-10-2022 Basophils (Bld) [#/Vol] 0.0 10*3/uL Normal 0.0-0.2 [facility] Comment on above: Result Comment: PERF ORMED BY: [facility] [address] [place] [address] PATHOLOGIST [employer] CUT[employer] REY MARVIN M.D. Performed By: #### C BC, AMM, ETOH, CMP, MG #### [facility] [address] [place] [address] [place] Basophils/100 WBC (Bld) 0.6 % Normal . [facility] Comment on above: Performed By: #### C BC, AMM, ETOH, CMP, MG #### [facility] [address] [place] [id number] [place] Eosinophils (Bld) [#/Vol] 0.0 10*3/uL Normal 0.0-0.45 [facility] Comment on above: Performed By: #### C BC, AMM, ETOH, CMP, MG #### [address] Eosinophils/100 WBC (Bld) 0.1 % Normal . [facility] Comment on above: Performed By: #### C BC, AMM, ETOH, CMP, MG #### [address] Erythrocyte distribution width (RBC) [Ratio] 14.1 % Normal 12.0-14.8 [facility] Comment on above: Performed By: #### C BC, AMM, ETOH, CMP, MG #### [address] Hematocrit (Bld) [Volume fraction] 39.2 % Normal 38.8-50.0 [facility] Comment on above: Performed By: #### C BC, AMM, ETOH, CMP, MG #### [address] Hemoglobin (Bld) [Mass/Vol] 12.9 g/dL Low 13.0-17.0 [facility] Comment on above: Performed By: #### C BC, AMM, ETOH, CMP, MG #### [address] Lymphocytes (Bld) [#/Vol] 1.3 10*3/uL Normal 1.00-4.8 [facility] Comment on above: Performed By: #### C BC, AMM, ETOH, CMP, MG #### [address] Lymphocytes/100 WBC (Bld) 17.7 % Normal . [facility] Comment on above: Performed By: #### C BC, AMM, ETOH, CMP, MG #### [address] MCH (RBC) [Entitic mass] 27.6 pg Normal 27.5-35.2 [facility] Comment on above: Performed By: #### C BC, AMM, ETOH, CMP, MG #### [address] MCV (RBC) [Entitic vol] 83.9 fL Normal 83.5-101 F [facility] Comment on above: Performed By: #### C BC, AMM, ETOH, CMP, MG #### [address] Mean Corpuscular HGB Conc 32.8 g/dL Normal 32.5-35.6 [facility] Comment on above: Performed By: #### C BC, AMM, ETOH, CMP, MG #### [address] Monocytes (Bld) [#/Vol] 0.5 10*3/uL Normal 0.0-0.8 [facility] Comment on above: Performed By: #### C BC, AMM, ETOH, CMP, MG #### [address] Monocytes/100 WBC (Bld) 16.25 % Normal 0.00-20.00 [facility] Comment on above: Performed By: #### C BC, AMM, ETOH, CMP, MG #### [address] Monocytes/100 WBC (Bld) 7.1 % Normal . [facility] Comment on above: Performed By: #### C BC, AMM, ETOH, CMP, MG #### [address] Neutrophils (Bld) [#/Vol] 5.4 10*3/uL Normal 1.8-7.7 [facility] Comment on above: Performed By: #### C BC, AMM, ETOH, CMP, MG #### [address] Neutrophils/100 WBC (Bld) 74.5 % Normal . [facility] Comment on above: Performed By: #### C BC, AMM, ETOH, CMP, MG #### [facility] [address] NRBC% 0.1 /100{WBC} Normal 0-0.5 [facility] Comment on above: Performed By: #### C BC, AMM, ETOH, CMP, MG #### [address] Platelet mean volume (Bld) [Entitic vol] 9.7 fL Normal 6.6-10.1 [facility] Comment on above: Performed By: #### C BC, AMM, ETOH, CMP, MG #### [address] Platelets (Bld) [#/Vol] 174 10*3/uL Normal 150-450 [facility] Comment on above: Performed By: #### C BC, AMM, ETOH, CMP, MG #### [address] RBC (Bld) [#/Vol] 4.67 10*6/uL Normal 3.90-5.60 [facility] Comment on above: Performed By: #### C BC, AMM, ETOH, CMP, MG #### [address] WBC (Bld) [#/Vol] 7.3 10*3/uL Normal 4.1-10.5 [facility] Comment on above: Performed By: #### C BC, AMM, ETOH, CMP, MG #### [address] Comprehensive Metabolic Pane cornelio 08-10-2022 Albumin [Mass/Vol] 4.3 g/dL Normal 3.5-5.7 [facility] Comment on above: Performed By: #### C BC, AMM, ETOH, CMP, MG #### [address] Albumin/Globulin [Mass ratio] 1.9 {ratio} Normal [facility] Comment on above: Performed By: #### C BC, AMM, ETOH, CMP, MG #### [facility] [address] ALP [Catalytic activity/Vol] 54 U/L Normal 34-104 [facility] Comment on above: Performed By: #### C BC, AMM, ETOH, CMP, MG #### [address] ALT [Catalytic activity/Vol] 10 U/L Normal 7-52 [facility] Comment on above: Performed By: #### C BC, AMM, ETOH, CMP, MG #### [address] Anion gap [Moles/Vol] 11.8 mmol/L Normal 6.0-15.0 [facility] Comment on above: Performed By: #### C BC, AMM, ETOH, CMP, MG #### [address] AST [Catalytic activity/Vol] 11 U/L Low 13-39 [facility] Comment on above: Performed By: #### C BC, AMM, ETOH, CMP, MG #### [address] Bilirubin [Mass/Vol] 0.6 mg/dL Normal 0.3-1.0 [facility] Comment on above: Performed By: #### C BC, AMM, ETOH, CMP, MG #### [address] Calcium [Mass/Vol] 9.1 mg/dL Normal 8.6-10.3 [facility] Comment on above: Performed By: #### C BC, AMM, ETOH, CMP, MG #### [place] [address] [place] Chloride [Moles/Vol] 105 mmol/L Normal 98-107 [facility] Comment on above: Performed By: #### C BC, AMM, ETOH, CMP, MG #### [address] CO2 [Moles/Vol] 26.4 mmol/L Normal 21.0-31.0 [facility] Comment on above: Performed By: #### C BC, AMM, ETOH, CMP, MG #### [facility] [address] Creatinine [Mass/Vol] 0.84 mg/dL Normal 0.70-1.30 [facility] Comment on above: Performed By: #### C BC, AMM, ETOH, CMP, MG #### [facility] [address] Creatinine Clr Calc Pharmacy 108.93 [facility] Comment on above: Performed By: #### C BC, AMM, ETOH, CMP, MG #### [facility] [address] GFR/1.73 sq M.predicted MDRD (S/P/Bld) [Vol rate/Area] mL/min/{1.73_m2} [facility] Comment on above: Performed By: #### C BC, AMM, ETOH, CMP, MG #### [address] Globulin (S) [Mass/Vol] 2.3 g/dL Normal [facility] Comment on above: Performed By: #### C BC, AMM, ETOH, CMP, MG #### [address] Glucose [Mass/Vol] 108 mg/dL High 70-100 [facility] Comment on above: Result Comment: [place] Glucose Reference Range is dependent on time and content of last meal. Glucose of more than 200 mg/dL in a nonstressed, ambulatory subject supports the diagnosis of Diabetes Mellitus. ADA recommended reference range Performed By: #### C BC, AMM, ETOH, CMP, MG #### [facility] [address] Potassium [Moles/Vol] 3.2 mmol/L Low 3.5-5.1 [facility] Comment on above: Performed By: #### C BC, AMM, ETOH, CMP, MG #### [facility] [address] Protein [Mass/Vol] 6.6 g/dL Normal 6.4-8.9 [facility] Comment on above: Performed By: #### C BC, AMM, ETOH, CMP, MG #### [facility] [facility] [address] Sodium [Moles/Vol] 140 mmol/L Normal 136-145 [facility] Comment on above: Performed By: #### C BC, AMM, ETOH, CMP, MG #### [facility] [address] Urea nitrogen [Mass/Vol] 20 mg/dL Normal 7-25 [facility] Comment on above: Performed By: #### C BC, AMM, ETOH, CMP, MG #### [address] Creatinine [Mass/volume] in Serum or PlasmaOrdered By: Carmella Page on 08-10-2022 Creatinine [Mass/Vol] 0.84 mg/dL 0.70-1.30 [facility] Dipstick and Microscopicon 0 08-10-2022 Appearance (U) Clear Normal Clear [facility] Comment on above: Order Comment: Name Collection Type:: Clean-Voided Midstream Performed By: #### C BC, PRL, LACTIC, BMP #### [place] [address] [place] Bacteria,Urine None Seen Normal None Seen [facility] Comment on above: Order Comment: Name Collection Type:: Clean-Voided Midstream Performed By: #### C BC, PRL, LACTIC, BMP #### [place] [address] [place] Bilirubin,Urine Negative Normal Negative [facility] Comment on above: Order Comment: Name Collection Type:: Clean-Voided Midstream Performed By: #### C BC, PRL, LACTIC, BMP #### [place] [address] [place] Color (U) Dark Yellow Critically abnormal Yellow [facility] Comment on above: Order Comment: Name Collection Type:: Clean-Voided Midstream Performed By: #### C BC, PRL, LACTIC, BMP #### [facility] [address] [place] [address] [place] Glucose Ql (U) Normal Normal Normal [facility] Comment on above: Order Comment: Name Collection Type:: Clean-Voided Midstream Performed By: #### C BC, PRL, LACTIC, BMP #### [facility] [address] [place] [address] [place] Hyaline Casts,Urine 9-19 High 0-8 [facility] Comment on above: Order Comment: Name Collection Type:: Clean-Voided Midstream Result Comment: PERF ORMED BY: [place] [address] PATHOLOGIST [employer] CUTTER REY MARVIN M.D. Performed By: #### C BC, PRL, LACTIC, BMP #### [facility] [address] [place] [address] [place] Ketones Ql (U) 1+ High Negative [facility] Comment on above: Order Comment: Name Collection Type:: Clean-Voided Midstream Performed By: #### C BC, PRL, LACTIC, BMP #### [facility] [address] [place] [address] [place] Leukocyte esterase Test strip Ql (U) 1+ High Negative [facility] Comment on above: Order Comment: Name Collection Type:: Clean-Voided Midstream Performed By: #### C BC, PRL, LACTIC, BMP #### [facility] [address] [place] [address] [place] Nitrite,Urine Negative Normal Negative [facility] Comment on above: Order Comment: Name Collection Type:: Clean-Voided Midstream Performed By: #### C BC, PRL, LACTIC, BMP #### [facility] [address] [place] [address] [place] Occult Blood,Urine Negative Normal Negative [facility] Comment on above: Order Comment: Name Collection Type:: Clean-Voided Midstream Result Comment: PERF ORMED BY: [place] [address] PATHOLOGIST [employer] CUTTER REY MARVIN M.D. Performed By: #### C BC, PRL, LACTIC, BMP #### [address] pH (U) 6.5 [pH] Normal 5.0-9.0 [facility] Comment on above: Order Comment: Name Collection Type:: Clean-Voided Midstream Performed By: #### C BC, PRL, LACTIC, BMP #### [address] Protein (U) [Mass/Vol] 30 mg/dL High Negative [facility] Comment on above: Order Comment: Name Collection Type:: Clean-Voided Midstream Performed By: #### C BC, PRL, LACTIC, BMP #### [address] RBC,Urine 1-2 Normal 0-4 [facility] Comment on above: Order Comment: Name Collection Type:: Clean-Voided Midstream Performed By: #### C BC, PRL, LACTIC, BMP #### [address] Specificy Elida,Urine 1.034 High 1.001-1.030 [facility] Comment on above: Order Comment: Name Collection Type:: Clean-Voided Midstream Performed By: #### C BC, PRL, LACTIC, BMP #### [address] Squamous Epithelial Cell,Urine 0-1 Normal 0-2 [facility] Comment on above: Order Comment: Name Collection Type:: Clean-Voided Midstream Performed By: #### C BC, PRL, LACTIC, BMP #### [address] Urobilinogen,Urine Normal Normal Normal [facility] Comment on above: Order Comment: Name Collection Type:: Clean-Voided Midstream Performed By: #### C BC, PRL, LACTIC, BMP #### [address] WBC,Urine 3-4 Normal 0-4 [facility] Comment on above: Order Comment: Name Collection Type:: Clean-Voided Midstream Performed By: #### C BC, PRL, LACTIC, BMP #### [place] [address] [place] Drug Screen,Urineon 08-11-19 Amphetamine Screen,Urine Negative Normal Negative [facility] Comment on above: Performed By: #### C BC, PRL, LACTIC, BMP #### [place] [address] [place] Barbiturate Screen,Urine Negative Normal Negative [facility] Comment on above: Performed By: #### C BC, PRL, LACTIC, BMP #### [place] [address] [place] Benzodiazepines Screen,Urine Positive High Negative [facility] Comment on above: Performed By: #### C BC, PRL, LACTIC, BMP #### [address] Cannabinoid Screen,Urine Positive High Negative [facility] Comment on above: Result Comment: Thes e are unconfirmed results and should not be used for legal purposes. Drug Cut-Off Concentration: AMPH 1000 ng/mL TERESA 200 ng/mL MALLORY 200 ng/mL COCM 300 ng/mL OP 300 ng/mL PCP 25 ng/mL THC 20 ng/mL PERFORMED BY: [place] [address] PATHOLOGIST [employer] CUTTER REY MARVIN M.D. Performed By: #### C BC, PRL, LACTIC, BMP #### [place] [address] [place] Cocaine Screen,Urine Negative Normal Negative [facility] Comment on above: Performed By: #### C BC, PRL, LACTIC, BMP #### [place] [address] [place] Opiate Screen,Urine Negative Normal Negative [facility] Comment on above: Performed By: #### C BC, PRL, LACTIC, BMP #### [place] [address] [place] Phencyclidine Screen,Urine Negative Normal Negative [facility] Comment on above: Performed By: #### C BC, PRL, LACTIC, BMP #### [address] [place] [address] [facility] ECG 12 lead ECGon 08-10-2022 ECG 12 lead ECG [facility] Main [place] [address] [place] [id number] Electrocardiograph Report Signed Patient: Lesley Adams MR#: [id number] : 1990 Acct:[id number] Age/Sex: 31 / M ADM Date: 08/10/22 Loc: Room: [address] [place] [address] Type: ADM IN Attending Dr: Jamison Norton [...] Signed By Carmella Page DO 1934 Normal [facility] Eosinophils Auto (Bld) [#/Vo l]Ordered By: Carmella Page on 08-10-2022 Eosinophils (Bld) [#/Vol] 0.0 10*3/uL 0.0-0.45 [facility] Eosinophils/100 WBC Auto (Bl d)Ordered By: Carmella Page on 08-10-2022 Eosinophils/100 WBC (Bld) 0.1 % . [facility] Erythrocyte distribution wid th Auto (RBC) [Ratio]Ordered By: Carmella Page on 08-10-2022 Erythrocyte distribution width (RBC) [Ratio] 14.1 % 12.0-14.8 [facility] Ethanol [Mass/volume] in Ser um or PlasmaOrdered By: Carmella Page on 08-10-2022 Ethanol [Mass/Vol] mg/dL [facility] Ethanol [Mass/Vol] TNP [facility] Comment on above: Test not performed Ethyl Alcohol Profileon 07-14 Ethanol [Mass/Vol] mg/dL Normal [facility] Comment on above: Performed By: #### C BC, AMM, ETOH, CMP, MG #### [facility] [address] Percent Ethanol Not performed Normal [facility] Comment on above: Result Comment: PERF ORMED BY: [facility] [address] [place] [address] PATHOLOGIST [employer] CUTTER REY MARVIN M.D. Performed By: #### C BC, AMM, ETOH, CMP, MG #### [facility] [address] Globulin Calc (S) [Mass/Vol] Ordered By: Carmella Page on 08-10-2022 Globulin (S) [Mass/Vol] 2.3 g/dL F [facility] Glucose [Mass/volume] in Ser um or PlasmaOrdered By: Carmella Page on 08-10-2022 Glucose [Mass/Vol] 108 mg/dL 70-100 [facility] Comment on above: ADA recommended refe rence rangeRandom Glucose Reference Range is dependent on time and content of last meal. Glucose of more than 200 mg/dL in a nonstressed, ambulatory subject supports the diagnosis of Diabetes Mellitus. Hematocrit Auto (Bld) [Volum e fraction]Ordered By: Carmella Page on 08-10-2022 Hematocrit (Bld) [Volume fraction] 39.2 % 38.8-50.0 [facility] Hemoglobin [Mass/volume] in BloodOrdered By: Carmella Page on 08-10-2022 Hemoglobin (Bld) [Mass/Vol] 12.9 g/dL 13.0-17.0 [facility] Ketones Auto test strip (U) [Mass/Vol]Ordered By: Carmella Page on 08-10-2022 Ketones (U) [Mass/Vol] 1+ Negative Fi [facility] - UrinalysisOrder ed By: Carmella Page on 03-30-2023 Hyaline casts LM Ql (Urine sed) 9-19 [LPF] 0-8 [facility] Leukocytes [#/volume] correc fritz for nucleated erythrocytes in Blood by Automated counOrdered By: Carmella Page on 08-10-2022 WBC corrected for nucl RBC Auto (Bld) [#/Vol] 7.3 10*3/uL 4.1-10.5 [facility] Lymphocytes Auto (Bld) [#/Vo l]Ordered By: Carmella Page on 08-10-2022 Lymphocytes (Bld) [#/Vol] 1.3 10*3/uL 1.00-4.8 [facility] Lymphocytes/100 WBC Auto (Bl d)Ordered By: Carmella Page on 08-10-2022 Lymphocytes/100 WBC (Bld) 17.7 % . [facility] MCH Auto (RBC) [Entitic mass ]Ordered By: Carmella Page on 08-10-2022 MCH (RBC) [Entitic mass] 27.6 pg 27.5-35.2 [facility] MCHC Auto (RBC) [Mass/Vol]Or dered By: Carmella Page on 08-10-2022 MCHC (RBC) [Mass/Vol] 32.8 g/dL 32.5-35.6 [facility] MCV Auto (RBC) [Entitic vol] Ordered By: Carmella Page on 08-10-2022 MCV (RBC) [Entitic vol] 83.9 fL 83.5-101 F [facility] Magnesiumon 08-10-2022 Magnesium [Mass/Vol] 2.1 mg/dL Normal 1.9-2.7 [facility] Comment on above: Result Comment: PERF ORMED BY: [place] [address] PATHOLOGIST [employer] CUTTER REY MARVIN M.D. Performed By: #### C BC, AMM, ETOH, CMP, MG #### [address] Magnesium [Mass/volume] in S maritza or PlasmaOrdered By: Carmella Page on 08-10-2022 Magnesium [Mass/Vol] 2.1 mg/dL 1.9-2.7 [facility] Monocyte distribution width [Entitic volume] in Blood by AutomatedOrdered By: Carmella Page on 08-10-2022 Monocyte distribution width Auto (Bld) [Entitic vol] 16.25 % 0.00-20.00 [facility] Monocytes Auto (Bld) [#/Vol] Ordered By: Carmella Page on 08-10-2022 Monocytes (Bld) [#/Vol] 0.5 10*3/uL 0.0-0.8 [facility] Monocytes/100 WBC Auto (Bld) Ordered By: Carmella Page on 08-10-2022 Monocytes/100 WBC (Bld) 7.1 % . F [facility] Neutrophils Auto (Bld) [#/Vo l]Ordered By: Carmella Page on 08-10-2022 Neutrophils (Bld) [#/Vol] 5.4 10*3/uL 1.8-7.7 [facility] Neutrophils/100 WBC Auto (Bl d)Ordered By: Carmella Page on 08-10-2022 Neutrophils/100 WBC (Bld) 74.5 % . [facility] Nitrite Test strip Ql (U)Ord ered By: Carmella Page on 08-10-2022 Nitrite Ql (U) Negative Negative [facility] No Panel InformationOrdered By: Carmella Page on 08-10-2022 Estimated GFR (CKD-EPI) > 60.0 mL/Min [facility] Creatinine Clearance (Chem 108.93 [facility] Nucleated erythrocytes [Pres ence] in Blood by Automated countOrdered By: Carmella Page on 08-10-2022 Nucleated RBC Auto Ql (Bld) 0.1 /100{WBC} 0-0.5 [facility] Opiates [Presence] in Urine by Screen methodOrdered By: Carmella Page on 08-10-2022 Opiates Screen Ql (U) Negative Negative [facility] Phencyclidine Screen Ql (U)O rdered By: Carmella Page on 08-10-2022 Phencyclidine Ql (U) Negative Negative [facility] Platelet mean volume Auto (B ld) [Entitic vol]Ordered By: Carmella Page on 08-10-2022 Platelet mean volume (Bld) [Entitic vol] 9.7 fL 6.6-10.1 [facility] Platelets Auto (Bld) [#/Vol] Ordered By: Carmella Page on 08-10-2022 Platelets (Bld) [#/Vol] 174 10*3/uL 150-450 [facility] Potassium [Moles/volume] in Serum or PlasmaOrdered By: Carmella Page on 08-10-2022 Potassium [Moles/Vol] 3.2 mmol/L 3.5-5.1 [facility] Protein Auto test strip (U) [Mass/Vol]Ordered By: Carmella Page on 08-10-2022 Protein (U) [Mass/Vol] 30 mg/dL Negative [facility] Protein [Mass/volume] in Ser um or PlasmaOrdered By: Carmella Page on 08-10-2022 Protein [Mass/Vol] 6.6 g/dL 6.4-8.9 [facility] RBC Auto (Bld) [#/Vol]Ordere d By: Carmella Page on 08-10-2022 RBC (Bld) [#/Vol] 4.67 10*6/uL 3.90-5.60 [facility] Serum or plasma albumin/glob ulin mass ratioOrdered By: Carmella Page on 08-10-2022 Albumin/Globulin [Mass ratio] 1.9 {ratio} [facility] Serum or plasma anion gap de terminationOrdered By: Carmella Page on 08-10-2022 Anion gap [Moles/Vol] 11.8 mmol/L 6.0-15.0 [facility] Sodium [Moles/volume] in Ser um or PlasmaOrdered By: Carmella Page on 08-10-2022 Sodium [Moles/Vol] 140 mmol/L 136-145 [facility] Specific gravity Auto test s trip (U) [Rel density]Ordered By: Carmella Page on 08-10-2022 Specific gravity (U) [Rel density] 1.034 1.001-1.030 [facility] Squamous epithelial cells de tection in urine sediment by light microscopyOrdered By: Carmella Page on 08-10-2022 Epithelial cells.squamous LM Ql (Urine sed) 0-1 [HPF] 0-2 [facility] Urea nitrogen [Mass/volume] in Serum or PlasmaOrdered By: Carmella Page on 08-10-2022 Urea nitrogen [Mass/Vol] 20 mg/dL 7-25 [facility] Urine bacteria detection by automated methodOrdered By: Carmella Page on 08-10-2022 Bacteria Auto Ql (U) None seen None Seen [facility] Urine clarity by refractomet ry automatedOrdered By: Carmella Page on 08-10-2022 Clarity Refractometry automated (U) Clear Clear [facility] Urine glucose measurement by automated test strip (mass/volume)Ordered By: Carmella Page on 08-10-2022 Glucose Auto test strip (U) [Mass/Vol] Normal mg/dL Normal [facility] Urine hemoglobin detection b y automated test stripOrdered By: Carmella Page on 08-10-2022 Hemoglobin Auto test strip Ql (U) Negative Negative [facility] Urine leukocyte esterase det ection by automated test stripOrdered By: Carmella Page on 08-10-2022 Leukocyte esterase Auto test strip Ql (U) 1+ Negative [facility] Urobilinogen Auto test strip (U) [Mass/Vol]Ordered By: Carmella Page on 08-10-2022 Urobilinogen (U) [Mass/Vol] Normal mg/dL Normal [facility] WBC Auto (Bld) [#/Vol]Ordere d By: Carmella Page on 08-10-2022 WBC (Bld) [#/Vol] 7.3 10*3/uL 4.1-10.5 [facility] pH Auto test strip (U)Ordere d By: Carmella Page on 08-10-2022 pH (U) 6.5 [pH] 5.0-9.0 [facility] CBC AUTO DIFFon 05-27-2022 BASO # 0.1 103/ul Normal 0.0-0.1 [facility] Comment on above: Performed By: #### C BC #### [facility] [address] [address] [address] Janell Smith Basophils/100 WBC (Bld) 0.6 % Normal 0.2-2.0 [facility] Comment on above: Performed By: #### C BC #### [facility] [address] [place] [address] Dr. Janell Smith EO # 0.3 103/ul Normal 0.0-0.7 [facility] Comment on above: Performed By: #### C BC #### [facility] [address] [place] [address] Dr. Janell Smith Eosinophils/100 WBC (Bld) 2.8 % Normal 0.9-7.0 [facility] Comment on above: Performed By: #### C BC #### [facility] [address] [place] [address] Dr. Janell Smith Erythrocyte distribution width (RBC) [Ratio] 12.5 % Normal 11.0-15.0 [facility] Comment on above: Performed By: #### C BC #### [facility] [address] [place] [address] Dr. Janell Smith Hematocrit (Bld) [Volume fraction] 36.4 % Critically low 42.0-54.0 [facility] Comment on above: Performed By: #### C BC #### [facility] [address] [place] [address] Dr. Janell Smith Hemoglobin (Bld) [Mass/Vol] 12.1 g/dL Critically low 14.0-18.0 [facility] Comment on above: Performed By: #### C BC #### [facility] [address] [place] [address] Dr. Janell Smith IG # 0.02 10e3/ul Normal 0.00-0.03 [facility] Comment on above: Performed By: #### C BC #### [facility] [address] [place] [address] Dr. Janell Smith IG % 0.2 % Normal 0.0-0.5 [facility] Comment on above: Performed By: #### C BC #### [facility] [address] [place] [address] Dr. Janell Smith LYMPH # 1.9 103/ul Normal 1.2-3.8 [facility] Comment on above: Performed By: #### C BC #### [facility] [address] [place] [address] Dr. Janell Smith Lymphocytes/100 WBC (Bld) 19.9 % Critically low 20.5-60.0 [facility] Comment on above: Performed By: #### C BC #### [facility] [address] [place] [address] Dr. Janell Smith MANUAL DIFF REQ NO Normal [facility] Comment on above: Performed By: #### C BC #### [facility] [address] [place] [address] Dr. Janell Smith MCH (RBC) [Entitic mass] 28.2 pg Normal 25.9-34.0 [facility] Comment on above: Performed By: #### C BC #### [facility] [address] [place] [address] Dr. Janell Smith MCHC (RBC) [Mass/Vol] 33.2 g/dL Normal 29.9-35.2 [facility] Comment on above: Performed By: #### C BC #### [facility] [address] [place] [address] Dr. Janell Smith MCV (RBC) [Entitic vol] 84.8 fL Normal 80.0-94.0 [facility] Comment on above: Performed By: #### C BC #### [facility] [address] [place] [address] Dr. Janell Smith MONO # 0.7 103/ul Normal 0.3-0.8 [facility] Comment on above: Performed By: #### C BC #### [facility] [address] [place] [address] Dr. Janell Smith Monocytes/100 WBC (Bld) 7.7 % Normal 1.7-12.0 [facility] Comment on above: Performed By: #### C BC #### [facility] [address] [place] [address] Dr. Janell Smith NEUT # 6.5 103/ul Normal 1.4-6.5 [facility] Comment on above: Performed By: #### C BC #### [facility] [address] [place] [address] Dr. Janell Smith Neutrophils/100 WBC (Bld) 68.8 % Normal 43.0-75.0 [facility] Comment on above: Performed By: #### C BC #### [facility] [address] [place] [address] Dr. Janell Smith Platelet mean volume (Bld) [Entitic vol] 10.5 fL Normal 9.5-13.5 [facility] Comment on above: Performed By: #### C BC #### [facility] [address] [place] [address] Dr. Janell Smith PLT 195 103/ul Normal 150-450 [facility] Comment on above: Performed By: #### C BC #### [facility] [address] [place] [address] Dr. Janell Smith RBC 4.29 106/ul Critically low 4.70-6.10 [facility] Comment on above: Performed By: #### C BC #### [facility] [address] [place] [address] Dr. Janell Smith WBC 9.4 103/ul Normal 4.0-11.0 [facility] Comment on above: Performed By: #### C BC #### [facility] [address] [place] [address] HEAD WO CONon [...] by: ANA SINGLETON Date: 2022-05-27 00:27 Normal [facility] CTA NECK WO W CONon 05-27-19 [...] by: ANA SINGLETON Date: 2022-05-27 02:11 Normal [facility] PROF CHEM 8 (BAS METB)on Anion gap [Moles/Vol] 11.6 mmol/L Normal [facility] Comment on above: Performed By: #### B MP ####[facility] [address] [place] [address]Dr. Janell Smith Calcium [Mass/Vol] 8.8 mg/dL Normal 8.5-10.1 [facility] Comment on above: Performed By: #### B MP ####[facility] [address] [place] [address]Dr. Janell Smith Chloride [Moles/Vol] 101 mmol/L Normal 98-107 [facility] Comment on above: Performed By: #### B MP ####[facility] [address] [place] [address]Dr. Janell Smith CO2 [Moles/Vol] 29.9 mmol/L Normal 21.0-32.0 [facility] Comment on above: Performed By: #### B MP ####[facility] [address] [place] [address]Dr. Janell Smith Creatinine [Mass/Vol] 0.89 mg/dL Normal 0.70-1.30 [facility] Comment on above: Performed By: #### B MP ####[facility] [address] [place] [address]Dr. Janell Smith EGFR-AF NIUEAN >60 Normal >=60 [facility] Comment on above: Performed By: #### B MP ####[facility] [address] [place] [address]Dr. Janell Smith EGFR-NON AF NIUEAN >60 Normal >=60 [facility] Comment on above: Performed By: #### B MP ####[facility] [address] [place] [id number][address] Janell Smith Glucose [Mass/Vol] 81 mg/dL Normal 74-106 [facility] Comment on above: Performed By: #### B MP ####[facility] [address] [place] [id number][address] Janell Smith Potassium [Moles/Vol] 3.5 mmol/L Normal 3.5-5.1 [facility] Comment on above: Performed By: #### B MP ####[facility] [address] [place] [address]Dr. Janell Smtih Sodium [Moles/Vol] 139 mmol/L Normal 136-145 [facility] Comment on above: Performed By: #### B MP ####[facility] [address] [place] [address]Dr. Janell Smith Urea nitrogen [Mass/Vol] 12.0 mg/dL Normal 7.0-18.0 [facility] Comment on above: Performed By: #### B MP ####[facility] [address] [place] [address]Dr. Janell Smith Urea nitrogen/Creatinine [Mass ratio] 13.5 mg/mg Normal [facility] Comment on above: Performed By: #### B MP ####[facility] [address] [place] [id number][address] Janell Smith XR CHEST 1 Von 05-27-2022 XR [...] by: MARILYN SMITH Date: 2022-05-27 00:52 Normal [facility] [id number] 05-18-2021 SARS-CoV-2 (COVID-19) RNA FRANCOIS+probe Ql (Unsp spec) Normal [facility] Comment on above: Performed By: #### C OVID #### [facility] [address] [place], [place] [id number] [place] Supervisor: Teddy Lockett MD [facility] [address] [place] [address] [place] [address] [place] Supervisor: Lesley Mccarthy MD SARS-CoV-2 (COVID-19) RNA FRANCOIS+probe Ql (Unsp spec) Not detected Normal NOTDET [facility] Comment on above: Result Comment: The specimen is NEGATIVE for SARS-CoV-2, the novel coronavirus associated with COVID-19. A negative result does not rule out COVID-19. Damian SARS-CoV-2 for use on the [employer] is a real-time RT-PCR test intended [...] this assay. Fact sheet for Healthcare Providers: https://www.fda.gov/media/434263/download Fact sheet for Patients: https://www.fda.gov/media/865427/download METHODOLOGY: RT-PCR Performed By: #### C OVID #### [facility] [address] [place], [place] [id number] [place] Supervisor: Teddy Lockett MD [facility] [address] [place] [address] [place] [address] [employer] Supervisor: MD ИРИНА Malloy-CoV-2on 05-17-2021 SARS-CoV-2 (COVID-19) RNA FRANCOIS+probe Ql (Unsp spec) .NASOPHARYNGEAL SWAB Normal [facility] Comment on above: Performed By: #### C OVID #### [facility] [employer] [address] [place] [address] [place] Supervisor: Teddy Lockett MD [facility] [address] [place] [address] [place] Supervisor: Lesley Mccarthy MD Vital Signs Date Time Vital Sign Value Performing Clinician Sveta luque 10-11-2022 07:30-0400 Diastolic blood pressure 79 mm[Hg] DO Carmella Tupa Work Phone: [facility] 10-11-2022 07:30-0400 Heart rate 113 /min DO Carmella Tupa Work Phone: [facility] 10-11-2022 07:30-0400 Respiratory rate 16 /min DO Carmella Tupa Work Phone: [facility] 10-11-2022 07:30-0400 SaO2% (BldA) [Mass fraction] 97 % DO Carmella Tupa Work Phone: [facility] 10-11-2022 07:30-0400 Systolic blood pressure 149 mm[Hg] DO Carmella Tupa Work Phone: [facility] 10-10-2022 20:53-0400 Body temperature 98.4 [degF] DO Carmella Tupa Work Phone: [facility] 10-09-2022 08:23-0400 Body weight 68.03 kg DO Carmella Tupa Work Phone: [facility] 10-07-2022 02:12-0400 Body height 180.34 cm DO Carmella Tupa Work Phone: [facility] 08-20-2022 13:04-0400 Body temperature 97.9 [degF] DO Carmella Tupa Work Phone: [facility] 08-20-2022 13:04-0400 Diastolic blood pressure 82 mm[Hg] DO Carmella Tupa Work Phone: [facility] 08-20-2022 13:04-0400 Heart rate 84 /min DO Carmella Tupa Work Phone: [facility] 08-20-2022 13:04-0400 Respiratory rate 18 /min DO Carmella Tupa Work Phone: [facility] 08-20-2022 13:04-0400 SaO2% (BldA) [Mass fraction] 99 % DO Carmella Tupa Work Phone: [facility] 08-20-2022 13:04-0400 Systolic blood pressure 129 mm[Hg] DO Carmella Tupa Work Phone: [facility] 08-20-2022 06:25-0400 Body weight 63.4 kg DO Carmella Tupa Work Phone: [facility] 08-15-2022 16:39-0400 Body height 180.34 cm DO Carmella Tupa Work Phone: [facility] 08-13-2022 11:46-0400 Inhaled oxygen flow rate 2 L/min DO Carmella Tupa Work Phone: [facility] 08-10-2022 15:30-0400 Diastolic blood pressure 80 mm[Hg] DO Carmella Tupa Work Phone: [facility] 08-10-2022 15:30-0400 Heart rate 70 /min DO Carmella Tupa Work Phone: [facility] 08-10-2022 15:30-0400 Systolic blood pressure 129 mm[Hg] DO Carmella Tupa Work Phone: [facility] 08-10-2022 14:30-0400 SaO2% (BldA) [Mass fraction] 100 % DO Carmella Tupa Work Phone: [facility] 08-10-2022 13:30-0400 Respiratory rate 26 /min DO Carmella Page Work Phone: [facility] 08-10-2022 11:43-0400 Body height 180.34 cm DO Carmella Page Work Phone: [facility] 08-10-2022 11:43-0400 Body weight 61 kg DO Carmella Page Work Phone: [facility] 08-10-2022 11:41-0400 Body temperature 99 [degF] DO Carmella Page Work Phone: [facility] Encounters Encounter Date Encounter Type Care Provider Facility Start: 01-11-2024 End: 01-11-2024 Emergency department patient visit NO PCP NO PCP [facility] Start: 12-19-2023 End: 12-20-2023 Emergency department patient visit ILIA CHACKO [facility] Start: 08-27-2023 End: 08-27-2023 Telephone encounter Courtney Bob CMA [facility] Comment on above: attribution outreach Start: 10-07-2022 End: 10-11-2022 Evaluation and management of inpatient DO Carmella Page Work Phone: [facility] Work Phone: Start: 09-18-2022 ambulatory Beckie Powers cility:[facility] Start: 09-18-2022 Registered Recurring DO Rodger Page Work Phone: [facility] Start: 09-18-2022 End: 09-18-[address] RIVERA CALDERON . Facility: Start: 08-10-2022 End: 08-20-2022 Evaluation and management of inpatient Jamison Patriciatrevonkomal Facility:[facility] Start: 08-10-2022 End: 08-20-2022 Evaluation and management of inpatient DO Carmella Page Work Phone: [facility] Work Phone: Start: 05-27-2022 End: 05-27-2022 ambulatory LAWANDA MARTINEZ . Facility: Start: 05-17-2021 End: 05-18-2021 [facility] Date Procedure Procedure Detail Performing Clinician Start: 08-15-2022 MRI of head DO Carmella Page Work Phone: Start: 08-11-2022 CT of head without contrast DO Carmella Page Work Phone: Plan of Treatment Date Care Activity Detail Author Start: 01-13-2024 Influenza vaccination Influenza Vaccine [facility] Start: 12-28-2023 Adult BMI Screening Adult BMI Screening [facility] Start: 12-28-2023 Tobacco Screening Tobacco Screening [facility] Start: 11-25-2023 DTaP,Tdap and Td Vaccines (8 - Td or Tdap) DTaP,Tdap and Td Vaccines (8 - Td or Tdap) [facility] Start: 10-11-2022 [facility] Start: 10-07-2022 Hospital admission [facility] Start: 08-20-2022 [facility] Start: 08-15-2022 Administration of prophylactic treatment [facility] Start: 08-13-2022 Referral to neurologist [facility] Start: 08-10-2022 Hospital admission [facility] Start: 08-10-2022 Referral to psychiatrist [facility] Start: 2001 Depression Screening Depression Screening [facility] Start: 1989 Tobacco Counseling Tobacco Counseling [facility] Albumin/Globulin ratio [facility] Anion gap measurement [facility] Globulin [Mass/volum e] in Serum [facility] Patient Education [facility] Work Phone: Patient referral [facility] Work Phone: [facility] Payers Date Payer Category Payer Unknown [id number] 2022 Self-pay 2020 Medicaid [employer] [id number] 2020-Present [phone] [address] [place] [address] [id number] 1989 Unknown [id number] 1989 Unknown [id number] 1989 Unknown [id number] 1989 Unknown [id number] 1989 Unknown [id number] 1989 Unknown [id number] [id number] 1959 Unknown [id number] Unknown [employer] [id number] Unknown [id number] Unknown [id number] Social History Date Type Detail Facility Tobacco smoking stat [facility] Unknown if ever smoked [facility] Work Phone: Start: 1990 Sex Assigned At Male F [facility] Start: 08-14-2022 Tobacco smoking stat [facility] Unknown if ever smoked [facility] Start: 10-08-2022 Tobacco smoking stat [facility] Smoker (finding) [facility] Start: 04-04-2021 Tobacco smoking stat [facility] Smokes tobacco daily [facility] History of tobacco use Cigarette Smoker [facility] History of tobacco use Tobacco U se Types Packs/Day Years Used Date Smoking Tobacco: Every Day Cigarettes Vaping/E-cigarettes Smokeless Tobacco: Never [facility] Start: 04-04-2021 Tobacco use and exposure Smokeless tobacco non-user [facility] Start: 12-27-2022 Alcoholic beverage intake Current drinker of alcohol (finding) [facility] Start: 06-24-2020 End: 12-27-2022 History of Social function [facility] Start: 06-24-2020 End: 12-27-2022 Tobacco use panel [facility] Childcare Unknown [facility] Start: 1990 Sex assigned at Not on file P [facility] Goals Date Patient Goal Desired Activity /State Functional Status Date Assessment Result Facility 10-11-2022 Functional status Patient at Baseline [facility] Work Phone: 08-20-2022 Functional status Patient at Baseline [facility] Work Phone: Mental Status Date Assessment Result Facility 10-11-2022 Cognitive function Cognitive Sta tus Patient at Baseline [facility] Work Phone: 08-20-2022 Cognitive function Cognitive Sta tus Patient at Baseline [facility] Work Phone: Clinical Notes 08-10-2022 to 08-27-2023 Telephone Encounter - Courtney Bob CMA - 08/27/2023 3:15 PM EDTTelephone Encounter - Courtney Bob CMA - 08/27/2023 3:15 PM EDT Note Date & Type Note Facility 08-27-2023 Miscellaneous Notes Formattin g of this note might be different from the original. EMPANELMENT OUTREACH Lesley Adams has been contacted in effort to establish and/or re-establish care as a new patient with [facility]: Yes Outreach Date: August 27, 2023 Outreach Reason: Attribution Outreach Method: Telephone Outreach Attempt: First Attempt Outreach Outcome: No Answer/Busy New Patient Appointment: NA Attributed Provider: Dr. Lesley Perez Additional Comments: PCP is accepting new patients. Unable to reach patient. Letter sent regarding how to establish care. documented in this encounter [facility] 08-27-2023 Telephone encount er Note EMPANELMENT OUTREACH Lesley Adams has been contacted in effort to establish and/or re-establish care as a new patient with [facility]: Yes Outreach Date: August 27, 2023 Outreach Reason: Attribution Outreach Method: Telephone Outreach Attempt: First Attempt Outreach Outcome: No Answer/Busy New Patient Appointment: NA Attributed Provider: Dr. Lesley Perez Additional Comments: PCP is accepting new patients. Unable to reach patient. Letter sent regarding how to establish care. [facility] 10-11-2022 Discharge summary Note Date/Time October 11, 2022 11:43am [facility] [address] [place] [address] Discharge Summary Signed Patient: Lesley Adams MR#: [id number] : 1990 Acct:[id number] Age/Sex: 31 / M Adm Date: 3 Loc: Room: [address] [place] [address]: Beckie Claire MD Copies to: [...] was found unresponsive in front of the [facility] building in [place]. At the time of the interview, he [...] did not have any conflict with peers carrie. He attempted to make phone calls to stay with his sister but his sister stated that he could not stay there. He stated that he would stay with another family member. He was offered a senior living list but stated that he would be fine going back to [place] and staying with family. He did not [...] No activity restrictions Instructions: Depression, Adult (DC), [facility]al Health DC Instructions Prescriptions: New divalproex [...] 14 Days Qty: 14 1RF Follow Up: [facility] [Other] (Please follow up with in 3 months for thyroid function.) [facility] [Outside] [facility] Hotline [Outside] Documented By: Ramiro Morris MD 10/11/221141 Signed By: <Electronically signed by Ramiro Morris MD> 10/11/22 1147 [facility] Work Phone: 1(265) 935-974405-30-2023 Progress note Author Ramiro Morris [facility] October 10, 2022 12:49pm Note Date/Time October 10, 2022 12:48 pm [facility] [address] [place] [address] Psychiatry Progress Note Signed Patient: Lesley Adams MR#: [id number] : 1990 Acct:[id number] Age/Sex: 31 / M Adm Date: 3 Loc: 1S Room: [address] [place] [address] Type : ADM IN Attending Dr: Beckie [...] better at this time. We will provide senior living list andanticipate discharge tomorrow Continue Lexapro 5 mg PO Q am Depakote to 250 mg PO BID Continue to monitor mental status Encourage group participation and medication compliance Risk benefits alternatives explained Documented By: Ramiro Morris MD 10/10/221246 Signed By: <Electronically signed by Ramiro Morris MD> 10/10/22 1249 [facility] Work Phone: 1(344) 571-840305-29-2023 Progress note Author Ramiro Morris [facility] October 09, 2022 1:06pm Note Date/Time October 09, 2022 12:30 pm [facility] [address] [place] [address] Psychiatry Progress Note Signed Patient: Lesley Adams MR#: [id number] : 1990 Acct:[id number] Age/Sex: 31 / M Adm Date: 3 Loc: Room: 2J7459-5 Type : ADM IN Attending Dr: Beckie [...] explained Documented By: Ramiro Morris MD 10/09/22 1228 Signed By: <Electronically signed by Ramiro Morris MD> 10/09/22 5828 [facility] Work Phone: 1(307) 925-238705-28-2023 Progress note Author Master yoo [facility] October 08, 2022 8:02am Note Date/Time October 08, 2022 7:41a m [facility] [address] [place] [address] Psychiatry Progress Note Signed with Addenda Patient: Lesley Adams MR#: [id number] : 1990 Acct:[id number] Age/Sex: 31 / M Adm Date: 3 Loc: Room: [address] [place] [address] Type : ADM IN Attending Dr: Beckie Claire MD Copies to: ~ ADDENDUM1 Librium will be 10 mg PO BID today and may lower tomorrow Addendum Documented By: Master Claire MD 10/08/22801 Addendum Signed By: <Electronically signed by Master Claire MD> 10/08/22801 Date of Service: 10/08/2022 Subjective Subjective Narrative: [...] signed by Master Claire MD> 10/08/22 0745 [facility] Work Phone: 1(600) 204-482305-27-2023 History and physical note Author Master oyo [facility] October 07, 2022 7:52am Note Date/Time October 07, 2022 7:46a m [facility] [address] [place] [address] Psychiatry H&P Signed Patient: Lesley Adams MR#: [id number] : 1990 Acct:[id number] Age/Sex: 31 / M Adm Date: 3 Loc: Room: [address] [place] [address] Type: ADM IN Attending Dr: Beckie Claire [...] He was found unresponsive infront of the [facility] builiding in [place]. At the time of the interview, he [...] physical exam due to patient current presentation. [facility] Vaccinated for COVID-19?: Unknown Medical History (Updated [...] recurrent, moderate Status: Acute Plan Admit to for management of depression and to ensure [...] <Electronically signed by Master Claire MD> 10/07/22 8532 [facility] Work Phone: 1(661) 530-431404-09-2023 Discharge summary Author Leonora Bruce [facility] August 20, 2022 1:38pm Note Date/Time August 20, 2022 1:38 pm [facility] [address] [place] [address] Discharge Summary Signed Patient: Lesley Adams MR#: [id number] : 1990 Acct:[id number] Age/Sex: 31 / M Adm Date: 3 Loc: Room: [address] [place] [address]: Leonora Bruce MD Copies to: NO FAMILY PHYSICIAN Leonora Bruce MD~ Providers Date of Discharge: 08/20/22 Discharging Provider: Leonora Bruce Primary Care Provider: PHYSICIAN BRITTANY FAMILY Consults: 08/10/22 18:39 Consult to Psychiatry [...] years old [facility]. Patient appeared to [...] 28 0RF Follow Up: [facility] [place] [Outside] (The office is currently closed. Please call the office for a follow-up appointment. ) [facility] [Outside] (Referral has been sent to [facility]. Call office on Sunday to arrange follow-up appointment. ) [facility] [Physician] - ([facility] is accepting new patients, call office on Sunday to schedule follow-up to become established witha Primary Care Provider. Follow-up in 3-5 days.) Documented By: Leonora Bruce MD 08/20/221333 Signed By: <Electronically signed by Leonora Bruce MD> 08/20/22 7051 [facility] Work Phone: 1(414) 753-396604-08-2023 Progress note Author Leonora Bruce [facility] August 19, 2022 1:35pm Note Date/Time August 19, 2022 1:35 pm [facility] [address] [place] [address] Hospitalist Progress Note Signed Patient: Lesley Adams MR#: [id number] : 1990 Acct:[id number] Age/Sex: 31 / M Adm Date: 3 Loc: Room: [address] [place] [address] Type: ADM IN Attending Dr: Leonora Bruce [...] Administration Sleep Documented By: Leonora Bruce MD 08/19/22 1334 Signed By: <Electronically signed by Leonora Bruce MD> 08/19/225 [facility] Work Phone: 1(140) 317-744104-07-2023 Progress note Author Leonora Bruce [facility] August 18, 2022 11:11am Note Date/Time August 18, 2022 11:1 1am [facility] [address] [place] [address] Hospitalist Progress Note Signed Patient: Lesley Adams MR#: [id number] : 1990 Acct:[id number] Age/Sex: 31 / M Adm Date: 3 Loc: Room: [address] [place] [address] Type: ADM IN Attending Dr: Leonora Bruce [...] signed by Leonora Bruce MD> 08/18/22 1111 [facility] Work Phone: 1(845) 227-669304-06-2023 Progress note Author Leonora Bruce [facility] August 17, 2022 12:52pm Note Date/Time August 17, 2022 12:5 2pm [facility] [address] [place] [address] Hospitalist Progress Note Signed Patient: Lesley Adams MR#: [id number] : 1990 Acct:[id number] Age/Sex: 31 / M Adm Date: 3 Loc: Room: [address] [place] [address] Type: ADM IN Attending Dr: Leonora Bruce [...] patient at home. Otherwise patient will need long-term facility Exam Physical Exam Vital Signs: Temp [...] Administration Quetiapine Fumarate 50 mg 08/11/22 10:00 04/03/23 08:07 Quetiapine Fumarate 50 Mg Tablet PO [...] signed by Leonora Bruce MD> 08/17/22 1252 [facility] Work Phone: 1([phone]) 788-862604-05-2023 Progress note Author Ryland Medrano [facility] August 16, 2022 2:21pm Note Date/Time August 16, 2022 2:21 pm [facility] [address] [place] [address] Neurology Progress Note Signed Patient: Lesley Adams MR#: [id number] : 1990 Acct:[id number] Age/Sex: 31 / M Adm Date: 3 Loc: Room: [address] [place] [address] Type: ADM IN Attending Dr: Leonora Bruce [...] Therapy Recommendations: OT Recommendations OT Recommended Discharge Care Home Facility,Inpatient Rehab Unit Location OT Recommended Services at Physical Therapy,Occupational Therapy,04/12 Discharge Supervision OT If Other Please Specify pending rehab needs for his addiction. PT Recommendations PT Recommended Discharge Care Home Facility,Inpatient Rehab Unit Location PT Recommended Services [...] signed by Ryland Medrano DO> 08/16/22 1421 [facility] Work Phone: 1(781) 324-388404-05-2023 Progress note Author Leonora Bruce [facility] August 16, 2022 12:59pm Note Date/Time August 16, 2022 12:5 9pm [facility] [address] [place] [address] Hospitalist Progress Note Signed Patient: Lesley Adams MR#: [id number] : 1990 Acct:[id number] Age/Sex: 31 / M Adm Date: 3 Loc: Room: [address] [place] [address] Type: ADM IN Attending Dr: Leonora Bruce [...] signed by Leonora Bruce MD> 08/16/22 1259 [facility] Work Phone: 1(495) 339-234904-04-2023 Progress note Author Ryland Medrano [facility] August 15, 2022 3:13pm Note Date/Time August 15, 2022 3:13 pm [facility] [address] [place] [address] Neurology Progress Note Signed Patient: Lesley Adams MR#: [id number] : 1990 Acct:[id number] Age/Sex: 31 / M Adm Date: 3 Loc: Room: [address] [place] [address] Type: ADM IN Attending Dr: Leonora Bruce [...] Therapy Recommendations: OT Recommendations OT Recommended Discharge Care Home Facility,Inpatient Rehab Unit Location OT Recommended Services at Physical Therapy,Occupational Therapy,04/12 Discharge Supervision OT If Other Please Specify pending rehab needs for his addiction. PT Recommendations PT Recommended Discharge Care Home Facility,Inpatient Rehab Unit Location PT Recommended Services [...] Could be toxic?metabolic.? 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 Routine EEG was normal.? Head CT [...] <Electronically signed by Ryland Medrano DO> 08/15/22 4944 [facility] Work Phone: 1(475) 275-264504-04-2023 Progress note Author Leonora Bruce [facility] August 15, 2022 10:21am Note Date/Time August 15, 2022 10:1 9am [facility] [address] [place] [address] Hospitalist Progress Note Signed Patient: Lesley Adams MR#: [id number] : 1990 Acct:[id number] Age/Sex: 31 / M Adm Date: 3 Loc: 3T Room: [address] [place] [address] Type: ADM IN Attending Dr: Leonora Bruce [...] consulted PT OT, probably he will need long-term facility placement Awaiting MRI Exam Physical Exam [...] signed by Leonora Bruce MD> 08/15/22 1021 [facility] Work Phone: 1([phone]) 622-906204-03-2023 Consult note Author Ryland Medrano [facility] August 14, 2022 1:56pm Note Date/Time August 14, 2022 10:5 0am [facility] [address] [place] [address] Neurology Consult Note Signed Patient: Lesley Adams MR#: [id number] : 1990 Acct:[id number] Age/Sex: 31 / M Adm Date: 3 Loc: Room: [address] [place] [address] Type: ADM IN Attending Dr: Leonora Bruce MD Copies to: Ryland Medrano DO NO FAMILY PHYSICIAN Leonora Bruce MD~ HPI Consult Date: 08/14/22 Chaplain Resident: Ryland Medrano, [facility] Vaccinated for COVID-19?: Unknown Medical History (Updated [...] Demetrio Tello M.D.08/11/2022 1:04 PM Dictation Location: [place] [address] Assessment/Plan (1) Major depressive disorder, recurrent, moderate: Assessment/Problem Details: CONSULT REASON: Tremors, concern for seizures, hallucinations HPI: 31-year-old man. History of cardiac arrest related to overdose. Reported abuseof heroin and alprazolam and may be abusing methadone. [facility], and he [...] Could be toxic?metabolic. 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 Routine EEG was normal. Head CT [...] signed by Ryland Medrano DO> 08/14/22 1356 [facility] Work Phone: 1(794) 896-546504-03-2023 Progress note Author Leonora Bruce [facility] August 14, 2022 11:46am Note Date/Time August 14, 2022 11:4 3am [facility] [address] [place] [address] Hospitalist Progress Note Signed Patient: Lesley Adams MR#: [id number] : 1990 Acct:[id number] Age/Sex: 31 / M Adm Date: 3 Loc: 3T Room: [address] [place] [address] Type: ADM IN Attending Dr: Leonora Bruce [...] signed by Leonora Bruce MD> 08/14/22 1146 [facility] Work Phone: 1(744) 947-563704-02-2023 Progress note Author Jamison Norton [facility] August 13, 2022 5:21pm Note Date/Time August 13, 2022 5:22 pm [facility] [address] [place] [address] Hospitalist Progress Note Signed Patient: Lesley Adams MR#: [id number] : 1990 Acct:[id number] Age/Sex: 31 / M Adm Date: 3 Loc: Room: [address] [place] [address] Type: ADM IN Attending Dr: Jamison Frings DO Copies to: ~ Date of Service: [...] signed by Jamison Norton DO> 08/13/22 1721 [facility] Work Phone: 1([phone]) 908-282004-01-2023 Progress note Author Jamison Norton [facility] August 12, 2022 2:25pm Note Date/Time August 12, 2022 2:25 pm [facility] [address] [place] [address] Hospitalist Progress Note Signed Patient: Lesley Adams MR#: [id number] : 1990 Acct:[id number] Age/Sex: 31 / M Adm Date: 3 Loc: Room: [address] [place] [address] Type: ADM IN Attending Dr: Jamison Norton [...] <Electronically signed by Jamison Norton DO> 08/12/[address] [place] [address] Ctr Work Phone: 1(957) 247-839304-01-2023 Progress note Author Jamison Norton [facility] August 12, 2022 2:25pm Note Date/Time August 12, 2022 2:26 pm [facility] [address] [place] [address] Hospitalist Progress Note Signed Patient: Lesley Adams MR#: [id number] : 1990 Acct:[id number] Age/Sex: 31 / M Adm Date: 3 Loc: Room: [address] [place] [address] Type: ADM IN Attending Dr: Jamison Norton [...] <Electronically signed by Jamison Norton DO> 08/12/22 6582 [facility] Work Phone: 1([phone]) [phone] Consult note Author Master yoo [facility] August 11, 2022 2:38pm Note Date/Time August 11, 2022 2:3 8pm [facility] [address] [place] [address] Psychiatry Consult Note Signed Patient: Lesley Adams MR#: [id number] : 1990 Acct:[id number] Age/Sex: 31 / M Adm Date: 3 Loc: Room: [address] [place] [address] Type : ADM IN Attending Dr: Jamison [...] hosptialzied before due to depression at a [facility] in [place], [place]. He does not feel that Seroquel [...] Appearance Clear Urine pH 6.5 Ur Specific [place] 1.034 H Urine Protein 30 H Urine [...] of fentanyl, heroin, Xanax. I will recommend [facility] protocol for monitoring benzo withdrawal Increase Seroquel dose to 50 mg 3 times daily Begin gabapentin taper for adjunctive treatment 300 mg 3 times daily. Second day 200 mg 3 times daily. Third day 100 mg 3 times daily. Continue to monitor mental status Risk benefits alternatives explained Should benefit from outpatient treatment. Schedule with [facility] within 5 days of discharge. Thank you for the consult. Documented By: Master Claire MD 3 1205 Signed By: <Electronically signed by Master Claire MD> 08/11/22 6979 [facility] Work Phone: 1(998) 941-454303-31-2023 Progress note Author Jamison Norton [facility] August 11, 2022 12:26pm Note Date/Time August 11, 2022 12: 26pm [facility] [address] [place], [place] [id number] Event Note Signed Patient: Lesley Adams MR#: [id number] : 1990 Acct:[id number] Age/Sex: 31 / M Adm Date: 3 Loc: Room: [address] [place] [address] Type: ADM IN Attending Dr: Jamison Norton [...] order EEG. Documented By: Jamison Norton DO 08/11/22 12 22 Signed By: <Electronically signed by Jamison Norton DO> 08/11/22 1226 [facility] Work Phone: 1(182) 865-730603-30-2023 History and physical note Author Jamison Norton [facility] August 10, 2022 6:52pm Note Date/Time August 10, 2022 6:5 0pm [facility] [address] [place] [address] Hospitalist H&P Signed with Addenda Patient: Lesley Adams MR#: [id number] : 1990 Acct:[id number] Age/Sex: 31 / M Adm Date: 3 Loc: Room: [address] [place] [address] Type: ADM IN Attending Dr: Jamison Norton [...] earlier today from a rehab facility in [place]. He was reportedly there detoxing from either [...] undetectable. The patient was admitted to the [facility] floor for further management and treatment [...] % (Auto) 17.7 % (.) 08/10/22 11:50 Creek % (Auto) 7.1 % (.) 08/10/22 11:50 Eos % (Auto) 0.1 % (.) 08/10/22 11:50 Baso % (Auto) 0.6 % (.) 08/10/22 11:50 Nucleat RBC Rel Count 0.1 /100 WBC (0-0.5) 08/10/22 11:50 Neut # (Auto) 5.4 x10E3/uL (1.8-7.7) 08/10/22 11:50 Lymph # (Auto) 1.3 x10E3/uL (1.00-4.8) 08/10/22 11:50 Creek # (Auto) 0.5 x10E3/uL (0.0-0.8) 08/10/22 11:50 [...] pH 6.5 (5.0-9.0) 08/10/22 12:06 Ur Specific [place] 1.034 (1.001-1.030) H 08/10/22 12:06 Urine Protein [...] <Electronically signed by Jamison Norton DO> 08/10/22 3948 [facility] Work Phone: Consult note Author Beckie Claire [facility] August 11, 2022 2:38pm Note Date/Time August 11, 2022 2:3 8pm [facility] [address] [place] [address] Psychiatry Consult Note Signed Patient: Lesley Adams MR#: [id number] : 1990 Acct:[id number] Age/Sex: 31 / M Adm Date: 3 Loc: Room: [address] [place] [address] Type : ADM IN Attending Dr: Jamison [...] hosptialzied before due to depression at a [facility] in [place], [place]. He does not feel that Seroquel [...] Appearance Clear Urine pH 6.5 Ur Specific [place] 1.034 H Urine Protein 30 H Urine [...] of fentanyl, heroin, Xanax. I will recommend [facility] protocol for monitoring benzo withdrawal Increase Seroquel dose to 50 mg 3 times daily Begin gabapentin taper for adjunctive treatment 300 mg 3 times daily. Second day 200 mg 3 times daily. Third day 100 mg 3 times daily. Continue to monitor mental status Risk benefits alternatives explained Should benefit from outpatient treatment. Schedule with [facility] within 5 days of discharge. Thank you for the consult. Documented By: Master Claire MD 3 1205 Signed By: <Electronically signed by Master Claire MD> 08/11/22 1438 [facility] Work Phone: Consult note Author Ryland Medrano [facility] August 14, 2022 1:56pm Note Date/Time August 14, 2022 10:5 0am [facility] [address] [place] [address] Neurology Consult Note Signed Patient: Lesley Adams MR#: [id number] : 1990 Acct:[id number] Age/Sex: 31 / M Adm Date: 3 Loc: Room: [address] [place] [address] Type: ADM IN Attending Dr: Leonora Bruce MD Copies to: Ryland Medrano, DO NO FAMILY PHYSICIAN Leonora Bruce MD~ HPI Consult Date: 08/14/22 Chaplain Resident: Ryland Medrano, DO PMFSH Vaccinated for COVID-19?: Unknown Medical History (Updated 08/11/22 @ 14:36 by Beckie Claire MD) Bipolar 1 disorder Depression Insomnia Surgical History (Updated 08/10/22 @ 11:45 by Brynn Traczek, RN) No pertinent past surgical history Family [...] Demetrio Tello M.D.08/11/2022 1:04 PM Dictation Location: [place] [address] Assessment/Plan (1) Major depressive disorder, recurrent, moderate: Assessment/Problem Details: CONSULT REASON: Tremors, concern for seizures, hallucinations HPI: 31-year-old man. History of cardiac arrest related to overdose. Reported abuseof heroin and alprazolam and may be abusing methadone. [facility], and he [...] Could be toxic?metabolic. 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 Routine EEG was normal. Head CT [...] signed by Ryland Medrano DO> 08/14/22 1356 [facility] Work Phone: Evaluation note* Diagnosis Onset Date Resolution Status Withdrawal from benzodiazepine acute Withdrawal from opioids [facility] Work Phone: Evaluation note* Diagnosis Onset Date Resolution Status Major depressive disorder, recurrent, moderate acute Withdrawal from benzodiazepine acute Withdrawal from opioids [facility] Work Phone: Evaluation note* Diagnosis Onset Date Resolution Status Major depressive disorder, recurrent, moderate acute Withdrawal from benzodiazepine acute Withdrawal from opioids acut e Abnormal thyroid blood test acute Heroin use acute Major depressive disorder, recurrent, moderate acute Withdrawal from benzodiazepine acute Withdrawal from opioids acut e [facility] Work Phone: History and physical note Author Jamison Norton [facility] August 10, 2022 6:52pm Note Date/Time August 10, 2022 6:5 0pm [facility] [address] [place] [address] Hospitalist H&P Signed with Addenda Patient: Lesley Adams MR#: [id number] : 1990 Acct:[id number] Age/Sex: 31 / M Adm Date: 3 Loc: Room: [address] [place] [address] Type: ADM IN Attending Dr: Jamison Norton [...] earlier today from a rehab facility in [place]. He was reportedly there detoxing from either [...] undetectable. The patient was admitted to the [facility] floor for further management and treatment [...] % (Auto) 17.7 % (.) 08/10/22 11:50 Creek % (Auto) 7.1 % (.) 08/10/22 11:50 Eos % (Auto) 0.1 % (.) 08/10/22 11:50 Baso % (Auto) 0.6 % (.) 08/10/22 11:50 Nucleat RBC Rel Count 0.1 /100 WBC (0-0.5) 08/10/22 11:50 Neut # (Auto) 5.4 x10E3/uL (1.8-7.7) 08/10/22 11:50 Lymph # (Auto) 1.3 x10E3/uL (1.00-4.8) 08/10/22 11:50 Creek # (Auto) 0.5 x10E3/uL (0.0-0.8) 08/10/22 11:50 [...] pH 6.5 (5.0-9.0) 08/10/22 12:06 Ur Specific [place] 1.034 (1.001-1.030) H 08/10/22 12:06 Urine Protein [...] signed by Jamison Norton DO> 08/10/22 1850 [facility] Work Phone: Hospital Discharge instructionsAmbulatory Orders* DME Home Medical Equipment Time Frame: 1 Day, Location: Determined By Patient Additional Instructions No driving until [facility] Work Phone: Hospital Discharge instructions Additional Instructions Patient needs to have TSH and free T4 done in approximately 3 months results to primary care Regular diet No activity [facility] Work Phone: InstructionsNot on filedocumented in this encounter [facility] CenterSOAMAILake View [facility] SystemProgress note Author Jamison Norton [facility] August 11, 2022 12:26pm Note Date/Time August 11, 2022 12: 26pm [facility] [address] [place] [address] Event Note Signed Patient: Lesley Adams MR#: [id number] : 1990 Acct:[id number] Age/Sex: 31 / M Adm Date: 3 Loc: 3T Room: [address] [place] [address] Type: ADM IN Attending Dr: Jamison Norton [...] order EEG. Documented By: Jamison Norton DO 08/11/22 12 22 Signed By: <Electronically signed by Jamison Norton DO> 08/11/22 1226 [facility] Work Phone: Progress note Author Jamison Norton [facility] August 12, 2022 2:25pm Note Date/Time August 12, 2022 2:25 pm [facility] [address] [place] [address] Hospitalist Progress Note Signed Patient: Lesley Adams MR#: [id number] : 1990 Acct:[id number] Age/Sex: 31 / M Adm Date: 3 Loc: Room: [address] [place] [address] Type: ADM IN Attending Dr: Jamison Norton [...] <Electronically signed by Jamison Norton DO> 08/12/[address] [place] [address] Work Phone: Progress note Author Jamison Norton [facility] August 12, 2022 2:25pm Note Date/Time August 12, 2022 2:26 pm [facility] [address] [place] [address] Hospitalist Progress Note Signed Patient: Lesley Adams MR#: [id number] : 1990 Acct:[id number] Age/Sex: 31 / M Adm Date: 3 Loc: Room: 3Z7146-4 Type: ADM IN Attending Dr: Jamison Norton [...] <Electronically signed by Jamison Norton DO> 08/12/22 8365 [facility] Work Phone: Progress note Author Jamison Norton [facility] August 13, 2022 5:21pm Note Date/Time August 13, 2022 5:22 pm [facility] [address] [place] [address] Hospitalist Progress Note Signed Patient: Lesley Adams MR#: [id number] : 1990 Acct:[id number] Age/Sex: 31 / M Adm Date: 3 Loc: Room: [address] [place] [address] Type: ADM IN Attending Dr: Jamison Norton [...] signed by Jamison Norton DO> 08/13/22 1721 [facility] Work Phone: Progress note Author Leonora Bruce [facility] August 14, 2022 11:46am Note Date/Time August 14, 2022 11:4 3am [facility] [address] [place] [address] Hospitalist Progress Note Signed Patient: Lesley Adams MR#: [id number] : 1990 Acct:[id number] Age/Sex: 31 / M Adm Date: 3 Loc: Room: 1X2686-1 Type: ADM IN Attending Dr: Leonora Bruce [...] signed by Leonora Bruce MD> 08/14/22 1146 [facility] Work Phone: Summary Purpose Family History Relationship Condition Age at Onset Recorded Date/T siri father Aneurysm Unknown sister Aneurysm Unknown Advance Directives Advance Directive Response Recorded Date/ Time Advance Directives No August 10, 2 023 2:16pm Chief Complaint and Reason for [...] and content) DATE CREATED AUTHOR 05/19/2021 [facility] DATE CREATED AUTHOR AUTHOR'S ORGANIZ ATION 09/20/[address] [facility] DATE CREATED AUTHOR AUTHOR'S ORGANIZ ATION 09/21/2022 [facility] DATE CREATED AUTHOR AUTHOR'S ORGANIZ ATION 01/12/2024 [facility] Care Teams (unrecognized sec tion and [...] , DO Other Provider Active Ramona Hairston , ANP-BC Other Provider Active Ryland Medrano , DO Other Provider Active Sandy Lynne APRN Other Provider Active Christine Alvarado RECTIFYING OPERATOR-C Other Provider Active Leonora Bruce MD Attending [...] Active Beckie Claire MD Attending Provider Active Automation Sales Manager Relationship Specialty Start Date End Date No Pcp, [place] [address] PCP - General Family Medicine 08/09/22 Goals (unrecognized section and content) Goals may be documented in a n alternate sectionNot on filedocumented as of this encounter Reason for Visit (unrecogniz ed section and content) Reason Onset Date Comments attribution outreach 08/27/2023 FOR RECORDS PERTAINING TO PATIENTS WHO ARE [...] BE BASED ON THE PRIMARY CLINICAL RECORDS. [facility]. provides no warranty or guarantee of the accuracy or completeness of information in this document.
[2024-06-23 23:52] VITALS: BP 144/74; PULSE 99; TEMP 36.8; O2SAT 100; BMI 20.9
--- NOTE | 2024-06-24 00:29 | XR_ITS ---
The [address] [address] Patient Name: LESLEY URIAS MRN: [id number] date: 1990 Sex: M Assigned Patient Location: ER Current Patient Location: Accession/Order Number: [id number] Exam Date: 06/24/2024 00:50 Report Date: 06/24/2024 02:38 At the request of: DREA NINO Procedure: XR lumbar spine 2-3V EXAM: XR lumbar spine 2-3V HISTORY: Atraumatic pain . The patient stood from a seated position with sudden sharp pain extending from left lower leg into left lower back followed by stiffness. COMPARISON: CT lumbar spine, 06/01/2013. TECHNIQUE: AP and lateral lumbar spine x-rays. FINDINGS: No acute lumbar spine injury is seen. Mild chronic anterior compression deformity involving the superior endplate of L3 is unchanged. Remaining lumbar vertebral bodies are normal in height. The lumbar spine is normally aligned. Disc spaces are maintained. The sacrum and sacroiliac joints appear intact. XR/XR lumbar spine 2-3V IMPRESSION: No acute lumbar spine findings. Electronically authenticated by: CAMMIE CORBIN Date: 06/24/2024 02:38
--- NOTE | 2024-06-24 00:30 | ED.BACK1 ---
HPI HPI - Back Pain/Injury General Chief Complaint: Back Pain/Injury Stated Complaint: BACK PAIN Time Seen by Provider: 06/23/24 23:39 Source: patient Mode of arrival: walk-in Limitations: no limitations History of Present Illness HPI Narrative: 33-year-old male presents for back pain. It is in his left lower back and goes down his left leg. There was no injury or heavy lifting. No dysuria or hematuria. No weakness or numbness. It started today when he was at work. He does not do any heavy lifting at work. Related Data Previous Rx's ?Medication ?Instructions ?Recorded methocarbamol 750 mg tablet 750 mg PO Q8H #20 tabs 06/24/24 prednisone 10 mg tablet See Rx Instructions .Route 06/24/24 .COMPLEX #30 tabs Allergies Allergy/AdvReac Type Severity Reaction Status Date / Time sublicade Allergy Hives Uncoded 06/23/24 23:56 Opioid HPI Opioid Management Most Recent Opioid Data: No Data to Display Review of Systems ROS Narrative A ten point review of systems is negative except as noted above. PFSH PFSH Social History Little interest or pleasure in doing things: not at all Feeling down, depressed, or hopeless: not at all Exam Narrative Exam Narrative: Nurses note and vital signs reviewed and patient is not hypoxic. General: The patient appears well and in no apparent distress. Patient is resting comfortably on cart, sitting up. Skin: Warm, dry, no pallor noted. There is no rash noted. Head: Normocephalic, atraumatic Eye: Normal conjunctiva, no drainage Ears, Nose, Mouth, and Throat: oral mucosa is moist. Nares patent. Cardiovascular: Regular Rate and Rhythm Respiratory: Patient is in no distress, no accessory muscle use, lungs are clear to auscultation, no wheezing, rales or rhonchi Back: No bruise rash or palpable tenderness. GI: Soft and nontender Musculoskeletal: The patient has no evidence of calf tenderness, no pitting edema, symmetrical pulses noted bilaterally Neurological: A&O, normal speech; motor strength is symmetric and intact in his lower extremities Psychiatric: Cooperative Constitutional Vital Signs, click to edit/add: Last Vital Signs Temp 98.2 F 06/23/24 23:52 Pulse 99 H 06/23/24 23:52 Resp 16 06/23/24 23:52 BP 144/74 H 06/23/24 23:52 Pulse Ox 100 06/23/24 23:52 Course Vital Signs Vital signs: Vital Signs Temperature 98.2 F 06/23/24 23:52 Pulse Rate 99 H 06/23/24 23:52 Respiratory Rate 16 06/23/24 23:52 Blood Pressure 144/74 H 06/23/24 23:52 Pulse Oximetry 100 06/23/24 23:52 Temperature 98.2 F 06/23/24 23:52 Pulse Rate 99 H 06/23/24 23:52 Respiratory Rate 16 06/23/24 23:52 Blood Pressure 144/74 H 06/23/24 23:52 Pulse Oximetry 100 06/23/24 23:52 MDM - Back Pain/Injury MDM Narrative Medical decision making narrative: UA is negative and lumbar films on my interpretation showed no acute findings. He will be treated with prednisone and Robaxin. Treatment diagnosis and follow-up were discussed with the patient. Differential Diagnosis Differential diagnosis: Likely lumbar radiculopathy, sciatica and strain of lumbar region Lab Data Attestation: I reviewed the patient's lab results. Labs: Lab Results 06/24/24 Range/Units 01:15 Urine Color Yellow (YELLOW) Urine Clarity Clear (CLEAR) Urine pH 5.5 (5.0-9.0) Ur Specific [place] >=1.030 A (1.005-1.025) Urine Protein Negative (NEG/TRACE) mg/dL Urine Glucose (UA) Negative (NEGATIVE) mg/dL Urine Ketones Negative (NEGATIVE) mg/dL Urine Occult Blood Negative (NEGATIVE) Urine Nitrite Negative (NEGATIVE) Urine Bilirubin Negative (NEGATIVE) Urine Urobilinogen 0.2 (0.2-1.0) EU/dL Ur Leukocyte Esterase Negative (NEGATIVE) Imaging Data Lumbar x-ray: My impression: No acute findings Discharge Plan Discharge Chief Complaint: Back Pain/Injury Clinical Impression: Low back pain Patient Disposition: Home, Self-Care Time of Disposition Decision: 01:45 Condition: Good Mode of Transportation: Private Vehicle Prescriptions / Home Meds: New prednisone 10 mg tablet See Rx Instructions .ROUTE .COMPLEX Qty: 30 0RF Rx Instructions: 4 by mouth daily for three days then 3 by mouth daily for three days then 2 by mouth daily for three days then 1 by mouth daily for three days methocarbamol 750 mg tablet 750 mg PO Q8H Qty: 20 0RF Print Language: Amharic Instructions: Acute Low Back Pain (ED) Referrals: Physician,Non-Staff, MD [Primary Care Provider] - 1 week
[2024-06-24 01:39] LABS: Bilirubin Urine NEGATIVE (NEGATIVE); Blood Urine NEGATIVE (NEGATIVE); Clarity Urine CLEAR (CLEAR); Color Urine YELLOW (YELLOW); Glucose Urine UA NEGATIVE (NEGATIVE); Ketones Urine NEGATIVE (NEGATIVE); Leukocyte Esterase Urine NEGATIVE (NEGATIVE); Nitrite Urine NEGATIVE (NEGATIVE); Protein Urine NEGATIVE (NEG/TRACE); Specific Gravity Urine >=1.030 (1.005-1.025); Urobilinogen Urine 0.2 EU/dL (0.2-1.0); pH Urine 5.5 (5.0-9.0)
[2024-06-24 01:48] LABS: Bacteria Urine NONE SEEN #/HPF (NONE SEEN); Cast Seen? NONE SEEN #/LPF (NONE SEEN); Crystals Seen? None Seen #/HPF (None Seen); Mucus Urine LARGE (NONE SEEN); RBC Urine 0-2 #/HPF (0-2); Squamous Epithelial Cell Urine NONE SEEN #/LPF (NONE/RARE); Urine Culture Indicated NO; WBC Urine 0-2 #/HPF (NONE SEEN)
== END 2024-06-24 02:02 | disposition home or self-care (01) ==
PROVIDERS: Emergency Provider Emergency Medicine
DX: M54.50 Low back pain, unspecified (principal)
CPT/HCPCS: 72100; 81001; 99284